=== PATIENT | male | born 1940 | race Caucasian/White ===

== ENCOUNTER → 2016-04-09 | Outpatient (CLI) | payer OTHER ==
[~2016-04-09] MED LIST: ASPI-435 PO; ASPI325T45 PO; ASPI81TA28 PO; ATEN-173 PO; B-COTAB18; CHOL400T5 PO; CLR10 PO; EZET10TA63 PO; FERRTAB18 PO; FLUT0.0529; FLUT0.15 NAE; GABA-112 PO; MISCCAP80 PO; NTRSLP4 SL; OMEG10007 PO; PLV75 PO; PRT40 PO; PSYL1POW4; azo; vitamin D
[2016-04-09 13:09] VITALS: BP 133/78; PULSE 74; TEMP 36.6; O2SAT 96
--- NOTE | 2016-04-09 15:03 | Radiation Oncology Follow-Up ---
Radiation Oncology Follow-Up Date of Visit Apr 09, 2016. (Tess Mane PA-C) Reason For Visit One-month follow-up (Tess Mane PA-C) Radiation Completion Date finished IMRT / IGRT 03-08-2016 (Tess Mane PA-C) Diagnosis (1) Prostate cancer Status: Resolved Permanent Comment: DIAGNOSIS: Prostate, adenocarcinoma, eleni 3 + 4, PSA 6.75 , cT1c, group IIA Prostate gland size: 30 cc TREATMENT: 1. Initiation of Hormonal suppression, Lupron 22.5 mg 11/08/2015 2. Last Lupron 22.5 mg IM 02/29/2016 3. Status post completion of IMRT/IGRT 03/08/2016 received 8100 cGy Last Edited By: Tess Mane on Apr 09, 2016 15:18 (Tess Mane PA-C) History of Present Illness Mr. Singletary is a 75-year-old gentleman who was recently diagnosed with prostate cancer. His PSA has slowly risen over the last several years: 4.78 - 06/29/2012 , 6.51 - 05/19/2013, 6.75 - 06/16/2015. He was referred from his primary care physician to Dr. Marlena Finch. Dr. Finch discuss treatment options and recommended transrectal ultrasound-guided biopsy of the prostate. He underwent a transrectal ultrasound guided biopsy on 09/24/2017 which revealed a 30 cc prostate gland. Pathology revealed prostate adenocarcinoma in 6/13 cores with Eleni 3+4 disease. No perineural invasion was identified. Dr. Finch to discuss treatment options with the patient and we are now seeing the patient in consultation to discuss the role of radiation therapy. Currently, the patient is doing relatively well overall. He does have significant urinary obstructive symptoms and his IPSS score is 19/35. His EPIC QOL score is 5/60. He states he is not sexually active currently. He denies any history of TURP. He denies any history of rectal hemorrhoids. He denies any history of inflammatory bowel disease. He had gold fiducial markers placed. He underwent IMRT/IGRT. This was completed 03/08/2016. He received 8100 cGy. (Tess Mane PA-C) Interim History He's been doing well over this past month. He continues to have urinary symptoms. He feels that his urinary status is similar his usual baseline. He gave a high AUA score 32. He completed an expected prostate cancer index composite for clinical practice and gave a score of 3 of 12 and urinary incontinence symptoms. He gave a score of 8 of 12 and urinary irritation symptoms. He gave a score of one of 12 and bowel symptoms. He gave a score 8 of 12 and sexual symptoms. He gave a score of 212 and hormonal vitality symptoms. His total was 22 of 60. He has continued on Azo since the completion of treatment. He is no longer having dysuria or pain with urination. We discussed discontinuing the Azo. He completed 2 Lupron injections. These were 22.5 mg. He feels this has increased his appetite and therefore he has gained weight. He has had issues with neuropathy in his legs. This is being followed by his primary care physician. He is trying different supplements to help the discomfort especially of his right leg. He is planning on seeing Dr. Finch in July. (Tess Mane PA-C) Allergies Coded Allergies: No Known Allergies (Unverified , 12/01/15) Home Medications Scheduled Atenolol (Tenormin), 12.5 MG PO QPM B-Complex Vitamins (Vitamin B Complex), DAILY Ezetimibe (Zetia), 10 MG PO 3XWK Fish Oil ([place]-3), 2 CAP PO QAM Fluticasone Propionate (Nasal) (Flonase), 2 SPRAYS NA QAM Iron-Vitamin C (Vitron-C), 1 TAB PO DAILY Loratadine (Claritin), 10 MG PO DAILY Probiotic Product (Probiotic), 2 CAP PO DAILY [azo], 1 CAP BID [vitamin D], 1,600 UNITS DAILY Scheduled PRN Aspirin (Aspirin), 650 MG PO Q4 PRN for Moderate Pain Review of Systems Gastrointestinal: Symptoms: WNL Oral: Symptoms: No Problems Respiratory: Symptoms: WNL Urinary: Symptoms: Nocturia Comments: nocturia times 1-2, urgency, trouble starting stream Skin: Other Skin Symptoms: "itchy areas legs in the winter " (Tess Mane PA-C) Physical Exam Vital Signs Date Time Temp Pulse Resp B/P Pulse Ox O2 Delivery O2 Flow Rate FiO2 04/09/16 13:09 36.6 74 16 133/78 96 Pain: Pain Onset: February 2016 Side: Right Patient Pain Scale: 0 - 10 Initial Pain Intensity: 0.0 Pain Description: Dull, Aching Additional Comments: gets worse at times General Appearance: no apparent distress Eyes: normal inspection, EOMI ENT: normal ENT inspection, hearing grossly normal Respiratory/Chest: lungs clear, no respiratory distress, no accessory muscle use Cardiovascular: regular rate, rhythm, no gallop, no murmur Extremities: no pedal edema Neurologic/Psychiatric: no motor/sensory deficits, alert, normal mood/affect Skin: warm/dry Lymphatic: no adenopathy (Tess Mane PA-C) Laboratory Studies Test 01/29/16 18:20 Blood Urea Nitrogen 16 mg/dl (7-18) Creatinine 0.84 mg/dl (0.60-1.40) Estimated GFR () 98.6 Estimated GFR (Non- 85.1 (Tess Mane PA-C) Assessment & Plan Plan: Patient is also seen today by Dr. Jones. We discussed stopping the AZO. He is no longer having urinary discomfort or bladder pressure. He does have increased appetite and weight gain. We reviewed that this is due to the hormone suppression. This will continue until the medication is out of his system. He had the last injection on 02/29/2016. He has neuropathy which is being followed by his primary care physician. We discussed follow-up PSA. He wished to have this evaluated at his next visit with Dr. Finch. He is going to see her in July. We asked him to return to our office in 6 months. He may call if he has the questions or concerns in the interim. (Tess Mane PA-C) I agree with note created by Tess Mane PA-C. I reviewed the patient's chart and information with her. I have examined and evaluated the patient. I reviewed relevant clinical information and answered the patient's and/or family' s questions. (Veeral. Jones MD) Total Time In Follow-Up I spent 20 minutes speaking to the patient performing examination. I spent 15 minutes reviewing information in completing this note. (Tess Mane PA-C) I spent 15 minutes examining and counseling the patient. (Veeral. Jones MD) Copy To Patricia Paez M.D.; Marlena Finch .,
== END | disposition home or self-care (01) ==
LOC: C.ONC 13:05
PROVIDERS: ATTEND Radiology Radiation Oncology
DX: Z08 Encounter for follow-up examination after completed treatment for malignant neoplasm (principal); Z92.3 Personal history of irradiation; Z85.46 Personal history of malignant neoplasm of prostate

== ENCOUNTER 2016-07-05 10:55 | Observation (INO) | payer OTHER ==
[~2016-07-05] VITALS: Ht 175.3 cm; Wt 69.0 kg
[2016-07-05] VITALS (7 sets, daily range): BP systolic 114–152; BP diastolic 55–77; PULSE 50–66; TEMP 36.5–37; O2SAT 94–97; Ht 175.3 cm; Wt 69.0 kg
[~2016-07-05 10:55] MED LIST changes: -ASPI-435 PO; -ASPI81TA28 PO; -CHOL400T5 PO; -FLUT0.15 NAE; -GABA-112 PO; -NTRSLP4 SL; -PLV75 PO; -PRT40 PO; -PSYL1POW4
[2016-07-05] MEDS ORDERED: NITROGLYCERIN OINT 2% 1GM PACKET EXT STA (11:31)
[2016-07-05] MEDS ORDERED: CHOL400T5 PO (11:31)
[2016-07-05] MEDS ORDERED: FLUT0.15 NAE (11:31)
[2016-07-05] MEDS ORDERED: SODIUM CHLORIDE 0.9% 1000ML 500 ML IV STA (11:31)
[2016-07-05] MEDS ORDERED: ASPI81TA28 PO (11:31)
[2016-07-05] MEDS ORDERED: GABA-112 PO (11:31)
[2016-07-05 11:51] LABS: HEMATOCRIT 37.6 % (42-52); MEAN CELL VOLUME 91.9 fL (80-100); MEAN CORPUSCULAR HGB CONC 35.9 g/dl (32-36); MEAN PLATELET VOLUME 8.4 fL (7.4-10.4); PLATELET COUNT 145 K/uL (130-400); RED BLOOD COUNT 4.09 M/uL (4.7-6.1); WHITE BLOOD COUNT 3.09 K/uL (4.8-10.8)
[2016-07-05 12:00] LABS: PROTHROMBIN TIME (PATIENT) 10.5 SECONDS (9.0-12.0)
--- NOTE | 2016-07-05 12:11 | DIAGNOSTIC IMAGING REPORT ---
CHEST ONE VIEW PORTABLE CLINICAL HISTORY: Atypical chest pain COMPARISON STUDY: 11/28/2015 FINDINGS: There are postsurgical changes of a midline sternotomy. The heart is the upper limits of normal in size. There is no failure. There is no focal pulmonary consolidation. No pleural effusions are visualized.[ IMPRESSION: No active disease in the chest. Electronically signed by: Edgar Mahoney M.D. 07/05/2016 12:09 PM Dictated Date/Time: 07/05/2016 12:09 PM
[2016-07-05 12:15] LABS: BUN/CREATININE RATIO 17.7 (10-20); CALCIUM 8.7 mg/dl (8.5-10.1); CREATININE 0.87 mg/dl (0.60-1.40); POTASSIUM 4.3 mmol/L (3.5-5.1)
[2016-07-05 12:24] LABS: ALB/GLOB RATIO 1.1 (0.9-2)
--- NOTE | 2016-07-05 12:29 | EMERGENCY ROOM VISIT NOTE ---
History Report prepared by Clau: Merly Gomez Under the Supervision of: Dr. Michael To M.D. First contact with patient: 11:26 Chief Complaint: CARDIAC ASSESSMENT Stated Complaint: BURNING IN BACK OF THROAT,BURNING IN BACK OF JAWS Nursing Triage Summary: c/o burning in chest since friday for the past 6 days and the burning goes into his jaw bilaterally no SOB got worse today on his way to work History of Present Illness The patient is a 76 year old male who presents to the Emergency Room with complaints of intermittent burning in his chest starting one week ago. He rates his discomfort as a 4/10 in severity. One week ago he was at a wedding in [place]. On the drive home he began to experience this burning in his chest for the duration of the [address]. He initially attributed his pain to anxiety and excitement from the wedding. He presents to the ED today after the burning persists and spreads into the sides of his head around his ears. He reports nothing that improves or worsens his symptoms. He denies any SOB or nausea. He has some diaphoresis which he attributes to his medications. He had a triple bypass in 2003. He had a stress test several years ago which was normal. He does not have Nitro at home. He has had reflux intermittently, but this pain feels different. He had been taking baby aspirin everyday. He has been taking ibuprofen frequently for his restless leg syndrome. Source of History: patient Onset: 1 week ago Position: chest Symptom Intensity: 4/10 Quality: burning Timing: intermittent Associated Symptoms: + diaphoresis, No SOB, No nausea Note: Pt reports pain in the sides of his head around the ears. Review of Systems See HPI for pertinent positives & negatives. A total of 10 systems reviewed and were otherwise negative. Past Medical & Surgical Medical Problems: (1) CAD (coronary artery disease) (2) CVA (cerebral vascular accident) (3) Dyslipidemia (4) ESBL (extended spectrum beta-lactamase) producing bacteria infection (5) IBS (irritable bowel syndrome) (6) Prostate cancer (7) Statin intolerance (8) UTI (urinary tract infection) Surgical Problems: (1) History of cholecystectomy (2) History of coronary artery bypass graft x 3 (3) S/p seed implant to prostate (4) Stented coronary artery Family History Diabetes mellitus FH: CAD (coronary artery disease) MOTHER FHx: brain cancer FATHER Hypertension Kidney stones Social History Smoking Status: Current Some Day Smoker Alcohol Use: occasionally Drug Use: none Marital Status: single Housing Status: lives alone Occupation Status: employed Current/Historical Medications Scheduled Aspirin (Aspirin Ec), 81 MG PO DAILY Atenolol (Tenormin), 12.5 MG PO QPM Cholecalciferol (Vitamin D), 1 TAB PO DAILY Ezetimibe (Zetia), 10 MG PO 3XWK Fish Oil ([place]-3), 2 CAP PO QAM Fluticasone Propionate (Nasal) (Flonase Allergy Relief), 2 SPRAYS CHRISTINE QAM Gabapentin (Neurontin), 200 MG PO HS Loratadine (Claritin), 10 MG PO DAILY Probiotic Product (Probiotic), 2 CAP PO DAILY Allergies Coded Allergies: No Known Allergies (Unverified , 12/01/15) Physical Exam Vital Signs Date Time Temp Pulse Resp B/P Pulse Ox O2 Delivery O2 Flow Rate FiO2 07/05/16 14:09 59 18 150/84 95 Room Air 07/05/16 12:54 57 18 149/82 97 Room Air 07/05/16 12:45 97 Room Air 07/05/16 12:29 58 18 149/77 96 Room Air 07/05/16 12:01 62 07/05/16 11:48 60 18 137/91 96 Room Air 07/05/16 11:35 97 Room Air 07/05/16 11:16 97 Room Air 07/05/16 11:02 36.6 68 20 168/81 97 Physical Exam GENERAL: Patient is in no acute distress. HEENT: No acute trauma, normocephalic atraumatic, mucous membranes moist, no nasal congestion, no scleral icterus. NECK: No stridor, no adenopathy, no meningismus, trachea is midline. LUNGS: Clear to auscultation bilaterally, no wheeze, no rhonchi, breath sounds equal. HEART: Without murmurs gallops or rubs, regular rate and rhythm. ABDOMEN: Soft, nontender, bowel sounds positive, no hernias, no peritonitis. EXTREMITIES: No cyanosis or edema, full range of motion of all the joints without pain or difficulty, no signs for acute trauma. NEUROLOGIC: Oriented x 3, no acute motor or sensory deficits, no focal weakness. SKIN: No rash, no jaundice, no diaphoresis. Medical Decision & Procedures ER Provider Diagnostic Interpretation: X-ray results as stated below per interpretation by me and the radiologist: CHEST ONE VIEW PORTABLE CLINICAL HISTORY: Atypical chest pain COMPARISON STUDY: 11/28/2015 FINDINGS: There are postsurgical changes of a midline sternotomy. The heart is the upper limits of normal in size. There is no failure. There is no focal pulmonary consolidation. No pleural effusions are visualized.[ IMPRESSION: No active disease in the chest. Electronically signed by: Edgar Mahoney M.D. 07/05/2016 12:09 PM Dictated Date/Time: 07/05/2016 12:09 PM Laboratory Results 07/05/16 11:39 07/05/16 11:39 Test 07/05/16 11:39 Red Blood Count 4.09 M/uL (4.7-6.1) Mean Corpuscular Volume 91.9 fL (80-100) Mean Corpuscular Hemoglobin 33.0 pg (25-34) Mean Corpuscular Hemoglobin Concent 35.9 g/dl (32-36) RDW Standard Deviation 44.5 fL (36.4-46.3) RDW Coefficient of Variation 13.2 % (11.5-14.5) Mean Platelet Volume 8.4 fL (7.4-10.4) Prothrombin Time 10.5 SECONDS (9.0-12.0) Prothromb Time International Ratio 1.0 (0.9-1.1) Activated Partial Thromboplast Time 25.5 SECONDS (21.0-31.0) Partial Thromboplastin Ratio 1.0 Anion Gap 5.0 mmol/L (3-11) Est Creatinine Clear Calc Drug Dose 64.1 ml/min Estimated GFR () 96.5 Estimated GFR (Non- 83.2 BUN/Creatinine Ratio 17.7 (10-20) Calcium Level 8.7 mg/dl (8.5-10.1) Total Bilirubin 1.0 mg/dl (0.2-1) Aspartate Amino Transf (AST/SGOT) 25 U/L (15-37) Alanine Aminotransferase (ALT/SGPT) 27 U/L (12-78) Alkaline Phosphatase 68 U/L (45-117) Troponin I 0.064 ng/ml (0-0.045) Total Protein 6.7 gm/dl (6.4-8.2) Albumin 3.5 gm/dl (3.4-5.0) Globulin 3.2 gm/dl (2.5-4.0) Albumin/Globulin Ratio 1.1 (0.9-2) Lipase 209 U/L (73-393) Laboratory results reviewed by me. Medications Administered Medications (Trade) Dose Ordered Sig/Roberto Route Start Time Stop Time Status Last Admin Dose Admin Sodium Chloride (Nss 1000ml) 500 ml @ 999 mls/hr Q31M STAT IV 07/05/16 11:31 07/05/16 12:01 DC 07/05/16 11:31 999 MLS/HR Nitroglycerin (Nitroglycerin 2% Oint) 0.5 inch NOW STAT EXT 07/05/16 11:31 07/05/16 11:35 DC 07/05/16 11:49 0.5 INCH ECG Indication: chest pain Rate (beats per minute): 61 Rhythm: normal sinus Findings: no acute ischemic change, no ectopy ED Course 1129: The patient was evaluated in room C4. A complete history and physical exam was performed. 1131: Nitroglycerin 0.5 inch EXT, NSS 500 ml @ 999 mls/hr IV. 1233: I discussed the patient's case with Karolina Smart PA-C [facility] hospitalist service. The patient will be evaluated for further management. 1235: Upon reexamination the patient is resting comfortably. I discussed results and treatment plan with the patient. He verbalizes agreement and understanding. The patient will be evaluated for further management. Medical Decision Differential diagnoses: angina, AR, reflux, aortic disease, PE, anemia, electrolyte imbalance. There is no leukocytosis or concerning anemia. No significant electrolyte abnormality, kidney failure, hepatitis or coagulopathy. EKG shows a normal sinus rhythm, no acute ischemia. Cardiac enzyme testing times one does show a slight elevation to the troponin-this could be consistent with cardiac injury/ strain. Chest x-ray shows no pneumonia, mediastinal widening or pneumothorax. The patient was given nitro paste. He does take daily aspirin so no additional aspirin was given. He was given a small amount of IV saline. With the patient's description of pain, his past cardiac history, the troponin elevation, admission/observation is warranted. I spoke to the patient and case management. The on-call hospitalist was consulted. Consults Time Called: 1224 Consulting Physician: [facility] Returned Call: [phone] Discussed the patient's case. The patient will be evaluated for further management. Impression Primary Impression: Precordial chest pain Additional Impression: Elevated troponin Scribe Attestation The scribe's documentation has been prepared under my direction and personally reviewed by me in its entirety. I confirm that the note above accurately reflects all work, treatment, procedures, and medical decision making performed by me. Departure Information Dispostion Being Evaluated By Hospitalist Referrals Patricia Paez M.D. (PCP) Patient Instructions [facility] Problem Qualifiers
[2016-07-05] MEDS ORDERED: ONDANSETRON INJ 2 MG/ML 2 ML VIAL IV PRN (13:30)
--- NOTE | 2016-07-05 14:38 | History and Physical ---
History & Physical Date & Time of Service: Jul 05, 2016 at 14:29 Chief Complaint: Burning In Back Of Throat,Burning In Back Of Jaws Primary Care Physician: Patricia Paez M.D. History of Present Illness Source: patient, clinic records, hospital records Patient seen and examined. 76 year old male with PMHx of CAD s/p CABG, prostate CA presents to the ED complaining of chest pain x 1 week. Patient reports that on Friday he developed this burning in his upper chest with radiation into the throat and jaw. He states it lasted for about three hours. He states since then it has been coming and going randomly and lasting a variable amount of time. He states that it is not associated with exertion. He denies associated symptoms including fevers, chills, URI symptoms, palpitations, SOB, nausea, vomiting, diarrhea, dysuria, calf pain and edema. States this is different than any acid reflux he has ever had. In the ED VS are stable, EKG is unchanged, CXR is negative. Troponin is 0.06. He received nitropaste and is resting comfortably. He will be observed for further workup and treatment. Past Medical/Surgical History Medical Problems: (1) CAD (coronary artery disease) Permanent Comment: s/p CABG x 3 (2003) and stent (1989) Status: Chronic (2) Dyslipidemia Status: Chronic (3) IBS (irritable bowel syndrome) Status: Chronic (4) Prostate cancer Permanent Comment: DIAGNOSIS: Prostate, adenocarcinoma, eleni 3 + 4, PSA 6.75 , cT1c, group IIA Prostate gland size: 30 cc TREATMENT: 1. Initiation of Hormonal suppression, Lupron 22.5 mg 11/08/2015 2. Last Lupron 22.5 mg IM 02/29/2016 3. Status post completion of IMRT/IGRT 03/08/2016 received 8100 cGy Status: Resolved (5) Statin intolerance Status: Chronic Surgical Problems: (1) History of cholecystectomy Permanent Comment: 06/21/13 Dr. Cooley at [facility] Status: Resolved (2) History of coronary artery bypass graft x 3 Permanent Comment: 11/2003 Status: Resolved (3) S/p seed implant to prostate Status: Chronic (4) Stented coronary artery Permanent Comment: 1989 Status: Resolved Family History Diabetes mellitus FH: CAD (coronary artery disease) MOTHER FHx: brain cancer FATHER Hypertension Kidney stones Social History Smoking Status: Never Smoker Alcohol Use: none Drug Use: none Marital Status: single Housing status: lives alone Occupational Status: employed Multi-Drug Resistant Organisms History of MDRO: No Allergies Coded Allergies: No Known Allergies (Unverified , 12/01/15) Home Medications Scheduled Aspirin (Aspirin Ec), 81 MG PO DAILY Atenolol (Tenormin), 12.5 MG PO QPM Cholecalciferol (Vitamin D), 1 TAB PO DAILY Ezetimibe (Zetia), 10 MG PO 3XWK Fish Oil ([place]-3), 2 CAP PO QAM Fluticasone Propionate (Nasal) (Flonase Allergy Relief), 2 SPRAYS CHRISTINE QAM Gabapentin (Neurontin), 200 MG PO HS Loratadine (Claritin), 10 MG PO DAILY Probiotic Product (Probiotic), 2 CAP PO DAILY Review of Systems See above for pertinent positives & negatives. A total of 10 systems reviewed and were otherwise negative. Physical Exam Vital Signs Date Time Temp Pulse Resp B/P Pulse Ox O2 Delivery O2 Flow Rate FiO2 07/05/16 14:09 59 18 150/84 95 Room Air 07/05/16 12:54 57 18 149/82 97 Room Air 07/05/16 12:45 97 Room Air 07/05/16 12:29 58 18 149/77 96 Room Air 07/05/16 12:01 62 07/05/16 11:48 60 18 137/91 96 Room Air 07/05/16 11:35 97 Room Air 07/05/16 11:16 97 Room Air 07/05/16 11:02 36.6 68 20 168/81 97 General Appearance: + pertinent finding (Very pleasant WD/WN 76 year old male lying in bed in NAD ) Head: normocephalic, atraumatic Eyes: PERRL, EOMI, sclerae normal ENT: hearing grossly normal, pharynx normal Neck: supple, no JVD Respiratory/Chest: chest non-tender, lungs clear, normal breath sounds, no respiratory distress, no accessory muscle use Cardiovascular: regular rate, rhythm, no edema, no gallop, no JVD, no murmur, normal peripheral pulses Abdomen/GI: normal bowel sounds, non tender, soft Back: normal inspection, no muscle spasm Extremities/Musculoskelatal: no calf tenderness, normal capillary refill, no pedal edema Neurologic/Psych: no motor/sensory deficits, alert, oriented x 3 Skin: normal color, warm/dry, no rash Lymphatic: no adenopathy Diagnostics Laboratory Results Results Past 24 Hours Test 07/05/16 11:39 Range/Units White Blood Count 3.09 4.8-10.8 K/uL Red Blood Count 4.09 4.7-6.1 M/uL Hemoglobin 13.5 14.0-18.0 g/dL Hematocrit 37.6 42-52 % Mean Corpuscular Volume 91.9 80-100 fL Mean Corpuscular Hemoglobin 33.0 25-34 pg Mean Corpuscular Hemoglobin Concent 35.9 32-36 g/dl RDW Standard Deviation 44.5 36.4-46.3 fL RDW Coefficient of Variation 13.2 11.5-14.5 % Platelet Count 145 130-400 K/uL Mean Platelet Volume 8.4 7.4-10.4 fL Prothrombin Time 10.5 9.0-12.0 SECONDS Prothromb Time International Ratio 1.0 0.9-1.1 Activated Partial Thromboplast Time 25.5 21.0-31.0 SECONDS Partial Thromboplastin Ratio 1.0 Sodium Level 143 136-145 mmol/L Potassium Level 4.3 3.5-5.1 mmol/L Chloride Level 109 98-107 mmol/L Carbon Dioxide Level 29 21-32 mmol/L Anion Gap 5.0 3-11 mmol/L Blood Urea Nitrogen 15 7-18 mg/dl Creatinine 0.87 0.60-1.40 mg/dl Est Creatinine Clear Calc Drug Dose 64.1 ml/min Estimated GFR () 96.5 Estimated GFR (Non- 83.2 BUN/Creatinine Ratio 17.7 10-20 Random Glucose 81 70-99 mg/dl Calcium Level 8.7 8.5-10.1 mg/dl Total Bilirubin 1.0 0.2-1 mg/dl Aspartate Amino Transf (AST/SGOT) 25 15-37 U/L Alanine Aminotransferase (ALT/SGPT) 27 12-78 U/L Alkaline Phosphatase 68 45-117 U/L Troponin I 0.064 0-0.045 ng/ml Total Protein 6.7 6.4-8.2 gm/dl Albumin 3.5 3.4-5.0 gm/dl Globulin 3.2 2.5-4.0 gm/dl Albumin/Globulin Ratio 1.1 0.9-2 Lipase 209 73-393 U/L Diagnostic Radiology CXR Per radiologist read: IMPRESSION: No active disease in the chest. EKG NSR 61 BPM, QTc 416 Impression Assessment and Plan 76 year old male presents to the ED with a week of chest burning. EKG nonischemic. Troponin 0.06 CHEST PAIN R/O ACS -Observation in tele -Troponin 0.06 -Risk factors: CAD, Age -Serial Ines and EKGs -Fasting lipid panel in AM -Echo pending to r/o heart wall abnormality -ASA, BB daily -continue Nitropaste -Has h/o statin intolerance -Cardiology consult for further management - Spoke with Dr. Briceño, did not recommend heparin gtt at this time, input appreciated. Follows with Dr. Whitfield as outpatient -[facility] diet npo aftermidnight -TSH, Mg pending -CBC, PRP, Mg daily -VSS stable, monitor in tele H/O PROSTATE CA -s/p radiation RESTLESS LEG SYNDROME -continue Gabapentin DVT PROPHYLAXIS: Sq heparin CODE STATUS: FULL CODE DISPO:observation pending further workup Patient seen in collaboration with Dr. Sal I have seen and examined the patient and have discussed the case with the provider above. We discussed the TRS was 4-5 (age>65, known CAD, ASA use in past 7 days, >2 episodes of pain in 24 hours, and +troponin. Cardiology added heparin drip after second troponin came back slightly elevated. Pt with no associated symptoms aside from sweating but he is also taking Lupron injections for prostate cancer. Chest pain came back on the nitro paste, patient ate dinner and subsequent GI cocktail took pain to a zero. Pain is centered in chest and radiates up into jaw area. Vitals are stable, physical exam as above. TTE reveals no acute wall motion abnormality and EKG is non-ischemic. CXR also clear. Agree with stated assessment and plan above with stated changes discussed here. Cont to trend troponin overnight and monitor on telemetry. Lucy Sal, DO Level of Care Telemetry Advanced Directives Existing Living Will: No Existing Power of Whiskey Filterer: No Resuscitation Status FULL RESUSCITATION VTE Prophylaxis VTE Risk Assessment Done? Y/N: Yes Risk Level: Moderate Given or contraindicated: Other Anticoagulation
[2016-07-05] MEDS ORDERED: ASPIRIN 81 MG CHEW PO ONE (15:45)
[2016-07-05] MEDS ORDERED: GI COCKTAIL PO STA (16:06)
--- NOTE | 2016-07-05 16:36 | CARDIOLOGY CONSULTATION ---
DATE OF CONSULTATION: 07/05/2016 REFERRING PROVIDER: Karolina Smart PA-C. REASON FOR CONSULTATION: Chest burning. HISTORY OF PRESENT ILLNESS: Mr. Singletary is a 76-year-old gentleman with a history of coronary artery disease and coronary artery bypass grafting in 2003 with a BUENO to the LAD and saphenous vein graft to diagonal as well as saphenous vein graft to obtuse marginal, sequentially. He presents to the Emergency Department with episodes of chest burning. The patient attended a wedding last weekend. After the wedding, he noted an episode of chest burning which lasted approximately 3 hours. Over the past 7 days, he has had chest burning on a daily basis. The discomfort is not associated with exertion. It does not improve with rest. At times, the burning becomes moderate in severity. This morning, the patient was on his way to work when he felt the discomfort recur. He decided to come to the Emergency Department. His initial ECG is unremarkable. His troponin is mildly elevated at 0.06. Telemetry demonstrates sinus rhythm. His resting echo is pending at this time. Currently, the patient is resting comfortably. After nitro paste, feels his chest burning resolved; however, has returned to a mild extent. There was no associated shortness of breath or palpitations. No lightheadedness, dizziness, syncope or near syncope. Denies orthopnea or PND. There is a chart history of class 1-2 angina. The patient works in his garden as well as around his home. In general, he denies any restrictions to his daily activity. His discomfort did not restrict his activity recently. Offers no other complaints at this time. REVIEW OF SYSTEMS: The pertinent positive noted above, a comprehensive 10-system review is otherwise negative. PAST MEDICAL HISTORY: 1. CAD. 2. Dyslipidemia with statin intolerance. 3. Irritable bowel syndrome. 4. GERD. 5. Prostate cancer. PAST SURGICAL HISTORY: 1. Coronary artery bypass grafting x3, as noted above. 2. Cholecystectomy. 3. Prostate seed implantation. FAMILY HISTORY: Father with coronary artery disease, mother had brain cancer. SOCIAL HISTORY: Lifelong nonsmoker. He is single and lives alone. ALLERGIES: No known drug allergies. HOME MEDICATIONS: 1. Aspirin 81 mg daily. 2. Atenolol 12.5 mg at bedtime. 3. Zetia 10 mg 3 days per week. 4. Fish oil 2 capsules in the a.m. 5. Neurontin 200 mg at bedtime. 6. Claritin 10 mg daily. DATA: ECG on admission is normal sinus rhythm with nonspecific ST abnormality. LABORATORY DATA: Initial troponin 0.06. Sodium 143, potassium 4.3, chloride 101, CO2 is 29, BUN is 15, creatinine 0.87. Lipase is 209. Total bilirubin 1.0. White blood cell count 3.09, hemoglobin is 13.5, platelet count is 145. INR is 1.0. Chest x-ray on admission: No active disease. PHYSICAL EXAMINATION: VITAL SIGNS: Temperature is 37 degrees centigrade, pulse 66 beats per minute and regular, respiratory rate 16 breaths per minute, blood pressure 152/77 and SAO2 96% on room air. GENERAL: NAD, awake, alert, oriented x3. THROAT: His mucous membranes are moist. No scleral icterus. Conjunctivae are pink. NECK: Supple. There is no JVD, no HJR. No carotid bruit. HEART: Regular with a normal S1 and S2. There is no murmur, rub, or gallop appreciated. LUNGS: Clear without rales, rhonchi or wheeze. ABDOMEN: Soft and nontender. No rebound or guarding. Normal bowel sounds. EXTREMITIES: Warm and dry without clubbing, cyanosis, or edema. NEUROLOGIC: Demonstrates no focal deficit. Cranial nerves are grossly intact. PSYCHIATRIC: Normal mood and appropriate affect. FINAL IMPRESSION: 1. A 76-year-old gentleman presents with intermittent chest burning. initial troponin is mildly elevated and concerning for early ACS. There are no ischemic ECG changes. 2. Chronic coronary artery disease, history of coronary artery bypass grafting times 3 in 2003 as described above. 3. Dyslipidemia, statin intolerance. 4. Chart history stable class 1-2 angina pectoris. PLAN AND RECOMMENDATIONS: Repeat troponin will be performed x1 now. I have ordered a "GI cocktail" which includes viscous lidocaine and Maalox, to assess for relief of symptoms. Nitro paste has been applied. Other cardiovascular medications including aspirin and atenolol will be continued as previously ordered. Consider addition of intravenous heparin pending review of repeat troponins. A bedside echocardiogram has been ordered. I have discussed with the cardiopulmonary lab who will perform the study prior to 5:00 p.m. today. Further recommendations pending review. The patient will remain on telemetry monitoring during hospitalization. Dr. Whitfield will assume cardiology service in the a.m. Addendum: Repeat troponin trending upward. No regional wall motion abnormality on echo. Patient is pain free currently. Will initiate IV heparin. Repeat ECG with and recurrent chest discomfort. Sl nitro prn. Repeat troponin in 6 hours. Woody Briceño DO, [facility]
[2016-07-05] MEDS ORDERED: IV FLUIDS COMPLETED PRN (16:45)
--- NOTE | 2016-07-05 17:17 | ECHOCARDIOGRAM REPORT ---
*NOTICE TO RECEIVING REPUBLICAN AGENCY This information is strictly Confidential and protected under [place] law. [place] law prohibits you from making any further disclosure of this information unless further disclosure is expressly permitted by the written consent of the person to whom it pertains or is authorized by law. A general authorization for the release of medical or other information is not sufficient for this purpose. Hospital accepts no responsibility if the information is made available to any other person, INCLUDING THE PATIENT. Interpretation Summary * Name: MARJAN HORTON Study Date: 07/05/2016 04:26 PM BP: 152/77 mmHg * Patient Location: [facility] HR: 66 * : 1940 (M/d/yyyy) Gender: Male Height: 66 in * Age: 76 yrs Ethnicity: [place] Weight: 151 lb * Ordering Physician: Karolina Smart PA-C * Performed By: Sarah Carrera RDCS * * Reason For Study: Chest pain * BSA: 1.8 m2 * The study was technically adequate. * There is no comparison study available. * -- Conclusions -- * Left ventricular systolic function is normal. * Ejection Fraction = 60-65%. * Aortic valve sclerosis mild, without significant aortic valvular stenosis. * There is mild mitral regurgitation. * There is mild tricuspid regurgitation. * Diastolic dysfunction, Grade II (pseudonormalization pattern). Procedure Details * A complete two-dimensional transthoracic echocardiogram was performed (2D, M-mode, Doppler and color flow Doppler). Left Ventricle * The left ventricle is normal in size. * There is no thrombus. * There is normal left ventricular wall thickness. * Ejection Fraction = 60-65%. * Left ventricular systolic function is normal. * The left ventricular wall motion is normal. Right Ventricle * The right ventricle is normal size. * The right ventricular systolic function is normal as assessed by tricuspid annular plane systolic excursion (TAPSE) (normal >1.5 cm). Atria * The left atrial size is normal. * Right atrial size is normal. * There is no evidence of atrial septal defect, but resolution does not allow assessment for a patent foramen ovale. Mitral Valve * There is mild mitral annular calcification. * There is no mitral valve stenosis. * There is mild mitral regurgitation. Tricuspid Valve * The tricuspid valve is normal. * There is no tricuspid stenosis. * There is mild tricuspid regurgitation. Aortic Valve * The aortic valve is trileaflet. * Aortic valve sclerosis mild, without significant aortic valvular stenosis. * Aortic stenosis is absent. * There is no significant aortic regurgitation. Pulmonic Valve * The pulmonary valve is not well seen, but the Doppler examination is normal without significant regurgitation or stenosis. Great Vessels * The aortic root is normal size. Pericardium/Pleural * There is no pericardial effusion. Great Vessels * Normal inferior vena cava diameter and respiratory variation suggests normal central venous pressure. Left Ventricular Diastolic Function * Diastolic dysfunction, Grade II (pseudonormalization pattern). MMode 2D Measurements and Calculations IVSd 0.82 cm LVIDd 4.0 cm LVIDs 2.7 cm LVPWd 1.1 cm IVS/LVPW 0.72 FS 32.2 % EDV(Teich) 68.4 ml ESV(Teich) 26.7 ml EF(Teich) 61.0 % EDV(cubed) 62.2 ml ESV(cubed) 19.4 ml EF(cubed) 68.9 % LV mass(C)d 120.9 grams LV mass(C)dI 68.1 grams/m\S\2 SV(Teich) 41.8 ml SI(Teich) 23.5 ml/m\S\2 SV(cubed) 42.8 ml SI(cubed) 24.1 ml/m\S\2 Ao root diam 2.8 cm Ao root area 6.0 cm\S\2 ACS 1.3 cm LA dimension 2.3 cm asc Aorta Diam 2.3 cm LA/Ao 0.84 LVAd ap4 24.4 cm\S\2 LVLd ap4 7.1 cm EDV(MOD-sp4) 68.9 ml EDV(sp4-el) 71.4 ml LVAs ap4 14.0 cm\S\2 LVLs ap4 6.0 cm ESV(MOD-sp4) 27.5 ml ESV(sp4-el) 27.6 ml EF(MOD-sp4) 60.0 % EF(sp4-el) 61.3 % LVAd ap2 21.2 cm\S\2 LVLd ap2 6.3 cm EDV(MOD-sp2) 58.2 ml EDV(sp2-el) 61.1 ml LVAs ap2 11.5 cm\S\2 LVLs ap2 5.4 cm ESV(MOD-sp2) 20.7 ml ESV(sp2-el) 21.0 ml EF(MOD-sp2) 64.4 % EF(sp2-el) 65.7 % LVLd %diff -13.09 % EDV(MOD-bp) 65.7 ml LVLs %diff -12.17 % ESV(MOD-bp) 24.2 ml EF(MOD-bp) 63.2 % SV(MOD-sp4) 41.3 ml SI(MOD-sp4) 23.3 ml/m\S\2 SV(MOD-sp2) 37.5 ml SI(MOD-sp2) 21.1 ml/m\S\2 SV(MOD-bp) 41.5 ml SI(MOD-bp) 23.4 ml/m\S\2 SV(sp4-el) 43.8 ml SI(sp4-el) 24.7 ml/m\S\2 SV(sp2-el) 40.1 ml SI(sp2-el) 22.6 ml/m\S\2 Doppler Measurements and Calculations MV E max jonathan 77.5 cm/sec MV A max jonathan 68.6 cm/sec MV E/A 1.1 MV dec time 0.18 sec Ao V2 max 159.8 cm/sec Ao max PG 10.2 mmHg Ao max PG (full) 4.7 mmHg LV V1 max PG 5.5 mmHg LV V1 max 117.5 cm/sec MR max jonathan 475.1 cm/sec MR max PG 90.3 mmHg MR mean jonathan 398.5 cm/sec MR mean PG 67.4 mmHg MR VTI 161.4 cm PA V2 max 119.4 cm/sec PA max PG 5.7 mmHg PA acc slope 357.6 cm/sec\S\2 PA acc time 0.17 sec TR max jonathan 217.1 cm/sec PA pr(Accel) 1.4 mmHg
[2016-07-05 17:23] LABS: CKMB/CK RATIO 3.4 (0-3.0)
[2016-07-05] MEDS: ALUMINUM/MAGNESIUM SUSP 18 ML, LIDOCAINE HCL 2% VISCOUS SOLN 6 ML, BARCODE IDENTIFIER 1 EA PO ONE ×2 (17:53)
[2016-07-05] MEDS: NITROGLYCERIN OINT 2% 1GM PACKET EXT SCH ×2 (18:00→23:57)
[2016-07-05 18:53] LABS: BASO % 0.7 %; BASO ABS # 0.02 K/uL (0-0.2); EOS % 4.5 %; HEMATOCRIT 34.1 % (42-52); IG% 0.4 %; LYMPH % 13.8 %; LYMPH ABS # 0.37 K/uL (1.2-3.4); MEAN CELL VOLUME 92.2 fL (80-100); MEAN CORPUSCULAR HEMOGLOBIN 33.5 pg (25-34); MEAN PLATELET VOLUME 7.9 fL (7.4-10.4); MONO % 15.6 %; PLATELET COUNT 130 K/uL (130-400); WHITE BLOOD COUNT 2.69 K/uL (4.8-10.8)
[2016-07-05 19:01] LABS: PROTHROMBIN TIME (PATIENT) 10.4 SECONDS (9.0-12.0)
[2016-07-05] MEDS ORDERED: NITROGLYCERIN 0.4 MG SL PER TAB CHARGE SL PRN (19:15)
[2016-07-05 19:18] LABS: COMPLETE YES; MEAN CORPUSCULAR HGB CONC 36.4 g/dl (32-36)
[2016-07-05] MEDS ORDERED: HEPARIN IV BOLUS 5,000 UNIT in SYRINGE 0 ML IV ONE (19:30)
[2016-07-05] MEDS: HEPARIN 25,000 UNIT/500ML D5W 500 ML IV PRN (19:43)
[2016-07-05] MEDS ORDERED: LIDODERM (LIDOCAINE) PATCH 5% TD PRN ×2 (20:00→20:30)
[2016-07-05] MEDS: GABAPENTIN 100 MG CAP PO SCH (21:28)
[2016-07-05] MEDS: LIDODERM (LIDOCAINE) PATCH 5% TD PRN (21:37)
[2016-07-05] MEDS ORDERED: HEPARIN SOD 5000 UNIT/0.5 ML CARP SQ SCH (22:00)
[2016-07-06] VITALS (10 sets, daily range): BP systolic 101–162; BP diastolic 62–83; PULSE 48–64; TEMP 36.4–36.8; O2SAT 94–97
[2016-07-06] MEDS: ACETAMINOPHEN 325 MG TAB PO PRN ×3 (00:01→23:06)
[2016-07-06 00:04] LABS: CKMB/CK RATIO 3.1 (0-3.0)
[2016-07-06 02:11] LABS: PARTIAL THROMBOPLASTIN RATIO 4.4
[2016-07-06] MEDS: HEPARIN 25,000 UNIT/500ML D5W 500 ML IV PRN ×3 (03:48→18:11)
[2016-07-06 05:31] LABS: HEMATOCRIT 35.1 % (42-52); MEAN CELL VOLUME 93.9 fL (80-100); MEAN CORPUSCULAR HEMOGLOBIN 33.4 pg (25-34); MEAN CORPUSCULAR HGB CONC 35.6 g/dl (32-36); MEAN PLATELET VOLUME 8.5 fL (7.4-10.4); PLATELET COUNT 130 K/uL (130-400); RED BLOOD COUNT 3.74 M/uL (4.7-6.1); WHITE BLOOD COUNT 3.09 K/uL (4.8-10.8)
[2016-07-06 05:51] LABS: PARTIAL THROMBOPLASTIN RATIO 2.8
[2016-07-06 05:52] LABS: BUN/CREATININE RATIO 23.2 (10-20); CALCIUM 8.3 mg/dl (8.5-10.1); CREATININE 0.76 mg/dl (0.60-1.40); MAGNESIUM 2.2 mg/dl (1.8-2.4); POTASSIUM 4.1 mmol/L (3.5-5.1)
[2016-07-06 05:56] LABS: CHOLESTEROL/HDL RATIO 2.5
[2016-07-06] MEDS: NITROGLYCERIN OINT 2% 1GM PACKET EXT SCH ×3 (06:23→18:12)
[2016-07-06] MEDS: OMEGA-3 (PURIFIED FISH OIL) 1 GM CAP PO SCH (08:16)
[2016-07-06] MEDS: LACTOBACILLUS ACIDOPHILUS (FLORANEX) TAB PO SCH (08:16)
[2016-07-06] MEDS: ASPIRIN 81 MG ECTAB PO SCH (08:16)
[2016-07-06] MEDS: LORATADINE 10 MG TAB PO SCH (08:16)
[2016-07-06] MEDS: FLUTICASONE PROPIONATE NA SPR 16 GM BTL NAE SCH (08:17)
[2016-07-06] MEDS ORDERED: ASPIRIN 81 MG ECTAB PO SCH (09:00)
[2016-07-06 10:12] LABS: PARTIAL THROMBOPLASTIN RATIO 2.8
--- NOTE | 2016-07-06 11:21 | Progress Note ---
Internal Med Progress Note Date of Service: Jul 06, 2016. Provider Documentation: SUBJECTIVE: The patient was seen and examined Has had some lower central Chest discomfort this morning No associated symptoms with it OBJECTIVE: Vital Signs-as noted below Exam: General-no distress at rest Eyes-normal ENT-normal Neck-Supple Lungs-clear to ausucltate bilaterally Heart-regular,no murmur appreciated Abdomen-Benign,no masses,bowel sound present Extremities-No edema Neuro-AAOx3 No focal sensory and or motor deficit Lab data as noted below. ASSESSMENT & PLAN: CHEST PAIN :Possible NSTEMI -Has CAD -Troponin inc easing 0.06 <0.394 <0.547 but CKMB decreasing -EKG -Sinus bradycardia ,no significant ST-T changes -Fasting lipid panel in AM -unremarkable -Echo:: * Ejection Fraction = 60-65%. * Aortic valve sclerosis mild, without significant aortic valvular stenosis. * There is mild mitral regurgitation. * There is mild tricuspid regurgitation. * Diastolic dysfunction, Grade II (pseudonormalization pattern). -ASA, BB daily -continue Nitropaste -Has h/o statin intolerance -Cardiology consulted-appreciate input -Did not get Atenolol this AM ,Due top Bradycardia H/O PROSTATE CA -s/p radiation -On Lupron RESTLESS LEG SYNDROME -continue Gabapentin DVT PROPHYLAXIS: heparin Drip CODE STATUS: FULL CODE DISPO: Awaited Vital Signs: Date Time Temp Pulse Resp B/P Pulse Ox O2 Delivery O2 Flow Rate FiO2 07/06/16 10:34 36.6 50 18 159/71 97 Room Air 07/06/16 07:45 36.4 50 17 119/66 95 Room Air 07/06/16 06:20 111/63 07/06/16 04:00 94 Room Air 07/06/16 04:00 36.7 48 20 101/62 94 Nasal Cannula 4.0 07/06/16 00:00 94 Room Air 07/05/16 23:27 36.5 50 18 114/55 94 Room Air 07/05/16 20:00 95 Room Air 07/05/16 19:27 36.7 60 20 115/67 95 Room Air 07/05/16 16:00 96 Room Air 07/05/16 15:04 37.0 66 16 152/77 96 Room Air 07/05/16 15:03 96 Room Air 07/05/16 14:09 59 18 150/84 95 Room Air 07/05/16 12:54 57 18 149/82 97 Room Air 07/05/16 12:45 97 Room Air 07/05/16 12:29 58 18 149/77 96 Room Air 07/05/16 12:01 62 07/05/16 11:48 60 18 137/91 96 Room Air 07/05/16 11:35 97 Room Air Lab Results: Results Past 24 Hours Test 07/05/16 11:39 07/05/16 16:30 07/05/16 18:45 07/05/16 23:31 Range/Units White Blood Count 3.09 2.69 4.8-10.8 K/uL Red Blood Count 4.09 3.70 4.7-6.1 M/uL Hemoglobin 13.5 12.4 14.0-18.0 g/dL Hematocrit 37.6 34.1 42-52 % Mean Corpuscular Volume 91.9 92.2 80-100 fL Mean Corpuscular Hemoglobin 33.0 33.5 25-34 pg Mean Corpuscular Hemoglobin Concent 35.9 36.4 32-36 g/dl RDW Standard Deviation 44.5 44.3 36.4-46.3 fL RDW Coefficient of Variation 13.2 13.2 11.5-14.5 % Platelet Count 145 130 130-400 K/uL Mean Platelet Volume 8.4 7.9 7.4-10.4 fL Prothrombin Time 10.5 10.4 9.0-12.0 SECONDS Prothromb Time International Ratio 1.0 1.0 0.9-1.1 Activated Partial Thromboplast Time 25.5 25.6 21.0-31.0 SECONDS Partial Thromboplastin Ratio 1.0 1.0 Sodium Level 143 136-145 mmol/L Potassium Level 4.3 3.5-5.1 mmol/L Chloride Level 109 98-107 mmol/L Carbon Dioxide Level 29 21-32 mmol/L Anion Gap 5.0 3-11 mmol/L Blood Urea Nitrogen 15 7-18 mg/dl Creatinine 0.87 0.60-1.40 mg/dl Est Creatinine Clear Calc Drug Dose 64.1 ml/min Estimated GFR () 96.5 Estimated GFR (Non- 83.2 BUN/Creatinine Ratio 17.7 10-20 Random Glucose 81 70-99 mg/dl Calcium Level 8.7 8.5-10.1 mg/dl Total Bilirubin 1.0 0.2-1 mg/dl Aspartate Amino Transf (AST/SGOT) 25 15-37 U/L Alanine Aminotransferase (ALT/SGPT) 27 12-78 U/L Alkaline Phosphatase 68 45-117 U/L Troponin I 0.064 0.394 0.547 0-0.045 ng/ml Total Protein 6.7 6.4-8.2 gm/dl Albumin 3.5 3.4-5.0 gm/dl Globulin 3.2 2.5-4.0 gm/dl Albumin/Globulin Ratio 1.1 0.9-2 Lipase 209 73-393 U/L Total Creatine Kinase 128 123 39-308 U/L Creatine Kinase MB 4.4 3.8 0.5-3.6 ng/ml Creatine Kinase MB Ratio 3.4 3.1 0-3.0 Neutrophils (%) (Auto) 65.0 % Lymphocytes (%) (Auto) 13.8 % Monocytes (%) (Auto) 15.6 % Eosinophils (%) (Auto) 4.5 % Basophils (%) (Auto) 0.7 % Neutrophils # (Auto) 1.75 1.4-6.5 K/uL Lymphocytes # (Auto) 0.37 1.2-3.4 K/uL Monocytes # (Auto) 0.42 0.11-0.59 K/uL Eosinophils # (Auto) 0.12 0-0.5 K/uL Basophils # (Auto) 0.02 0-0.2 K/uL Immature Granulocyte % (Auto) 0.4 % Immature Granulocyte # (Auto) 0.01 0.00-0.02 K/uL Test 07/06/16 01:38 07/06/16 05:08 07/06/16 09:45 Range/Units Activated Partial Thromboplast Time 113.7 72.0 73.7 21.0-31.0 SECONDS Partial Thromboplastin Ratio 4.4 2.8 2.8 White Blood Count 3.09 4.8-10.8 K/uL Red Blood Count 3.74 4.7-6.1 M/uL Hemoglobin 12.5 14.0-18.0 g/dL Hematocrit 35.1 42-52 % Mean Corpuscular Volume 93.9 80-100 fL Mean Corpuscular Hemoglobin 33.4 25-34 pg Mean Corpuscular Hemoglobin Concent 35.6 32-36 g/dl RDW Standard Deviation 45.6 36.4-46.3 fL RDW Coefficient of Variation 13.3 11.5-14.5 % Platelet Count 130 130-400 K/uL Mean Platelet Volume 8.5 7.4-10.4 fL Sodium Level 145 136-145 mmol/L Potassium Level 4.1 3.5-5.1 mmol/L Chloride Level 110 98-107 mmol/L Carbon Dioxide Level 30 21-32 mmol/L Anion Gap 5.0 3-11 mmol/L Blood Urea Nitrogen 18 7-18 mg/dl Creatinine 0.76 0.60-1.40 mg/dl Est Creatinine Clear Calc Drug Dose 73.4 ml/min Estimated GFR () 102.0 Estimated GFR (Non- 88.0 BUN/Creatinine Ratio 23.2 10-20 Random Glucose 88 70-99 mg/dl Calcium Level 8.3 8.5-10.1 mg/dl Magnesium Level 2.2 1.8-2.4 mg/dl Triglycerides Level 58 0-150 mg/dl Cholesterol Level 147 0-200 mg/dl HDL Cholesterol 60 mg/dl LDL Cholesterol, Calculated 75 mg/dl VLDL Cholesterol, Calculated 12 mg/dl Cholesterol/HDL Ratio 2.5
--- NOTE | 2016-07-06 11:47 | CARDIOLOGY PROGRESS NOTE ---
DATE: 07/06/2016 DATE: 07/06/2016. The patient seen and examined, chart, medications and telemetry reviewed. SUBJECTIVE: The patient has had some mild ache in the chest this morning but notes no progressive complains. Notes no dizziness, lightheadedness, syncope or near syncope. Notes no orthopnea or worsening peripheral edema. OBJECTIVE: VITAL SIGNS: Heart rate is 50, blood pressure 159/71. HEAD, EYES, EARS, NOSE, AND THROAT EXAMINATION: Normocephalic, atraumatic. Nares without discharge. Throat was clear. NECK: Supple without thyromegaly or lymphadenopathy. No carotid bruits. LUNGS: Clear. CARDIOVASCULAR EXAMINATION: Regular. No S3 gallop. ABDOMEN: Soft, nontender. EXTREMITIES: Without cyanosis or clubbing. There is no peripheral edema. DATA: Electrocardiogram this morning demonstrates sinus bradycardia, rate of 45, poor R-wave progression V1-V2. Troponin demonstrated elevation since admission rising to peak of 0.54 last evening. Cholesterol is 147, LDL 75, HDL 60. IMPRESSION: A 76-year-old male with known history of ischemic heart disease, prior coronary bypass grafting presents now with low grade chest pressure and pain. Laboratory studies have demonstrated increasing troponins consistent with non-ST segment elevation myocardial infarction. RECOMMENDATIONS: Will increase nitro paste to 1" q. 6, continue IV heparin with anticipated diagnostic cardiac catheterization on Friday. The patient is agreeable to plan. All other medications will be continued as prescribed.
[2016-07-06 20:05] LABS: PARTIAL THROMBOPLASTIN RATIO 2.2
[2016-07-06] MEDS: GABAPENTIN 100 MG CAP PO SCH (21:54)
[2016-07-06] MEDS: LIDODERM (LIDOCAINE) PATCH 5% TD PRN (21:57)
[2016-07-07] VITALS (9 sets, daily range): BP systolic 109–157; BP diastolic 57–83; PULSE 52–94; TEMP 36.4–36.9; O2SAT 94–97
[2016-07-07] MEDS: NITROGLYCERIN OINT 2% 1GM PACKET EXT SCH ×5 (00:12→23:09)
[2016-07-07 06:13] LABS: PARTIAL THROMBOPLASTIN RATIO 2.6
[2016-07-07] MEDS: OMEGA-3 (PURIFIED FISH OIL) 1 GM CAP PO SCH (08:29)
[2016-07-07] MEDS: ASPIRIN 81 MG ECTAB PO SCH (08:29)
[2016-07-07] MEDS: LACTOBACILLUS ACIDOPHILUS (FLORANEX) TAB PO SCH (08:29)
[2016-07-07] MEDS: FLUTICASONE PROPIONATE NA SPR 16 GM BTL NAE SCH (08:30)
[2016-07-07] MEDS: LORATADINE 10 MG TAB PO SCH (08:30)
[2016-07-07] MEDS ORDERED: ALUMINUM/MAGNESIUM SUSP 30 ML UDC PO PRN (11:00)
[2016-07-07] MEDS ORDERED: ALUMINUM/MAGNESIUM SUSP 30 ML UDC PO ONE (11:00)
--- NOTE | 2016-07-07 11:10 | Progress Note ---
Internal Med Progress Note Date of Service: Jul 07, 2016. Provider Documentation: SUBJECTIVE: The patient was seen and examined Has had some lower central Chest discomfort this morning again but diminished No associated symptoms with it Remains Bradycardic OBJECTIVE: Vital Signs-as noted below Exam: General-no distress at rest Eyes-normal ENT-normal Neck-Supple Lungs-clear to ausucltate bilaterally Heart-regular,no murmur appreciated Abdomen-Benign,no masses,bowel sound present Extremities-No edema Neuro-AAOx3 No focal sensory and or motor deficit Lab data as noted below. ASSESSMENT & PLAN: NSTEMI with atypical Chest pain -Has CAD -Troponin inc easing 0.06 <0.394 <0.547 but CKMB decreasing -EKG -Sinus bradycardia ,New T wave abnormalities in lateral leads -Fasting lipid panel in AM -unremarkable -Echo:: * Ejection Fraction = 60-65%. * Aortic valve sclerosis mild, without significant aortic valvular stenosis. * There is mild mitral regurgitation. * There is mild tricuspid regurgitation. * Diastolic dysfunction, Grade II (pseudonormalization pattern). -ASA, BB daily and Heparin -continue Nitropaste -Has h/o statin intolerance -Cardiology consulted-appreciate input -Remains bradycardic at~50s -no other symptoms -Cardiac Cath tomorrow Lower central chest discomfort May have reflux Will try oral antacid H/O PROSTATE CA -s/p radiation -On Lupron RESTLESS LEG SYNDROME -continue Gabapentin -no acute issue DVT PROPHYLAXIS: heparin Drip CODE STATUS: FULL CODE DISPO: Awaited Vital Signs: Date Time Temp Pulse Resp B/P Pulse Ox O2 Delivery O2 Flow Rate FiO2 07/07/16 08:05 Room Air 07/07/16 08:00 36.4 52 20 157/83 97 07/07/16 05:43 142/81 07/07/16 04:09 36.6 59 20 109/57 96 Room Air 07/07/16 04:00 96 Room Air 07/07/16 00:00 Room Air 07/06/16 23:19 36.5 55 18 126/64 96 Room Air 07/06/16 21:53 64 137/77 07/06/16 20:00 96 Room Air 07/06/16 19:36 36.7 61 16 162/83 96 Room Air 07/06/16 16:00 Room Air 07/06/16 15:13 36.8 59 18 131/75 97 Room Air 07/06/16 12:00 Room Air Lab Results: Results Past 24 Hours Test 07/06/16 19:30 07/07/16 05:17 Range/Units Activated Partial Thromboplast Time 57.8 66.4 21.0-31.0 SECONDS Partial Thromboplastin Ratio 2.2 2.6
[2016-07-07] MEDS ORDERED: PANTOprazole SOD 40 MG TAB PO STA (12:00)
--- NOTE | 2016-07-07 17:36 | PROGRESS NOTE ---
DATE: 07/07/2016 CARDIOLOGY CONSULTATION FOLLOWUP NOTE SUBJECTIVE: The patient is seen and examined. Chart, medications, telemetry reviewed. He notes occasional episodes of light burning in the mid substernal area. Notes no abdominal discomfort. Notes no tachypalpitations. Notes no syncope or near syncope. OBJECTIVE: VITAL SIGNS: Heart rate is 52. Blood pressure is 157/83. NECK: Thin. There is no jugular venous distention. EXTREMITIES: Free of edema. LABORATORY DATA: Sodium is 145, potassium is 4.1, chloride is 110, bicarb is 30, BUN is 18, creatinine 0.76 on 07/06/2016. IMPRESSION: A 76-year-old male presents with symptoms consistent with crescendo angina with non-ST segment elevation myocardial infarction, anticipating proceeding to diagnostic cardiac catheterization in the a.m. Continue IV heparin in the interim. Topical nitrates will be continued as well as atenolol and aspirin. Protonix will be ordered for possible gastrointestinal complaints as well.
[2016-07-07] MEDS: HEPARIN 25,000 UNIT/500ML D5W 500 ML IV PRN (18:36)
[2016-07-07] MEDS: GABAPENTIN 100 MG CAP PO SCH (21:13)
[2016-07-07] MEDS: ACETAMINOPHEN 325 MG TAB PO PRN (23:07)
[2016-07-07] MEDS: LIDODERM (LIDOCAINE) PATCH 5% TD PRN (23:08)
[2016-07-08] VITALS (18 sets, daily range): BP systolic 121–155; BP diastolic 67–87; PULSE 48–75; TEMP 36.3–37; O2SAT 95–99
[2016-07-08] MEDS: NITROGLYCERIN OINT 2% 1GM PACKET EXT SCH ×4 (05:41→23:38)
[2016-07-08 05:59] LABS: HEMATOCRIT 36.2 % (42-52); MEAN CELL VOLUME 92.8 fL (80-100); MEAN CORPUSCULAR HEMOGLOBIN 32.8 pg (25-34); MEAN CORPUSCULAR HGB CONC 35.4 g/dl (32-36); MEAN PLATELET VOLUME 8.6 fL (7.4-10.4); PLATELET COUNT 144 K/uL (130-400)
[2016-07-08] MEDS ORDERED: DIAZEPAM 5MG TAB PO SCH (06:00)
[2016-07-08] MEDS ORDERED: SODIUM CHLORIDE 0.9% 1000ML 1,000 ML IV ONE (06:00)
[2016-07-08 06:30] LABS: PARTIAL THROMBOPLASTIN RATIO 2.4
[2016-07-08 06:36] LABS: BUN/CREATININE RATIO 18.7 (10-20); CALCIUM 8.5 mg/dl (8.5-10.1); CREATININE 0.84 mg/dl (0.60-1.40); MAGNESIUM 2.1 mg/dl (1.8-2.4); POTASSIUM 3.8 mmol/L (3.5-5.1)
[2016-07-08 08:48] LABS: PROTHROMBIN TIME (PATIENT) 11.1 SECONDS (9.0-12.0)
[2016-07-08] MEDS ORDERED: MIDAZOLAM HCL 1 MG/ML 2ML VIAL ONE ×2 (10:12→11:41)
[2016-07-08] MEDS ORDERED: FENTANYL CITRATE INJ 50 MCG/1 ML 2 ML VIAL ONE (10:12)
[2016-07-08] MEDS ORDERED: NiCARDipine HCL INJ 2.5 MG/ML 10 ML AMP ONE (11:28)
[2016-07-08] MEDS ORDERED: HEPARIN SOD (PORCINE) 1000 UNIT/ML 10 ML VIAL ONE (11:28)
[2016-07-08] MEDS ORDERED: NITROGLYCERIN/D5W 100MCG/ML 20ML SYR ONE (11:29)
[2016-07-08] MEDS ORDERED: EPTIFIBATIDE 2 MG/ML 10 ML VIAL IV ONE (11:43)
[2016-07-08] MEDS ORDERED: EPTIFIBATIDE 0.75 MG/ML 75MG VIAL IV ONE (11:43)
--- NOTE | 2016-07-08 11:57 | [facility] Post Operative Brief Note ---
Preliminary Procedure Note Procedure Date Jul 08, 2016. Pre-Procedure Diagnosis Non STEMI AUC Score 9 Post-Procedure Diagnosis Severe CAD Procedure(s) Performed Coronary Angiography, Left Heart Cath Glass Cyl[employer] Fl[employer] Dr. Adriano Whitfield Physician Extender(s) Serafin Del Valle Estimated Blood Loss None (<15 cc) Medication(s) Lidocaine 1% (local infiltration) Preliminary Findings Codominant coronary anatomy Patent BUENO graft to the LAD Patent SVG to Diagonal sequentially to Circumflex OM [place] vessel CAD, severe proximal LAD, Diagonal OM disease Cx marginal ,moderate caliber, non-grafted with 80% lesion -- culprit RCA small LVEDP 5 Recommendations PCI without planned CABG Specimens None Fluids (cc crystalloids) 125 Procedural Complication(s) None Disposition
[2016-07-08] MEDS ORDERED: LIDOCAINE/EPINEPHRINE 1% 20 ML VIAL ONE (12:14)
[2016-07-08] MEDS ORDERED: CLOPIDOGREL BISULFATE 300 MG TAB PO ONE (12:23)
[2016-07-08] MEDS ORDERED: NITROGLYCERIN 0.4 MG SL PER TAB CHARGE SL PRN (12:30)
[2016-07-08] MEDS ORDERED: MoRPHine SULFATE 2 MG/ML CARP IV PRN (12:30)
[2016-07-08] MEDS ORDERED: ACETAMINOPHEN 325 MG TAB PO PRN (12:30)
[2016-07-08] MEDS ORDERED: ONDANSETRON INJ 2 MG/ML 2 ML VIAL IV PRN (12:30)
[2016-07-08] MEDS ORDERED: ATROPINE SULFATE 0.1 MG/ML 5ML SYR IV PRN (12:30)
[2016-07-08] MEDS ORDERED: EPTIFIBATIDE BOLUS / DRIP IV ONE (12:30)
[2016-07-08 12:59] LABS: BASO % 0.6 %; BASO ABS # 0.02 K/uL (0-0.2); EOS % 3.5 %; HEMATOCRIT 38.6 % (42-52); IG% 0.3 %; LYMPH % 25.6 %; LYMPH ABS # 0.81 K/uL (1.2-3.4); MEAN PLATELET VOLUME 8.4 fL (7.4-10.4); MONO % 14.6 %; NEUT % 55.4 %; PLATELET COUNT 141 K/uL (130-400); RED BLOOD COUNT 4.15 M/uL (4.7-6.1); WHITE BLOOD COUNT 3.16 K/uL (4.8-10.8)
[2016-07-08] MEDS: EPTIFIBATIDE INJ 75 MG PREMIXED IV SCH ×3 (13:00→19:52)
[2016-07-08 13:05] LABS: COMPLETE YES; MEAN CORPUSCULAR HGB CONC 35.5 g/dl (32-36)
[2016-07-08] MEDS: SODIUM CHLORIDE 0.9% 1000ML 1,000 ML IV SCH ×2 (13:07→19:51)
--- NOTE | 2016-07-08 13:43 | Cardiac Catheterization ---
Procedure Note Procedure Date Jul 08, 2016. Pre-Procedure Diagnosis Non STEMI AUC Score 9 for PCI Post-Procedure Diagnosis Severe CAD, Successful PCI Procedure(s) Performed Coronary Angiography, Drug Eluting Stent Metal Mockup Maker Dr. Beasley Supervisor Sunglasses(s) KRISTOPHER Luna Estimated Blood Loss 20 ml Medication(s) Clopidogrel (600 mg post PCI), Fentanyl, Heparin, Integrilin, Nicardipine ( intracoronary), Versed, Lidocaine 1% Summary of Findings Indications: Severe left circumflex marginal stenosis on diagnostic coronary angiography performed by Dr. Adriano Whitfield. Please see his diagnostic cath report for indications,classes, procedure, and findings of diagnostic cardiac cath. Catheterization site: 6 Fr sheath right femoral artery exchanged for 5 Fr sheath used in diagnostic angiography. Equipment: 6 Fr EBU 3.75 guide catheter, Guadalupe guide wire, two Chen Xience 2.25 X 8 mm drug eluting stents. Protocol: A 2.25 x 8 mm Xience stent was first deployed in a direct fashion to an 80-90 % proximal left circumflex stenosis. After stent deployment a mid left circumflex marginal stenosis ( 70% ) was more apparent. A second 2.25 X 8 mm Xience stent was then deployed distal to the first stent and in an overlapping fashion. The overlap site and first stent was post dilated with the second stent delivery balloon. Stents both initially deployed at 10 britni. Post deployment inflations to 12 britni. Findings: 80-90 % proximal left Cx marginal stenosis. After stent deployed a mid left Cx marginal stenosis of 70% was noted ( caliber of the marginal increased after first stent deployed and this pre existing stenosis was more evident) . After stent deployment the residual stenosis in the proximal and mid left Cx marginal was 0-10%. No dissection ,thrombus, perforation, or distal embolic event. GEORGE 3 flow in the marginal. Plan: Intravenous Integrilin for 18 hours. Dual antiplatelet therapy of aspirin and clopidogrel. Ideally for 1 year. Aspirin therapy indefinitely. Start statin therapy. Continue beta-lai therapy. Decision for Cain inhibitor or angiotensin receptor lai therapy by the primary cardiology service. The patient will have continued cardiology follow-up with the [facility] cardiology service. Postprocedure labs and electrocardiogram. Hemodynamics Rest Ao: 145/67/97 mm Hg Final Ao: 130/61/89 mm Hg LV: NA Recommendations Medical therapy and/or Counseling, PCI without planned CABG Specimens None Radiation Exposure (mGy) Total of 3,570 for both diagnostic and PCI Contrast (mls) Total of 296 ml for both diagnostic and PCI Fluids (cc crystalloids) Total of 218 ml for diagnostic and PCI Drains none Anesthesia IV versed,fenatnyl. Lidocaine 1 % for local Procedural Complication(s) None Disposition PCU ACC Data Cardiac Status Clinical evaluation leading to the procedure CAD Presntation: Non STEMI Diagnostic Physician's Name: Adriano Whitfield M.D. Status: Elective Closure Device Percutaneous Entry Location: Femoral Closure Device: StarClose Recommendations: Medical therapy and/or Counseling, PCI without planned CABG PCI Indication: PCI for high risk Non-STEMI Lesion Segment Name: Proximal left circumflex marginal Culprit Artery: Yes Stenosis Prior to Rx (%): 80-90 Chronic Total Occlusion: No IVUS: No FFR: No Pre-Procedure GEORGE Flow: 3 Lesion Complexity: Non-High/Non-C Lesion Length (mm): 6 Thrombus Present: No Bifurcation Lesion: No Guidewire Across Lesion: Yes Guidewire: Stenosis Post-Procedure (%): 0 Post-Procedure GEORGE Flow: 3 Device(s) Deployed: Yes Type of Device(s): Chen Xience 2.25 X 8 mm CANELO Lesion #2 Segment Name: Mid left circumflex marginal Culprit Artery: Yes Stenosis Prior to Rx (%): 70 Chronic Total Occlusion: No IVUS: No FFR: No Ratio: less than or equal to 0.75% Pre-Procedure GEORGE Flow: 3 Previously Treated Lesion: No Lesion Complexity: Non-High/Non-C Lesion Length (mm): 5 Thrombus Present: No Bifurcation Lesion: No Guidewire Across Lesion: Yes Guidewire: Stenosis Post-Procedure (%): 0 Post-Procedure GEORGE Flow: 3 Type of Device(s): Chen Xience 2.25 X 8 mm CANELO Intraprocedure Events Significant Dissection: No Perforation: No
[2016-07-08] MEDS: ACETAMINOPHEN 325 MG TAB PO PRN ×2 (13:50→23:37)
[2016-07-08] MEDS: PANTOprazole SOD 40 MG TAB PO SCH (15:37)
[2016-07-08] MEDS: OMEGA-3 (PURIFIED FISH OIL) 1 GM CAP PO SCH (15:38)
[2016-07-08] MEDS: LACTOBACILLUS ACIDOPHILUS (FLORANEX) TAB PO SCH (15:38)
[2016-07-08] MEDS: ASPIRIN 81 MG ECTAB PO SCH (15:38)
--- NOTE | 2016-07-08 16:40 | Progress Note ---
Internal Med Progress Note Date of Service: Jul 08, 2016. Provider Documentation: SUBJECTIVE: The patient was seen and examined Remains Bradycardic Denies any symptoms today 07/08/16 Will have Cardiac Cath today OBJECTIVE: Vital Signs-as noted below Exam: General-no distress at rest Eyes-normal ENT-normal Neck-Supple Lungs-clear to ausucltate bilaterally Heart-regular,no murmur appreciated Abdomen-Benign,no masses,bowel sound present Extremities-No edema Neuro-AAOx3 No focal sensory and or motor deficit Lab data as noted below. ASSESSMENT & PLAN: NSTEMI with atypical Chest pain -Has CAD -Troponin inc easing 0.06 <0.394 <0.547 but CKMB decreasing -EKG -Sinus bradycardia ,New T wave abnormalities in lateral leads -Fasting lipid panel in AM -unremarkable -Echo:: * Ejection Fraction = 60-65%. * Aortic valve sclerosis mild, without significant aortic valvular stenosis. * There is mild mitral regurgitation. * There is mild tricuspid regurgitation. * Diastolic dysfunction, Grade II (pseudonormalization pattern). -ASA, BB daily and Heparin -continue Nitropaste -Has h/o statin intolerance -Cardiology consulted-appreciate input -Remains bradycardic at~50s and asymptomatic -will have cardiac cath today Lower central chest discomfort May have reflux Will try oral antacid Denies any pain today H/O PROSTATE CA -s/p radiation -On Lupron RESTLESS LEG SYNDROME -continue Gabapentin -no acute issue DVT PROPHYLAXIS: heparin Drip CODE STATUS: FULL CODE DISPO: Awaited Vital Signs: Date Time Temp Pulse Resp B/P Pulse Ox O2 Delivery O2 Flow Rate FiO2 07/08/16 15:45 36.4 66 18 155/81 97 Room Air 07/08/16 14:45 54 146/80 95 Room Air 07/08/16 14:15 53 143/73 95 Room Air 07/08/16 13:45 36.5 53 128/75 95 Room Air 07/08/16 13:30 55 134/77 95 Room Air 07/08/16 13:15 36.5 58 18 134/77 96 Room Air 07/08/16 13:01 36.3 58 18 148/75 95 Room Air 07/08/16 12:51 36.4 66 18 133/84 95 Room Air 07/08/16 12:30 60 16 133/74 95 Room Air 07/08/16 12:25 Room Air 07/08/16 12:20 Room Air 07/08/16 12:15 58 16 142/82 95 Room Air 07/08/16 08:20 Room Air 07/08/16 07:57 36.5 48 16 137/67 99 Room Air 07/08/16 04:00 98 Room Air 07/08/16 03:52 36.5 69 18 121/73 98 Room Air 07/08/16 00:00 96 Room Air 07/07/16 23:13 36.4 58 17 120/73 96 Room Air 07/07/16 20:17 36.9 94 18 144/81 94 Room Air 07/07/16 20:00 94 Room Air Lab Results: Results Past 24 Hours Test 07/08/16 05:08 07/08/16 11:18 07/08/16 11:41 07/08/16 12:45 Range/Units White Blood Count 2.90 3.16 4.8-10.8 K/uL Red Blood Count 3.90 4.15 4.7-6.1 M/uL Hemoglobin 12.8 13.7 14.0-18.0 g/dL Hematocrit 36.2 38.6 42-52 % Mean Corpuscular Volume 92.8 93.0 80-100 fL Mean Corpuscular Hemoglobin 32.8 33.0 25-34 pg Mean Corpuscular Hemoglobin Concent 35.4 35.5 32-36 g/dl RDW Standard Deviation 45.4 45.8 36.4-46.3 fL RDW Coefficient of Variation 13.4 13.4 11.5-14.5 % Platelet Count 144 141 130-400 K/uL Mean Platelet Volume 8.6 8.4 7.4-10.4 fL Prothrombin Time 11.1 9.0-12.0 SECONDS Prothromb Time International Ratio 1.0 0.9-1.1 Activated Partial Thromboplast Time 62.1 21.0-31.0 SECONDS Partial Thromboplastin Ratio 2.4 Sodium Level 143 136-145 mmol/L Potassium Level 3.8 3.5-5.1 mmol/L Chloride Level 107 98-107 mmol/L Carbon Dioxide Level 30 21-32 mmol/L Anion Gap 6.0 3-11 mmol/L Blood Urea Nitrogen 16 7-18 mg/dl Creatinine 0.84 0.60-1.40 mg/dl Est Creatinine Clear Calc Drug Dose 66.5 ml/min Estimated GFR () 97.9 Estimated GFR (Non- 84.5 BUN/Creatinine Ratio 18.7 10-20 Random Glucose 90 70-99 mg/dl Calcium Level 8.5 8.5-10.1 mg/dl Magnesium Level 2.1 1.8-2.4 mg/dl Kaolin Activated Coagulation Time 137 265 94-140 SECONDS Neutrophils (%) (Auto) 55.4 % Lymphocytes (%) (Auto) 25.6 % Monocytes (%) (Auto) 14.6 % Eosinophils (%) (Auto) 3.5 % Basophils (%) (Auto) 0.6 % Neutrophils # (Auto) 1.75 1.4-6.5 K/uL Lymphocytes # (Auto) 0.81 1.2-3.4 K/uL Monocytes # (Auto) 0.46 0.11-0.59 K/uL Eosinophils # (Auto) 0.11 0-0.5 K/uL Basophils # (Auto) 0.02 0-0.2 K/uL Immature Granulocyte % (Auto) 0.3 % Immature Granulocyte # (Auto) 0.01 0.00-0.02 K/uL
[2016-07-08] MEDS: FLUTICASONE PROPIONATE NA SPR 16 GM BTL NAE SCH (17:40)
[2016-07-08] MEDS: LORATADINE 10 MG TAB PO SCH (17:41)
--- NOTE | 2016-07-08 19:12 | CARDIAC CATH REPORT ---
PROCEDURE: Left heart catheterization, coronary and graft angiography. INDICATIONS: Non-ST segment elevation myocardial infarction, rest angina. BRIEF CARDIAC HISTORY: The patient is a 76-year-old male with a history of coronary artery disease, having undergone prior coronary bypass grafting in 2003, receiving a BUENO graft to the LAD and a sequential saphenous vein graft from diagonal to the obtuse marginal. The patient presented this admission with symptoms consistent with past angina with intermittent extended episodes, longest 3 hours in duration. Troponins are elevated, consistent with non-ST segment elevation myocardial infarction. He had recurrent symptoms at rest in hospital while on anticoagulation. He is referred for diagnostic cardiac catheterization. ACCESS: Right femoral artery. CATHETERS: A 5-Bruneian sheath, 5-Bruneian JL4, 5-Bruneian 3DRC, 5-Bruneian straight pigtail. CONTRAST: Nonionic x120 mL Visipaque. IV FLUIDS: 125 mL normal saline. SEDATION: Start time 10:36, end time 11:17. 1 mg IV Versed with the patient conscious and conversant throughout the procedure. RADIATION EXPOSURE: 4.2 minutes of fluoroscopy time, 1200 milligrays, DAP score 7525. COMPLICATIONS: None. RESULTS: CORONARY ANGIOGRAPHY: LEFT MAIN: The left main is shortened and bifurcates to give rise to left anterior descending and left circumflex. There is no disease in the left main. LEFT ANTERIOR DESCENDING: Left anterior descending is type 3 in distribution, is severely diseased in its proximal to early mid portion. It gives rise to a bifurcating diagonal branch, a large septal branch and then courses to terminate beyond the apex. Within the left anterior descending, as described, it is diffusely diseased with severe 80-90% stenosis at its first septal branch and diagonal branch. The disease extends into the origin of the diagonal branch as well. The distal vessel is seen after the diagonal branch via left internal mammary artery graft to the mid LAD. BUENO GRAFT TO THE LAD: This graft is widely patent. It anastomosed as a midvessel anastomosis without compromise. It fills the LAD antegrade and retrograde. Retrograde demonstrating diffuse disease after its first diagonal branch. LEFT CIRCUMFLEX: Left circumflex is very large and essentially codominant, nearly dominant in distribution. It gives rise to a small first marginal branch, moderately large second obtuse marginal branch and turns along the AV groove where it can be seen to be occluded. Its distal vessel fills the saphenous vein graft anastomosis, demonstrating a large posterolateral branch and posterior descending artery. Within the left circumflex, there is moderate ectasia in its proximal and mid portion. In the very proximal portion of the second moderately large marginal branch, there is an 80% discrete lesion, likely representing culprit stenosis. The distal vessel has anastomosis with sequential vein graft from the diagonal and fills the large posterior descending artery antegrade and then retrograde to the point of occlusion in the AV groove. It also demonstrates beyond the point of occlusion of large posterolateral branch. Between the posterior descending artery and the posterolateral branch, there is a 70% discrete stenosis. RIGHT CORONARY ARTERY: The right coronary is very small in size and distribution. It does give rise to a small posterior ventricular branch, reflecting a codominant anatomy. SAPHENOUS VEIN GRAFT: Sequentially from the first diagonal to the posterior descending artery left-sided. This vessel is widely patent without compromise in its proximal and distal anastomoses. It fills the diagonal at its point of bifurcation antegrade and retrograde and also fills the obtuse marginal of the left-sided PDA and posterolateral branch as described. LEFT VENTRICULAR ANGIOGRAPHY: LV angiography not performed. HEMODYNAMICS: Initial aortic root pressure was 149/69 with a mean of 101. LV pressure was 157/5 with an LVEDP of 16. On pullback to the aortic root, there was no transaortic valve gradient. FINAL IMPRESSIONS: 1. Severe [place] vessel coronary artery disease with: a. Diffusely diseased proximal midportion of left anterior descending involving left anterior descending and a large bifurcating diagonal. b. 100% occlusion of the AV groove portion of the left circumflex with the left circumflex being codominant. Distal portion filling the vein graft, demonstrating a large PDA and posterolateral branch with a 70% narrowing between the 2. c. Moderately large marginal branch with 80-90% stenosis, likely representing culprit lesion. 2. Widely patent BUENO graft to the LAD. 3. Widely patent saphenous vein graft sequentially from the diagonal branch to the right and left-sided posterior descending artery without compromise. 4. Normal left end-diastolic pressures. RECOMMENDATIONS: The patient will be referred for coronary intervention of the circumflex obtuse marginal, likely representing current culprit vessel, for planned symptomatic relief.
[2016-07-08] MEDS: GABAPENTIN 100 MG CAP PO SCH (19:51)
[2016-07-08] MEDS: LIDODERM (LIDOCAINE) PATCH 5% TD PRN (23:37)
[2016-07-09 03:50] VITALS: BP 108/55; PULSE 53; TEMP 36.4; O2SAT 95
[2016-07-09] MEDS: SODIUM CHLORIDE 0.9% 1000ML 1,000 ML IV SCH (04:51)
[2016-07-09] MEDS ORDERED: Integrelin infusion --> STOP ORDER ONE (05:00)
[2016-07-09 05:54] LABS: BASO % 0.3 %; BASO ABS # 0.01 K/uL (0-0.2); COMPLETE YES; EOS % 4.2 %; HEMATOCRIT 34.5 % (42-52); IG% 0.3 %; LYMPH % 9.8 %; LYMPH ABS # 0.35 K/uL (1.2-3.4); MEAN CELL VOLUME 95.3 fL (80-100); MEAN CORPUSCULAR HEMOGLOBIN 32.3 pg (25-34); MEAN CORPUSCULAR HGB CONC 33.9 g/dl (32-36); MEAN PLATELET VOLUME 8.5 fL (7.4-10.4); MONO % 13.7 %; NEUT % 71.7 %; PLATELET COUNT 132 K/uL (130-400); RED BLOOD COUNT 3.62 M/uL (4.7-6.1); WHITE BLOOD COUNT 3.58 K/uL (4.8-10.8)
[2016-07-09 06:15] LABS: BUN/CREATININE RATIO 17.4 (10-20); CALCIUM 8.2 mg/dl (8.5-10.1); CREATININE 0.93 mg/dl (0.60-1.40)
[2016-07-09] MEDS: NITROGLYCERIN OINT 2% 1GM PACKET EXT SCH (06:25)
[2016-07-09 07:26] VITALS: BP 118/67; PULSE 75; TEMP 37; O2SAT 99
[2016-07-09] MEDS: ASPIRIN 81 MG ECTAB PO SCH (07:56)
[2016-07-09] MEDS: FLUTICASONE PROPIONATE NA SPR 16 GM BTL NAE SCH (07:57)
[2016-07-09] MEDS: LORATADINE 10 MG TAB PO SCH (07:57)
[2016-07-09] MEDS: OMEGA-3 (PURIFIED FISH OIL) 1 GM CAP PO SCH (08:36)
[2016-07-09] MEDS: PANTOprazole SOD 40 MG TAB PO SCH (08:36)
[2016-07-09] MEDS: LACTOBACILLUS ACIDOPHILUS (FLORANEX) TAB PO SCH (08:37)
[2016-07-09] MEDS ORDERED: ATORVASTATIN 40 MG TAB PO SCH (09:00)
[2016-07-09] MEDS ORDERED: ASPIRIN 81 MG ECTAB PO SCH (09:00)
[2016-07-09] MEDS ORDERED: CLOPIDOGREL BISULFATE 75 MG TAB PO SCH (09:00)
--- NOTE | 2016-07-09 09:54 | Progress Note ---
Internal Med Progress Note Date of Service: Jul 09, 2016. Provider Documentation: SUBJECTIVE: The patient was seen and examined Remains Bradycardic Denies any symptoms today 07/08/16 Will have Cardiac Cath 07/08/16 Denies any symptoms OBJECTIVE: Vital Signs-as noted below Exam: General-no distress at rest Eyes-normal ENT-normal Neck-Supple Lungs-clear to ausucltate bilaterally Heart-regular,no murmur appreciated Abdomen-Benign,no masses,bowel sound present Extremities-No edema Neuro-AAOx3 No focal sensory and or motor deficit Lab data as noted below. ASSESSMENT & PLAN: NSTEMI with atypical Chest pain -Has CAD -Troponin inc easing 0.06 <0.394 <0.547 but CKMB decreasing -EKG -Sinus bradycardia ,New T wave abnormalities in lateral leads -Fasting lipid panel in AM -unremarkable -Echo:: * Ejection Fraction = 60-65%. * Aortic valve sclerosis mild, without significant aortic valvular stenosis. * There is mild mitral regurgitation. * There is mild tricuspid regurgitation. * Diastolic dysfunction, Grade II (pseudonormalization pattern). -ASA, BB daily and Heparin -continue Nitropaste -Has h/o statin intolerance -Cardiology consulted-appreciate input -Remains bradycardic at~50s and asymptomatic -S/P Cardiac Cath: 1. Severe [place] vessel coronary artery disease with: a. Diffusely diseased proximal midportion of left anterior descending involving left anterior descending and a large bifurcating diagonal. b. 100% occlusion of the AV groove portion of the left circumflex with the left circumflex being codominant. Distal portion filling the vein graft, demonstrating a large PDA and posterolateral branch with a 70% narrowing between the 2. c. Moderately large marginal branch with 80-90% stenosis, likely representing culprit lesion. 2. Widely patent BUENO graft to the LAD. 3. Widely patent saphenous vein graft sequentially from the diagonal branch to the right and left-sided posterior descending artery without compromise. 4. Normal left end-diastolic pressures. -second marginal branch receiving drug-eluting stent with good result. -started on Plavix Lower central chest discomfort May have reflux Will try oral antacid Denies any pain today H/O PROSTATE CA -s/p radiation -On Lupron RESTLESS LEG SYNDROME -continue Gabapentin -no acute issue DVT PROPHYLAXIS: heparin Drip CODE STATUS: FULL CODE DISPO: Discharge today Vital Signs: Date Time Temp Pulse Resp B/P Pulse Ox O2 Delivery O2 Flow Rate FiO2 07/09/16 11:08 36.8 89 20 95 Room Air 07/09/16 08:00 Room Air 07/09/16 07:26 37.0 75 16 118/67 99 07/09/16 04:09 Room Air 07/09/16 03:50 36.4 53 17 108/55 95 Room Air 07/09/16 00:26 Room Air 07/08/16 23:03 36.6 54 16 125/77 96 Room Air 07/08/16 20:20 Room Air 07/08/16 18:23 75 18 153/75 95 Room Air 07/08/16 16:58 37.0 72 18 149/87 96 Room Air 07/08/16 16:00 Room Air 07/08/16 15:45 36.4 66 18 155/81 97 Room Air 07/08/16 15:43 64 20 144/76 95 Room Air 07/08/16 15:27 72 18 135/82 96 Room Air 07/08/16 14:58 65 18 144/79 95 07/08/16 14:45 54 146/80 95 Room Air 07/08/16 14:15 53 143/73 95 Room Air 07/08/16 13:45 36.5 53 128/75 95 Room Air 07/08/16 13:30 55 134/77 95 Room Air 07/08/16 13:15 36.5 58 18 134/77 96 Room Air 07/08/16 13:01 36.3 58 18 148/75 95 Room Air 07/08/16 12:51 36.4 66 18 133/84 95 Room Air 07/08/16 12:45 Room Air 07/08/16 12:30 60 16 133/74 95 Room Air 07/08/16 12:25 Room Air 07/08/16 12:20 Room Air 07/08/16 12:15 58 16 142/82 95 Room Air Lab Results: Results Past 24 Hours Test 07/08/16 12:45 07/09/16 05:15 07/09/16 05:25 Range/Units White Blood Count 3.16 3.58 4.8-10.8 K/uL Red Blood Count 4.15 3.62 4.7-6.1 M/uL Hemoglobin 13.7 11.7 14.0-18.0 g/dL Hematocrit 38.6 34.5 42-52 % Mean Corpuscular Volume 93.0 95.3 80-100 fL Mean Corpuscular Hemoglobin 33.0 32.3 25-34 pg Mean Corpuscular Hemoglobin Concent 35.5 33.9 32-36 g/dl Platelet Count 141 132 130-400 K/uL Mean Platelet Volume 8.4 8.5 7.4-10.4 fL Neutrophils (%) (Auto) 55.4 71.7 % Lymphocytes (%) (Auto) 25.6 9.8 % Monocytes (%) (Auto) 14.6 13.7 % Eosinophils (%) (Auto) 3.5 4.2 % Basophils (%) (Auto) 0.6 0.3 % Neutrophils # (Auto) 1.75 2.57 1.4-6.5 K/uL Lymphocytes # (Auto) 0.81 0.35 1.2-3.4 K/uL Monocytes # (Auto) 0.46 0.49 0.11-0.59 K/uL Eosinophils # (Auto) 0.11 0.15 0-0.5 K/uL Basophils # (Auto) 0.02 0.01 0-0.2 K/uL RDW Standard Deviation 45.8 47.1 36.4-46.3 fL RDW Coefficient of Variation 13.4 13.5 11.5-14.5 % Immature Granulocyte % (Auto) 0.3 0.3 % Immature Granulocyte # (Auto) 0.01 0.01 0.00-0.02 K/uL Activated Partial Thromboplast Time 25.4 21.0-31.0 SECONDS Partial Thromboplastin Ratio 1.0 Sodium Level 145 136-145 mmol/L Potassium Level 4.0 3.5-5.1 mmol/L Chloride Level 110 98-107 mmol/L Carbon Dioxide Level 30 21-32 mmol/L Anion Gap 5.0 3-11 mmol/L Blood Urea Nitrogen 16 7-18 mg/dl Creatinine 0.93 0.60-1.40 mg/dl Est Creatinine Clear Calc Drug Dose 60.0 ml/min Estimated GFR () 91.5 Estimated GFR (Non- 78.9 BUN/Creatinine Ratio 17.4 10-20 Random Glucose 90 70-99 mg/dl Calcium Level 8.2 8.5-10.1 mg/dl
[2016-07-09] MEDS ORDERED: PRT40 PO (10:17)
[2016-07-09] MEDS ORDERED: NTRSLP4 SL (10:17)
[2016-07-09] MEDS ORDERED: PLV75 PO (10:18)
--- NOTE | 2016-07-09 10:21 | Discharge Instructions ---
Discharge Instructions Date of Service Jul 09, 2016. Admission Reason for Admission: Elevated Troponin, Precordial Chest Pain Discharge Discharge Diagnosis / Problem: CAD s/p Stent placement Discharge Goals Goal(s): Prevent Disease Progression Activity Recommendations Activity Limitations: resume your previous activity . Instructions / Follow-Up Instructions / Follow-Up Dr Paez on 07/12/16 at 12:45 PM.Keep appointment with the Guest Services Lead Current Hospital Diet Patient's current hospital diet: AHA Diet (Heart Healthy) Discharge Diet Recommended Diet: AHA Diet (Heart Healthy) Pending Studies Studies pending at discharge: no Laboratory Results Lipid Panel Test 07/06/16 05:08 Range/Units Triglycerides Level 58 0-150 mg/dl Cholesterol Level 147 0-200 mg/dl HDL Cholesterol 60 mg/dl Cholesterol/HDL Ratio 2.5 LDL Cholesterol, Calculated 75 mg/dl Medical Emergencies . Who to Call and When: Medical Emergencies: If at any time you feel your situation is an emergency, please call 911 immediately. . Non-Emergent Contact Non-Emergency issues call your: Primary Care Provider . Past History Medical & Surgical History: (1) Precordial chest pain (2) CAD (coronary artery disease) (3) Elevated troponin (4) Statin intolerance (5) IBS (irritable bowel syndrome) (6) Dyslipidemia (7) S/p seed implant to prostate (8) Stented coronary artery (9) History of cholecystectomy (10) History of coronary artery bypass graft x 3 . "Provider Documentation" section prepared by Morales Juárez. VTE Core Measure Inpt VTE Proph given/why not?: Unfractionated heparin SQ
--- NOTE | 2016-07-09 10:21 | PROGRESS NOTE ---
DATE: 07/09/2016 The patient seen and examined. Chart, medications, telemetry reviewed. SUBJECTIVE: The patient feels well this morning. Right groin is intact. Denies any chest pains, dizziness, lightheadedness, syncope or near syncope. Notes no orthopnea, PND or worsening peripheral edema. OBJECTIVE: VITAL SIGNS: Heart rate 75, blood pressure is 118/67. NECK: Thin. There is no jugular venous distention. There are no carotid bruits. LUNGS: Clear. CARDIOVASCULAR: Regular. There is no S3 gallop. ABDOMEN: Soft, nontender. EXTREMITIES: Without cyanosis or clubbing. There is no peripheral edema. IMPRESSION: A 76-year-old male presented with crescendo angina and non-ST segment elevation myocardial infarction, status post successful coronary intervention of second marginal branch receiving drug-eluting stent with good result. The patient is now asymptomatic. RECOMMENDATIONS: Discontinue IV fluids, ambulate and with plans to discharge later today. Cardiac rehab consultation has been placed. We will continue prehospital medications with increase in his ezetimibe daily. In the past, he has been statin intolerant, but we will readdress as an outpatient. Continue atenolol, aspirin, and recently added clopidogrel outpatient appointment will be arranged in the next months' time.
[2016-07-09 11:08] VITALS: BP 126/73; PULSE 89; TEMP 36.8; O2SAT 95
--- NOTE | 2016-07-09 12:17 | Discharge Summary ---
Discharge Summary Date of Service Jul 09, 2016. Discharge Summary Admission Date: Jul 05, 2016 at 13:30 Discharge Date: Jul 09, 2016 Discharge Disposition: Home Principal Diagnosis: CAD s/p Stent placement:second marginal branch receiving drug-eluting stent with good result. Secondary Diagnoses/Problems: Please see H&P and Hospital Progress note Procedures: Cardiac cath Consultations: Cardiology Medication Reconciliation New Medications: Clopidogrel Bisulfate (Clopidogrel) 75 Mg Tab 75 MG PO QAM for 30 Days, #30 TAB Nitroglycerin (Nitrostat) 0.4 Mg/1 Tab Subl 0.4 MG SL UD PRN for Chest Pain for 30 Days, #25 Pantoprazole (Pantoprazole Sodium) 40 Mg Tab 40 MG PO QAM for 30 Days, #30 TAB Continued Medications: Aspirin (Aspirin Ec) 81 Mg Tab 81 MG PO DAILY Atenolol (Tenormin) 25 Mg Tab 12.5 MG PO QPM Cholecalciferol (Vitamin D) Unknown Strength Tab 1 TAB PO DAILY Ezetimibe (Zetia) 10 Mg Tab 10 MG PO DAILY, TAB takes Friday, Friday, and Friday Fish Oil ([place]-3) 1 Ea Cap 2 CAP PO QAM, CAP Fluticasone Propionate (Nasal) (Flonase Allergy Relief) 50 Mcg/Act Spr 2 SPRAYS CHRISTINE QAM Gabapentin (Neurontin) Unknown Strength Cap 200 MG PO HS Loratadine (Claritin) 10 Mg Tab 10 MG PO DAILY, TAB Probiotic Product (Probiotic) 1 Cap Cap 2 CAP PO DAILY Admission Information HPI (per Admitting provider): Patient seen and examined. 76 year old male with PMHx of CAD s/p CABG, prostate CA presents to the ED complaining of chest pain x 1 week. Patient reports that on Friday he developed this burning in his upper chest with radiation into the throat and jaw. He states it lasted for about three hours. He states since then it has been coming and going randomly and lasting a variable amount of time. He states that it is not associated with exertion. He denies associated symptoms including fevers, chills, URI symptoms, palpitations, SOB, nausea, vomiting, diarrhea, dysuria, calf pain and edema. States this is different than any acid reflux he has ever had. In the ED VS are stable, EKG is unchanged, CXR is negative. Troponin is 0.06. He received nitropaste and is resting comfortably. He will be observed for further workup and treatment. Past Medical/Surgical History Medical Problems: (1) CAD (coronary artery disease) Permanent Comment: s/p CABG x 3 (2003) and stent (1989) Status: Chronic (2) Dyslipidemia Status: Chronic (3) IBS (irritable bowel syndrome) Status: Chronic (4) Prostate cancer Permanent Comment: DIAGNOSIS: Prostate, adenocarcinoma, eleni 3 + 4, PSA 6.75 , cT1c, group IIA Prostate gland size: 30 cc TREATMENT: 1. Initiation of Hormonal suppression, Lupron 22.5 mg 11/08/2015 2. Last Lupron 22.5 mg IM 02/29/2016 3. Status post completion of IMRT/IGRT 03/08/2016 received 8100 cGy Status: Resolved (5) Statin intolerance Status: Chronic Surgical Problems: (1) History of cholecystectomy Permanent Comment: 06/21/[address] [facility] Status: Resolved (2) History of coronary artery bypass graft x 3 Permanent Comment: 11/2003 Status: Resolved (3) S/p seed implant to prostate Status: Chronic (4) Stented coronary artery Permanent Comment: 1989 Status: Resolved Family History Diabetes mellitus FH: CAD (coronary artery disease) MOTHER FHx: brain cancer FATHER Hypertension Kidney stones Social History Smoking Status: Never Smoker Alcohol Use: none Drug Use: none Marital Status: single Housing status: lives alone Occupational Status: employed Multi-Drug Resistant Organisms History of MDRO: No Allergies Coded Allergies: No Known Allergies (Unverified , 12/01/15) Home Medications Scheduled Aspirin (Aspirin Ec), 81 MG PO DAILY Atenolol (Tenormin), 12.5 MG PO QPM Cholecalciferol (Vitamin D), 1 TAB PO DAILY Ezetimibe (Zetia), 10 MG PO 3XWK Fish Oil ([place]-3), 2 CAP PO QAM Fluticasone Propionate (Nasal) (Flonase Allergy Relief), 2 SPRAYS CHRISTINE QAM Gabapentin (Neurontin), 200 MG PO HS Loratadine (Claritin), 10 MG PO DAILY Probiotic Product (Probiotic), 2 CAP PO DAILY Review of Systems See above for pertinent positives & negatives. A total of 10 systems reviewed and were otherwise negative. Physical Exam Vital Signs Date Time Temp Pulse Resp B/P Pulse Ox O2 Delivery O2 Flow Rate FiO2 07/05/16 14:09 59 18 150/84 95 Room Air 07/05/16 12:54 57 18 149/82 97 Room Air 07/05/16 12:45 97 Room Air 07/05/16 12:29 58 18 149/77 96 Room Air 07/05/16 12:01 62 07/05/16 11:48 60 18 137/91 96 Room Air 07/05/16 11:35 97 Room Air 07/05/16 11:16 97 Room Air 07/05/16 11:02 36.6 68 20 168/81 97 General Appearance: + pertinent finding (Very pleasant WD/WN 76 year old male lying in bed in NAD ) Head: normocephalic, atraumatic Eyes: PERRL, EOMI, sclerae normal ENT: hearing grossly normal, pharynx normal Neck: supple, no JVD Respiratory/Chest: chest non-tender, lungs clear, normal breath sounds, no respiratory distress, no accessory muscle use Cardiovascular: regular rate, rhythm, no edema, no gallop, no JVD, no murmur, normal peripheral pulses Abdomen/GI: normal bowel sounds, non tender, soft Back: normal inspection, no muscle spasm Extremities/Musculoskelatal: no calf tenderness, normal capillary refill, no pedal edema Neurologic/Psych: no motor/sensory deficits, alert, oriented x 3 Skin: normal color, warm/dry, no rash Lymphatic: no adenopathy Diagnostics Laboratory Results Results Past 24 Hours Test 07/05/16 11:39 Range/Units White Blood Count 3.09 4.8-10.8 K/uL Red Blood Count 4.09 4.7-6.1 M/uL Hemoglobin 13.5 14.0-18.0 g/dL Hematocrit 37.6 42-52 % Mean Corpuscular Volume 91.9 80-100 fL Mean Corpuscular Hemoglobin 33.0 25-34 pg Mean Corpuscular Hemoglobin Concent 35.9 32-36 g/dl RDW Standard Deviation 44.5 36.4-46.3 fL RDW Coefficient of Variation 13.2 11.5-14.5 % Platelet Count 145 130-400 K/uL Mean Platelet Volume 8.4 7.4-10.4 fL Prothrombin Time 10.5 9.0-12.0 SECONDS Prothromb Time International Ratio 1.0 0.9-1.1 Activated Partial Thromboplast Time 25.5 21.0-31.0 SECONDS Partial Thromboplastin Ratio 1.0 Sodium Level 143 136-145 mmol/L Potassium Level 4.3 3.5-5.1 mmol/L Chloride Level 109 98-107 mmol/L Carbon Dioxide Level 29 21-32 mmol/L Anion Gap 5.0 3-11 mmol/L Blood Urea Nitrogen 15 7-18 mg/dl Creatinine 0.87 0.60-1.40 mg/dl Est Creatinine Clear Calc Drug Dose 64.1 ml/min Estimated GFR () 96.5 Estimated GFR (Non- 83.2 BUN/Creatinine Ratio 17.7 10-20 Random Glucose 81 70-99 mg/dl Calcium Level 8.7 8.5-10.1 mg/dl Total Bilirubin 1.0 0.2-1 mg/dl Aspartate Amino Transf (AST/SGOT) 25 15-37 U/L Alanine Aminotransferase (ALT/SGPT) 27 12-78 U/L Alkaline Phosphatase 68 45-117 U/L Troponin I 0.064 0-0.045 ng/ml Total Protein 6.7 6.4-8.2 gm/dl Albumin 3.5 3.4-5.0 gm/dl Globulin 3.2 2.5-4.0 gm/dl Albumin/Globulin Ratio 1.1 0.9-2 Lipase 209 73-393 U/L Diagnostic Radiology CXR Per radiologist read: IMPRESSION: No active disease in the chest. EKG NSR 61 BPM, QTc 416 Impression Assessment and Plan 76 year old male presents to the ED with a week of chest burning. EKG nonischemic. Troponin 0.06 CHEST PAIN R/O ACS -Observation in tele -Troponin 0.06 -Risk factors: CAD, Age -Serial Ines and EKGs -Fasting lipid panel in AM -Echo pending to r/o heart wall abnormality -ASA, BB daily -continue Nitropaste -Has h/o statin intolerance -Cardiology consult for further management - Spoke with Dr. Briceño, did not recommend heparin gtt at this time, input appreciated. Follows with Dr. Whitfield as outpatient -[facility] diet npo aftermidnight -TSH, Mg pending -CBC, PRP, Mg daily -VSS stable, monitor in tele H/O PROSTATE CA -s/p radiation RESTLESS LEG SYNDROME -continue Gabapentin DVT PROPHYLAXIS: Sq heparin CODE STATUS: FULL CODE DISPO:observation pending further workup Patient seen in collaboration with Dr. Sal I have seen and examined the patient and have discussed the case with the provider above. We discussed the TRS was 4-5 (age>65, known CAD, ASA use in past 7 days, >2 episodes of pain in 24 hours, and +troponin. Cardiology added heparin drip after second troponin came back slightly elevated. Pt with no associated symptoms aside from sweating but he is also taking Lupron injections for prostate cancer. Chest pain came back on the nitro paste, patient ate dinner and subsequent GI cocktail took pain to a zero. Pain is centered in chest and radiates up into jaw area. Vitals are stable, physical exam as above. TTE reveals no acute wall motion abnormality and EKG is non-ischemic. CXR also clear. Agree with stated assessment and plan above with stated changes discussed here. Cont to trend troponin overnight and monitor on telemetry. Lucy Sal, DO Level of Care Telemetry Advanced Directives Existing Living Will: No Existing Power of Shop Supervisor: No Resuscitation Status FULL RESUSCITATION VTE Prophylaxis VTE Risk Assessment Done? Y/N: Yes Risk Level: Moderate Given or contraindicated: Other Anticoagulation Physical Exam (per Admitting): General Appearance: + pertinent finding (Very pleasant WD/WN 76 year old male lying in bed in NAD ) Head: normocephalic, atraumatic Eyes: PERRL, EOMI, sclerae normal ENT: hearing grossly normal, pharynx normal Neck: supple, no JVD Respiratory/Chest: chest non-tender, lungs clear, normal breath sounds, no respiratory distress, no accessory muscle use Cardiovascular: regular rate, rhythm, no edema, no gallop, no JVD, no murmur , normal peripheral pulses Abdomen/GI: normal bowel sounds, non tender, soft Back: normal inspection, no muscle spasm Extremities/Musculoskelatal: no calf tenderness, normal capillary refill, no pedal edema Neurologic/Psych: no motor/sensory deficits, alert, oriented x 3 Skin: normal color, warm/dry, no rash Lymphatic: no adenopathy Hospital Course NSTEMI with atypical Chest pain -Has CAD -Troponin inc easing 0.06 <0.394 <0.547 but CKMB decreasing -EKG -Sinus bradycardia ,New T wave abnormalities in lateral leads -Fasting lipid panel in AM -unremarkable -Echo:: * Ejection Fraction = 60-65%. * Aortic valve sclerosis mild, without significant aortic valvular stenosis. * There is mild mitral regurgitation. * There is mild tricuspid regurgitation. * Diastolic dysfunction, Grade II (pseudonormalization pattern). -ASA, BB daily and Heparin -continue Nitropaste -Has h/o statin intolerance -Cardiology consulted-appreciate input -Remains bradycardic at~50s and asymptomatic -S/P Cardiac Cath: 1. Severe crooked creek vessel coronary artery disease with: a. Diffusely diseased proximal midportion of left anterior descending involving left anterior descending and a large bifurcating diagonal. b. 100% occlusion of the AV groove portion of the left circumflex with the left circumflex being codominant. Distal portion filling the vein graft, demonstrating a large PDA and posterolateral branch with a 70% narrowing between the 2. c. Moderately large marginal branch with 80-90% stenosis, likely representing culprit lesion. 2. Widely patent BUENO graft to the LAD. 3. Widely patent saphenous vein graft sequentially from the diagonal branch to the right and left-sided posterior descending artery without compromise. 4. Normal left end-diastolic pressures. -second marginal branch receiving drug-eluting stent with good result. -started on Plavix Lower central chest discomfort May have reflux Will try oral antacid Denies any pain today H/O PROSTATE CA -s/p radiation -On Lupron RESTLESS LEG SYNDROME -continue Gabapentin -no acute issue DVT PROPHYLAXIS: heparin Drip CODE STATUS: FULL CODE DISPO: Discharge today Total time spent on discharge = 35 minutes This includes examination of the patient, discharge planning, medication reconciliation, and communication with other providers. Discharge Instructions Date of Service Jul 09, 2016. Admission Reason for Admission: Elevated Troponin, Precordial Chest Pain Discharge Discharge Diagnosis / Problem: CAD s/p Stent placement Discharge Goals Goal(s): Prevent Disease Progression Activity Recommendations Activity Limitations: resume your previous activity . Instructions / Follow-Up Instructions / Follow-Up Dr Paez on 07/12/16 at 12:45 PM.Keep appointment with the Juvenile Justice Specialist Current Hospital Diet Patient's current hospital diet: AHA Diet (Heart Healthy) Discharge Diet Recommended Diet: AHA Diet (Heart Healthy) Pending Studies Studies pending at discharge: no Laboratory Results Lipid Panel Test 07/06/16 05:08 Range/Units Triglycerides Level 58 0-150 mg/dl Cholesterol Level 147 0-200 mg/dl HDL Cholesterol 60 mg/dl Cholesterol/HDL Ratio 2.5 LDL Cholesterol, Calculated 75 mg/dl Medical Emergencies . Who to Call and When: Medical Emergencies: If at any time you feel your situation is an emergency, please call 911 immediately. . Non-Emergent Contact Non-Emergency issues call your: Primary Care Provider . Past History Medical & Surgical History: (1) Precordial chest pain (2) CAD (coronary artery disease) (3) Elevated troponin (4) Statin intolerance (5) IBS (irritable bowel syndrome) (6) Dyslipidemia (7) S/p seed implant to prostate (8) Stented coronary artery (9) History of cholecystectomy (10) History of coronary artery bypass graft x 3 . "Provider Documentation" section prepared by Morales Juárez. VTE Core Measure Inpt VTE Proph given/why not?: Unfractionated heparin SQ <Electronically signed by Morales Juárez M.D.> Signed: 07/09/16 1021 Additional Copies To Patricia Paez M.D.
== END 2016-07-09 11:19 | disposition home or self-care (01) ==
LOC: ENRESERVTM → ENRESERVDT → C.EDB 10:58 → C.2T 13:30
PROVIDERS: ADMIT Hospitalist; ATTEND Internal Medicine
DX: I21.4 Non-ST elevation (NSTEMI) myocardial infarction (principal); I25.10 Atherosclerotic heart disease of native coronary artery without angina pectoris; Z86.73 Personal history of transient ischemic attack (TIA), and cerebral infarction without residual deficits; E78.5 Hyperlipidemia, unspecified; F17.200 Nicotine dependence, unspecified, uncomplicated; Z85.46 Personal history of malignant neoplasm of prostate; Z90.49 Acquired absence of other specified parts of digestive tract; Z95.1 Presence of aortocoronary bypass graft; Z98.890 Other specified postprocedural states; Z83.3 Family history of diabetes mellitus; Z82.49 Family history of ischemic heart disease and other diseases of the circulatory system; Z80.8 Family history of malignant neoplasm of other organs or systems; Z79.82 Long term (current) use of aspirin
CPT/HCPCS: 93459; C9600

== ENCOUNTER 2022-09-07 15:45 | Observation (INO) ==
[2022-09-07 16:53] LABS: Hematocrit (blood only) 42.2 % (42.0-52.0); Hemoglobin 14.8 g/dl (14.0-18.0); Mean Corpuscular Hemoglobin 33.7 pg (25.0-34.0); Mean Corpuscular Hgb Conc 35.1 g/dL (32.0-36.0); Mean Corpuscular Volume 96.1 fL (80.0-100.0); Mean Platelet Volume 9.1 fL (9.4-12.4); Platelet Count 132 K/uL (130-400); RDW Coefficient of Variation 13.2 % (11.5-14.5); RDW Standard Deviation 47.6 fL (36.4-46.3); Red Blood Count 4.39 M/uL (4.70-6.10); White Blood Count 3.66 K/ul (4.8-10.8)
--- NOTE | 2022-09-07 16:56 | Emergency Department Note ---
Impression & Plan Weakness, Falls, Anaplasmosis ED Provider Note Provider: Tom Hall MD DATE OF SERVICE: 09/07/2022 CHIEF COMPLAINT: Unsteady/weakness, falls HISTORY OF PRESENT ILLNESS: Patient is a 82-year-old gentleman history of CAD, CVA, and prostate issues presenting here today brought by son due to multiple increasing falls over the past several weeks particular last several days. Patient states he feels weak and has been slowly getting to the ground. Denies any significant falls or trauma. Denies striking his head. Maybe little bit of frontal slight headache last night but none today. Denies focal numbness or weakness or speech issues. Denies new numbness. Patient states he feels just very unsteady on his feet. Denies fever cough or cold symptoms. Denies abdominal pain or nausea. Denies chest pain or shortness of breath. Denies any significant swelling or rashes. Denies any urinary symptoms to me. Patient does have some steps at home and lives by himself and son came to check on him and he has been stuck at times on the ground until others of help him up as he is too weak to get up. Denies palpitations or syncope. Is to follow-up with primary doctor on Friday PAST MEDICAL HISTORY: As noted above MEDICATIONS: Reviewed home medications SOCIAL HISTORY: Works at [employer], lives by himself PHYSICAL EXAM: GENERAL: alert and oriented in no acute distress on stretcher Head: normocephalic and atraumatic EYES: No injection, discharge or icterus. PERRL NECK: Trachea midline. Supple. ENT: Mucous membranes pink and moist. LUNGS: Airway patent. No retractions. Breath sounds clear with good air entry bilaterally. HEART: Regular rate and rhythm. No chest wall tenderness ABDOMEN: Soft and non-tender, without guarding or rebound. SKIN: Acyanotic, warm, dry, without rashes EXTREMITIES: Without swelling, tenderness or deformity NEUROLOGICAL: No focal deficits. No aphasia. No facial droop or slurred speech. Normal strength and tone in the extremities. Sensation to gross touch normal. Ambulatory but unsteady with some shuffling and unsteadiness to his gait. EK bpm normal sinus rhythm. No PVC or PAC. No acute ST segment elevation or depression with QTc of 435. CONTINUOUS CARDIAC MONITORING: was ordered and showed a heart rate of 80s-90s bpm in normal sinus rhythm GCS 15. Patient's laboratory studies and imaging reviewed. Differential includes Infection, dehydration, metabolic abnormality, hypo/hyperglycemia, electrolyte disturbance, anemia, hypoxia, cardiac sources, intracerebral event, toxicologic, neurologic, as well as other pathologies. IMPRESSION/MEDICAL DECISION MAKING: Patient without focal numbness or weakness periods of generalized weakness and unsteadiness. Try to ambulate in the room he is unsteady and seems to shuffle to some degree. No tremor. No speech issues. No significant trauma noted on exam and no significant trauma reported by his history. No fevers reported but borderline fever here. We will do an infectious work-up. We will complete a CT and CT angiograms of the head and neck to look for any possible CVA or vascular abnormality. Basic labs obtained and culture sent. Negative COVID testing. No anemia. Slight leukopenia. No signs of significant electrolyte abnormality or renal dysfunction. No evidence of elevated CK or troponin. Doubt ACS. Normal TSH. Normal lactate. Doubt sepsis. Procalcitonin normal. Laboratory studies seem reassuring. CT head and chest x- ray are reassuring per radiology. 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 Started on doxycycline. Discussed with patient and son options. Given his weakness and falls and the fact he lives alone will bring into the hospital for initial treatment and stabilization to ensure his strength improves so he is not a fall risk at home. Hospitalist contacted. DIAGNOSIS: Falls, weakness, anaplasmosis DISPOSITION: Hospitalist will evaluate Patient was agreeable with this plan. Past Med/Surg History Medical History (Updated 09/07/22 @ 21:22 by Tom Hall M.D.) Anemia Cancer PROSATE CANCER (RADIATION SEEDS) Cornea abrasion Hearing deficit Hyperlipidemia Hypertension Irritable bowel syndrome Migraine Osteoarthritis Surgical History History of appendectomy History of cardiac cath JUNE 2016 (CHEST PAIN) History of cataract surgery History of cholecystectomy History of colonoscopy History of coronary artery bypass graft 2003 (3 VESSELS) AT [facility] History of heart artery stent JUNE 2016 (2 STENTS PLACED) History of tonsillectomy History of tooth extraction Social History Smoking Status: Never smoker Second Hand Exposure: Yes (as a child); Do You Dip or Chew Tobacco: No; Hx Alcohol Use: Yes Alcohol type: beer Hx Substance Use: No Preferred Language: Upper Sorbian Communication Ability: Effective Certified Adapted Physical Educator Required: No Beliefs That Will Affect Care: None Current Living Situation: Alone Feels Safe at Home: Yes Assistive Devices: Glasses and Hearing Aid - Right Allergies Allergies Allergy/AdvReac Type Severity Reaction Status Date / Time No Known Allergies Allergy Verified 02/24/18 08:18 Home Meds Home Medications Medication Instructions Recorded Confirmed Vitamin D 1 cap PO QAM 01/26/18 09/07/22 aspirin 81 mg tablet,delayed 81 mg PO QAM 01/26/18 09/07/22 release (Aspir-Low) ezetimibe 10 mg tablet (Zetia) 10 mg PO QAM 01/26/18 09/07/22 vitamin B complex 2 cap PO QAM 01/26/18 09/07/22 losartan 25 mg tablet 25 mg PO DAILY 09/07/22 09/07/22 metoprolol succinate 25 mg 25 mg PO DAILY 09/07/22 09/07/22 tablet,extended release 24 hr tamsulosin 0.4 mg capsule 0.4 mg PO DAILY 09/07/22 09/07/22 Results & Data (ED) Vital Signs Vital Signs - 24 hr 09/07/22 15:49 09/07/22 16:34 09/07/22 19:36 Temperature 37.9 C H Temperature Source Oral Pulse Rate 90 Pulse Rate [Apical] 84 Respiratory Rate 20 19 Respiratory Effort / Characteristics Non-Labored Spontaneous Respiratory Depth Normal Respiratory Pattern Regular Blood Pressure 135/68 Blood Pressure [Right Arm] 164/89 H Blood Pressure Mean 90 Blood Pressure Mean [Right Arm] 114 Pulse Oximetry 95 96 96 Oxygen Delivery Method Room Air Room Air Room Air Sepsis Recent Fever Within 48 Hours No Sepsis New/Unexplained Change in Mental Status N/A Sepsis Action Taken by Nursing No Action Required Laboratory Data 09/07/22 16:06 09/07/22 16:06 Lab Results 09/07/22 09/07/22 09/07/22 Range/Units 16:06 16:06 16:06 WBC 3.66 L (4.8-10.8) K/ul RBC 4.39 L (4.70-6.10) M/uL Hgb 14.8 (14.0-18.0) g/dl Hct 42.2 (42.0-52.0) % MCV 96.1 (80.0-100.0) fL MCH 33.7 (25.0-34.0) pg MCHC 35.1 (32.0-36.0) g/dL RDW Std Deviation 47.6 H (36.4-46.3) fL RDW Coeff of Lee 13.2 (11.5-14.5) % Plt Count 132 (130-400) K/uL MPV 9.1 L (9.4-12.4) fL Immature Gran % (Auto) 0.5 % Neut % (Auto) 91.3 % Lymph % (Auto) 2.7 % [place] % (Auto) 5.2 % Eos % (Auto) 0.0 % Baso % (Auto) 0.3 % Neut # (Auto) 3.34 (1.40-6.50) K/uL Lymph # (Auto) 0.10 L (1.2-3.4) K/uL [place] # (Auto) 0.19 (0.11-0.59) K/uL Eos # (Auto) 0.00 (0-0.50) K/uL Baso # (Auto) 0.01 (0-0.2) K/uL Immature Gran # (Auto) 0.02 (0.01-0.20) K/uL Sodium 137 (136-145) mmol/L Potassium 3.8 (3.5-5.1) mmol/L Chloride 105 (98-107) mmol/L Carbon Dioxide 24 (21-32) mmol/L Anion Gap 8 (3-11) BUN 18 (6-23) mg/dl Creatinine 0.97 (0.6-1.4) mg/dl Est Cr Clr Drug Dosing Not Reportable Est GFR ( Amer) 83.3 ml/min Est GFR (Non-Af Amer) 71.9 ml/min BUN/Creatinine Ratio 18.6 (10-20) Glucose 164 H (70-99(Fasting)) mg/dl Lactate (0.4-2.0) mmol/L Calcium 9.1 (8.6-10.3) mg/dl Magnesium 1.8 (1.7-2.4) mg/dl Total Bilirubin 1.3 H (0.2-1.0) mg/dl AST 35 (13-39) U/L ALT 25 (7-52) U/L Alkaline Phosphatase 61 (34-104) U/L Total Creatine Kinase 182 (30-223) U/L Troponin I High Sens 6.1 (0-20) pg/ml Total Protein 6.8 (6.0-8.3) gm/dl Albumin 3.9 (3.4-5.0) gm/dl Globulin 2.9 (2.5-4.0) gm/dl Albumin/Globulin Ratio 1.3 (0.9-2) Procalcitonin (0-0.5) ng/ml TSH 0.598 (0.300-4.500) uIu/ml Urine Color Urine Appearance (Clear) Urine pH (4.5-7.5) Ur Specific [place] (1.000-1.030) Urine Protein (Negative) Urine Glucose (UA) (Negative) Urine Ketones (Negative) Urine Blood (Negative) Urine Nitrite (Negative) Urine Bilirubin (Negative) Urine Urobilinogen (Negative) Ur Leukocyte Esterase (Negative) Urine WBC (Auto) (0-5) /hpf Urine RBC (Auto) (0-4) /hpf U Hyaline Cast (Auto) (0-5) /lpf U Epithel Cells (Auto) (0-5) /lpf Urine Bacteria (Auto) (Negative) Anaplasma Smear See Comment A Lyme Disease IgG Ab (Negative) Lyme Disease IgM Ab (Negative) SARS-CoV-2, RNA, NAAT (NEGATIVE) 09/07/22 09/07/22 09/07/22 Range/Units 16:06 16:06 16:48 WBC (4.8-10.8) K/ul RBC (4.70-6.10) M/uL Hgb (14.0-18.0) g/dl Hct (42.0-52.0) % MCV (80.0-100.0) fL MCH (25.0-34.0) pg MCHC (32.0-36.0) g/dL RDW Std Deviation (36.4-46.3) fL RDW Coeff of Lee (11.5-14.5) % Plt Count (130-400) K/uL MPV (9.4-12.4) fL Immature Gran % (Auto) % Neut % (Auto) % Lymph % (Auto) % [place] % (Auto) % Eos % (Auto) % Baso % (Auto) % Neut # (Auto) (1.40-6.50) K/uL Lymph # (Auto) (1.2-3.4) K/uL [place] # (Auto) (0.11-0.59) K/uL Eos # (Auto) (0-0.50) K/uL Baso # (Auto) (0-0.2) K/uL Immature Gran # (Auto) (0.01-0.20) K/uL Sodium (136-145) mmol/L Potassium (3.5-5.1) mmol/L Chloride (98-107) mmol/L Carbon Dioxide (21-32) mmol/L Anion Gap (3-11) BUN (6-23) mg/dl Creatinine (0.6-1.4) mg/dl Est Cr Clr Drug Dosing Est GFR ( Amer) ml/min Est GFR (Non-Af Amer) ml/min BUN/Creatinine Ratio (10-20) Glucose (70-99(Fasting)) mg/dl Lactate (0.4-2.0) mmol/L Calcium (8.6-10.3) mg/dl Magnesium (1.7-2.4) mg/dl Total Bilirubin (0.2-1.0) mg/dl AST (13-39) U/L ALT (7-52) U/L Alkaline Phosphatase (34-104) U/L Total Creatine Kinase (30-223) U/L Troponin I High Sens (0-20) pg/ml Total Protein (6.0-8.3) gm/dl Albumin (3.4-5.0) gm/dl Globulin (2.5-4.0) gm/dl Albumin/Globulin Ratio (0.9-2) Procalcitonin 0.38 (0-0.5) ng/ml TSH (0.300-4.500) uIu/ml Urine Color Urine Appearance (Clear) Urine pH (4.5-7.5) Ur Specific [place] (1.000-1.030) Urine Protein (Negative) Urine Glucose (UA) (Negative) Urine Ketones (Negative) Urine Blood (Negative) Urine Nitrite (Negative) Urine Bilirubin (Negative) Urine Urobilinogen (Negative) Ur Leukocyte Esterase (Negative) Urine WBC (Auto) (0-5) /hpf Urine RBC (Auto) (0-4) /hpf U Hyaline Cast (Auto) (0-5) /lpf U Epithel Cells (Auto) (0-5) /lpf Urine Bacteria (Auto) (Negative) Anaplasma Smear Lyme Disease IgG Ab Negative (Negative) Lyme Disease IgM Ab Negative (Negative) SARS-CoV-2, RNA, NAAT NEGATIVE (NEGATIVE) 09/07/22 09/07/22 Range/Units 16:56 18:25 WBC (4.8-10.8) K/ul RBC (4.70-6.10) M/uL Hgb (14.0-18.0) g/dl Hct (42.0-52.0) % MCV (80.0-100.0) fL MCH (25.0-34.0) pg MCHC (32.0-36.0) g/dL RDW Std Deviation (36.4-46.3) fL RDW Coeff of Lee (11.5-14.5) % Plt Count (130-400) K/uL MPV (9.4-12.4) fL Immature Gran % (Auto) % Neut % (Auto) % Lymph % (Auto) % [place] % (Auto) % Eos % (Auto) % Baso % (Auto) % Neut # (Auto) (1.40-6.50) K/uL Lymph # (Auto) (1.2-3.4) K/uL [place] # (Auto) (0.11-0.59) K/uL Eos # (Auto) (0-0.50) K/uL Baso # (Auto) (0-0.2) K/uL Immature Gran # (Auto) (0.01-0.20) K/uL Sodium (136-145) mmol/L Potassium (3.5-5.1) mmol/L Chloride (98-107) mmol/L Carbon Dioxide (21-32) mmol/L Anion Gap (3-11) BUN (6-23) mg/dl Creatinine (0.6-1.4) mg/dl Est Cr Clr Drug Dosing Est GFR ( Amer) ml/min Est GFR (Non-Af Amer) ml/min BUN/Creatinine Ratio (10-20) Glucose (70-99(Fasting)) mg/dl Lactate 1.0 (0.4-2.0) mmol/L Calcium (8.6-10.3) mg/dl Magnesium (1.7-2.4) mg/dl Total Bilirubin (0.2-1.0) mg/dl AST (13-39) U/L ALT (7-52) U/L Alkaline Phosphatase (34-104) U/L Total Creatine Kinase (30-223) U/L Troponin I High Sens (0-20) pg/ml Total Protein (6.0-8.3) gm/dl Albumin (3.4-5.0) gm/dl Globulin (2.5-4.0) gm/dl Albumin/Globulin Ratio (0.9-2) Procalcitonin (0-0.5) ng/ml TSH (0.300-4.500) uIu/ml Urine Color Dark Yellow Urine Appearance Clear (Clear) Urine pH 6.0 (4.5-7.5) Ur Specific [place] 1.042 H (1.000-1.030) Urine Protein 1+ H (Negative) Urine Glucose (UA) Negative (Negative) Urine Ketones 2+ H (Negative) Urine Blood Negative (Negative) Urine Nitrite Negative (Negative) Urine Bilirubin Negative (Negative) Urine Urobilinogen Negative (Negative) Ur Leukocyte Esterase Negative (Negative) Urine WBC (Auto) 1-5 (0-5) /hpf Urine RBC (Auto) 5-10 H (0-4) /hpf U Hyaline Cast (Auto) 1-5 (0-5) /lpf U Epithel Cells (Auto) 10-20 H (0-5) /lpf Urine Bacteria (Auto) Negative (Negative) Anaplasma Smear Lyme Disease IgG Ab (Negative) Lyme Disease IgM Ab (Negative) SARS-CoV-2, RNA, NAAT (NEGATIVE) Administered Medications Discontinued Medications Doxycycline Hyclate (Doxycycline Hyclate 100 Mg Cap) 100 mg PO NOW STA Stop: 09/07/22 19:19 Last Admin: 09/07/22 19:22 Dose: 100 mg Documented By: Ioversol (Optiray 320 500ml) 108 ml IV ONCE ONE Stop: 09/07/22 17:56 Last Admin: 09/07/22 17:56 Dose: 108 ml [facility]ed [facility] Data Radiologist's Impression: Chest X-Ray 09/07/22 16:34 XR chest 1V portable CLINICAL HISTORY: weakness COMPARISON STUDY: Chest radiograph July 05, 2016. FINDINGS: There are median sternotomy wires. Lung volumes are normal. Lungs are clear. There is no pneumothorax or pleural effusion. Cardiac size is normal. Mediastinal contours are normal. There is no evidence for pulmonary edema. IMPRESSION: No acute cardiopulmonary findings. ACT 112: Negative or not required by law. Electronically signed by: Emiliano Kelley M.D. 09/07/2022 5:[address] 09/07/22 16:34 CT OF THE HEAD WITHOUT CONTRAST CLINICAL HISTORY: unsteady, falls COMPARISON STUDY: Head CT, MRA of the head and MRI of the brain November 28, 2015. TECHNIQUE: Helical axial images of the head were obtained without IV contrast. Automated exposure control was utilized for the study. A dose lowering technique was utilized adhering to the principles of ALARA. FINDINGS: No acute intracranial hemorrhage, midline shift or mass effect is present. A 9 mm hypodensity within the anterior limb of the right internal capsule is unchanged since head CT of November 28, 2015. This is chronic. The ventricular system is unremarkable. The basal cisterns are patent. No extra- axial collections are present. There are no findings to suggest acute dural sinus thrombosis or acute territorial infarct. No significant calvarial abnormalities are present. Visualized portions of the sinuses and mastoid air cells are clear. IMPRESSION: No acute intracranial findings. No change in appearance of the brain. ACT 112: Negative or not required by law. Electronically signed by: Emiliano Kelley M.D. 09/07/2022 6:07 PM Head CTA 09/07/22 16:34 CTA ANGIOGRAPHY OF THE HEAD CLINICAL HISTORY: unsteady, falls COMPARISON STUDY: MRA of the head November 28, 2015. TECHNIQUE: Helical axial images of the head were obtained following uneventful intravenous administration of 108 cc of Optiray. Sagittal and coronal reconstructions were viewed as well as maximal intensity projections on an independent 3-D workstation. Automated exposure control was utilized for the study. A dose lowering technique was utilized adhering to the principles of ALARA. FINDINGS: Jugular system is unremarkable. Basal cisterns are patent. There are no extra-axial collections. No acute hemorrhage is identified. Please note that the head CT will be reported separately. There is mild plaque within bilateral cavernous carotids without significant stenosis. There is no central occlusion within the intracranial vessels. There is no intracranial aneurysm. Posterior circulation is also intact. Major dural sinuses are patent. IMPRESSION: No central vessel occlusion. No intracranial aneurysm. ACT 112: Negative or not required by law. Electronically signed by: Emiliano Kelley M.D. 09/07/2022 6:19 PM Neck CTA 09/07/22 16:34 CT ANGIOGRAPHY OF THE NECK WITH CONTRAST CLINICAL HISTORY: unsteady, falls COMPARISON STUDY: Carotid ultrasound November 28, 2015. Technique: CT angiography of the carotid and vertebral arteries was obtained using Optiray and 3D reconstruction on an independent workstation. NASCET criteria was utilized. Automated exposure control was utilized for the study. A dose lowering technique was utilized adhering to the principles of ALARA. CT DOSE: 1100.21 mGy.cm Findings: Visualized portions of the lung apices are unremarkable. There is no cervical spine fracture. No cervical lymphadenopathy is present. There is mild stenosis at the origin of the right vertebral artery. There is mild to moderate plaque within the vertebral arteries with no additional stenoses. There is mild plaque within the proximal left internal carotid artery without stenosis. Note is made of moderate plaque within the proximal right internal carotid artery which results in short segment stenosis of 40%. The vessel measures 2.5 mm at site of narrowing and 4.3 mm distally. CTA of the head will be reported separat sergio. IMPRESSION: 1. 40% stenosis of the proximal right internal carotid artery. No stenoses within the cervical left internal carotid artery. 2. Mild stenosis at the origin of the right vertebral artery. ACT 112: Negative or not required by law. Electronically signed by: Emiliano Kelley M.D. 09/07/2022 6:16 PM Discharge Plan Visit Data Chief Complaint: Fall Stated Complaint: FALL ED Provider: Tom Hall Discharge Problem: Weakness, Falls, Anaplasmosis Patient Disposition: Being Evaluated by Hospitalist Forms Stand Alone Forms: [facility] Prescriptions Prescriptions: No Action aspirin [Aspir-Low] 81 mg Tablet,Delayed Release (Dr/Ec) 81 mg PO QAM vitamin B complex Capsule 2 cap PO QAM ezetimibe [Zetia] 10 mg Tablet 10 mg PO QAM Vitamin D 1 cap PO QAM tamsulosin 0.4 mg capsule 0.4 mg PO DAILY losartan 25 mg tablet 25 mg PO DAILY metoprolol succinate 25 mg tablet extended release 24 hr 25 mg PO DAILY Rx Instructions: Per pt he takes 1/2 tab Referrals Referrals: Katey Arora MD [Primary Care Provider] -
[2022-09-07 17:01] LABS: Alanine Aminotransferase 25 U/L (7-52); Albumin Globulin Ratio 1.3 (0.9-2); Albumin Level 3.9 gm/dl (3.4-5.0); Alkaline Phosphatase 61 U/L (34-104); Anion Gap 8 (3-11); Aspartate Aminotransferase 35 U/L (13-39); BUN Creatinine Ratio 18.6 (10-20); Bilirubin,Total 1.3 mg/dl (0.2-1.0); Blood Urea Nitrogen 18 mg/dl (6-23); Calcium 9.1 mg/dl (8.6-10.3); Carbon Dioxide 24 mmol/L (21-32); Chloride 105 mmol/L (98-107); Creatine Kinase 182 U/L (30-223); Est GFR (African American) 83.3 ml/min; Est GFR (Non-African American) 71.9 ml/min; Globulin 2.9 gm/dl (2.5-4.0); Glucose 164 mg/dl (70-99(Fasting)); Magnesium 1.8 mg/dl (1.7-2.4); Potassium 3.8 mmol/L (3.5-5.1); Sodium 137 mmol/L (136-145); Total Protein 6.8 gm/dl (6.0-8.3)
[2022-09-07 17:06] LABS: Troponin I High Sensitivity 6.1 pg/ml (0-20)
[2022-09-07 17:16] LABS: Basophils # (auto) 0.01 K/uL (0-0.2); Basophils % (auto) 0.3 %; Immature Granulocytes # (auto) 0.02 K/uL (0.01-0.20); Immature Granulocytes % (auto) 0.5 %; Lymphocytes % (auto) 2.7 %; Monocytes # (auto) 0.19 K/uL (0.11-0.59); Monocytes % (auto) 5.2 %; Neutrophils # (auto) 3.34 K/uL (1.40-6.50); Neutrophils % (auto) 91.3 %
--- NOTE | 2022-09-07 17:38 | XRay Report ---
XR chest 1V portable CLINICAL HISTORY: weakness COMPARISON STUDY: Chest radiograph July 05, 2016. FINDINGS: There are median sternotomy wires. Lung volumes are normal. Lungs are clear. There is no pn eumothorax or pleural effusion. Cardiac size is normal. Mediastinal contours are normal. There is no evidence for pulmonary edema. IMPRESSION: No acute cardiopulmonary findings. ACT 112: Negative or not required by law. Electronically signed by: Emiliano Kelley M.D. 09/07/2022 5:36 PM
[2022-09-07] MEDS ORDERED: OPTIRAY 320 500ml IV ONE (17:55)
--- NOTE | 2022-09-07 18:09 | CT Scan Report ---
CT OF THE HEAD WITHOUT CONTRAST CLINICAL HISTORY: unsteady, falls COMPARISON STUDY: Head CT, MRA of the head and MRI of the brain November 28, 2015. TECHNIQUE: Helical axial images of the head were obtained without IV contrast. Automated exposure con trol was utilized for the study. A dose lowering technique was utilized adhering to the principles o f ALARA. FINDINGS: No acute intracranial hemorrhage, midline shift or mass effect is present. A 9 mm hypodensi ty within the anterior limb of the right internal capsule is unchanged since head CT of November 27 16. This is chronic. The ventricular system is unremarkable. The basal cisterns are patent. No extra- axial collections are present. There are no findings to suggest acute dural sinus thrombosis or acute territorial infarct. No significant calvarial abnormalities are present. Visualized portions of the sinuses and mastoid air cells are clear. IMPRESSION: No acute intracranial findings. No change in appearance of the brain. ACT 112: Negative or not required by law. Electronically signed by: Emiliano Kelley M.D. 09/07/2022 6:07 PM
--- NOTE | 2022-09-07 18:18 | CT Scan Report ---
CT ANGIOGRAPHY OF THE NECK WITH CONTRAST CLINICAL HISTORY: unsteady, falls COMPARISON STUDY: Carotid ultrasound November 28, 2015. Technique: CT angiography of the carotid and vertebral arteries was obtained using Optiray and 3D rec onstruction on an independent workstation. NASCET criteria was utilized. Automated exposure control was utilized for the study. A dose lowering technique was utilized adhering to the principles of ALA RA. CT DOSE: 1100.21 mGy.cm Findings: Visualized portions of the lung apices are unremarkable. There is no cervical spine fractur e. No cervical lymphadenopathy is present. There is mild stenosis at the origin of the right vertebra l artery. There is mild to moderate plaque within the vertebral arteries with no additional stenoses. There is mild plaque within the proximal left internal carotid artery without stenosis. Note is made of moderate plaque within the proximal right internal carotid artery which results in short segment stenosis of 40%. The vessel measures 2.5 mm at site of narrowing and 4.3 mm distally. CTA of the head will be reported separately. IMPRESSION: 1. 40% stenosis of the proximal right internal carotid artery. No stenoses within the cervical left i nternal carotid artery. 2. Mild stenosis at the origin of the right vertebral artery. ACT 112: Negative or not required by law. Electronically signed by: Emiliano Kelley M.D. 09/07/2022 6:16 PM
--- NOTE | 2022-09-07 18:20 | CT Scan Report ---
CTA ANGIOGRAPHY OF THE HEAD CLINICAL HISTORY: unsteady, falls COMPARISON STUDY: MRA of the head November 28, 2015. TECHNIQUE: Helical axial images of the head were obtained following uneventful intravenous administr ation of 108 cc of Optiray. Sagittal and coronal reconstructions were viewed as well as maximal inten sity projections on an independent 3-D workstation. Automated exposure control was utilized for the study. A dose lowering technique was utilized adhering to the principles of ALARA. FINDINGS: Jugular system is unremarkable. Basal cisterns are patent. There are no extra-axial collect ions. No acute hemorrhage is identified. Please note that the head CT will be reported separately. Th ere is mild plaque within bilateral cavernous carotids without significant stenosis. There is no cent ral occlusion within the intracranial vessels. There is no intracranial aneurysm. Posterior circulati on is also intact. Major dural sinuses are patent. IMPRESSION: No central vessel occlusion. No intracranial aneurysm. ACT 112: Negative or not required by law. Electronically signed by: Emiliano Kelley M.D. 09/07/2022 6:19 PM
[2022-09-07 18:36] LABS: Lyme Ab IgG w/WB Rflx Negative (Negative); Lyme Ab IgM w/WB Rflx Negative (Negative)
[2022-09-07 18:39] LABS: Appearance Urine Clear (Clear); Bacteria Urine Automated Negative (Negative); Bilirubin Urine Negative (Negative); Blood Urine Negative (Negative); Color Urine Dark Yellow; Glucose Urine UA Negative (Negative); Ketones Urine 2+ (Negative); Leukocyte Esterase Urine Negative (Negative); Nitrite Urine Negative (Negative); Protein Urine 1+ (Negative); Specific Gravity Urine 1.042 (1.000-1.030); Urobilinogen Urine Negative (Negative)
[2022-09-07] MEDS ORDERED: DOXYCYCLINE HYCLATE 100 MG CAP PO STA (19:18)
--- NOTE | 2022-09-07 22:33 | History and Physical Report ---
DATE OF ADMISSION: 09/07/2022. CHIEF COMPLAINT: Weakness, falls. HISTORY OF PRESENT ILLNESS: This is an 82-year-old male with past medical history significant for hyperlipidemia, CAD, status post CABG, history of non-ST elevated IA, diastolic dysfunction, mild mitral regurgitation, prostate cancer, low back pain, statin intolerance, who lives alone, presents with frequent falls. The patient since about 2 weeks ago, he was falling frequently while at work, when getting out of the car. He fell at home. Yesterday, he got struck in the bathroom, had a bruise on his left shoulder region and because of frequent falls, the son came in and brought him to the hospital. In the ER, he had some mild temperature spike. He has leukopenia. His anaplasmosis screen came back positive. Lyme screen negative. He says he was recently outside in the [place] about to 1-2 weeks ago. In the [place], he did not notice any bites, but there is a small lesion on his abdomen. Denies any chest pain. No shortness of breath, no cough, no headaches, no blurred visions, no earache. Has constant runny nose, occasional sore throat. Appetite is okay. No recent significant weight gain or weight loss. Normal bowel and bladder movements. Resting comfortably and hemodynamically stable. ALLERGIES: POLLEN. PAST MEDICAL HISTORY: As mentioned above. PAST SURGICAL HISTORY: CABG, cardiac catheterization, cardiac stent placement, colonoscopy, lumbosacral spine shots, laparoscopic cholecystectomy, cataract surgery, appendectomy. MEDICATIONS: The patient is on aspirin 81 mg p.o. daily, Zetia 10 mg p.o. daily, losartan 25 mg p.o. daily, metoprolol succinate 25 mg p.o. daily, Flomax 0.4 mg p.o. daily, vitamin B complex 2 tablets daily, vitamin D 1 capsule daily. FAMILY HISTORY: Significant for mother had heart disease. Father had brain cancer. Sister has chronic kidney disease. SOCIAL HISTORY: Currently lives alone. Smoking, occasionally smokes cigar. Alcohol rarely. No drug use. REVIEW OF SYSTEMS: As per HPI. Rest of the review of systems is negative. PHYSICAL EXAMINATION: GENERAL: The patient is of moderate build, not in acute distress. VITAL SIGNS: Temperature 37.9, pulse 84, respiratory rate 19, blood pressure 164/89, oxygen 96% on room air. HEENT: Pupils equal, round and reactive to light. Oral mucosa moist. NECK: No JVD, no neck masses. CARDIOVASCULAR: S1 and S2 heard. Regular rate and rhythm. No murmur, no gallop. RESPIRATORY SYSTEM: Normal AP diameter. No accessory muscle use. No wheezing or crackles. ABDOMEN: Soft, bowel sounds present, nontender, no distention. CENTRAL NERVOUS SYSTEM: Alert and oriented. Speech is clear. No facial droop. Obeys simple commands. Moves extremities. SKIN: Has some bruising on the left shoulder region and small erythematous rash seen right over his abdomen. EXTREMITIES: No edema, no erythema. LABORATORY DATA: WBC 3.6, hemoglobin 14.8, hematocrit 42.1, platelets 132. Sodium 137, potassium 3.8, chloride 105, bicarbonate 24, BUN 18, creatinine 0.9, serum glucose 164. Lactate 1, calcium 9.1, total magnesium 1.8, total bilirubin 1.3, AST 35, ALT 20, alkaline phosphatase 61. Troponin I high sensitivity 6.1. TSH 0.5. Urinalysis negative. Anaplasmosis screen positive. Lyme screen negative. Rest of the studies are pending. SARS-COVID rapid test negative. tick borne illness studies are pending. IMAGING DATA: CT of the neck with contrast, 40% stenosis of proximal right internal carotid artery, no stenosis within the cervical left internal carotid artery, mild stenosis at origin of right vertebral artery. CT of the head, no central vessel occlusion, no intracranial aneurysm. CT of the head, no acute findings. Chest x-ray, no acute cardiopulmonary findings. EKG: Normal sinus rhythm, rate of 92, no acute ST changes seen. ASSESSMENT AND PLAN: This is an 82-year-old male who presents with weakness and falls and positive anaplasmosis. 1. Weakness and falls leukopenia. We will follow LFTs and labs. Follow the confirmation test. Empirically start on doxycycline. We will also monitor in the tele floor and also rule out any other causes.CTA head and neck and ct head as above. . We will get PT/OT when feeling better. 2. History of coronary artery disease, status post coronary artery bypass grafting, status post stent. Continue Zetia, metoprolol and aspirin. 3. History of benign prostatic hypertrophy, on Flomax. 4. History of hypertension, on losartan and metoprolol. 5. Hyperlipidemia, on Zetia. 6. Chronic diastolic congestive heart failure. Getting fluids. Monitor for any volume overload. 7. Deep venous thrombosis prophylaxis. Sequential compression devices and heparin subcutaneously. Monitor the platelets. DISPOSITION: Closely monitor in med tele. PT/OT prior to discharge. Social service to help with discharge planning. Level 1 full code. Job ID: [id number] MTDD
[2022-09-07] MEDS ORDERED: NITROGLYCERIN SL 0.4 MG/TAB TAB SL PRN (23:04)
[2022-09-07] MEDS ORDERED: ONDANSETRON INJ 2 MG/ML 2 ML VIAL IV PRN (23:04)
[2022-09-07] MEDS: ACETAMINOPHEN 325 MG TAB PO PRN (23:33)
[2022-09-07] MEDS: SODIUM CHLORIDE 0.9% 1000ML 1,000 ML IV SCH (23:35)
[2022-09-07] MEDS: HEPARIN SOD 5,000 UNIT/0.5 ML VIAL SQ SCH (23:51)
--- NOTE | 2022-09-08 07:37 | Electrocardiogram Report ---
Test Reason : Blood Pressure : / mmHG Vent. Rate : 092 BPM Atrial Rate : 092 BPM P-R Int : 142 ms QRS Dur : 084 ms QT Int : 352 ms P-R-T Axes : 038 -28 028 degrees QTc Int : 435 ms Normal sinus rhythm Minimal voltage criteria for LVH, may be normal variant Poor R wave progression, consider anterior VT vs. lead placement vs. LVH Abnormal ECG When compared with ECG of 08-JUL-2016 14:03, Vent. rate has increased BY 41 BPM Confirmed by Sam Mckeon ([id number]) on 09/08/2022 7:37:25 AM Referred By: Confirmed By:Delmer Mckeon
[2022-09-08 07:41] LABS: Albumin Level 3.4 gm/dl (3.4-5.0); Bilirubin Direct 0.2 mg/dl (0-0.2); Calcium 8.4 mg/dl (8.6-10.3); Magnesium 1.8 mg/dl (1.7-2.4); Potassium 4.1 mmol/L (3.5-5.1)
[2022-09-08 07:47] LABS: BUN Creatinine Ratio 18.4 (10-20); Creatinine Clr Calc Pharmacy 58.6 ml/min; Est GFR (African American) 92.5 ml/min; Est GFR (Non-African American) 79.8 ml/min; Total Protein 5.8 gm/dl (6.0-8.3)
[2022-09-08 07:54] LABS: Basophils # (auto) 0.02 K/uL (0-0.2); Eosinophils # (auto) 0.01 K/uL (0-0.50); Eosinophils % (auto) 0.5 %; Hematocrit (blood only) 39.3 % (42.0-52.0); Hemoglobin 13.3 g/dl (14.0-18.0); Lymphocytes % (auto) 20.8 %; Mean Corpuscular Hemoglobin 33.3 pg (25.0-34.0); Mean Corpuscular Hgb Conc 33.8 g/dL (32.0-36.0); Mean Corpuscular Volume 98.5 fL (80.0-100.0); Mean Platelet Volume 8.9 fL (9.4-12.4); Monocytes # (auto) 0.33 K/uL (0.11-0.59); Monocytes % (auto) 17.2 %; Neutrophils # (auto) 1.16 K/uL (1.40-6.50); Neutrophils % (auto) 60.5 %; Platelet Count 113 K/uL (130-400); RDW Coefficient of Variation 13.3 % (11.5-14.5); Red Blood Count 3.99 M/uL (4.70-6.10); White Blood Count 1.92 K/ul (4.8-10.8)
--- NOTE | 2022-09-08 07:56 | Hospitalist Progress Note ---
Date of Service September 08, 2022 Assessment & Plan (1) Weakness: (2) Falls: (3) Anaplasmosis: Plan: This is an 82-year-old male who presents with weakness and falls and positive anaplasmosis. 1. Weakness and falls, leukopenia. We will follow LFTs and labs. Follow the confirmation test. Empirically started on doxycycline. We will also monitor in the tele floor and also rule out any other causes. CTA head and neck and ct head obtained - negative. We will get PT/OT when feeling better. 2. CAD s/p coronary artery bypass grafting, status post stent. Continue Zetia, metoprolol and aspirin. 3. BPH, on Flomax. 4. HTN, on losartan and metoprolol. 5. Hyperlipidemia, on Zetia. 6. Chronic diastolic congestive heart failure. Getting fluids. Monitor for any volume overload. DVT prophylaxis. SCDs and heparin subcutaneously. Monitor the platelets. DISPOSITION: med tele. PT/OT prior to discharge. Social service to help with discharge planning. full code. Admission and Anticipated Discharge Date Admission Date: September 07, 2022 Subjective Pt seen in follow up of falls, poss. anaplasmosis Currently laying in bed, in no acute distress Reports having fevers chills at home and in the emergency room, not now No chest pain shortness of breath, no abdominal pain Says he was ambulating ambulate with a walker in the room Currently patient's son Avery present at the bedside and also updated Patient works at [email or web address], reports multiple falls, and recent hike in the [facility] Review of Systems Review of Systems: All systems reviewed & are unremarkable except as noted in Subjective Physical Exam Physical Exam: GENERAL: The patient is of moderate build, not in acute distress. HEENT: NC/AT. Pupils equal, round and reactive to light. Oral mucosa moist. NECK: No JVD, no neck masses. CARDIOVASCULAR: S1 and S2 heard. Regular rate and rhythm. No murmur, no gallop. RESPIRATORY: Normal AP diameter. No accessory muscle use. No wheezing or cr ackles. ABDOMEN: Soft, bowel sounds present, nontender, no distention. NEURO: Alert and oriented. Speech is clear.Answers appropriately. No facial droop. Obeys simple commands. Moves extremities. SKIN: Has some bruising on the left shoulder region and small erythematous rash seen right over his abdomen. EXTREMITIES: No edema, no erythema. Results & Data Results & Data Vital Signs (Past 12 Hours) Vital Signs Temp Pulse Pulse Pulse Resp BP Pulse Ox 09/08/22 07:24 36.3 C L 58 L 17 142/70 H 95 09/08/22 02:56 36.8 C 61 18 113/65 95 09/07/22 23:18 94 H 09/07/22 23:04 36.8 C 95 H 20 135/67 94 09/07/22 22:11 O2 Del Method 09/08/22 07:24 Room Air 09/08/22 02:56 Room Air 09/07/22 23:18 09/07/22 23:04 Room Air 09/07/22 22:11 Room Air Laboratory Results 09/08/22 09/08/22 09/07/22 Range/Units 06:24 06:24 20:37 WBC Pending (4.8-10.8) K/ul RBC Pending (4.70-6.10) M/uL Hgb Pending (14.0-18.0) g/dl Hct Pending (42.0-52.0) % MCV Pending (80.0-100.0) fL MCH Pending (25.0-34.0) pg MCHC Pending (32.0-36.0) g/dL RDW Std Deviation (36.4-46.3) fL RDW Coeff of Lee (11.5-14.5) % Plt Count Pending (130-400) K/uL MPV (9.4-12.4) fL Immature Gran % (Auto) % Neut % (Auto) % Lymph % (Auto) % Wilkinson % (Auto) % Eos % (Auto) % Baso % (Auto) % Neut # (Auto) (1.40-6.50) K/uL Lymph # (Auto) (1.2-3.4) K/uL Wilkinson # (Auto) (0.11-0.59) K/uL Eos # (Auto) (0-0.50) K/uL Baso # (Auto) (0-0.2) K/uL Immature Gran # (Auto) (0.01-0.20) K/uL Peripher Smr Path Cons Sodium 140 (136-145) mmol/L Potassium 4.1 (3.5-5.1) mmol/L Chloride 107 (98-107) mmol/L Carbon Dioxide 28 (21-32) mmol/L Anion Gap 5 (3-11) BUN 16 (6-23) mg/dl Creatinine 0.87 (0.6-1.4) mg/dl Est Cr Clr Drug Dosing 58.6 Est GFR ( Amer) 92.5 ml/min Est GFR (Non-Af Amer) 79.8 ml/min BUN/Creatinine Ratio 18.4 (10-20) Glucose 93 (70-99(Fasting)) mg/dl Lactate (0.4-2.0) mmol/L Calcium 8.4 L (8.6-10.3) mg/dl Magnesium 1.8 (1.7-2.4) mg/dl Total Bilirubin 1.0 (0.2-1.0) mg/dl Direct Bilirubin 0.2 (0-0.2) mg/dl AST 31 (13-39) U/L ALT 21 (7-52) U/L Alkaline Phosphatase 53 (34-104) U/L Total Creatine Kinase (30-223) U/L Troponin I High Sens (0-20) pg/ml Total Protein 5.8 L (6.0-8.3) gm/dl Albumin 3.4 (3.4-5.0) gm/dl Globulin (2.5-4.0) gm/dl Albumin/Globulin Ratio (0.9-2) Procalcitonin (0-0.5) ng/ml TSH (0.300-4.500) uIu/ml Urine Color Urine Appearance (Clear) Urine pH (4.5-7.5) Ur Specific [place] (1.000-1.030) Urine Protein (Negative) Urine Glucose (UA) (Negative) Urine Ketones (Negative) Urine Blood (Negative) Urine Nitrite (Negative) Urine Bilirubin (Negative) Urine Urobilinogen (Negative) Ur Leukocyte Esterase (Negative) Urine WBC (Auto) (0-5) /hpf Urine RBC (Auto) (0-4) /hpf U Hyaline Cast (Auto) (0-5) /lpf U Epithel Cells (Auto) (0-5) /lpf Urine Bacteria (Auto) (Negative) Anaplasma Smear A. phagocytophilum DNA Pending Anaplasma Comment Lyme Disease IgG Ab (Negative) Lyme Disease IgM Ab (Negative) E.chaffeensis DNA (PCR) Q Fever Phase I IgG Ab Q Fever Phase I IgM Ab Q Fever Phase II IgG Ab Q Fever Phase II IgM Ab Rickettsia IgG Ab Rickettsia IgM Ab SARS-CoV-2, RNA, NAAT (NEGATIVE) Typhus Fever IgG Ab Typhus Fever IgM Ab 09/07/22 09/07/22 09/07/22 Range/Units 20:37 20:37 18:25 WBC (4.8-10.8) K/ul RBC (4.70-6.10) M/uL Hgb (14.0-18.0) g/dl Hct (42.0-52.0) % MCV (80.0-100.0) fL MCH (25.0-34.0) pg MCHC (32.0-36.0) g/dL RDW Std Deviation (36.4-46.3) fL RDW Coeff of Lee (11.5-14.5) % Plt Count (130-400) K/uL MPV (9.4-12.4) fL Immature Gran % (Auto) % Neut % (Auto) % Lymph % (Auto) % Wilkinson % (Auto) % Eos % (Auto) % Baso % (Auto) % Neut # (Auto) (1.40-6.50) K/uL Lymph # (Auto) (1.2-3.4) K/uL Wilkinson # (Auto) (0.11-0.59) K/uL Eos # (Auto) (0-0.50) K/uL Baso # (Auto) (0-0.2) K/uL Immature Gran # (Auto) (0.01-0.20) K/uL Peripher Smr Path Cons Sodium (136-145) mmol/L Potassium (3.5-5.1) mmol/L Chloride (98-107) mmol/L Carbon Dioxide (21-32) mmol/L Anion Gap (3-11) BUN (6-23) mg/dl Creatinine (0.6-1.4) mg/dl Est Cr Clr Drug Dosing Est GFR ( Amer) ml/min Est GFR (Non-Af Amer) ml/min BUN/Creatinine Ratio (10-20) Glucose (70-99(Fasting)) mg/dl Lactate (0.4-2.0) mmol/L Calcium (8.6-10.3) mg/dl Magnesium (1.7-2.4) mg/dl Total Bilirubin (0.2-1.0) mg/dl Direct Bilirubin (0-0.2) mg/dl AST (13-39) U/L ALT (7-52) U/L Alkaline Phosphatase (34-104) U/L Total Creatine Kinase (30-223) U/L Troponin I High Sens (0-20) pg/ml Total Protein (6.0-8.3) gm/dl Albumin (3.4-5.0) gm/dl Globulin (2.5-4.0) gm/dl Albumin/Globulin Ratio (0.9-2) Procalcitonin (0-0.5) ng/ml TSH (0.300-4.500) uIu/ml Urine Color Dark Yellow Urine Appearance Clear (Clear) Urine pH 6.0 (4.5-7.5) Ur Specific [place] 1.042 H (1.000-1.030) Urine Protein 1+ H (Negative) Urine Glucose (UA) Negative (Negative) Urine Ketones 2+ H (Negative) Urine Blood Negative (Negative) Urine Nitrite Negative (Negative) Urine Bilirubin Negative (Negative) Urine Urobilinogen Negative (Negative) Ur Leukocyte Esterase Negative (Negative) Urine WBC (Auto) 1-5 (0-5) /hpf Urine RBC (Auto) 5-10 H (0-4) /hpf U Hyaline Cast (Auto) 1-5 (0-5) /lpf U Epithel Cells (Auto) 10-20 H (0-5) /lpf Urine Bacteria (Auto) Negative (Negative) Anaplasma Smear A. phagocytophilum DNA Anaplasma Comment Lyme Disease IgG Ab (Negative) Lyme Disease IgM Ab (Negative) E.chaffeensis DNA (PCR) Pending Q Fever Phase I IgG Ab Pending Q Fever Phase I IgM Ab Pending Q Fever Phase II IgG Ab Pending Q Fever Phase II IgM Ab Pending Rickettsia IgG Ab Pending Rickettsia IgM Ab Pending SARS-CoV-2, RNA, NAAT (NEGATIVE) Typhus Fever IgG Ab Pending Typhus Fever IgM Ab Pending 06/10/23 06/10/23 06/10/23 Range/Units 16:56 16:48 16:06 WBC (4.8-10.8) K/ul RBC (4.70-6.10) M/uL Hgb (14.0-18.0) g/dl Hct (42.0-52.0) % MCV (80.0-100.0) fL MCH (25.0-34.0) pg MCHC (32.0-36.0) g/dL RDW Std Deviation (36.4-46.3) fL RDW Coeff of Lee (11.5-14.5) % Plt Count (130-400) K/uL MPV (9.4-12.4) fL Immature Gran % (Auto) % Neut % (Auto) % Lymph % (Auto) % Wilkinson % (Auto) % Eos % (Auto) % Baso % (Auto) % Neut # (Auto) (1.40-6.50) K/uL Lymph # (Auto) (1.2-3.4) K/uL Wilkinson # (Auto) (0.11-0.59) K/uL Eos # (Auto) (0-0.50) K/uL Baso # (Auto) (0-0.2) K/uL Immature Gran # (Auto) (0.01-0.20) K/uL Peripher Smr Path Cons Sodium (136-145) mmol/L Potassium (3.5-5.1) mmol/L Chloride (98-107) mmol/L Carbon Dioxide (21-32) mmol/L Anion Gap (3-11) BUN (6-23) mg/dl Creatinine (0.6-1.4) mg/dl Est Cr Clr Drug Dosing Est GFR ( Amer) ml/min Est GFR (Non-Af Amer) ml/min BUN/Creatinine Ratio (10-20) Glucose (70-99(Fasting)) mg/dl Lactate 1.0 (0.4-2.0) mmol/L Calcium (8.6-10.3) mg/dl Magnesium (1.7-2.4) mg/dl Total Bilirubin (0.2-1.0) mg/dl Direct Bilirubin (0-0.2) mg/dl AST (13-39) U/L ALT (7-52) U/L Alkaline Phosphatase (34-104) U/L Total Creatine Kinase (30-223) U/L Troponin I High Sens (0-20) pg/ml Total Protein (6.0-8.3) gm/dl Albumin (3.4-5.0) gm/dl Globulin (2.5-4.0) gm/dl Albumin/Globulin Ratio (0.9-2) Procalcitonin (0-0.5) ng/ml TSH (0.300-4.500) uIu/ml Urine Color Urine Appearance (Clear) Urine pH (4.5-7.5) Ur Specific [place] (1.000-1.030) Urine Protein (Negative) Urine Glucose (UA) (Negative) Urine Ketones (Negative) Urine Blood (Negative) Urine Nitrite (Negative) Urine Bilirubin (Negative) Urine Urobilinogen (Negative) Ur Leukocyte Esterase (Negative) Urine WBC (Auto) (0-5) /hpf Urine RBC (Auto) (0-4) /hpf U Hyaline Cast (Auto) (0-5) /lpf U Epithel Cells (Auto) (0-5) /lpf Urine Bacteria (Auto) (Negative) Anaplasma Smear A. phagocytophilum DNA Anaplasma Comment Lyme Disease IgG Ab Negative (Negative) Lyme Disease IgM Ab Negative (Negative) E.chaffeensis DNA (PCR) Q Fever Phase I IgG Ab Q Fever Phase I IgM Ab Q Fever Phase II IgG Ab Q Fever Phase II IgM Ab Rickettsia IgG Ab Rickettsia IgM Ab SARS-CoV-2, RNA, NAAT NEGATIVE (NEGATIVE) Typhus Fever IgG Ab Typhus Fever IgM Ab 09/07/22 09/07/22 09/07/22 Range/Units 16:06 16:06 16:06 WBC (4.8-10.8) K/ul RBC (4.70-6.10) M/uL Hgb (14.0-18.0) g/dl Hct (42.0-52.0) % MCV (80.0-100.0) fL MCH (25.0-34.0) pg MCHC (32.0-36.0) g/dL RDW Std Deviation (36.4-46.3) fL RDW Coeff of Lee (11.5-14.5) % Plt Count (130-400) K/uL MPV (9.4-12.4) fL Immature Gran % (Auto) % Neut % (Auto) % Lymph % (Auto) % Wilkinson % (Auto) % Eos % (Auto) % Baso % (Auto) % Neut # (Auto) (1.40-6.50) K/uL Lymph # (Auto) (1.2-3.4) K/uL Wilkinson # (Auto) (0.11-0.59) K/uL Eos # (Auto) (0-0.50) K/uL Baso # (Auto) (0-0.2) K/uL Immature Gran # (Auto) (0.01-0.20) K/uL Peripher Smr Path Cons Sodium 137 (136-145) mmol/L Potassium 3.8 (3.5-5.1) mmol/L Chloride 105 (98-107) mmol/L Carbon Dioxide 24 (21-32) mmol/L Anion Gap 8 (3-11) BUN 18 (6-23) mg/dl Creatinine 0.97 (0.6-1.4) mg/dl Est Cr Clr Drug Dosing Not Reportable Est GFR ( Amer) 83.3 ml/min Est GFR (Non-Af Amer) 71.9 ml/min BUN/Creatinine Ratio 18.6 (10-20) Glucose 164 H (70-99(Fasting)) mg/dl Lactate (0.4-2.0) mmol/L Calcium 9.1 (8.6-10.3) mg/dl Magnesium 1.8 (1.7-2.4) mg/dl Total Bilirubin 1.3 H (0.2-1.0) mg/dl Direct Bilirubin (0-0.2) mg/dl AST 35 (13-39) U/L ALT 25 (7-52) U/L Alkaline Phosphatase 61 (34-104) U/L Total Creatine Kinase 182 (30-223) U/L Troponin I High Sens 6.1 (0-20) pg/ml Total Protein 6.8 (6.0-8.3) gm/dl Albumin 3.9 (3.4-5.0) gm/dl Globulin 2.9 (2.5-4.0) gm/dl Albumin/Globulin Ratio 1.3 (0.9-2) Procalcitonin 0.38 (0-0.5) ng/ml TSH 0.598 (0.300-4.500) uIu/ml Urine Color Urine Appearance (Clear) Urine pH (4.5-7.5) Ur Specific [place] (1.000-1.030) Urine Protein (Negative) Urine Glucose (UA) (Negative) Urine Ketones (Negative) Urine Blood (Negative) Urine Nitrite (Negative) Urine Bilirubin (Negative) Urine Urobilinogen (Negative) Ur Leukocyte Esterase (Negative) Urine WBC (Auto) (0-5) /hpf Urine RBC (Auto) (0-4) /hpf U Hyaline Cast (Auto) (0-5) /lpf U Epithel Cells (Auto) (0-5) /lpf Urine Bacteria (Auto) (Negative) Anaplasma Smear A. phagocytophilum DNA Anaplasma Comment Lyme Disease IgG Ab (Negative) Lyme Disease IgM Ab (Negative) E.chaffeensis DNA (PCR) Q Fever Phase I IgG Ab Q Fever Phase I IgM Ab Q Fever Phase II IgG Ab Q Fever Phase II IgM Ab Rickettsia IgG Ab Rickettsia IgM Ab SARS-CoV-2, RNA, NAAT (NEGATIVE) Typhus Fever IgG Ab Typhus Fever IgM Ab 09/07/22 Range/Units 16:06 WBC 3.66 L (4.8-10.8) K/ul RBC 4.39 L (4.70-6.10) M/uL Hgb 14.8 (14.0-18.0) g/dl Hct 42.2 (42.0-52.0) % MCV 96.1 (80.0-100.0) fL MCH 33.7 (25.0-34.0) pg MCHC 35.1 (32.0-36.0) g/dL RDW Std Deviation 47.6 H (36.4-46.3) fL RDW Coeff of Lee 13.2 (11.5-14.5) % Plt Count 132 (130-400) K/uL MPV 9.1 L (9.4-12.4) fL Immature Gran % (Auto) 0.5 % Neut % (Auto) 91.3 % Lymph % (Auto) 2.7 % Wilkinson % (Auto) 5.2 % Eos % (Auto) 0.0 % Baso % (Auto) 0.3 % Neut # (Auto) 3.34 (1.40-6.50) K/uL Lymph # (Auto) 0.10 L (1.2-3.4) K/uL Wilkinson # (Auto) 0.19 (0.11-0.59) K/uL Eos # (Auto) 0.00 (0-0.50) K/uL Baso # (Auto) 0.01 (0-0.2) K/uL Immature Gran # (Auto) 0.02 (0.01-0.20) K/uL Peripher Smr Path Cons Pending Sodium (136-145) mmol/L Potassium (3.5-5.1) mmol/L Chloride (98-107) mmol/L Carbon Dioxide (21-32) mmol/L Anion Gap (3-11) BUN (6-23) mg/dl Creatinine (0.6-1.4) mg/dl Est Cr Clr Drug Dosing Est GFR ( Amer) ml/min Est GFR (Non-Af Amer) ml/min BUN/Creatinine Ratio (10-20) Glucose (70-99(Fasting)) mg/dl Lactate (0.4-2.0) mmol/L Calcium (8.6-10.3) mg/dl Magnesium (1.7-2.4) mg/dl Total Bilirubin (0.2-1.0) mg/dl Direct Bilirubin (0-0.2) mg/dl AST (13-39) U/L ALT (7-52) U/L Alkaline Phosphatase (34-104) U/L Total Creatine Kinase (30-223) U/L Troponin I High Sens (0-20) pg/ml Total Protein (6.0-8.3) gm/dl Albumin (3.4-5.0) gm/dl Globulin (2.5-4.0) gm/dl Albumin/Globulin Ratio (0.9-2) Procalcitonin (0-0.5) ng/ml TSH (0.300-4.500) uIu/ml Urine Color Urine Appearance (Clear) Urine pH (4.5-7.5) Ur Specific [place] (1.000-1.030) Urine Protein (Negative) Urine Glucose (UA) (Negative) Urine Ketones (Negative) Urine Blood (Negative) Urine Nitrite (Negative) Urine Bilirubin (Negative) Urine Urobilinogen (Negative) Ur Leukocyte Esterase (Negative) Urine WBC (Auto) (0-5) /hpf Urine RBC (Auto) (0-4) /hpf U Hyaline Cast (Auto) (0-5) /lpf U Epithel Cells (Auto) (0-5) /lpf Urine Bacteria (Auto) (Negative) Anaplasma Smear See Comment A A. phagocytophilum DNA Anaplasma Comment Pending Lyme Disease IgG Ab (Negative) Lyme Disease IgM Ab (Negative) E.chaffeensis DNA (PCR) Q Fever Phase I IgG Ab Q Fever Phase I IgM Ab Q Fever Phase II IgG Ab Q Fever Phase II IgM Ab Rickettsia IgG Ab Rickettsia IgM Ab SARS-CoV-2, RNA, NAAT (NEGATIVE) Typhus Fever IgG Ab Typhus Fever IgM Ab Medications Administered Current Inpatient Medications Acetaminophen (Acetaminophen 325 Mg Tab) 650 mg PO Q4H PRN PRN Reason: Pain or Fever Stop: 10/07/22 23:03 Last Admin: 09/07/22 23:33 Dose: 650 mg Aspirin (Aspirin 81 Mg Ectab) 81 mg PO QAM [facility] Stop: 10/08/22 08:59 Doxycycline Hyclate (Doxycycline Hyclate 100 Mg Cap) 100 mg PO BID [facility] Stop: 09/22/22 08:59 Ezetimibe (Ezetimibe 10 Mg Tablet) 10 mg PO QAM [facility] Stop: 10/08/22 08:59 Heparin Sodium (Porcine) (Heparin Sod 5,000 Unit/0.5 Ml Vial) 5,000 units SQ Q12 MARGARET Stop: 10/07/22 23:03 Last Admin: 09/07/22 23:51 Dose: 5,000 units Sodium Chloride (Nss 1000ml) 1,000 mls @ 80 mls/hr IV .[id number] [facility] Stop: 09/09/22 00:03 Last Admin: 09/07/22 23:35 Dose: 80 mls/hr Losartan Potassium (Losartan Potassium 25 Mg Tab) 25 mg PO DAILY [facility] Stop: 10/08/22 08:59 Metoprolol Succinate (Metoprolol Succ 25mg Ext Rel Tab) 25 mg PO DAILY [facility] Stop: 10/08/22 08:59 Nitroglycerin (Nitroglycerin Sl 0.4 Mg/Tab Tab) 0.4 mg SL Q5M PRN PRN Reason: Chest Pain Stop: 10/07/22 23:03 Ondansetron HCl (Ondansetron Inj 2 Mg/Ml 2 Ml Vial) 4 mg IV Q6H PRN PRN Reason: Nausea Stop: 10/07/22 23:03 Tamsulosin HCl (Tamsulosin Hcl 0.4 Mg Cap) 0.4 mg PO DAILY [facility] Stop: 10/08/22 08:59 Vitamin B Complex (Vitamin B Complex Tab) [facility] [place] Stop: 10/08/22 08:59 Vitamin D (Cholecalciferol 1,000 Units 25 Mcg Tab) 1,000 units PO QAM [facility] Stop: 10/08/22 08:59
[2022-09-08] MEDS: HEPARIN SOD 5,000 UNIT/0.5 ML VIAL SQ SCH ×2 (08:46→20:58)
[2022-09-08] MEDS: EZETIMIBE 10 MG TABLET PO SCH (08:47)
[2022-09-08] MEDS: ASPIRIN 81 MG ECTAB PO SCH (08:47)
[2022-09-08] MEDS: VITAMIN B COMPLEX TAB PO SCH (08:48)
[2022-09-08] MEDS: CHOLECALCIFEROL 1,000 UNITS 25 MCG TAB PO SCH (08:49)
[2022-09-08] MEDS: LOSARTAN POTASSIUM 25 MG TAB PO SCH (08:49)
[2022-09-08] MEDS: DOXYCYCLINE HYCLATE 100 MG CAP PO SCH ×2 (08:49→20:58)
[2022-09-08] MEDS: METOPROLOL SUCC 25MG EXT REL TAB PO SCH (08:49)
[2022-09-08] MEDS ORDERED: TAMSULOSIN HCL 0.4 MG CAP PO SCH (09:00)
[2022-09-08] MEDS: SODIUM CHLORIDE 0.9% 1000ML 1,000 ML IV SCH (12:16)
[2022-09-08] MEDS ORDERED: CALCIUM CARBONATE 500 MG CHEWABLE TAB PO PRN (23:31)
[2022-09-08] MEDS: ACETAMINOPHEN 325 MG TAB PO PRN (23:50)
[2022-09-09] MEDS: TAMSULOSIN HCL 0.4 MG CAP PO SCH ×2 (01:15→20:03)
[2022-09-09] MEDS: DOXYCYCLINE HYCLATE 100 MG CAP PO SCH ×2 (07:48→20:03)
[2022-09-09] MEDS: VITAMIN B COMPLEX TAB PO SCH (07:48)
[2022-09-09] MEDS: EZETIMIBE 10 MG TABLET PO SCH (07:49)
[2022-09-09] MEDS: ASPIRIN 81 MG ECTAB PO SCH (07:49)
[2022-09-09] MEDS: CHOLECALCIFEROL 1,000 UNITS 25 MCG TAB PO SCH (07:49)
[2022-09-09] MEDS: METOPROLOL SUCC 25MG EXT REL TAB PO SCH (07:49)
[2022-09-09] MEDS: LOSARTAN POTASSIUM 25 MG TAB PO SCH (07:50)
[2022-09-09] MEDS: HEPARIN SOD 5,000 UNIT/0.5 ML VIAL SQ SCH ×2 (07:50→20:03)
[2022-09-09 08:18] LABS: Hematocrit (blood only) 37.2 % (42.0-52.0); Mean Corpuscular Hemoglobin 33.2 pg (25.0-34.0); Mean Corpuscular Hgb Conc 34.9 g/dL (32.0-36.0); Mean Corpuscular Volume 94.9 fL (80.0-100.0); Mean Platelet Volume 9.3 fL (9.4-12.4); Platelet Count 105 K/uL (130-400); RDW Standard Deviation 45.1 fL (36.4-46.3); Red Blood Count 3.92 M/uL (4.70-6.10); White Blood Count 2.74 K/ul (4.8-10.8)
[2022-09-09 08:19] LABS: BUN Creatinine Ratio 14.3 (10-20); Calcium 8.1 mg/dl (8.6-10.3); Est GFR (Non-African American) 77.7 ml/min; Magnesium 1.7 mg/dl (1.7-2.4); Phosphorus 2.4 mg/dl (2.5-4.9); Potassium 4.1 mmol/L (3.5-5.1)
--- NOTE | 2022-09-09 10:21 | Hospitalist Progress Note ---
Date of Service September 09, 2022 Assessment & Plan (1) Weakness: (2) Falls: (3) Anaplasmosis: Plan: This is an 82-year-old male who presents with weakness and falls and positive anaplasmosis. 1. Weakness and falls, leukopenia. We will follow LFTs and labs. Follow the confirmation test. Empirically started on doxycycline. We will also monitor in the tele floor and also rule out any other causes. CTA head and neck and ct head obtained - negative. We will get PT/OT today. Pt reports feeling better and more steady on his feet. 2. CAD s/p coronary artery bypass grafting, status post stent. Continue Zetia, metoprolol and aspirin. 3. BPH, on Flomax. 4. HTN, on losartan and metoprolol. 5. Hyperlipidemia, on Zetia. 6. Chronic diastolic congestive heart failure. Getting fluids. Monitor for any volume overload. DVT prophylaxis. SCDs and heparin subcutaneously. Monitor the platelets. DISPOSITION: med tele. PT/OT prior to discharge. Social service to help with discharge planning. full code. Admission and Anticipated Discharge Date Admission Date: September 07, 2022 Subjective Pt seen in follow up of falls, poss. anaplasmosis Currently laying in bed, in no acute distress Reports having fevers chills at home and in the emergency room, not now No chest pain shortness of breath, no abdominal pain Says he was ambulating ambulate with a walker in the room Yesterday patient's son Avery present at the bedside and updated, today pt's daughter is present at the bedside. Patient works at [employer], reports multiple falls, and recent [place] Currently says he is feeling much better. will obtain PT/OT Review of Systems Review of Systems: All systems reviewed & are unremarkable except as noted in Subjective Physical Exam Physical Exam: GENERAL: The patient is of moderate build, not in acute distress. HEENT: NC/AT. Pupils equal, round and reactive to light. Oral mucosa moist. NECK: No JVD, no neck masses. CARDIOVASCULAR: S1 and S2 heard. Regular rate and rhythm. No murmur, no gallop. RESPIRATORY: Normal AP diameter. No accessory muscle use. No wheezing or crackles. ABDOMEN: Soft, bowel sounds present, nontender, no distention. NEURO: Alert and oriented. Speech is clear.Answers appropriately. No facial droop. Obeys simple commands. Moves extremities. SKIN: Has some bruising on the left shoulder region and small erythematous rash seen right over his abdomen. EXTREMITIES: No edema, no erythema. Results & Data Results & Data Vital Signs (Past 12 Hours) Vital Signs Temp Pulse Pulse Resp BP Pulse Ox O2 Del Method 09/09/22 07:50 36.6 C 53 L 20 135/74 96 Room Air 09/09/22 07:00 46 L Laboratory Results 09/09/22 09/09/22 09/07/22 Range/Units 07:19 07:19 16:06 WBC 2.74 L (4.8-10.8) K/ul RBC 3.92 L (4.70-6.10) M/uL Hgb 13.0 L (14.0-18.0) g/dl Hct 37.2 L (42.0-52.0) % MCV 94.9 (80.0-100.0) fL MCH 33.2 (25.0-34.0) pg MCHC 34.9 (32.0-36.0) g/dL RDW Std Deviation 45.1 (36.4-46.3) fL RDW Coeff of Lee 13.0 (11.5-14.5) % Plt Count 105 L (130-400) K/uL MPV 9.3 L (9.4-12.4) fL Sodium 140 (136-145) mmol/L Potassium 4.1 (3.5-5.1) mmol/L Chloride 109 H (98-107) mmol/L Carbon Dioxide 29 (21-32) mmol/L Anion Gap 2 L (3-11) BUN 13 (6-23) mg/dl Creatinine 0.91 (0.6-1.4) mg/dl Est Cr Clr Drug Dosing 56.0 ml/min Est GFR ( Amer) 90.0 ml/min Est GFR (Non-Af Amer) 77.7 ml/min BUN/Creatinine Ratio 14.3 (10-20) Glucose 83 (70-99(Fasting)) mg/dl Calcium 8.1 L (8.6-10.3) mg/dl Phosphorus 2.4 L (2.5-4.9) mg/dl Magnesium 1.7 (1.7-2.4) mg/dl Anaplasma Smear See Comment A Medications Administered Current Inpatient Medications Acetaminophen (Acetaminophen 325 Mg Tab) 650 mg PO Q4H PRN PRN Reason: Pain or Fever Stop: 10/07/22 23:03 Last Admin: 09/08/22 23:50 Dose: 650 mg Aspirin (Aspirin 81 Mg Ectab) 81 mg PO QAM [facility] Stop: 10/08/22 08:59 Last Admin: 09/09/22 07:49 Dose: 81 mg Calcium Carbonate (Calcium Carbonate 500 Mg Chewable Tab) 500 mg PO BID PRN PRN Reason: Heartburn Stop: 10/08/22 23:30 Last Admin: 09/08/22 23:50 Dose: 500 mg Doxycycline Hyclate (Doxycycline Hyclate 100 Mg Cap) 100 mg PO BID [facility] Stop: 09/22/22 08:59 Last Admin: 09/09/22 07:48 Dose: 100 mg Ezetimibe (Ezetimibe 10 Mg Tablet) 10 mg PO QAM [facility] Stop: 10/08/22 08:59 Last Admin: 09/09/22 07:49 Dose: 10 mg Heparin Sodium (Porcine) (Heparin Sod 5,000 Unit/0.5 Ml Vial) 5,000 units SQ Q12 [facility] Stop: 10/07/22 23:03 Last Admin: 09/09/22 07:50 Dose: 5,000 units Losartan Potassium (Losartan Potassium 25 Mg Tab) 25 mg PO DAILY [facility] Stop: 10/08/22 08:59 Last Admin: 09/09/22 07:50 Dose: 25 mg Magnesium Oxide (Magnesium Oxide 400 Mg Tab) 400 mg PO BID [facility] Stop: 10/09/22 10:29 Metoprolol Succinate (Metoprolol Succ 25mg Ext Rel Tab) 25 mg PO DAILY [facility] Stop: 10/08/22 08:59 Last Admin: 09/09/22 07:49 Dose: 25 mg Nitroglycerin (Nitroglycerin Sl 0.4 Mg/Tab Tab) 0.4 mg SL Q5M PRN PRN Reason: Chest Pain Stop: 10/07/22 23:03 Ondansetron HCl (Ondansetron Inj 2 Mg/Ml 2 Ml Vial) 4 mg IV Q6H PRN PRN Reason: Nausea Stop: 10/07/22 23:03 Tamsulosin HCl (Tamsulosin Hcl 0.4 Mg Cap) 0.4 mg PO HS [facility] Stop: 10/09/22 00:14 Last Admin: 09/09/22 01:15 Dose: 0.4 mg Vitamin B Complex (Vitamin B Complex Tab) 2 [facility] [place]: 10/08/22 08:59 Last Admin: 09/09/22 07:48 Dose: 2 tab Vitamin D (Cholecalciferol 1,000 Units 25 Mcg Tab) 1,000 units PO [facility] Stop: 10/08/22 08:59 Last Admin: 09/09/22 07:49 Dose: 1,000 units
[2022-09-09] MEDS: MAGNESIUM OXIDE 400 MG TAB PO SCH ×2 (11:03→20:03)
[2022-09-09 14:15] LABS: Anaplasmosis Smear(Rpt to DOH) Pos for Anaplasma
[2022-09-10 06:37] LABS: Hematocrit (blood only) 36.8 % (42.0-52.0); Hemoglobin 12.9 g/dl (14.0-18.0); Mean Corpuscular Hemoglobin 32.7 pg (25.0-34.0); Mean Corpuscular Hgb Conc 35.1 g/dL (32.0-36.0); Mean Corpuscular Volume 93.2 fL (80.0-100.0); Mean Platelet Volume 8.9 fL (9.4-12.4); Platelet Count 107 K/uL (130-400); RDW Coefficient of Variation 12.8 % (11.5-14.5); RDW Standard Deviation 44.3 fL (36.4-46.3); Red Blood Count 3.95 M/uL (4.70-6.10); White Blood Count 3.01 K/ul (4.8-10.8)
[2022-09-10 06:52] LABS: BUN Creatinine Ratio 15.1 (10-20); Calcium 8.4 mg/dl (8.6-10.3); Creatinine Clr Calc Pharmacy 54.8 ml/min; Est GFR (African American) 87.7 ml/min; Est GFR (Non-African American) 75.7 ml/min; Magnesium 1.9 mg/dl (1.7-2.4); Phosphorus 2.9 mg/dl (2.5-4.9); Potassium 3.8 mmol/L (3.5-5.1)
[2022-09-10] MEDS: METOPROLOL SUCC 25MG EXT REL TAB PO SCH (07:45)
[2022-09-10] MEDS: DOXYCYCLINE HYCLATE 100 MG CAP PO SCH (07:46)
[2022-09-10] MEDS: MAGNESIUM OXIDE 400 MG TAB PO SCH (07:46)
[2022-09-10] MEDS: VITAMIN B COMPLEX TAB PO SCH (07:46)
[2022-09-10] MEDS: EZETIMIBE 10 MG TABLET PO SCH (07:47)
[2022-09-10] MEDS: CHOLECALCIFEROL 1,000 UNITS 25 MCG TAB PO SCH (07:47)
[2022-09-10] MEDS: HEPARIN SOD 5,000 UNIT/0.5 ML VIAL SQ SCH (07:47)
[2022-09-10] MEDS: LOSARTAN POTASSIUM 25 MG TAB PO SCH (07:47)
[2022-09-10] MEDS: ASPIRIN 81 MG ECTAB PO SCH (07:47)
[2022-09-10] MEDS: ACETAMINOPHEN 325 MG TAB PO PRN (08:44)
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
[2022-09-13 16:09] LABS: Ehrlichia chaff DNA Bld Negative (Negative)
== END 2022-09-10 14:00 | disposition home or self-care (01) ==
LOC: ED 15:45 → INTOOBSV 20:39 → SUATTDRO 20:39 → 2W 20:39

== ENCOUNTER 2024-01-02 21:14 | Observation (INO) ==
--- NOTE | 2024-01-02 23:22 | Emergency Department Note ---
ED Provider Note History of Present Illness Chief Complaint: Fall Stated Complaint: GLF, Nose Injury Time Seen by Provider: 01/02/24 22:47 83-year-old male who was brought to the emergency department by EMS for evaluation of injuries after he fell at an elementary school this evening. The patient reports that he usually walks around the track at the school for approximately 30 minutes. The patient reports that he is uncertain what happened that caused him to fall, but thinks that he was trying to go from one level of pavement to another. He does report history of balance issues. He does not think that he tripped. Patient is certain that he did not lose consciousness. The patient denies any symptoms prior to falling. The patient reports that bystanders were there, and called 911. The patient does not think that he hit his head. EMS crew reported that he seemed to be confused as well when he picked him up. The patient currently denies any significant discomfort. He also denies any other injuries to his arms or legs. He currently denies any chest pain, shortness of breath or abdominal pain. Home Medications Medication Instructions Recorded Confirmed Type Vitamin D 1 cap PO QAM 01/26/18 09/07/22 History aspirin 81 mg tablet,delayed 81 mg PO QAM 01/26/18 09/07/22 History release (Aspir-Low) ezetimibe 10 mg tablet (Zetia) 10 mg PO QAM 01/26/18 09/07/22 History vitamin B complex 2 cap PO QAM 01/26/18 09/07/22 History losartan 25 mg tablet 25 mg PO DAILY 09/07/22 09/07/22 History metoprolol succinate 25 mg 25 mg PO DAILY 09/07/22 09/07/22 History tablet,extended release 24 hr tamsulosin 0.4 mg capsule 0.4 mg PO DAILY 09/07/22 09/07/22 History amoxicillin 875 mg-potassium 1 tab PO BID #14 tabs 01/03/24 Rx clavulanate 125 mg tablet Allergies Allergy/AdvReac Type Severity Reaction Status Date / Time No Known Allergies Allergy Verified 02/24/18 08:18 Past Med/Surg History Problem List (Updated 01/03/24 @ 01:14 by Darien Bardales) Status post fall (Acute) Multiple abrasions (Acute) Fracture of thumb, right, closed (Acute) Laceration of nose (Acute) Nasal bones, open fracture (Acute) Weakness (Acute) Falls (Acute) Anaplasmosis (Acute) Encounter for pre-operative examination CAD (coronary artery disease) (Chronic) "s/p CABG x 3 (2003) and stent (1989)" Dyslipidemia (Chronic) Statin intolerance (Chronic) IBS (irritable bowel syndrome) (Chronic) CVA (cerebral vascular accident) ESBL (extended spectrum beta-lactamase) producing bacteria infection UTI (urinary tract infection) Encounter for pre-operative examination Medical History (Updated 01/03/24 @ 01:14 by Darien Bardales) Osteoarthritis Irritable bowel syndrome Cancer PROSATE CANCER (RADIATION SEEDS) Anemia Cornea abrasion Hearing deficit Migraine Hypertension Hyperlipidemia Surgical History History of cataract surgery History of appendectomy History of cholecystectomy History of colonoscopy History of tooth extraction History of tonsillectomy History of coronary artery bypass graft 2003 (3 VESSELS) AT [facility] History of heart artery stent JUNE 2016 (2 STENTS PLACED) History of cardiac cath JUNE 2016 (CHEST PAIN) Social History Smoking Status: Never smoker Cigarettes Per Day: Smokes 2/year; Second Hand Exposure: No; Do You Dip or Chew Tobacco: No; Hx Alcohol Use: Yes Alcohol type: hard liquor Hx Substance Use: No Preferred Language: Turkish Communication Ability: Effective V[employer] Media And Crm Required: No Beliefs That Will Affect Care: None Current Living Situation: Alone Current Living Situation Comment: Lives alone in apartment Feels Safe at Home: Yes Assistive Devices: None Physical Exam Vital Signs Vital Signs - 24 hr 01/02/24 21:06 01/02/24 21:48 Temperature 37.0 C Temperature Source Oral Pulse Rate 76 82 Pulse Rhythm Regular Pulse Strength Normal Respiratory Rate 18 Respiratory Effort / Characteristics Non-Labored Spontaneous Respiratory Depth Normal Respiratory Pattern Regular Blood Pressure 156/96 H Blood Pressure Mean 116 Blood Pressure Position Lying Pulse Oximetry 92 Oxygen Delivery Method Room Air Sepsis Recent Fever Within 48 Hours No Sepsis New/Unexplained Change in Mental Status N/A Sepsis Action Taken by Nursing No Action Required CONSTITUTIONAL: Healthy and well nourished. Alert and oriented X 3. The patient still, however, does appear to be somewhat confused, denying any head injury when indeed he has a laceration on the nose, and blood all over his face. HEENT: Examination shows a 1 cm laceration across the bridge of the nose with mild edema, and no active bleeding. Pupils equal, round and reactive. No subconjunctival hemorrhage, raccoon's eyes or Domínguez sign. NECK: No obvious focal tenderness to palpation through the cervical spine. RESPIRATORY: Clear to auscultation bilaterally with no wheezing, crackles, rhonchi or stridor. CARDIOVASCULAR: Regular rate and rhythm with no murmurs, rubs or gallops. GASTROINTESTINAL: Bowel sounds present in all quadrants. MUSCULOSKELETAL: Patient has ecchymosis and edema of the right thumb, with tenderness to palpation. No obvious IP collateral ligament instability. No additional tenderness to palpation through the hand or wrist. INTEGUMENTARY: No rash or other significant dermatologic conditions noted. HEMATOLOGIC: No ecchymosis or petechiae. PSYCHIATRIC: Positive affect. NEUROLOGIC: Cranial nerves II-XII grossly intact. No focal neurologic deficits noted. Procedures Free Text Procedures Nose laceration repair was performed under local anesthesia after receiving verbal consent from the patient. LET gel was applied to the nose for approximately 45 minutes. Peripheral tissue was then cleansed with iodine, then the wound was lightly irrigated with normal saline. The wound was then approximated using 6-0 nylon simple interrupted sutures x 4. Bacitracin was applied. Course Course Patient was seen during a period of high volume and acuity during the COVID- pandemic. The patient did have trauma orders placed by another provider without physical exam on the patient. IV access was established, and labs were drawn. An ECG was performed and was grossly normal. The patient was placed on satellite project site monitor while in the emergency department. Portable chest x-ray shows cardiomegaly without evidence for pneumothorax or pneumonia. An initial order for CT of the head was placed and completed prior to my exam. The patient was sent back to CT for noncontrast CT imaging of the facial bones and cervical spine as well. This showed nasal bone fractures without any other acute findings in the neck. X-rays of the right thumb shows a nondisplaced fracture of the distal phalanx. Nose laceration repair was performed under local anesthesia. Wound care instructions were provided. The patient was instructed to follow-up with his PCP for suture removal in 5 to 7 days, sooner with any signs of wound infection, or other concerning symptoms from his fall. The patient was also provided contact information for Dr. Navarro for further follow-up of his finger fracture. The patient refused a splint, and indicated that he likely would not seek further follow-up, reporting that it would heal on its own. He was welcome to return to the emergency department for any additional or concerning symptoms. The patient was happy with plan of care, and voiced understanding of all discharge instructions. The case was also discussed with Dr. Caceres, ED attending physician, who agrees with workup and outpatient plan of care. Administered Medications Discontinued Medications Lidocaine (Lidocaine/Epineph/Tetracaine 1 Ea Syr) 1 each EXT NOW ONE Stop: 01/02/24 23:13 Last Admin: 01/03/24 00:14 Dose: Not Given Documented By: MARIELLE Lidocaine/Epinephrine (Lidocaine 1%/Epinephrine 1:100,000 50 Ml Vial) 5 ml INFIL NOW ONE Stop: 01/03/24 00:16 Last Admin: 01/03/24 00:20 Dose: 5 ml Documented By: MARIELLE Medical Decision Making Medical Records Attestation: I reviewed the patient's medical records. Home Medications was personally reviewed by tx Laboratory Data Attestation: I reviewed the patient's lab results. 01/02/24 23:06 01/02/24 23:06 Lab Results 01/02/24 Range/Units 23:06 WBC 8.35 (4.8-10.8) K/ul RBC 4.35 L (4.70-6.10) M/uL Hgb 14.3 (14.0-18.0) g/dl Hct 41.8 L (42.0-52.0) % MCV 96.1 (80.0-100.0) fL MCH 32.9 (25.0-34.0) pg MCHC 34.2 (32.0-36.0) g/dL RDW Std Deviation 46.5 H (36.4-46.3) fL RDW Coeff of Lee 13.2 (11.5-14.5) % Plt Count 161 (130-400) K/uL MPV 8.7 L (9.4-12.4) fL Immature Gran % (Auto) 0.2 % Neut % (Auto) 87.6 % Lymph % (Auto) 3.7 % [place] % (Auto) 7.5 % Eos % (Auto) 0.5 % Baso % (Auto) 0.5 % Neut # (Auto) 7.31 H (1.40-6.50) K/uL Lymph # (Auto) 0.31 L (1.20-3.40) K/uL [place] # (Auto) 0.63 H (0.11-0.59) K/uL Eos # (Auto) 0.04 (0.00-0.50) K/uL Baso # (Auto) 0.04 (0.00-0.20) K/uL Immature Gran # (Auto) 0.02 (0.01-0.20) K/uL PT 10.8 (9.0-12.0) Seconds INR 1.0 (0.9-1.1) Sodium 140 (136-145) mmol/L Potassium 4.0 (3.5-5.1) mmol/L Chloride 106 (98-107) mmol/L Carbon Dioxide 29 (21-32) mmol/L Anion Gap 5 (3-11) BUN 14 (6-23) mg/dl Creatinine 1.18 (0.6-1.4) mg/dl Est Cr Clr Drug Dosing 45.5 ml/min eGFR 60.85 BUN/Creatinine Ratio 11.9 (10-20) Glucose 150 H (70-99(Fasting)) mg/dl Calcium 9.3 (8.6-10.3) mg/dl Total Bilirubin 0.9 (0.2-1.0) mg/dl AST 27 (13-39) U/L ALT 22 (7-52) U/L Alkaline Phosphatase 52 (34-104) U/L Troponin I High Sens 9.0 (0-20) pg/ml Total Protein 6.7 (6.0-8.3) gm/dl Albumin 3.9 (3.4-5.0) gm/dl Globulin 2.8 (2.5-4.0) gm/dl Albumin/Globulin Ratio 1.4 (0.9-2) Lipase 26 (11-82) U/L Ethyl Alcohol mg/dL < 10.0 (<10.0) mg/dl Imaging Data Attestation: I personally reviewed and interpreted this imaging study as follows: My Impression: My interpretation with noncontrast CT of the head does not show evidence for any skull fractures or intracranial bleed My interpretation of a noncontrast CT of the facial bones shows nasal bone fractures. My interpretation of noncontrast CT scan of the cervical spine does not show any fractures or subluxations. My interpretation of an x-ray of the right thumb shows a nondisplaced fracture of the distal phalanx. Radiologist reports were also reviewed with concurrence. Radiologist's Impression: Head CT 01/02/24 22:38 Exam(s): CT HEAD Without Contrast EXAM: CT Head Without Intravenous Contrast CLINICAL HISTORY: Reason for exam: fall from standing. TECHNIQUE: Axial computed tomography images of the head/brain without intravenous contrast. CTDI is 52.97 mGy and DLP is 899.15 mGy-cm. Automated exposure control was utilized for the study. A dose lowering technique was utilized adhering to the principles of ALARA. COMPARISON: No relevant prior studies available. FINDINGS: Brain: Unremarkable. No hemorrhage. No significant white matter disease. No edema. Ventricles: Unremarkable. No ventriculomegaly. Bones/joints: Unremarkable. No acute fracture. Soft tissues: Unremarkable. Sinuses: Unremarkable as visualized. No acute sinusitis. Mastoid air cells: Unremarkable as visualized. No mastoid effusion. IMPRESSION: Normal head/brain CT. Electronically signed by: Serafin Milligan MD 01/02/24 23:[address] 01/02/24 23:23 Exam(s): CT C SPINE EXAM: CT Cervical Spine Without Intravenous Contrast CLINICAL HISTORY: Reason for exam: Facial injury from fall. TECHNIQUE: Axial computed tomography images of the cervical spine without intravenous contrast. CTDI is 17.38 mGy and DLP is 480.39 mGy-cm. Automated exposure control was utilized for the study. A dose lowering technique was utilized adhering to the principles of ALARA. COMPARISON: No relevant prior studies available. FINDINGS: No fracture or subluxations are noted. The vertebral body heights and alignment are preserved. No prevertebral soft tissue swelling. Note is made of multilevel cervical spondylosis with varying degrees of central canal and foramina stenoses. IMPRESSION: 1. No cervical fractures. 2. Cervical spondylosis with varying degrees of central canal and foramina stenoses. Electronically signed by: Serafin Milligan MD 01/03/24 00:[address] 01/02/24 23:23 Exam(s): CT FACIAL Without Contrast EXAM: CT Maxillofacial Without Intravenous Contrast CLINICAL HISTORY: Reason for exam: s/p fall. TECHNIQUE: Axial computed tomography images of the face without intravenous contrast. CTDI is 17.38 mGy and DLP is 480.39 mGy-cm. Automated exposure control was utilized for the study. A dose lowering technique was utilized adhering to the principles of ALARA. COMPARISON: No relevant prior studies available. FINDINGS: Bones/joints: Comminuted minimally displaced nasal bone fracture. Soft tissues: Unremarkable. Orbits: Unremarkable. Sinuses: Unremarkable. No air-fluid levels. IMPRESSION: Comminuted minimally displaced nasal bone fracture Electronically signed by: Serafin Milligan MD 01/03/24 00:30 AM ECG Data Attestation: I personally reviewed and interpreted this ECG as follows: Indication: + syncope Rate (beats per minute): 88 Rhythm: + normal sinus ECG Intervals/blocks: + Normal QRS and + Normal MS ECG Selmer: + Normal ECG ST segments: + Normal ST segments Comparison ECG Date: from (09/07/2022) Change: no significant change MDM Narrative Cardiac monitoring: An order was placed for continuous cardiac monitoring. The monitor shows a rate of 80 bpm with a normal sinus rhythm. bus monitor history was reviewed throughout the evaluation, and no dysrhythmias were noted. See ED Course section for further details of today's visit. The patient was brought in by EMS after he fell at a local school track. It appears that the patient likely lost his balance when trying to go from one paved surface to another. Imaging shows nasal bone fractures, otherwise CT imaging of the head, facial bones and cervical spine were otherwise normal. Patient also suffered a nose laceration that was repaired under local anesthesia. Patient also has pain, edema and ecchymosis of the right thumb, with x-rays showing a nondisplaced fracture of the distal phalanx. At this point, I do feel that the patient is stable for outpatient management. Wound care instructions were provided. The patient was encouraged to follow-up with his PCP for further evaluation and management. The patient was also provided contact information for outpatient orthopedic follow-up, however the patient refused a splint for the thumb, and indicated that he likely would not seek further follow-up, reporting that it would heal on its own. The case was also discussed with Dr. Caceres, ED attending physician, who agrees with workup and outpatient plan of care. Impression Nasal bones, open fracture, Laceration of nose, Fracture of thumb, right, closed, Multiple abrasions, Status post fall Discharge Plan Visit Data Chief Complaint: Fall Stated Complaint: GLF, Nose Injury ED Provider: Jen Caceres ED Midlevel Provider: Darien Bardales Discharge Problem: Nasal bones, open fracture, Laceration of nose, Fracture of thumb, right, closed, Multiple abrasions, Status post fall Patient Disposition: Home - Self-Care Discharge Instructions Activity Restrictions/Additional Instructions: Keep the nasal wound and stitches clean, using a Q-tip and the solution provided to clean the wound daily. Apply an antibiotic ointment to all additional wounds. Take Augmentin antibiotics twice daily as prescribed to minimize risk for infection of your wounds. Intermittently apply ice as needed to areas of swelling and discomfort, especially the right thumb. Follow-up with your family doctor for suture removal from the nose in 5 to 7 days. You may also follow-up with Dr. Navarro ([facility] hand surgeon) for further management of your thumb fracture. Tylenol as needed for pain. Forms Stand Alone Forms: My [facility] [employer], Important Visit Information Prescriptions Prescriptions: New amoxicillin-pot clavulanate 875-125 mg tablet 1 tab PO BID Qty: 14 0RF No Action aspirin [Aspir-Low] 81 mg Tablet,Delayed Release (Dr/Ec) 81 mg PO QAM vitamin B complex Capsule 2 cap PO QAM ezetimibe [Zetia] 10 mg Tablet 10 mg PO QAM Vitamin D 1 cap PO QAM tamsulosin 0.4 mg capsule 0.4 mg PO DAILY losartan 25 mg tablet 25 mg PO DAILY metoprolol succinate 25 mg tablet extended release 24 hr 25 mg PO DAILY Rx Instructions: Per pt he takes 1/2 tab Referrals Referrals: Sam Navarro MD [Physician] - Katey Arora MD [Primary Care Provider] -
[2024-01-02 23:25] LABS: Basophils # (auto) 0.04 K/uL (0.00-0.20); Basophils % (auto) 0.5 %; Eosinophils # (auto) 0.04 K/uL (0.00-0.50); Eosinophils % (auto) 0.5 %; Hematocrit (blood only) 41.8 % (42.0-52.0); Hemoglobin 14.3 g/dl (14.0-18.0); Immature Granulocytes # (auto) 0.02 K/uL (0.01-0.20); Immature Granulocytes % (auto) 0.2 %; Lymphocytes # (auto) 0.31 K/uL (1.20-3.40); Lymphocytes % (auto) 3.7 %; Mean Corpuscular Hemoglobin 32.9 pg (25.0-34.0); Mean Corpuscular Hgb Conc 34.2 g/dL (32.0-36.0); Mean Corpuscular Volume 96.1 fL (80.0-100.0); Mean Platelet Volume 8.7 fL (9.4-12.4); Monocytes # (auto) 0.63 K/uL (0.11-0.59); Monocytes % (auto) 7.5 %; Neutrophils # (auto) 7.31 K/uL (1.40-6.50); Neutrophils % (auto) 87.6 %; Platelet Count 161 K/uL (130-400); RDW Coefficient of Variation 13.2 % (11.5-14.5); RDW Standard Deviation 46.5 fL (36.4-46.3); Red Blood Count 4.35 M/uL (4.70-6.10); White Blood Count 8.35 K/ul (4.8-10.8)
--- NOTE | 2024-01-02 23:34 | CT Scan Report ---
Exam(s): CT HEAD Without Contrast EXAM: CT Head Without Intravenous Contrast CLINICAL HISTORY: Reason for exam: fall from standing. TECHNIQUE: Axial computed tomography images of the head/brain without intravenous contrast. CTDI is 52.97 mGy and DLP is 899.15 mGy-cm. Automated exposure control was utilized for the study. A dose lowering technique was utilized adhering to the principles of ALARA. COMPARISON: No relevant prior studies available. FINDINGS: Brain: Unremarkable. No hemorrhage. No significant white matter disease. No edema. Ventricles: Unremarkable. No ventriculomegaly. Bones/joints: Unremarkable. No acute fracture. Soft tissues: Unremarkable. Sinuses: Unremarkable as visualized. No acute sinusitis. Mastoid air cells: Unremarkable as visualized. No mastoid effusion. IMPRESSION: Normal head/brain CT. Electronically signed by: Serafin Milligan MD 01/02/24 23:34 PM
[2024-01-02 23:45] LABS: Albumin Globulin Ratio 1.4 (0.9-2); Albumin Level 3.9 gm/dl (3.4-5.0); BUN Creatinine Ratio 11.9 (10-20); Bilirubin,Total 0.9 mg/dl (0.2-1.0); Calcium 9.3 mg/dl (8.6-10.3); Creatinine Clr Calc Pharmacy 45.5 ml/min; Globulin 2.8 gm/dl (2.5-4.0); Total Protein 6.7 gm/dl (6.0-8.3)
[2024-01-03 00:10] LABS: Prothrombin Time 10.8 Seconds (9.0-12.0)
[2024-01-03] MEDS: LIDOCAINE/EPINEPH/TETRACAINE 1 EA SYR EXT ONE (00:14)
[2024-01-03] MEDS: LIDOCAINE 1%/EPINEPHRINE 1:100,000 50 ML VIAL INFIL ONE (00:20)
--- NOTE | 2024-01-03 00:27 | CT Scan Report ---
Exam(s): CT C SPINE EXAM: CT Cervical Spine Without Intravenous Contrast CLINICAL HISTORY: Reason for exam: Facial injury from fall. TECHNIQUE: Axial computed tomography images of the cervical spine without intravenous contrast. CTDI is 17.38 mGy and DLP is 480.39 mGy-cm. Automated exposure control was utilized for the study. A dose lowering technique was utilized adhering to the principles of ALARA. COMPARISON: No relevant prior studies available. FINDINGS: No fracture or subluxations are noted. The vertebral body heights and alignment are preserved. No prevertebral soft tissue swelling. Note is made of multilevel cervical spondylosis with varying degrees of central canal and foramina stenoses. IMPRESSION: 1. No cervical fractures. 2. Cervical spondylosis with varying degrees of central canal and foramina stenoses. Electronically signed by: Serafin Milligan MD 01/03/24 00:26 AM
--- NOTE | 2024-01-03 00:31 | CT Scan Report ---
Exam(s): CT FACIAL Without Contrast EXAM: CT Maxillofacial Without Intravenous Contrast CLINICAL HISTORY: Reason for exam: s/p fall. TECHNIQUE: Axial computed tomography images of the face without intravenous contrast. CTDI is 17.38 mGy and DLP is 480.39 mGy-cm. Automated exposure control was utilized for the study. A dose lowering technique was utilized adhering to the principles of ALARA. COMPARISON: No relevant prior studies available. FINDINGS: Bones/joints: Comminuted minimally displaced nasal bone fracture. Soft tissues: Unremarkable. Orbits: Unremarkable. Sinuses: Unremarkable. No air-fluid levels. IMPRESSION: Comminuted minimally displaced nasal bone fracture Electronically signed by: Serafin Milligan MD 01/03/24 00:30 AM
--- NOTE | 2024-01-03 00:35 | Emergency Department Note ---
ED Visit Note I was consulted by the Advanced Practice Provider, Layton Bardales PA-C. I performed a substantive portion of the visit. This includes aspects of: History: Patient is an 83-year-old male presenting after a fall from standing. Patient was on the ground outside of the middle school with a bloody nose. Patient reports that he normally walks with a middle school for about 30 minutes a day. He is unsure of the events leading up to him falling. He does not think he passed out. He denies any chest pain, shortness of breath or lightheadedness prior to the fall. He is not on any anticoagulation. He is on a baby aspirin daily. MDM: - Laboratory workup interpreted by myself showed normal WBC; stable electrolytes; normal troponin; normal PT/INR; normal lipase - EKG interpreted by myself showed normal sinus rhythm. Rate 88 bpm. QT 348. No acute ischemic changes. - CXR negative for pneumothorax or pneumonia, per my interpretation. - CT head wo contrast negative for acute intracranial pathology - CT cervical spine wo contrast negative for acute injury - CT facial bones wo contrast showed comminuted minimally displaced nasal bone fracture. - Patient noted to have a small nasal laceration which was repaired by the DEMETRIUS. Please see procedure note. - Patient had a reported mechanical fall. No syncopal episode. Normal laboratory workup other than his nasal bone fracture. Will discharge with antibiotics. Instructed on return precautions. .
[2024-01-03] MEDS: AMOXICILLIN/CLAVULANATE 875 MG TAB PO ONE (02:56)
--- OUTSIDE RECORDS SUMMARY | 2024-01-03 04:33 | External Medical Summary | Summary of Care ---
Author Name Unknown Organization [facility] Address [address] [place] [address] Phone [phone] Care Team Providers Care Flux Core Welder Name Role Phone Katey Arora MD Primary Care Provider [phone] Reason for Visit * Reason Onset Date Comments Test Results Lab 11/07/2023 Encounter Details Date Type Department Care Team (Late st Contact Info) Description 11/07/2023 Telephone General Internal Medicine [facility] [address] [place] [address] Katey Arora MD [address] [place] [address] Test Results Lab Allergies No known active allergiesdocumented as of this encounter (statuses as of 11/25/2023) Medications Medication Sig Dispensed Refills Start Date End Date Status ASPIRIN 81 MG PO TABSIndications:Aorto coronary bypass status,Dyslipidemia, goal to be determined one pill each day 34 11 12/25/2004 Active VITAMIN D 400 UNITS PO CAPS Take by mouth. Active B Complex Tablet 2-1 01/15/2017 Active Vitamin C 1000 MG Oral Tablet Take 1 Tablet by mouth in the morning. Active Vitamin B-12 1000 MCG Oral Tablet Take 1 Tablet by mouth in the morning. Active Losartan Potassium 25 MG Oral Tablet (Cozaar)Indications:C hronic coronary artery disease,Diastolic dysfunction TAKE 1 TABLET BY MOUTH EVERY DAY 90 Tablet 3 01/09/2023 Active Ezetimibe 10 MG Oral Tablet (Zetia)Indications:Dy slipidemia, goal LDL below 100 TAKE 1 TABLET BY MOUTH EVERY DAY 90 Tablet 3 01/20/2023 Active Nitroglycerin 0.4 MG Sublingual Tablet Sublingual (Nitrostat)Indication s:Chronic coronary artery disease,Aortocoronary bypass status DISSOLVE 1 TABLET UNDER THE TONGUE AT ONSET OF SEVERE CHEST PAIN. MAY REPEAT DOSE 3 TIMES. CALL 911. 25 Tablet 02/14/2023 Active Fiber Adult Gummies 2 GM Oral Tablet ChewableIndications:I rritable bowel syndrome with constipation one pill twice a day 02/14/2023 Active Tamsulosin HCl 0.4 MG Oral Capsule (Flomax) Take 1 Capsule by mouth every evening. 90 Capsule 3 07/04/2023 Active Metoprolol Succinate ER 25 MG Oral Tablet Extended Release 24 Hour (toPROL XL)Indications:Chroni c coronary artery disease TAKE 1/2 TABLET BY MOUTH DAILY 45 Tablet 10/15/2023 Active Azelastine HCl 137 MCG/SPRAY Nasal SolutionIndications:C hronic rhinitis SPRAY 1 SPRAY INTO INTO EACH NOSTRIL IN THE MORNING AND AT BEDTIME 90 mL 2 10/29/2023 Active documented as of this encounter (statuses as of 11/25/2023) Active Problems Problem Noted Date Diagnosed Date Gilbert syndrome 09/13/2022 Prostate cancer 03/22/2021 Urgency of urination 03/22/2021 Nocturia 03/22/2021 Post-void dribbling 03/22/2021 Diastolic dysfunction 07/23/2019 Mild mitral regurgitation by prior echocardiogra m 07/23/2019 Senile osteoporosis 08/26/2017 Overview: dexa 08/14--2.8-st fosamax---see notes---11/18--1.5/-2.5-restarted fosmax 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 Finished his radiation Feb 2016, Last lupron 04/09/16. Dyslipidemia, goal LDL below 70 03/14/2009 Overview: zetia 10mg. 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 documented as of this encounter (statuses as of 11/25/2023) Immunizations Name Administration Dates Next Due COVID-19 mRNA, LNP-s, No Pre serve, 2-Dose Series (Moderna) 06/11/2020,05/14/2020 COVID-19, MRNA-LNP, 23-24, P F, 50 MCG/0.5 mL, 12 YRS AND ABOVE, IM (MODERNA-Spikevax) 01/03/2023 COVID-19, mRNA, LNP-s, PF, B ooster, 100mcg/0.5mg (Moderna) 02/23/2021 Covid-19, Mrna, Lnp-s, Pf, B ivalent, 30 Mcg, IM, 12 yrs and above (Pfizer) 12/11/2021 H1N1 2009 Influenza, IM 05/01/2009 Pneumococcal Conjugate Vacc, 13 Valent (Prevnar) 05/23/2014 Pneumococcal Polysaccharide PPV23 (Pneumovax) 02/14/2006 RSV Vac., Bivalent, Perfusio n F, Pf,0.5 Ml (Abrysvo) 02/15/2023 Seasonal Influenza, PF, 6 M & above, IM , (FluLaval or Fluzone) 12/29/2017 Seasonal Influenza, Quadriva lent Hd (Fluzone Hd) 12/31/2022,12/06/2021 Seasonal Influenza, Quadriva lent Hd, 65+ Yrs 01/08/2021 Seasonal Influenza, Split, I IV3, With Preserve, Inj 01/11/2017,02/05/2016,12/21/2013,01/13,01/13/2012,01/12/2009,01/15/2007 ,02/14/2006,01/30/2005,01/16/2004 Seasonal Influenza, Trivalen t, Adjuvanted, 65+ yrs 01/02/2020 Seasonal Influenza, Trivalen t, High Dose, No Preserve, IM 12/22/2018,01/13/2018 TD - Tetanus/Diptheria (ADULT) 06/29/2007,2002 TDAP, Age 7 and older, IM (Adacel) 03/06/2016 Varicella Zoster Vaccine (Adult) 04/24/2012 Zoster Vaccine Recombinant (Shingrix) 03/26/2019 ,10/27/2018,08/26/2017 documented as of this encounter Social History Tobacco Use Types Packs/Day Years Used Date Smoking Tobacco: Some Days Cigars Smokeless Tobacco: Never Comments:occasional small ci gar Alcohol Use Standard Drinks/Week Comments Yes 0.8 (1 standard drink = 0.6 oz p ure alcohol) rare PHQ-2 Answer Date Recorded PHQ Adult Total Score 0 02/14/2023 Hunger Vital Sign Answer Date Recorded Worried About Running Out of Food in the Last Ye ar Never true 03/16/2019 Ran Out of Food in the Last Year Never true 03/16/2019 Utilities Answer Date Recorded Do you have trouble paying y our heating, water, or electric bill? (Adult - for ages 18 years and over) Not on file 09/16/2023 Is your family able to pay t he heat, water, or electric bill? (Household - for ages 0-17 years) Not on file 09/16/2023 Does your family have access to good internet? (Household - for ages 0-17 years) Not on file 09/16/2023 Social Connections Answer Date Recorded How often do you feel lonely or isolated from those around you? (Adult - for ages 18 years and over) Not on file 09/16/2023 Sex and Gender Information Value Date Recorded Sex Assigned at Male 09/08/2018 8:10 AM EDT Gender Identity Male 09/08/2018 8:10 AM EDT Sexual Orientation Straight 09/08/2018 8: 10 AM EDT Job Start Date Occupation Industry Not on file Not on file Not on file documented as of this encounter Miscellaneous Notes * Telephone Encounter - Funmilayo Blue LPN - 11/25/2023 2:02 PM EDT Patient aware and verbalized understanding, will comply * Telephone Encounter - Giselle Toure LPN - 11/25/2023 12:53 PM EDT Left message for pt to call back. Called and spoke with pt's son Avery - he will reach out to the pt to have him call the office * Telephone Encounter - Katey Arora MD - 11/24/2023 5:[address] call him again reg below message * Telephone Encounter - Maria Fernanda Joe, MED ASSIST - 11/13/2023 12:25 PM EDT Attempted to call patient. However call went straight to voice mail. Left message for the patient to call the office. Upon return call please transfer to a dedicated telephone nurse. * Telephone Encounter - Katey Arora MD - 11/12/2023 10:[address] call him again reg my message in chain below If not taking Zn, start OTC copper supplement as per neurology advice by Grayson>>>>>" I would recommend 2x2mg copper gluconate tabs or caps daily for 1 month, afterwards 1x2mg coppergluconate tabs/caps per day for maintenance " Has appt Andrew today as well, routed. * Telephone Encounter - Maria Fernanda Joe MED ASSIST - 11/11/2023 2:23 PM EDT Left message for the patient to call the office. Upon return call please transfer to a dedicated telephone nurse. * Telephone Encounter - Katey Arora MD - 11/11/2023 10:58 AM EDT Please call pt if not already done as requested in IM. * Telephone Encounter - Katey Arora MD - 11/07/2023 4:19 PM EDT Per Claudia- Sent to pcp to help treat , please forward results of blood work to PCP,especially B6 level and copper level. 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 For B6 (pyridoxine) toxicity, we recommend B supplements without pyridoxine such as the one from [facility].His copper will need to be also supplemented but I will leave the dose up to the PCP. Please also let the patient know what we found. He is supposed to see Dr. Anderson in the future. MR -Please inform patient of above, discontinue B complex supplement if he cannot find B complex without B6. -Check if he is taking any Zinc supplements as In those patients in whom excess zinc ingestion is the likely cause, stopping zinc supplementation may suffice and no additional copper supplementation may be required. -I have not treated copper deficiency, request Neurology to advise regarding dose. -Has appointment with Dr. Anderson 11/12/2023. message routed documented in this encounter Plan of Treatment Upcoming Encounters Date Type Department Care Team (Late st Contact Info) Description 01/21/2024 5:00 PM EDT Office Visit General Internal Medicine [facility] [address] [facility] [place] [address] Katey Arora MD [address] [facility] [place] [address] 07/13/2024 10:15 AM EDT Office Visit Urology, [facility] [address] [facility] [place] [address] Angel Diaz MD [address] [place] [place] [address] Health Maintenance Due Date Last Done Comments DISCUSS TOBACCO CESSATION (REFER TO SMARTSET #3291) 1940 Adult Wellness Visit 08/26/2018 08/26/2017 COVID-19 Vaccine ( season) 2023 01/03/2023, 12/11/2021, 02/23/2021, Additional history exists *BISPHONATE OR OTHER ACCEPTABLE MEDICATION NEEDED FOR OSTEOPOROSIS (REFER TO SMARTSET #1146) 07/24/2023 Influenza Vaccine (FLU shot) (#1) 2023 12/31/2022, 12/06/2021, 01/08/2021, Additional history exists Depression Screening 02/15/2024 02/14/2023 DXA Scan 05/07/2025 05/07/2023, 08/0 11/2020, 09/22/2018, Additional history exists DTap/Tdap Vaccines (2 - Td or Tdap) 03/06/2026 03/06/2016, 06/29/2007, 08/03/2002 Pneumococcal Vaccine: 65+ Years Completed 05/23/2014, 02/14/2006 Zoster Vaccines Completed 03/26/2019, 09/30, 08/26/2017, Additional history exists VITAMIN D LEVEL ONCE IN A LIFETIME-USE SMARTSET# [id number] Completed 05/29/2023, 02/27/2022, 03/16/2019, Additional history exists HPV (Gardasil) Vaccine Aged Out No lo nger eligible based on patient's age to complete this topic Hepatitis B Vaccine Aged Out No longe r eligible based on patient's age to complete this topic MENINGOCOCCAL (MENACTRA/MENVEO) Aged Out No longer eligible based on patient's age to complete this topic documented as of this encounter Medical Devices Not on filedocumented as of this encounter Care Teams Flux Core Welder Relationship Specialty Start Date End Date Katey Arora MD [address] [place] [address] PCP - General Internal Medicine 07/09/17 documented as of this encounter
--- OUTSIDE RECORDS SUMMARY | 2024-01-03 04:34 | External Medical Summary | Summary of Care ---
Author Name Unknown Organization [facility] Address [address] [place] [address] Phone [phone] Care Team Providers Care Strategic Alliances Manager Name Role Phone Katey Aorra MD Primary Care Provider Reason for Visit * Reason Comments eRx-Medication Refill Encounter Details Date Type Department Care Team (Late st Contact Info) Description 10/28/2023 Refill General Internal Medicine [facility] [address] [place] [address] Katey Arora MD [address] [place] [address] Chronic rhinitis Allergies No known active allergiesdocumented as of this encounter (statuses as of 10/29/2023) Medications Medication Sig Dispensed Refills Start Date End Date Status ASPIRIN 81 MG PO TABSIndications:A ortocoronary bypass status,Dyslipidem ia, goal to be determined one pill each [...] Active Losartan Potassium 25 MG Oral Tablet (Cozaar)Indicatio ns:Chronic coronary artery disease,Diastolic dysfunction TAKE 1 TABLET BY MOUTH EVERY DAY 90 Tablet 3 01/09/2023 Active Ezetimibe 10 MG Oral Tablet (Zetia)Indication s:Dyslipidemia, goal LDL below 100 TAKE 1 TABLET BY MOUTH EVERY DAY 90 Tablet 3 01/20/2023 Active Nitroglycerin 0.4 MG Sublingual Tablet Sublingual (Nitrostat)Indica tions:Chronic coronary artery disease,Aortocoro nary bypass status DISSOLVE 1 TABLET UNDER THE TONGUE AT ONSET OF SEVERE CHEST PAIN. MAY REPEAT DOSE 3 TIMES. CALL 911. 25 Tablet 02/14/2023 Active Fiber Adult Gummies 2 GM Oral Tablet ChewableIndicatio ns:Irritable bowel syndrome with constipation one pill twice a day 02/14/2023 Active Tamsulosin HCl 0.4 MG Oral Capsule (Flomax) Take 1 Capsule by mouth every evening. 90 Capsule 3 07/04/2023 Active Metoprolol Succinate ER 25 MG Oral Tablet Extended Release 24 Hour (toPROL XL)Indications:Ch ronic coronary artery disease TAKE 1/2 TABLET BY MOUTH DAILY 45 Tablet 10/15/2023 Active Azelastine HCl 137 MCG/SPRAY Nasal SolutionIndicatio ns:Chronic rhinitis SPRAY 1 SPRAY INTO INTO EACH NOSTRIL IN THE MORNING AND AT BEDTIME 90 mL 2 10/29/2023 Active Azelastine HCl 0.1 % Nasal Solution (Astelin)Indicati ons:Chronic rhinitis Administer 1 Union into nostril in the morning and 1 Union before bedtime. 30 mL 12 09/13/2022 4 Discontinued documented as of this encounter (statuses as of 10/29/2023) Active Problems Problem Noted Date Diagnosed Date [...] L4-5-had Rt SI jt inj S help July, off plavix 08/15>caudal UMER 09/18;10/27/17-relief x 1 wk only--was rec to see [facility] History of non-ST elevation myocardial infarctio n (NSTEMI) 07/12/2016 Overview: 07/15 History of prostate cancer 12/06/2015 Overview: Fu DrSimmons>XRT with lupron. Finished his radiation Feb 2016, Last lupron 04/09/16. Dyslipidemia, goal LDL below 70 03/14/2009 Overview: zetia 10mg. 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 documented as of this encounter (statuses as of 10/29/2023) Immunizations Name Administration Dates Next Due COVID-19 [...] Split, I IV3, With Preserve, Inj 01/11/2017,02/05/2016,12/21/2013,01/13,01/13/2012,01/12/2009,01/15/2007 ,02/14/2006 Seasonal Influenza, Trivalen t, Adjuvanted, 65+ yrs 01/02/2020 Seasonal Influenza, Trivalen t, High Dose, No Preserve, IM 12/22/2018,01/13/2018 TD - Tetanus/Diptheria (ADULT) 06/29/2007 TDAP, Age 7 and older, IM (Adacel) [...] encounter Miscellaneous Notes * Telephone Encounter - Avery Rashid RPh - 10/29/2023 10:10 AM EDT Signed Prescriptions: Disp Refills Azelastine HCl 137 MCG/SPRAY Nasal [id number] mL 2 Sig: SPRAY 1SPRAY INTO INTO EACH NOSTRIL IN THE MORNING AND AT BEDTIMEAuthorizing Provider: Praveen ARORAUser: AVERY RASHID documented in this encounter Plan of Treatment Upcoming Encounters Date Type Department Care Team (Late st Contact Info) Description 11/12/2023 10:00 AM EDT NeuroDiagnostic Study Neurophysiology [address] [place] [address] [place] [address] Kain Anderson, DO [address] [place] [address] 04/13/2024 3:40 PM EST Office Visit Neurology [facility] [address] [place] [address] Kain Anderson, DO [address] [place] [address] 07/13/2024 10:15 AM EDT Office Visit [facility], [facility] [address] [facility] [place] [address] Angel Diaz MD [address] [place] [address] Health Maintenance Due Date Last Done Comments DISCUSS TOBACCO CESSATION (REFER TO SMARTSET #3291) 1940 COVID-19 Vaccine (2022- season) 2023 01/03/2023, 12/11/2021, 02/23/2021, Additional history exists *BISPHONATE OR OTHER ACCEPTABLE MEDICATION NEEDED FOR OSTEOPOROSIS (REFER TO SMARTSET #1146) 07/24/2023 Influenza Vaccine (FLU shot) (#1) 2023 12/31/2022, 12/06/2021, 01/08/2021, Additional history exists Depression Screening 02/15/2024 02/14/2023 DXA Scan 05/07/2025 05/07/2023, 08/0 11/2020, 09/22/2018, Additional history exists DTaP,Tdap,and Td Vaccines (2 - Td or Tdap) 03/06/2026 03/06/2016, 06/29/2007, 08/03/2002 Pneumococcal Vaccine: 65+ Years Completed 05/23/2014, 02/14/2006 Zoster Vaccines Completed 03/26/2019, 09/30, 08/26/2017, Additional history exists VITAMIN D LEVEL ONCE IN A LIFETIME-USE SMARTSET# [id number] Completed 05/29/2023, 02/27/2022, 03/16/2019, Additional history exists [...] Not on filedocumented as of this encounter Visit Diagnoses Diagnosis Chronic rhinitis documented in this encounter Care Teams Strategic Alliances Manager Relationship Specialty Start Date End Date Katey Arora MD [address] [place] [address] PCP - General Internal Medicine 07/09/17 documented as of this encounter
--- OUTSIDE RECORDS SUMMARY | 2024-01-03 04:34 | External Medical Summary ---
Author Name Unknown Address Unknown Organization : Laboratory Report Ordering Provider Test Date Status CHIKIS HITCHCOCK 10/15/2023 15:29:50 Final Observation Date Value Abnormality Reference (Units ) Status METHYLMALONIC ACID 10/15/2023 15:29:50 [phone] (nmol/L) Final Serum methylmalonic acid (MM A) levels are used to
diagnose and monitor several rare inborn errors of
metabolism, including methylmalonic aciduria. The
enzymatic conversion of MMA to succinic acid requires
vitamin B12 (adenosyl-cobalamin) as a cofactor. Serum
MMA levels are also used for assessing functional
vitamin B12 deficiency. Vitamin B12 is essential for
neurodevelopment, particularly early in
. Undiagnosed maternal vitamin B12 deficiency
may be associated with adverse / outcomes,
such as neural tube defects and intrauterine growth
restriction.
[facility] utilized Multi-Modal Decomposition
(MMD) analysis to establish first and second trimester-
specific MMA reference intervals in , as given
below:
MMA, First trimester (<13 wks gestation): 58-167 nmol/L
MMA, Second trimester (13-23 wks gestation):
63-241 nmol/L
This test was developed and its analytical performance
characteristics have been determined by [facility]. It has not been cleared or approved by the
FDA. This assay has been validated pursuant to the CLIA
regulations and is used for clinical purposes.

Test Performed at:
[facility]
[address] [facility]
[place] [address]
Danny Rondon M.D., Ph.D.,Director of Laboratories Performing Location
--- OUTSIDE RECORDS SUMMARY | 2024-01-03 04:34 | External Medical Summary | Summary of Care ---
Author Name Unknown Organization [facility] Address [address] [facility] [place] [address] Phone [phone] Care Team Providers Care Resilient Tile Installer Name Role Phone Katey Arora MD Primary Care Provider [phone] Reason for Visit * Reason Comments eRx-Medication Refill Encounter Details Date Type Department Care Team (Late st Contact Info) Description 10/15/2023 Refill Cardiology, [facility] [address] [place] [address] Joe Coronado PA-C [address] [place] [place] [address] Chronic coronary artery disease Allergies No known active allergiesdocumented as of this encounter (statuses as of 10/15/2023) Medications Medication Sig Dispensed Refills Start Date [...] Tablet by mouth in the morning. Active Azelastine HCl 0.1 % Nasal Solution (Astelin)Indicati ons:Chronic rhinitis Administer 1 [place] into nostril in the morning and 1 [place] before bedtime. 30 mL 12 09/13/2022 Active Losartan Potassium 25 MG Oral Tablet [...] BY MOUTH DAILY 45 Tablet 10/15/2023 Active Metoprolol Succinate ER 25 MG Oral Tablet Extended Release 24 Hour (toPROL XL)Indications:Ch ronic coronary artery disease TAKE 1/2 TABLET BY MOUTH EVERY DAY 45 Tablet 07/24/2023 4 Discontinued documented as of this encounter (statuses as of 10/15/2023) Active Problems Problem Noted Date Diagnosed Date [...] History of prostate cancer 12/06/2015 Overview: Fu Henrikdesi>XRT with lupron. Finished his radiation Feb 2016, Last lupron 04/09/16. Dyslipidemia, goal LDL below 70 03/14/2009 Overview: zetia 10mg. History of colonoscopy with polypectomy 01/04/20 Overview: 02/2016--csope nml Colonoscopy 12/31/05--inflammatory polyps--repeat 10 years Aortocoronary bypass status 01/16/2004 Overview: 2004 x 3 Chronic coronary artery disease 11/26/2002 Statin intolerance documented as of this encounter (statuses as of 10/15/2023) Resolved Problems Problem Noted Date Diagnosed Date Resolved Date Tinnitus of both ears 04/24/20172018 Overview: Acute Restless legs syndrome 06/12/201607/12 Gallbladder polyp 05/26/2013 05/23/2014 Cholelithiasis 05/26/2013 12/19/2016 Dyslipidemia, goal to be determined 11/26/2002 03/14/2009 Overview: Per Lipid Taxonomy. documented as of this encounter (statuses as of 10/15/2023) Immunizations Name Administration Dates Next Due COVID-19 [...] encounter Miscellaneous Notes * Telephone Encounter - Ashleigh Evans CMA - 10/15/2023 3:29 PM EDTPending Prescriptions: Disp Refills Metoprolol Succinate ER 25 MG Oral Tablet *45 Tab*0 Sig: TAKE 1/2 TABLET BY MOUTH DAILY * Telephone Encounter - Ashleigh Evans CMA - 10/15/2023 3:29 PM EDT Scheduling -- please contact pt for follow up. * Telephone Encounter - Ashleigh Evans CMA - 10/15/2023 3:29 PM EDT Did you pend patient's preferred pharmacy and medication before forwarding?yes Pharmacy: [id number] [address] [facility] Pending Prescriptions: Disp Refills Metoprolol Succinate ER 25 MG Oral Tablet*45 Tab*0 Sig: TAKE 1/2 TABLET BY MOUTH DAILY Last Visit: 07/31/2022 (in office), 05/01/2020 (telemedicine) Next Visit: Visit date not found If no future appointments scheduled, and last appointment is greater than a year ago, please schedule patient for a follow-up appointment Last date the medication was ordered: 07-24-2023 Is this request for a controlled substance?No Urine Drug Screen:No results found for this or any previous visit. Patient Phone Numbers Labs: Lab Results Component Value Date/Time CREAT 1.1 05/29/2023 09:11 AM CREAT 0.93 09/10/2022 12:00 AM CREAT 1.0 03/27/2020 12:52 PM POTASSIUM 4.0 05/29/2023 09:11 AM POTASSIUM 3.8 09/10/2022 12:00 AM POTASSIUM 4.0 03/27/2020 12:52 PM TSH 2.74 07/06/2019 09:35 AM LDLCALC 122 05/29/2023 09:11 AM LDLCALC 72 03/16/2019 09:32 AM LDLDIRECT 118 02/27/2022 11:00 AM LDLDIRECT NOT APPLICABLE 03/16/2019 09:32 AM LDLDIRECT 114 09/08/2018 09:16 AM ALT 28 05/29/2023 09:11 AM ALT 27 03/27/2020 12:52 PM documented in this encounter Plan of Treatment Upcoming Encounters Date Type Department Care Team (Late st Contact Info) Description 11/12/2023 10:00 AM EDT NeuroDiagnostic Study Neurophysiology [facility] [place] Johnson [address] [place] [address] Kain Anderson DO [address] [place] [address] 04/13/2024 3:40 PM EST Office Visit Neurology [facility] [address] [facility] [place], [place] [address] Kain Anderson, 200 [facility] [place] [place] [address] 07/13/2024 10:15 AM EDT Office Visit Urology, [facility] [address] [facility] [place] [address] Angel Diaz MD [address] [address] Health Maintenance Due Date Last Done Comments DISCUSS TOBACCO CESSATION (REFER TO SMARTSET #3291) 1940 COVID-19 Vaccine ( season) 2023 01/03/2023, 12/11/2021, [...] D LEVEL ONCE IN A LIFETIME-USE SMARTSET# 32065 Completed 05/29/2023, 02/27/2022, 03/16/2019, Additional history exists [...] of this encounter Visit Diagnoses Diagnosis Chronic coronary artery disease Coronary atherosclerosis of unspecified type of vessel, [place] or graft documented in this encounter Care Teams Resilient Tile Installer Relationship Specialty Start Date End Date Katey Arora MD [address] [place] [address] PCP - General Internal Medicine 07/09/17 documented as of this encounter
--- OUTSIDE RECORDS SUMMARY | 2024-01-03 04:34 | External Medical Summary | Summary of Care ---
Author Name Unknown Organization [facility] Address [address] [place] [address] Phone [phone] Care Team Providers Care Research And Evaluation Analyst Name Role Phone Katey Arora MD Primary Care Provider [phone] Reason for Visit * Reason Onset Date Comments Test Results Lab 11/07/2023 Encounter Details Date Type Department Care Team (Late st Contact Info) Description 11/07/2023 Telephone General Internal Medicine [facility] [address] [place] [address] Katey Arora MD 200 [place] [address] Test Results Lab Allergies No known active allergiesdocumented as of this encounter (statuses as of 11/24/2023) Medications Medication Sig Dispensed Refills Start Date [...] as of this encounter (statuses as of 11/24/2023) Active Problems Problem Noted Date Diagnosed Date [...] as of this encounter (statuses as of 11/24/2023) Resolved Problems Problem Noted Date Diagnosed Date Resolved Date Tinnitus of both ears 04/24/20172018 Overview: Acute Restless legs syndrome 06/12/201607/12 Gallbladder polyp 05/26/2013 05/23/2014 Cholelithiasis 05/26/2013 12/19/2016 Dyslipidemia, goal to be determined 11/26/2002 03/14/2009 Overview: Per Lipid Taxonomy. documented as of this encounter (statuses as of 11/24/2023) Immunizations Name Administration Dates Next Due COVID-19 [...] encounter Miscellaneous Notes * Telephone Encounter - Katey Arora MD - 11/24/2023 5:[address] call him again reg below message * Telephone Encounter - Maria Fernanda Joe MED ASSIST - 11/13/2023 12:25 PM EDT [...] routed. * Telephone Encounter - Maria Fernanda Joe, MED ASSIST - 11/11/2023 2:23 PM EDT Left message for the patient to call the office. Upon return call please transfer to a dedicated telephone nurse. * Telephone Encounter - Katey Arora MD - 11/11/2023 10:58 AM EDT Please call pt if not already done as requested in IM. * Telephone Encounter - Kaety Arora MD - 11/07/2023 4:19 PM EDT Per Claudia- Sent to pcp to help treat , please forward results of blood work to PCP,especially B6 level and copper level. 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 For B6 (pyridoxine) toxicity, we recommend B supplements without pyridoxine such as the one from [place].His copper will need to be also supplemented [...] PM EDT Office Visit General Internal Medicine Annita [place] [address] [place] [address] Katey Arora MD [address] [place] [address] 07/13/2024 10:15 AM EDT Office Visit Urology, [facility] [address] [place] [address] Angel Diaz MD [address] [place] [address] Health Maintenance Due Date Last Done Comments [...] Screening 02/15/2024 02/14/2023 DXA Scan 05/07/2025 05/07/2023, 0811/2020, 09/22/2018, Additional history exists DTaP,Tdap,and Td Vaccines (2 - Td or Tdap) 03/06/2026 03/06/2016, 06/29/2007, 08/03/2002 Pneumococcal Vaccine: 65+ Years Completed 05/23/2014, 02/14/2006 Zoster Vaccines Completed 03/26/2019, 09/30, 08/26/2017, Additional history exists VITAMIN D LEVEL ONCE IN A LIFETIME-USE SMARTSET# 52711 Completed 05/29/2023, 02/27/2022, 03/16/2019, Additional history exists [...] filedocumented as of this encounter Care Teams Research And Evaluation Analyst Relationship Specialty Start Date End Date Katey Arora MD [address] [facility] [place], [place] [address] PCP - General Internal Medicine 07/09/17 documented as of this encounter
--- OUTSIDE RECORDS SUMMARY | 2024-01-03 04:34 | External Medical Summary | Summary of Care ---
Author Name Unknown Organization [facility] Address [address] [place] [place] [place] [place] [address] Phone [phone] Care Team Providers Care Funeral Director/Embalmer Name Role Phone Katey Arora MD Primary Care Provider [phone] Reason for Visit * Reason Comments EMG Encounter Details Date Type Department Care Team (Late st Contact Info) Description 11/12/2023 10:00 AM EDT NeuroDiagnostic Study Neurophysiology [facility] [address] [facility] [place] [address] Kain Anderson DO 200 [facility] [place] [address] Allergies No known active allergiesdocumented as of this encounter (statuses as of 11/12/2023) Medications Medication Sig Dispensed Refills Start Date [...] as of this encounter (statuses as of 11/12/2023) Active Problems Problem Noted Date Diagnosed Date Gilbert syndrome 09/13/2022 Prostate cancer 03/22/2021 Urgency of urination 03/22/2021 Nocturia 03/22/2021 Post-void dribbling 03/22/2021 Diastolic dysfunction 07/23/2019 Mild mitral regurgitation by prior echocardiogra m 07/23/2019 Senile osteoporosis 08/26/2017 Overview: dexa 08/14--2.8-st fosamax---see notes---11/18--1.5/-2.5-restarted fosmax 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 Finished his radiation Feb 2016, Last lupron 04/09/16. Dyslipidemia, goal LDL below 70 03/14/2009 Overview: zetia 10mg. History of colonoscopy with polypectomy 01/04/20 Overview: 02/2016--csope nml Colonoscopy 12/31/05--inflammatory polyps--repeat 10 years Aortocoronary bypass status 01/16/2004 Overview: 2004 x 3 Chronic coronary artery disease 11/26/2002 Statin intolerance documented as of this encounter (statuses as of 11/12/2023) Resolved Problems Problem Noted Date Diagnosed Date Resolved Date Tinnitus of both ears 04/24/20172018 Overview: Acute Restless legs syndrome 06/12/201607/12 Gallbladder polyp 05/26/2013 05/23/2014 Cholelithiasis 05/26/2013 12/19/2016 Dyslipidemia, goal to be determined 11/26/2002 03/14/2009 Overview: Per Lipid Taxonomy. documented as of this encounter (statuses as of 11/12/2023) Immunizations Name Administration Dates Next Due COVID-19 [...] on file documented as of this encounter Progress Notes * Kain Anderson, - 11/12/2023 10:47 AM EDT [facility] Neurophysiology Laboratory Electromyography Report Name: Xu Singletary Date of : 1940 (83 year old) Sex: male Tech: Erasmo Perea Referring Physician: Akil Rose MD Examining Physician: Kain Anderson DO Examination Date: 11/12/2023 Ht Readings from Last 1 Encounters: 09/13/22 1.61 m (5' 3.4") Wt Readings from Last 1 Encounters: 10/15/23 72.9 kg (160 lb 12.8 oz) Impression: Abnormal study. 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 History and Physical examination: An 83-year-old male with ataxia. He reports difficulty ambulatingparticularly at night. Sensation is intact to light touch. EMG/NCS performed for evaluation of neuropathy. Nerve Conduction Studies Examination Findings: Nerve conduction studies were performed in the right lower extremity and in select nerves in the right upper extremity and left lower extremity. The bilateral sural sensory nerve responses were absent. The radial sensory nerve study showed a normal peak latencies, reduced amplitude, and normal conduction velocity. The ulnar, peroneal, and tibial motor nerve study showed normal distal latencies, normal amplitudes, and normal conduction velocities. Please see the attached document for raw data or the scanned document in EPIC. Reference values are from the [facility] normative data guidelines that are attached at the end ofthis document. Electromyography Examination Findings: Needle examination was performed with a disposable concentric needle electrode in selected muscles of the right lower extremity, as recorded in the tables. No abnormal spontaenous activity was seen. The motor unit action potentials in the muscles tested demonstrated normal size, duration, and recruitment. Please see the attached document for raw data or the scanned document in EPIC. The study was done with a concentric needle examination. Kain Anderson DO documented in this encounter Plan of Treatment Upcoming Encounters Date Type Department Care Team (Late st Contact Info) Description 01/21/2024 5:00 PM EDT Office Visit General Internal Medicine [facility] [address] [facility] [place] [address] Katey Arora MD [address] [facility] [place] [address] 07/13/2024 10:15 AM EDT Office Visit Urology, [facility] [address] [facility] [place] [address] Angel Diaz MD [address] [place] [address] Health Maintenance Due Date Last Done [...] Screening 02/15/2024 02/14/2023 DXA Scan 05/07/2025 05/07/2023, 11/2020, 09/22/2018, Additional history exists DTaP,Tdap,and Td Vaccines (2 - Td or Tdap) 03/06/2026 03/06/2016, 06/29/2007, 08/03/2002 Pneumococcal Vaccine: 65+ Years Completed 05/23/2014, 02/14/2006 Zoster Vaccines Completed 03/26/2019, 09/30, 08/26/2017, Additional history exists VITAMIN D LEVEL ONCE IN A LIFETIME-USE SMARTSET# 40937 Completed 05/29/2023, 02/27/2022, 03/16/2019, Additional history exists [...] Not on filedocumented as of this encounter Procedures Procedure Name Priority Date/Time Associated Diagnosis Comments EMG Routine 11/12/2023 Idiopathic progressive polyneuropathy documented in this encounter Results * EMG (11/12/2023) Akil Rose MD OTHER documented in this encounter Visit Diagnoses Diagnosis 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
--- OUTSIDE RECORDS SUMMARY | 2024-01-03 04:34 | External Medical Summary ---
Author Name Unknown Address Unknown Organization : Laboratory Report Ordering Provider Test Date Status CHIKIS HITCHCOCK 10/15/2023 15:29:50 Final Observation Date Value Abnormality Reference (Units ) Status Pyridoxal phosphate [Mass/volume] in Serum or Plasma 10/15/2023 15:29:50 89.0 Above high normal 2.1-21.7 (ng/mL) Final Vitamin supplementation with in 24 hours prior to
blood draw may affect the accuracy of the results.
This test was developed and its analytical performance
characteristics have been determined by [facility] [place], [place]. It has
not been cleared or approved by the U.S. Food and Drug
Administration. This assay has been validated pursuant
to the CLIA regulations and is used for clinical
purposes.

Test Performed at:
[facility]
[address] [facility]
[place], [place]
Danny Rondon M.D., Ph.D.,Director of Laboratories Performing Location
--- OUTSIDE RECORDS SUMMARY | 2024-01-03 04:34 | External Medical Summary ---
Author Name Unknown Address Unknown Organization K01:[facility] [place] [address] [place] [address] Laboratory Report Ordering Provider Test Date Status CHIKIS HITCHCOCK 10/15/2023 15:29:50 Final Observation Date Value Abnormality Reference (Units ) Status Vitamin B12 10/15/2023 15:29:50 539 389-3020 (pg/mL) Final Performing Location LABORATORY [facility] - [address] [place] [address]
--- OUTSIDE RECORDS SUMMARY | 2024-01-03 04:34 | External Medical Summary ---
Author Name Unknown Address Unknown Organization K01:LABORATORY [facility] [place] - [address] [place] [address] Laboratory Report Ordering Provider Test Date Status CHIKIS HITCHCOCK 10/15/2023 15:29:50 Final Observation Date Value Abnormality Reference (Units) Status PARAPROTEIN NORMAL/ABNORMAL 10/15/2023 15:29:50 Normal Normal Final Immunofixation for Serum or Plasma 10/15/2023 15:29:50 No monoclonal gammopathy detected. Final Performing Location LABORATORY [facility] [place] - [address] [place] [address]
--- OUTSIDE RECORDS SUMMARY | 2024-01-03 04:34 | External Medical Summary ---
Author Name Unknown Address Unknown Organization : Laboratory Report Ordering Provider Test Date Status CHIKIS HITCHCOCK 10/15/2023 15:29:50 Final Observation Date Value Abnormality Reference (Units ) Status Copper 10/15/2023 15:29:50 48 Below low normal 70- 175 (mcg/dL) Final This test was developed and its analytical performance
characteristics have been determined by [employer] [facility]
[place], [place]. It has
not been cleared or approved by the U.S. Food and Drug
Administration. This assay has been validated pursuant
to the CLIA regulations and is used for clinical
purposes.

Test Performed at:
[facility]
[address] [facility] [place] [address]
Danny Rondon M.D., Ph.D.,Director of Laboratories Performing Location
--- OUTSIDE RECORDS SUMMARY | 2024-01-03 04:34 | External Medical Summary ---
Author Name Unknown Address Unknown Organization K01:LABORATORY [address] [facility] [address] Laboratory Report Ordering Provider Test Date Status CHIKIS HITCHCOCK 10/15/2023 15:29:50 Final Observation Date Value Abnormality Reference (Units ) Status Nuclear IgG Ab [Ratio] in Serum by Immunoassay 10/15/2023 15:29:50 Negative Negative Final DNA double strand Ab [Presence] in Serum 10/15/2023 15:29:50 Negative Negative Final DOUBLE STRANDED DNA VALUE - [facility] 10/15/2023 15:29:50 0.9 <20 (IU/mL) Final Extractable nuclear Ab [Presence] in Serum 10/15/2023 15:29:50 Negative Negative Final Nuclear IgG Ab [Ratio] in Serum by Immunoassay 10/15/2023 15:29:50 0.2 <0.7 (Ratio) Final Screening is based on detect ion of the following antibodies: dsDNA, U1-CHEMICAL RESEARCH WORKER (RNP70, A, C), SS-A/Ro, SS-B / La, Andressa-1, Scl-70, Centromere B proteins and Sm proteins. In conjunction with clinical findings, this can aid in the diagnosis of systemic lupus erythematosous (SLE), mixed connective tissue disease (MCTD), Sjogren's syndrome, scleroderma and polymyositis/dermatomyositis.
However, a negative result does not rule out systemic rheumatic or other autoimmune disease. If clinically suspected, further evaluation and testing may be necessary. Please consult with Rheumatology Department.
Methodology: Fluorescent Enzyme Immunoassay. Performing Location LABORATORY [address] [facility] [address]
--- OUTSIDE RECORDS SUMMARY | 2024-01-03 04:34 | External Medical Summary ---
Author Name Unknown Address Unknown Organization K01:LABORATORY [facility] [place] - [facility] [place] [address] [facility] [address] Laboratory Report Ordering Provider Test Date Status CHIKIS HITCHCOCK 10/15/2023 15:29:50 Final Observation Date Value Abnormality Reference (Units) Status PARAPROTEIN NORMAL/ABNORMAL 10/15/2023 15:29:50 Normal Normal Final Protein 10/15/2023 15:29:50 6.6 6.0-8.3 (g/dL) Final Albumin/Protein.total [Pure mass fraction] in Serum or Plasma by Electrophoresis 10/15/2023 15:29:50 3.50 3.30-4.40 (g/dL) Final Alpha 1 globulin/Protein.tota l [Pure mass fraction] in Serum or Plasma by Electrophoresis 10/15/2023 15:29:50 0.19 0.10-0.30 (g/dL) Final Alpha 2 globulin/Protein.tota l [Pure mass fraction] in Serum or Plasma by Electrophoresis 10/15/2023 15:29:50 0.88 0.60-1.00 (g/dL) Final Beta globulin/Protein.tota l [Pure mass fraction] in Serum or Plasma by Electrophoresis 10/15/2023 15:29:50 0.84 0.80-1.30 (g/dL) Final Gamma globulin/Protein.tota l [Pure mass fraction] in Serum or Plasma by Electrophoresis 10/15/2023 15:29:50 1.18 0.70-1.70 (g/dL) Final Protein Fractions [Interpretation] in Serum or Plasma by Electrophoresis Narrative 10/15/2023 15:29:50 Normal serum protein electrophoretic pattern. Final Performing Location LABORATORY [facility] [place] - [address] [facility] [address]
--- OUTSIDE RECORDS SUMMARY | 2024-01-03 04:34 | External Medical Summary | Summary of Care ---
Author Name Unknown Organization [facility] Address [address] [place] [address] Phone [phone] Care Team Providers Care Automotive Buyer Name Role Phone Katey Arora MD Primary Care Provider [phone] Reason for Visit * Reason Comments Outpatient Testing Encounter Details Date Type Department Care Team (Late st Contact Info) Description 10/15/2023 3:30 PM EDT Laboratory Laboratory [facility] [address] [place] [phone] [facility] [address] [facility] [place] [address] Idiopathic progressive polyneuropathy Allergies No known active allergiesdocumented as of this encounter (statuses as of 10/15/2023) Medications Medication Sig Dispensed Refills Start Date End Date Status ASPIRIN 81 MG PO TABSIndications:Aort ocoronary bypass status,Dyslipidemia, goal to be determined one [...] Active Azelastine HCl 0.1 % Nasal Solution (Astelin)Indications :Chronic rhinitis Administer 1 [place] into nostril in the morning and 1 [place] before bedtime. 30 mL 12 09/13/2022 Active Losartan Potassium 25 MG Oral Tablet (Cozaar)Indications: Chronic coronary artery disease,Diastolic dysfunction TAKE 1 TABLET BY MOUTH EVERY DAY 90 Tablet 3 01/09/2023 Active Ezetimibe 10 MG Oral Tablet (Zetia)Indications:D yslipidemia, goal LDL below 100 TAKE 1 TABLET BY MOUTH EVERY DAY 90 Tablet 3 01/20/2023 Active Nitroglycerin 0.4 MG Sublingual Tablet Sublingual (Nitrostat)Indicatio ns:Chronic coronary artery disease,Aortocoronar y bypass status DISSOLVE 1 TABLET UNDER THE TONGUE AT ONSET OF SEVERE CHEST PAIN. MAY REPEAT DOSE 3 TIMES. CALL 911. 25 Tablet 02/14/2023 Active Fiber Adult Gummies 2 GM Oral Tablet ChewableIndications: Irritable bowel syndrome with constipation one pill twice a day 02/14/2023 Active Tamsulosin HCl 0.4 MG Oral Capsule (Flomax) Take 1 Capsule by mouth every evening. 90 Capsule 3 07/04/2023 Active Metoprolol Succinate ER 25 MG Oral Tablet Extended Release 24 Hour (toPROL XL)Indications:Chron ic coronary artery disease TAKE 1/2 TABLET BY MOUTH EVERY DAY 45 Tablet 07/24/2023 Active documented as of this encounter (statuses [...] L4-5-had Rt SI jt inj S help DrCousiozzie, off plavix 08/15>caudal UMER 09/18;10/27/17-relief x 1 [...] on file documented as of this encounter Plan of Treatment Upcoming Encounters Date Type Department Care Team (Late st Contact Info) Description 11/12/2023 10:00 AM EDT NeuroDiagnostic Study Neurophysiology [facility] [address] [facility] [place] [address] Kain Anderson, [address] [facility] [place] [address] 04/13/2024 3:40 PM EST Office Visit Neurology [facility] [address] [facility] [place] [address] Kain Anderson, DO [address] [facility] [place] [address] 07/13/2024 10:15 AM EDT Office Visit Urology, [facility] [address] [facility] [place] [address] Angel Diaz MD [address] [place] [address] Pending Results Name Type Priority Associated Diagnoses Date /Time MONOCLONAL GAMMOPATHIES SCREENING PANEL Lab Routine Idiopathic progressive polyneuropathy 10/15/2023 3:29 PM EDT SERUM PROTEIN ELECTROPHORESIS REFLEX PROFILE Lab Routine Idiopathic progressive polyneuropathy 10/15/2023 3:29 PM EDT SERUM FREE LIGHT CHAINS Lab Routine Idiopathic progressive polyneuropathy 10/15/2023 3:29 PM EDT SERUM IMMUNOFIXATION Lab Routine Idiopathic progressive polyneuropathy 10/15/2023 3:29 PM EDT Health Maintenance Due Date Last Done Comments DISCUSS TOBACCO CESSATION (REFER TO SMARTSET #3291) 1940 COVID-19 Vaccine ( season) 2023 01/03/2023, 12/11/2021, 02/23/2021, Additional history exists *BISPHONATE OR OTHER ACCEPTABLE MEDICATION NEEDED FOR OSTEOPOROSIS (REFER TO SMARTSET #1146) 07/24/2023 Influenza Vaccine (FLU shot) (#1) 2023 12/31/2022, 12/06/2021, 01/08/2021, Additional history exists Depression Screening 02/15/2024 02/14/2023 DXA Scan 05/07/2025 05/07/2023, 080 11/2020, 09/22/2018, Additional history exists DTaP,Tdap,and Td Vaccines (2 - Td or Tdap) 03/06/2026 03/06/2016, 06/29/2007, 08/03/2002 Pneumococcal Vaccine: 65+ Years Completed 05/23/2014, 02/14/2006 Zoster Vaccines Completed 03/26/2019, 09/30, 08/26/2017, Additional history exists VITAMIN D LEVEL ONCE IN A LIFETIME-USE SMARTSET# [id number] Completed 05/29/2023, 02/27/2022, 03/16/2019, Additional history exists [...] as of this encounter Visit Diagnoses Diagnosis Idiopathic progressive polyneuropathy documented in this encounter Care Teams Automotive Buyer Relationship Specialty Start Date End Date Katey Arora MD [address] [place] [address] PCP - General Internal Medicine 4/11/18 documented as of this encounter
--- OUTSIDE RECORDS SUMMARY | 2024-01-03 04:34 | External Medical Summary | Summary of Care ---
Author Name Unknown Organization [facility] Address [address] [place] [address] Phone [phone] Care Team Providers Care Baggage Screener Name Role Phone Katey Arora MD Primary Care Provider [phone] Reason for Visit * Reason Comments NEW PATIENT * Evaluate & Treat - Unlimited Visits (Within 30 days (routine)) - Pending Review Specialty Diagnoses / Procedures Referred By Sue lazaro Referred To Contact Neurology Diagnoses Dizziness Personal history of fall Katey Arora MD [address] [place] [address] Referral ID Status Reason Start Date Expiration Date Visits Requested Visits Authorized [id number] Pending Review Specialty Services Required 07/21/[phone] Encounter Details Date Type Department Care Team (Late st Contact Info) Description 10/15/2023 2:20 PM EDT Office Visit Neurology [facility] [address] [facility] [place] [address] Akil Rose MD [address] [place] [address] Idiopathic progressive polyneuropathy*; B12 deficiency; Copper deficiency; Hypervitaminosis B6 Allergies No known active allergiesdocumented as of this encounter (statuses as of 10/15/2023) Medications Medication Sig Dispensed Refills Start Date End Date Status ASPIRIN 81 MG PO TABSIndications:Ao rtocoronary bypass status,Dyslipidemi a, goal to be determined one pill each [...] Active Azelastine HCl 0.1 % Nasal Solution (Astelin)Indicatio ns:Chronic rhinitis Administer 1 [place] into nostril in the morning and 1 [place] before bedtime. 30 mL 12 09/13/2022 Active Losartan Potassium 25 MG Oral Tablet (Cozaar)Indication s:Chronic coronary artery disease,Diastolic dysfunction TAKE 1 TABLET BY MOUTH EVERY DAY 90 Tablet 3 01/09/2023 Active Ezetimibe 10 MG Oral Tablet (Zetia)Indications :Dyslipidemia, goal LDL below 100 TAKE 1 TABLET BY MOUTH EVERY DAY 90 Tablet 3 01/20/2023 Active Nitroglycerin 0.4 MG Sublingual Tablet Sublingual (Nitrostat)Indicat ions:Chronic coronary artery disease,Aortocoron dhaval bypass status DISSOLVE 1 TABLET UNDER THE TONGUE AT ONSET OF SEVERE CHEST PAIN. MAY REPEAT DOSE 3 TIMES. CALL 911. 25 Tablet 02/14/2023 Active Fiber Adult Gummies 2 GM Oral Tablet ChewableIndication s:Irritable bowel syndrome with constipation one pill twice a day 02/14/2023 Active Tamsulosin HCl 0.4 MG Oral Capsule (Flomax) Take 1 Capsule by mouth every evening. 90 Capsule 3 07/04/2023 Active Metoprolol Succinate ER 25 MG Oral Tablet Extended Release 24 Hour (toPROL XL)Indications:Chr onic coronary artery disease TAKE 1/2 TABLET BY MOUTH EVERY DAY 45 Tablet 07/24/2023 Active Melatonin ER 1 MG Oral Tablet Extended ReleaseIndications :Adjustment insomnia daily1 tab at bedtime daily, if not improved may increase upto 5 mg daily 1 Tablet 07/21/2023 Discontinue d(Medicatio n List Clean Up) documented as of this encounter (statuses as [...] 10mg. History of colonoscopy with polypectomy 01/04/20 06 Overview: 02/2016--csope nml Colonoscopy 12/31/05--inflammatory polyps--repeat 10 [...] on file documented as of this encounter Last Filed Vital Signs Vital Sign Reading Time Taken Comments Blood Pressure 118/62 10/15/2023 2:27 PM EDT Pulse 78 10/15/2023 2:27 PM EDT Temperature 36.3 C (97.3 F) 10/15/2023 2:27 PM ED T Respiratory Rate 16 10/15/2023 2:27 PM EDT Oxygen Saturation 96% 10/15/2023 2:27 PM EDT Inhaled Oxygen Concentration - - Weight 72.9 kg (160 lb 12.8 oz) 10/15/2023 2:27 PM EDT Height - - Body Mass Index 28.13 09/13/2022 9:09 AM EDT documented in this encounter Progress Notes * Akil Rose MD - 10/15/2023 2:20 PM EDT 10/15/2023 1:15 PM Xu Singletary 83 year old male Ref: KATEY ARORA[[id number]] [address] [place] [address] (office) [phone] (fax) Asked by Katey Arora MD to render opinion regarding imbalance CC: No chief complaint on file. HPI: The patient is an 83-year-old gentleman with dizziness described as persistent lightheadedness which has led to falls and near falls. . He had imbalance since June 2019. Denies any vertigo or feeling of dizziness. He had several neuroimaging studies in the past which showed fairly unremarkable cranial MRI and MRA back in 2015 and then again in September 2020 with just mild degree of chronic microvascular ischemic disease. He has refused to go to [facility] in the past. He has some sleeping difficulty since he retired last year. He drinks 2 to 3 cups of coffee per day, sometimes in the evening. He has tried melatonin without much relief. He quit drinking coffee in the afternoon which helped his sleep. His comorbidities are coronary artery disease with a triple CABG in 2003, he also received the drugeluting stent after a non-STEMI in June 2016. He has dyslipidemia with statin intolerance. He is on low-dose aspirin. He was never ruled out for sleep apnea. He has occasional constipation and takes a stool softener noon daily. 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 He has osteoporosis as per DEXA scan but despite Fosamax his bone mineral density continued to decline. He has midline low back pain with a history of right-sided sciatica. MRI from June 2016 of thelumbar spine showed mild degenerative changes, mostly L4-L5 with bilateral neuroforaminal narrowing. 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 Last B12 level was normal back in February 2020. Normal TSH and vitamin-D level. He is on tamsulosin for enlarged prostate. 9 weeks ago he was walking fast and went over to a bench to sit down, fell down just like that. He has to be careful walking up or down stairs. He tries to walk slowly. He thinks he is more unsteady when he closes his eyes. No sensory disturbances in his limbs. He does not have excessive daytime fatigue. He is not sure whether he snores. Denies lightheadedness when getting up fast. He has had urinary urgency for years. He does not use any assistive devices. 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 Finished his radiation Feb 2016, Last lupron 04/09/16. Statin intolerance [Z78.9] Dyslipidemia, goal LDL below 70 [E78.5] 03/14/2009 zetia 10mg. 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 B Complex Tablet 2-1 Vitamin C 1000 MG Oral Tablet Take 1 Tablet by mouth in the morning. Vitamin B-12 1000 MCG Oral Tablet Take 1 Tablet by mouth in the morning. Azelastine HCl 0.1 % Nasal Solution (Astelin) Administer 1 [place] into nostril in the morning and 1 [place] before bedtime. 30 mL 12 Losartan Potassium 25 MG Oral Tablet (Cozaar) TAKE 1 TABLET BY MOUTH EVERY DAY 90 Tablet 3 Ezetimibe 10 MG Oral Tablet (Zetia) TAKE 1 TABLET BY MOUTH EVERY DAY 90 Tablet 3 Nitroglycerin 0.4 MG Sublingual Tablet Sublingual (Nitrostat) DISSOLVE 1 TABLET UNDER THE TONGUE ATONSET OF SEVERE CHEST PAIN. MAY REPEAT DOSE 3 TIMES. CALL 911. 25 Tablet 0 Fiber Adult Gummies 2 GM Oral Tablet Chewable one pill twice a day Tamsulosin HCl 0.4 MG Oral Capsule (Flomax) Take 1 Capsule by mouth every evening. 90 Capsule 3 Melatonin ER 1 MG Oral Tablet Extended Release daily1 tab at bedtime daily, if not improved may increase upto 5 mg daily 1 Tablet 0 Metoprolol Succinate ER 25 MG Oral Tablet Extended Release 24 Hour (toPROL XL) TAKE 1/2 TABLET BY MOUTH EVERY DAY 45 Tablet 0 No current facility-administered medications for this visit. ALLERGIES: Review of patient's allergies indicates: No Known Allergies Social History Socioeconomic History Marital status: Single Spouse name: Not on file Number of children: Not on file Years of education: Not on file Highest education level: Not on file Occupational History Not on file Tobacco Use Smoking status: Some Days Types: Cigars Smokeless tobacco: Never Tobacco comments: occasional small cigar Substance and Sexual Activity Alcohol use: Yes Alcohol/week: 0.8 standard drinks of alcohol Types: 1 5 oz of wine per week Comment: rare Drug use: No Sexual activity: Yes Partners: Female Other Topics Concern Not on file Social History Narrative Not on file Social Determinants of Health Financial Resource Strain: Not on file Food Insecurity: No Food Insecurity (03/16/2019) Hunger Vital Sign Worried About Running Out of Food in the Last Year: Never true Ran Out of Food in the Last Year: Never true Transportation Needs: Not on file Social Connections: Unknown (09/16/2023) Social Connections How often do you feel lonely or isolated from those around you? (Adult - for ages 18 years and over): Not on file Housing Stability: Not on file Occupation: retired HIV risk factors: None FAMILY HISTORY Family History Problem Relation Name Age of Onset No Past Hx None Family Status Relation Status Mo at age 69 heart disease Fa at age 67 brain cancer Sis Alive chronic kidney disease Avelina Alive Son Alive NONE (Not Specified) REVIEW OF SYSTEMS: The patient denies new cardiac, lung, kidney, liver, skin (vitiligo), thyroid, bladder (urgency), or digestive problems. The patient also denies acute changes in hearing or vision. Otherwise, all other systems are negative or as noted above. There were no vitals taken for this visit. The patient is a 83 year old male who is well developed and appears to be their stated age. NEUROLOGIC EXAMINATION: Mental status: Intact higher integrative functions. Orientated to person, place, and time. Recent and remote memory functions are intact. Attention, concentration, language, and fund of knowledge arenormal. Judgment and insight are intact. Mood and affect are normal. Cranial nerves: CN 2: Visual burleson are full to confrontation in both eyes. Undilated fundoscopic examination showsnormal optic discs and vessels in both eyes without hemorrhages or exudates. CN 3-4, 6: Pupils are equal, round, reactive to light and accommodation. Extraocular motility is intact in both eyes without nystagmus. CN 5: Facial sensation and jaw strength are normal bilaterally. CN 7: No facial muscle weakness or significant asymmetries. CN 8: Hearing is intact in both ears to whispered voice and finger rub. CN 9-10: Palate is symmetric and moves normally in the midline. CN 11: Sternocleidomastoid and trapezius muscle strength are normal bilaterally. CN 12: Tongue protrudes in midline. No tongue atrophy or fasciculation. Motor: Normal power, bulk, and tone throughout. No atrophy, fasciculation, or abnormal movements. Sensory: reduced sensation for vibration, especially in distal LE. Coordination: [id number], and rapid alternating movements are normal bilaterally. Fine motor coordination is normal in both hands. Reflexes: Normal and symmetric in the arms and legs except for diminished left ankle jerk and absent R ankle jerk. Plantar responses are flexor. No pathologic reflexes. Gait/station: Normal gait on a narrow base with symmetric arm swing. Arises from a chair without difficulty and walks well on heels or toes. Cannot do tandem walk. Romberg test is slightly positive. [place] without deviation. GENERAL EXAMINATION: Head: Normocephalic without mass, lesion, or tenderness. Neck: No palpable thyromegaly or adenopathy. Cardiovascular: Heart rate and rhythm are normal to auscultation without murmur, click, or gallop. Carotid pulses have normal amplitudes bilaterally without bruit. Lungs: no rhonchi heard. Extremities: No edema, cyanosis, clubbing, or deformities noted. Peripheral pulses are intact. Skin: He has vitiligo. IMPRESSION: He likely has a peripheral neuropathy with reduced sensation for vibration as well as diminished ankle responses. He is not diabetic or drinks ETOH. He is not orthostatic. RECOMMENDATIONS: I will order an EMG study. I would like him to follow up with Dr. Anderson, the neuromuscular specialist. We will check him for Lyme, SPEP, heavy metals, B12 and copper level, B6 level, ELHAM titer. I spent approximately 45 minutes with this patient greater than half the time was spent reviewing diagnosis, physical exam, imaging review, review of previous tests., and treatment. Thank-you for the pleasure of this consultation. I will keep you updated on your patient's progress. Akil Rose MD Neurology [address] [place] [address] Please send copy to requesting physician, Katey Arora MD documented in this encounter Nursing Notes * Hali Araujo LPN - 10/15/2023 2:26 PM EDT Patient verified identity by spelling of last name and date. Chief Complaint Patient presents with NEW PATIENT documented in this encounter Plan of Treatment Upcoming Encounters Date Type Department Care Team (Late st Contact Info) Description 07/13/2024 10:15 AM EDT Office Visit Urology, [facility] [address] [facility] [place] [address] Angel Diaz MD [address] [place] [address] Scheduled Orders Name Type Priority Associated Diagnoses Orde r Schedule VITAMIN B12 Lab Routine B12 deficiency Ordered: 10/15/2023 METHYLMALONIC ACID, SERUM Lab Routine B12 deficiency Ordered: 10/15/2023 ANTINUCLEAR ANTIBODY (ELHAM) EIA SCREEN WITH REFLEX AB QUANT Lab Routine Idiopathic progressive polyneuropathy Ordered: 10/15/2023 MONOCLONAL GAMMOPATHIES SCREENING PANEL Lab Routine Idiopathic progressive polyneuropathy Expected: 10/15/2023, Expires: 10/14/2024 COPPER, SERUM OR PLASMA Lab Routine Copper deficiency Ordered: 10/15/2023 LYME DISEASE ANTIBODY SCREEN WITH REFLEX TO CONFIRMATION Lab Routine Idiopathic progressive polyneuropathy Ordered: 10/15/2023 VITAMIN B6, PLASMA Lab Routine Hypervitaminosis B6 Ordered: 10/15/2023 Health Maintenance Due Date Last Done Comments [...] D LEVEL ONCE IN A LIFETIME-USE SMARTSET# [id number] Completed 05/29/2023, 02/27/2022, 03/16/2019, Additional history exists [...] this encounter Visit Diagnoses Diagnosis Idiopathic progressive polyneuropathy- Primary B12 deficiency Other B-complex deficiencies 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
--- OUTSIDE RECORDS SUMMARY | 2024-01-03 04:34 | External Medical Summary | Summary of Care ---
Author Name Unknown Organization [facility] Address [address] [place] [address] Phone [phone] Care Team Providers Care Operations Planner Name Role Phone Tom Arora MD Primary Care Provider [phone] Reason for Visit * Reason Comments NEW PATIENT * Evaluate & Treat - Unlimited Visits (Within 30 days (routine)) - Pending Review Specialty Diagnoses / Procedures Referred By Sue lazaro Referred To Contact Neurology Diagnoses Dizziness Personal history of fall Tom Arora MD [address] [place] [address] Referral ID Status Reason Start Date Expiration Date Visits Requested Visits Authorized [id number] Pending Review Specialty Services Required 07/21/2023 [id number] Encounter Details Date Type Department Care Team (Late st Contact Info) Description 10/15/2023 2:20 PM EDT Office Visit Neurology [facility] [address] [facility] [address] Akil Rose MD [address] [place] [address] Idiopathic progressive polyneuropathy*; B12 deficiency; [...] Nasal Solution (Astelin)Indicatio ns:Chronic rhinitis Administer 1 Irving into nostril in the morning and 1 Irving before bedtime. 30 mL 12 09/13/2022 Active [...] Xu Singletary 83 year old male Ref: TOM ARORA[[id number]] [address] [place] [id number] (office) [phone] (fax) Asked by Tom Arora MD to render opinion regarding imbalance [...] L4-L5 with bilateral neuroforaminal narrowing. 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 Last B12 level was normal back in [...] 08/14--2.8-st fosamax---see notes---11/18--1.5/-2.5-restarted fosmax Left asymmetrical SNHL [[id number]] 04/24/2017 Has GASTELUM RT only DDD (degenerative [...] 0.1 % Nasal Solution (Astelin) Administer 1 Irving into nostril in the morning and 1 Irving before bedtime. 30 mL 12 Losartan Potassium [...] for vibration, especially in distal LE. Coordination: [id number], and rapid alternating movements are normal bilaterally. [...] your patient's progress. Akil Rose MD Neurology [address] [place] [address] Please send copy to requesting physician, Tom Arora MD documented in this encounter Nursing Notes * Hali Araujo LPN - 10/15/2023 2:26 PM EDT Patient verified identity by spelling of last name and date. Chief Complaint Patient presents with NEW PATIENT documented in this encounter Plan of Treatment Upcoming Encounters Date Type Department Care Team (Late st Contact Info) Description 11/12/2023 10:00 AM EDT NeuroDiagnostic Study Neurophysiology [facility] [address] [place] [address] Kain Anderson, DO [address] [facility] [place] [address] 04/13/2024 3:40 PM EST Office Visit Neurology [facility] [address] [place] [address] Kain Anderson, [address] [place] [address] 07/13/2024 10:15 AM EDT Office Visit Urology, [facility] [address] [facility] [place] [address] Angel Diaz MD [address] [place] [address] Pending Results Name Type Priority Associated Diagnoses Date /Time VITAMIN B12 Lab Routine B12 deficiency 10/15/2023 3:29 PM EDT METHYLMALONIC ACID, SERUM Lab Routine B12 deficiency 10/15/2023 3:29 PM EDT ANTINUCLEAR ANTIBODY (ELHAM) EIA SCREEN WITH REFLEX AB QUANT Lab Routine Idiopathic progressive polyneuropathy 10/15/2023 3:29 PM EDT MONOCLONAL GAMMOPATHIES SCREENING PANEL Lab Routine Idiopathic progressive polyneuropathy 10/15/2023 3:29 PM EDT COPPER, SERUM OR PLASMA Lab Routine Copper deficiency 10/15/2023 3:29 PM EDT LYME DISEASE ANTIBODY SCREEN WITH REFLEX TO CONFIRMATION Lab Routine Idiopathic progressive polyneuropathy 10/15/2023 3:29 PM EDT VITAMIN B6, PLASMA Lab Routine Hypervitaminosis B6 10/15/2023 3:29 PM EDT ANTINUCLEAR ANTIBODY (ELHAM) SCREEN, RICHA Lab Routine Idiopathic progressive polyneuropathy 10/15/2023 3:29 PM EDT LYME DISEASE ANTIBODY SCREEN Lab Routine Idiopathic progressive polyneuropathy 10/15/2023 3:29 PM EDT Scheduled Orders Name Type Priority Associated Diagnoses Orde r Schedule MONOCLONAL GAMMOPATHIES SCREENING PANEL Lab Routine Idiopathic progressive polyneuropathy Expected: 10/15/2023, Expires: 10/14/2024 Health Maintenance Due Date Last Done Comments [...] D LEVEL ONCE IN A LIFETIME-USE SMARTSET# [id number] Completed 05/29/2023, 02/27/2022, 03/16/2019, Additional history exists [...] hyperalimentation documented in this encounter Care Teams Operations Planner Relationship Specialty Start Date End Date Tom Arora MD [address] [facility], [place] [id number] PCP - General Internal Medicine 07/09/17 documented as of this encounter
--- OUTSIDE RECORDS SUMMARY | 2024-01-03 04:34 | External Medical Summary ---
Author Name Unknown Address Unknown Organization [id number]:[facility] [place] - [address] [place] [address] Laboratory Report Ordering Provider Test Date Status CHIKIS HITCHCOCK 10/15/2023 15:29:50 Final Observation Date Value Abnormality Reference (Units ) Status Borrelia burgdorferi IgG and IgM [Interpretation] in Serum by Immunoassay 10/15/2023 15:29:50 Negative Negative Final Performing Location [facility] – [place] - [address] [place] [address]
--- OUTSIDE RECORDS SUMMARY | 2024-01-03 04:34 | External Medical Summary | Summary of Care ---
Author Name Unknown Organization [facility] Address [address] [place] [address] Phone [phone] Care Team Providers Care Damper Fitter Name Role Phone Katey Arora MD Primary Care Provider [phone] Reason for Visit * Reason Onset Date Comments Test Results Lab 11/07/2023 Encounter Details Date Type Department Care Team (Late st Contact Info) Description 11/07/2023 Telephone General Internal Medicine [facility] [address] [place] [address] Katey Arora MD [address] [facility] [place] [address] Test Results Lab Allergies No known active [...] pyridoxine such as the one from [facility].His copper will need to be also supplemented [...] Office Visit General Internal Medicine [facility] [place] [address] [place] [address] Katey Arora MD [address] [facility] [place] [address] 07/13/2024 10:15 AM EDT Office Visit Urology, [facility] [address] [place] [address] Angel Diaz MD [address] [place] [address] [...] D LEVEL ONCE IN A LIFETIME-USE SMARTSET# [id number] Completed 05/29/2023, 02/27/2022, 03/16/2019, Additional history exists [...] filedocumented as of this encounter Care Teams Damper Fitter Relationship Specialty Start Date End Date Katey Arroa MD [address] [facility] [place], [place] [address] PCP - General Internal Medicine 07/09/17 documented as of this encounter
--- OUTSIDE RECORDS SUMMARY | 2024-01-03 04:34 | External Medical Summary | Summary of Care ---
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 Name Role Phone Katey Arora MD Primary Care Provider [phone] Reason for Referral * Evaluate & Treat - Unlimited Visits (Within 30 days (routine)) - Pending Review Specialty Diagnoses / Procedures Referred By Sue lazaro Referred To Contact Neurology Diagnoses Dizziness Personal history of fall Katey Arora MD [address] [place] [address] Dr [facility] [place] [address] Referral ID Status Reason Start Date Expiration Date Visits Requested Visits Authorized [id number] Pending Review Specialty Services Required 07/21/[phone] Question Answer Referral Priority Within 30 days (routine) Where should this appointment be scheduled? [facility] Is this referral being placed for insurance purposes ONLY Yes Reason for Visit * Reason Comments Re-Check Encounter Details Date Type Department Care Team (Late st Contact Info) Description 07/21/2023 11:20 AM EDT Office Visit General Internal Medicine [employer] [address] [place] [phone] Katey Arora MD [address] [place] [phone] Chronic coronary artery disease*; Aortocoronary bypass status; Dyslipidemia, goal LDL below 70; Statin intolerance; Senile osteoporosis; History of prostate cancer; HTN, goal below 140/90; History of colonoscopy with polypectomy; Adjustment insomnia; Dizziness; Personal history of fall; Sensorineural hearing loss (SNHL) of both ears Allergies No known active allergiesdocumented as of this encounter (statuses as of 08/06/2023) Medications Medication Sig Dispensed Refills Start Date End Date Status ASPIRIN 81 MG PO TABSIndications:A ortocoronary bypass status,Dyslipidem ia, goal to be determined one pill each day 34 11 5 Active VITAMIN D 400 UNITS PO CAPS Take by mouth. 0 Active B Complex Tablet 2-1 0 7 Active Vitamin C 1000 MG Oral Tablet Take 1 Tablet by mouth in the morning. 0 Active Vitamin B-12 1000 MCG Oral Tablet Take 1 Tablet by mouth in the morning. 0 Active Azelastine HCl 0.1 % Nasal Solution (Astelin)Indicati ons:Chronic rhinitis Administer 1 Plano into nostril in the morning and 1 Plano before bedtime. 30 mL 12 3 Active Losartan Potassium 25 MG Oral Tablet (Cozaar)Indicatio ns:Chronic coronary artery disease,Diastolic dysfunction TAKE 1 TABLET BY MOUTH EVERY DAY 90 Tablet 3 3 Active Ezetimibe 10 MG Oral Tablet (Zetia)Indication s:Dyslipidemia, goal LDL below 100 TAKE 1 TABLET BY MOUTH EVERY DAY 90 Tablet 3 3 Active Nitroglycerin 0.4 MG Sublingual Tablet Sublingual (Nitrostat)Indica tions:Chronic coronary artery disease,Aortocoro nary bypass status DISSOLVE 1 TABLET UNDER THE TONGUE AT ONSET OF SEVERE CHEST PAIN. MAY REPEAT DOSE 3 TIMES. CALL 911. 25 Tablet 0 3 Active Fiber Adult Gummies 2 GM Oral Tablet ChewableIndicatio ns:Irritable bowel syndrome with constipation one pill twice a day 0 3 Active Tamsulosin HCl 0.4 MG Oral Capsule (Flomax) Take 1 Capsule by mouth every evening. 90 Capsule 3 4 Active Melatonin ER 1 MG Oral Tablet Extended ReleaseIndication s:Adjustment insomnia daily1 tab at bedtime daily, if not improved may increase upto 5 mg daily 1 Tablet 0 4 Active Metoprolol Succinate ER 25 MG Oral Tablet Extended Release 24 Hour (toPROL XL)Indications:Ch ronic coronary artery disease TAKE 1/2 TABLET BY MOUTH EVERY DAY 45 Tablet 3 3 07/24/19 24 Discontinued Melatonin 5 MG Oral Tablet Chewable ([facility] Melatonin Gummies) 10mg nightly 0 3 07/21/19 24 Discontinued(Med ication/Dose Changed) documented as of this encounter (statuses as of 08/06/2023) Active Problems Problem Noted Date Diagnosed Date [...] 07/15 History of prostate cancer 12/06/2015 Overview: Addi [place]>XRT with lupron. Finished his radiation Feb 2016, Last lupron 04/09/16. Dyslipidemia, goal LDL below 70 03/14/2009 Overview: zetia 10mg. History of colonoscopy with polypectomy 01/04/20 06 Overview: 02/2016--csope nml Colonoscopy 12/31/05--inflammatory polyps--repeat 10 years Aortocoronary bypass status 01/16/2004 Overview: 2004 x 3 Chronic coronary artery disease 11/26/2002 Statin intolerance documented as of this encounter (statuses as of 08/06/2023) Resolved Problems Problem Noted Date Diagnosed Date Resolved Date Tinnitus of both ears 04/24/20172018 Overview: Acute Restless legs syndrome 06/12/201607/12 Gallbladder polyp 05/26/2013 05/23/2014 Cholelithiasis 05/26/2013 12/19/2016 Dyslipidemia, goal to be determined 11/26/2002 03/14/2009 Overview: Per Lipid Taxonomy. documented as of this encounter (statuses as of 08/06/2023) Immunizations Name Administration Dates Next Due COVID-19 [...] IM 12/22/2018,01/13/2018 TD - Tetanus/Diptheria (ADULT) 06/29/2007,2002 TDAP (age 11 and older)(Adacel) 03/06/2016 Varicella Zoster Vaccine (Adult) 04/24/2012 Zoster [...] in the Last Year Never true 03/16/2019 Sex and Gender Information Value Date Recorded Sex Assigned at Male 09/08/2018 8:10 AM EDT Gender Identity Male 09/08/2018 8:10 AM EDT Sexual Orientation Straight 09/08/2018 8: 10 AM EDT Job Start Date Occupation Industry Not on file Not on file Not on file documented as of this encounter Last Filed Vital Signs Vital Sign Reading Time Taken Comments Blood Pressure 120/74 07/21/2023 11:09 AM EDT Pulse 58 07/21/2023 11:09 AM EDT Temperature 35.9 C (96.6 F) 07/21/2023 11:09 AM E DT Respiratory Rate 16 07/21/2023 11:09 AM EDT Oxygen Saturation 96% 07/21/2023 11:09 AM EDT Inhaled Oxygen Concentration - - Weight 73 kg (160 lb 14.4 oz) 07/21/2023 11:09 A M EDT Height - - Body Mass Index 28.14 09/13/2022 9:09 AM EDT documented in this encounter Progress Notes * Katey Arora MD - 07/21/2023 11:44 AM EDT SUBJECTIVE: Xu Singletary is a 77 year old male. Chief Complaint Patient presents with Re-Check HPI: 6 mth fu. Wt Readings from Last 6 Encounters: 07/21/23 73 kg (160 lb 14.4 oz) 07/04/23 74.3 kg (163 lb 11.2 oz) 02/14/23 69.1 kg (152 lb 6.4 oz) 10/17/22 68.2 kg (150 lb 4.8 oz) 09/13/22 67.7 kg (149 lb 4.8 oz) 07/31/22 67.1 kg (148 lb) BP Readings from Last 6 Encounters: 07/21/23 120/74 07/04/23 142/80 02/14/23 124/68 10/17/22 144/74 09/13/22 140/78 07/31/22 146/80 Was admitted the hospital 09/07/2022, discharged 09/10/2022 with a final diagnosis of anaplasmosis, history of recurrent falls, pancytopenia.-rx doxy He son took him to the ER as he had recurrent falls at home, denies any fever or chills /history oftick bites. Initial labs - WBC 3.66, HB 14.8, platelets 132, mg 1.8, CMP normal except sugar 164 total bilirubin 1.3, troponin negative, procalcitonin and lactate normal. Lyme test negative, Anaplasma cytoplasmic inclusions seen on CBC, COVID test negative, UA concentrated otherwise poor sample. Chest x-ray negative. CT head - negative except 9 mm hypodensity anterior limb of the right internal capsule unchanged from 2016. CTA head and neck- 40% stenosis proximal right ICA, no stenosis on the left, mild stenosis right vertebral artery. PT OT eval recommended return home as he was much steady on his feet. Discharged on doxycycline twice daily for additional 8 days. Anaplasma DNA positive CBC 09/10/2022- WBC 3, HB 12.9, platelets 107, normal BMP , Mg 1.8,phos 2.9 09/13/22--nml cbc LFTs with borderline elevation AST, ALT 62/74, normal BMP. --ok to ct asa 81mg daily -lipids done early--162/96/48/95 -rpt lab 2 wk 02/20--nml alt/ast 07/22--labs 05/29/23--rev, chol sl high, has gained wt but watching diet now, walks 2/d Works at [employer] 3d/wk-now at [employer], retiring 02/19/23 Patient with CAD status post PTCA 1989, CABG x3 12/26/2003, NSTEMI 06/2016 status post drug-eluting stent, discontinued Plavix 07/16; dyslipidemia with statin intolerance, self DC low-dose statin lipitor 10mg 3d/wk,on Zetia 10 mg since 11/13, aten 25mg 1/2 t/d , resumed asa 08/15, f/u Adrianne/Joe Ragsdale Seen in clinic June 2019 with symptoms of dizziness, EKG --SB at 56bbpm, inc RBBB, c annot r/o inf infarct, 2D echocardiogram was done, was evaluated by Cardiology and recommended adequate hydration, switching atenolol 12.5 to Toprol-XL 12.5 mg daily and if symptoms persisted that toconsider a 14 day Zio monitor. 07/21/2019-echo EF 62%, no wall motion abnormalities or LVH, severe enlargement of the left atrium, grade 2 diastolic dysfunction, moderate aortic sclerosis, mild mitral annular calcification and mildmitral regurgitation. Denies symptoms of chest pain, palpitations, leg edema dyspnea or orthopnea. 08/20--EKG-NSR, no abn 07/21/2023--EKG NSR --no abn -03/27/20-admits to persistent lightheadedness. Has not tried meclizine or vestibular rehab exercises. Willing to try the same and if not better will need MRI Brain and physical therapy. 09/18--had card appt may, Carotid doppler--<50% stenosis.; n/t HCTZ as no swelling ankles--feels just enlarged. Taking meclizine 12.5mg Daily., no drowsiness.Doing home vest ex at home 2-3/d MRI brain 11/28/2015--neg, MRA brain 11/28/15--mild narrowing Carotid siphons antr --will sarah MRI head and PT 03/20---had MRI 10/18>MRI of the brain-no acute findings, age-related changes--mild volume loss of and chronic microvascular disease, continue aspirin daily. -, mild sinus disease, continue Jimena daily.had PT at [facility] added losartan 25mg 12/25/20, BP better, bmp stable 08/19-saw Dr. Whitfield and they were going to consider looking into starting praluent--message sent 02/19--he declined inj, has cut back on eggs Eats dry cereal for BF, [facility], cereal some days for dinner, does not cook, not much salads in diet 07/22--no chest pain or palpitations, about 2-3 weeks ago he lost his balance and fell, had a few scrapes on his right hand. No unilateral weakness or numbness of the extremities. No headache. Previous workup as above, physical therapy did not seem to help him, he refuses to reconsider, also refusesto go to the [facility], willing to see Neurology for evaluation. Complains of difficulty sleeping since assisted, was advised to increase intake of fluids and notdrink any caffeine after 4:26 p.m. but has been drinking about 2-3 cups a day including in the evenings. Listen to soothing music at night. , no watching TV in bedroom Trial of taking shower before bedtime, may also try some Lavender/chamomile teaHe tried melatonin without much relief, has not tried extended-release melatonin. H/o -prostate cancer Fu DrSimmons>XRT with lupron. Finished his radiation Feb 2016, Last lupron 04/09/16., low psa on q 6mth Slow rise since 04/16--but stable in 0.2 range- 03/17-had urinary frequency with constipation.we st fiber supplements. Miki morales 05/20-rec q6mth fu-has fu in dec. 03/20-Sameer morales 03/22/21--st flomax 0.4mg F/u yearly 02/2016--csope nml Colonoscopy 12/31/05--inflammatory polyps--repeat 10 years C/o chr constipation, now feels doesnot empty bowels and goes 2-3 times, no blood in stools, no abdpain, gassy feeling on and off, no nausea or vomiting. H/o appenedectomy 05/2013--lap moise Xray abd 02/2018--mod stool burden. Taking 1 stool softener daily--add metamucil , call name med he is on, water 60- 80 oz/d 03/20-complained of heartburn and taking omeprazole for 2 weeks prior, exam had revealed epigastricand bilateral lower abdominal tenderness. History of appendectomy in the past. And laparoscopic cholecystectomy May 2013. He notes that he was having the abdominal pain for for many years since a child. Exercises at the gym few days a week 02/2016--csope nml History of chronic constipation on stool softener daily as well as Metamucil, drinks good amount offluids. CT of the abdomen and pelvis 04/16/2021-no acute findings, clips in the prostate, mild degenerative changes in the spine, bilateral renal cysts, mild bladder wall thickening nonspecific. Now taking omeprazole every other day and no worsening of symptoms Also has been trying to cut down on his calorie intake, may have broth for lunch as well as supper,eats a good lunch. Discussed the need for intake of at least 65 g of protein per day DD --adhesions vs IBS Defers trial dicyclomine. If worse will call --will try med and refer to GI for eval. Advise to drink 6-8 cups(8 oz/cup) of water everyday. Increase fiber in diet. 08/19--still has occasional mild pain in the right lower quadrant. No other alarming symptoms. --no HB/dysphagia/chg in bowel habits>02/19;02/20 07/22-complains of occasional fecal smearing on his underwear, has bowel movements 1 to 2 times a day but does have to strain, to increase intake of fluids and increase fiber in his diet, his mainly consuming microwave meals Osteoporosis with Dexa 07/2016 with a T-score-2.8, started Fosamax., Vd 400 un/d, b complex, 10/16--Dexa HIgh risk;Compared to a study that was performed on 08/05/2016, there has been a significant increase of 5.7 % at the lumbar spine and a significant decrease of 4.2 % the total hip. Despite the present treatment with Fosamax/Alendronate, the bone mineral density has continued to fall Refer to [facility]. 02/2019--NML PTH,VD 03/10/19-Dr.Opperman morales--rec prolia--awaiting approval. 09/17-he had decided not to take Prolia and [facility] nurse was informed Discussed reclast--willing to d/w Hiroc--sent message to DrOpperman reg yung 03/19-has not called them back-defers. 09/18--defers med. 03/20--had dexa 11/06/20-- 1.5/-2.5 Ls/Ghx-DS-Gvsijunl to a study that was performed on 09/22/2018, there has been a significant increase of 8 % at the lumbar spine and a significant increase of 9.4 % the total hip. ---was given message in oct and Rx given but Dc from list by urologitst - discussed and to restart 08/19--sherry well 02/19--he Dc on his own this mth as he st a supplement --for bones, does not wish to restart 05/08/23--DEXa---1.8/-2.5--HR-, refuses fosamax/hiroc Ex at gym-3d/wk, abd ex,hand wts.rec leg ex. Midline low back pain with history of right-sided sciatica. 07/15--MRI> mild age rel chg, NFS tosha mild L4-5-had Rt SI jt inj S help July, off plavix 08/15>caudal [facility] 09/18;10/27/17-relief x 1 wk only--was rec to see Nuha 03/20---c/o pain mid lateral thigh -intermittent, sx worse laying on RT, no pain last night.no falls/injuries.,no swelling. Tinnitus both ears, left-sided sensorineural hearing loss with a hearing aid, follows up [facility]. 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 And to resume 03/20--on flonase 2 s hs also, get congested at [employer]-at work--to try 1 spray in am also. 08/19--continues to have runny nose and postnasal drainage despite using Flonase at night and Jimena during the day, recommend trial of ipratropium nasal spray.-now works in the [employer] department 02/19--flonase and allegar on hold 02/20-using astelin bid 07/22-Using once daily with imp after assisted 01/2023 Had tosha cataract sg DrMarcovitch, and yag laser to Rt 08/16, lt 09/16--has bifocals has f/u Friday.--feels eyes are watery but no tearing/itching, no BOV, no use artificial tears. Had covid booster and flu vac at [employer]. Had RSV vac at [facility]. Immunization History Administered Date(s) Administered COVID-19 mRNA, LNP-s, No Preserve, 2-Dose Series (Moderna) 05/14/2020, 06/11/2020 COVID-19, mRNA, LNP-s, PF, Booster, 100mcg/0.5mg (Moderna) 02/23/2021 H1N1 2009 Influenza, IM 05/01/2009 Pneumococcal Conjugate Vacc, 13 Valent (Prevnar) 05/23/2014 Pneumococcal Polysaccharide PPV23 (Pneumovax) 02/14/2006 Seasonal Influenza, PF, 6 M & above, IM , (FluLaval or Fluzone) 12/29/2017 Seasonal Influenza, Quadrivalent Hd (Fluzone Hd) 12/06/2021 Seasonal Influenza, Quadrivalent Hd, 65+ Yrs 01/08/2021 Seasonal Influenza, Split, IIV3, With Preserve, Inj 01/16/2004, 01/30/2005, 02/14/2006, 01/15/2007,01/12/2009, 01/13/2012, 01/13/2013, 12/21/2013, 02/05/2016, 01/11/2017 Seasonal Influenza, Trivalent, Adjuvanted, 65+ yrs 01/02/2020 Seasonal Influenza, Trivalent, High Dose, No Preserve, IM 01/13/2018, 12/22/2018 TD - Tetanus/Diptheria (ADULT) 08/03/2002, 06/29/2007 TDAP (age 11 and older)(Adacel) 03/06/2016 Varicella Zoster Vaccine (Adult) 04/24/2012 Zoster Vaccine Recombinant (Shingrix) 08/26/2017, 10/27/2018, 03/26/2019 PSA Results: Lab Results Component Value Date/Time PSA - [facility] 0.26 05/29/2023 09:11 AM PSA - [facility] 0.20 06/28/2022 11:17 AM PSA - [facility] 0.18 06/19/2021 08:05 AM PSA - [facility] 0.21 01/04/2020 01:19 PM PSA - [facility] 0.24 05/03/2019 10:47 AM PSA - [facility] 0.30 02/02/2019 02:33 PM PSA SCREENING 4.97 (H) 04/24/2012 09:19 AM PSA SCREENING 3.82 08/03/2010 03:57 PM PSA SCREENING 2.77 04/07/2009 10:07 AM Hemoglobin Results: Lab Results Component Value Date/Time HGB 15.2 05/29/2023 09:11 AM HGB 14.4 09/13/2022 10:22 AM HGB 12.9 (A) 09/10/2022 12:00 AM HGB 14.8 09/07/2022 12:00 AM HGB 15.0 08/14/2021 08:50 AM HGB 14.9 03/27/2020 12:52 PM HGB 14.4 07/06/2019 09:35 AM HGB 15.0 03/16/2019 09:31 AM TSH Results: Lab Results Component Value Date/Time TSH - [facility] 2.74 07/06/2019 09:35 AM TSH - [facility] 1.98 09/16/2017 02:14 PM TSH - [facility] 1.60 01/01/2017 11:41 AM Component Latest Ref Rng 03/20/2021 08/14/2021 09/13/2022 Triglycerides <=174 mg/dL 76 131 96 Cholesterol <200 mg/dL 192 203 (H) 162 HDL Cholesterol >39 mg/dL 59 56 48 LDL Cholesterol <=129 mg/dL 118 121 95 Non-HDL Cholesterol <=159 mg/dL 133 147 114 Results for orders placed or performed in visit on 05/29/23 PSA Result Value Ref Range PSA 0.26 <4.10 ng/mL BASIC METABOLIC PANEL Result Value Ref Range BUN 13 6 - 20 mg/dL Creatinine 1.1 0.6 - 1.2 mg/dL Estimated Glomerular Filtration Rate 66 >=60 mL/min Sodium 142 135 - 146 mmol/L Potassium 4.0 3.5 - 5.1 mmol/L Chloride 104 98 - 107 mmol/L CO2 28 22 - 32 mmol/L Anion Gap 10 7 - 15 mmol/L Glucose 88 70 - 120 mg/dL Calcium 9.2 8.4 - 10.2 mg/dL LIPID PANEL WITH DIRECT LDL IF TG IS HIGH Result Value Ref Range Triglycerides 154 <=174 mg/dL Cholesterol 198 <200 mg/dL HDL Cholesterol 45 >39 mg/dL Non-HDL Cholesterol 153 <=159 mg/dL LDL Cholesterol 122 <=129 mg/dL ALT Result Value Ref Range ALT 28 10 - 50 U/L 25-HYDROXY VITAMIN D Result Value Ref Range 25-Hydroxy Vitamin D 41 >19 ng/mL CBC Result Value Ref Range WBC 4.33 4.00 - 10.80 K/uL RBC 4.41 4.50 - 5.25 M/uL HGB 15.2 14.0 - 16.8 g/dL HCT 43.8 40.0 - 48.4 % MCV 99.3 82.0 - 99.5 fL MCH 34.5 27.0 - 34.0 pg MCHC 34.7 32.0 - 36.0 g/dL RDW 13.2 11.5 - 15.5 % PLT 203 140 - 400 K/uL MPV 9.5 6.6 - 11.1 fL nRBCs 0 <=0 /100 WBCs DIFFERENTIAL, AUTOMATED Result Value Ref Range WBC 4.33 4.00 - 10.80 K/uL Neutrophils % 58.3 40.0 - 75.0 % Lymphocytes % 22.6 18.0 - 42.0 % Monocytes % 11.5 (H) 1.0 - 11.0 % Eosinophils % 6.5 (H) 0.0 - 6.0 % Basophils % 0.9 0.0 - 2.0 % Immature Granulocytes % 0.2 0.0 - 2.0 % Absolute Neutrophils 2.52 1.80 - 7.70 K/uL Absolute Lymphocytes 0.98 (L) 1.00 - 4.80 K/ul Absolute Monocytes 0.50 0.00 - 1.10 K/uL Absolute Eosinophils 0.28 0.00 - 0.70 K/uL Absolute Basophils 0.04 0.00 - 0.20 K/uL Absolute Immature Granulocytes 0.01 0.00 - 0.20 K/uL Patient Active Problem List Diagnosis Code Chronic coronary artery disease I25.10 Aortocoronary bypass status Z95.1 History of colonoscopy with polypectomy Z98.890, Z86.010 Dyslipidemia, goal LDL below 70 E78.5 Statin intolerance Z78.9 History of prostate cancer Z85.46 Midline low back pain with right-sided sciatica M54.41 History of non-ST elevation myocardial infarction (NSTEMI) I25.2 DDD (degenerative disc disease), lumbar M51.36 Left asymmetrical SNHL [id number] Senile osteoporosis M81.0 Diastolic dysfunction I51.89 Mild mitral regurgitation by prior echocardiogram I34.0 Prostate cancer (HCC) C61 Urgency of urination R39.15 Nocturia R35.1 Post-void dribbling N39.43 Gilbert syndrome E80.4 Outpatient Medications Prior to Visit Medication Sig Dispense Refill Tamsulosin HCl 0.4 MG Oral Capsule (Flomax) Take 1 Capsule by mouth every evening. 90 Capsule 3 Fiber Adult Gummies 2 GM Oral Tablet Chewable one pill twice a day Melatonin 5 MG Oral Tablet Chewable ([facility] Melatonin Gummies) 10mg nightly Nitroglycerin 0.4 MG Sublingual Tablet Sublingual (Nitrostat) DISSOLVE 1 TABLET UNDER THE TONGUE ATONSET OF SEVERE CHEST PAIN. MAY REPEAT DOSE 3 TIMES. CALL 911. 25 Tablet 0 Ezetimibe 10 MG Oral Tablet (Zetia) TAKE 1 TABLET BY MOUTH EVERY DAY 90 Tablet 3 Losartan Potassium 25 MG Oral Tablet (Cozaar) TAKE 1 TABLET BY MOUTH EVERY DAY 90 Tablet 3 Azelastine HCl 0.1 % Nasal Solution (Astelin) Administer 1 Plano into nostril in the morning and 1 [place] before bedtime. 30 mL 12 Vitamin B-12 1000 MCG Oral Tablet Take 1 Tablet by mouth in the morning. Vitamin C 1000 MG Oral Tablet Take 1 Tablet by mouth in the morning. B Complex Tablet 2-1 VITAMIN D 400 UNITS PO CAPS Take by mouth. ASPIRIN 81 MG PO TABS one pill each day 34 11 Metoprolol Succinate ER 25 MG Oral Tablet Extended Release 24 Hour (toPROL XL) TAKE 1/2 TABLET BY MOUTH EVERY DAY (Patient not taking: Reported on 07/04/2023) 45 Tablet 3 No facility-administered medications prior to visit. Last reviewed on 07/21/2023 11:09 AM by Chantel Casas LPN Review of patient's allergies indicates: No Known Allergies OBJECTIVE: BP 120/74 | Pulse 58 | Temp 35.9 C (96.6 F) (Tympanic) | Resp 16 | Wt 73 kg (160 lb 14.4 oz) | SpO2 96% | BMI 28.14 kg/m | BSA 1.81 m PHYSICAL EXAM: General: alert, healthy, no distress, well nourished and well developed Head: Normocephalic, atraumatic Eye Exam: PERRLA, EOMI, Conjunctiva are pink and non-injected, sclera clear, no nystagmus, mild anisocoria left eye Ears: External ears normal, Canal Clear Tm normal( -tosha GASTELUM ) Nose: nml Oropharynx: no exudate and no Erythema site pnd,no cobblestoning pharynx. Neck: supple, no bruits, no JVD, thyroid normal size, non-tender, without nodularity Lymph: No palpable lymphadenopathy. Heart: Regular rhythm ,and rate, no murmurs and no gallops Lungs: lungs clear to auscultation Abdomen: Soft, +epigastric and tosha lower abd -tenderness(h/o appendectomy), no rebound/rigidity/guarding. -admits chr pain after eating since age 14 normal bowel sounds, no masses or organomegaly, no bruits Extremities: no edema, no clubbing, no cyanosis. Neuro Exam: alert & oriented x 3 with fluent speech, no focal motor/sensory deficits, gait normal No cerebellar signs Skin: skin color, texture, turgor are normal, no rashes ASSESSMENT/PLAN: Chronic coronary artery disease (Primary) - EKG; Future; Expected date: 07/21/2023 - EKG Aortocoronary bypass status - EKG; Future; Expected date: 07/21/2023 - CBC WITH WBC DIFFERENTIAL; Future; Expected date: 01/20/2024 - BASIC METABOLIC PANEL; Future; Expected date: 01/20/2024 - EKG Dyslipidemia, goal LDL below 70 - HEPATIC FUNCTION PANEL; Future; Expected date: 01/20/2024 - LIPID PANEL WITH DIRECT LDL IF TG IS HIGH; Future; Expected date: 01/20/2024 - TSH WITH FREE T4 IF INDICATED; Future; Expected date: 01/20/2024 Statin intolerance - HEPATIC FUNCTION PANEL; Future; Expected date: 01/20/2024 - LIPID PANEL WITH DIRECT LDL IF TG IS HIGH; Future; Expected date: 01/20/2024 Senile osteoporosis History of prostate cancer - CBC WITH WBC DIFFERENTIAL; Future; Expected date: 01/20/2024 - BASIC METABOLIC PANEL; Future; Expected date: 01/20/2024 HTN, goal below 140/90 - BASIC METABOLIC PANEL; Future; Expected date: 01/20/2024 - ALBUMIN / CREATININE RATIO, URINE; Future; Expected date: 01/20/2024 History of colonoscopy with polypectomy Adjustment insomnia - Melatonin ER 1 MG Oral Tablet Extended Release; daily1 tab at bedtime daily, if not improved may increase upto 5 mg daily Dizziness - NEUROLOGY REFERRAL OP Personal history of fall - EKG - NEUROLOGY REFERRAL OP Sensorineural hearing loss (SNHL) of both ears --EKG-NSR at 63 be p.m., no abnormalities. He refuses to follow up with Cardiology due to the cost. Advised strict low-cholesterol diet, statin intolerant, has refused newer medications. -see HPI regarding management of insomnia, dizziness, has refused medications for osteoporosis -nurse to call pharmacy regarding his immunizations he [facility] at [facility] Pharmacy and update Follow Up: Return in about 6 months (around 01/20/2024), or if symptoms worsen or fail to improve, for Return with Physician. | For: Return with Physician (This note was completed using the dictation program Fluency Direct. As such, there may be misspellings, word substitutions, or other variations that should not change the essence of the clinical content of this encounter note. If there is need for further clarification, please direct questions to the provider listed above.) Patient and / caregiver verbalizes understanding of above instructions and agrees with plan of care. Katey Arora MD 07/21/2023 documented in this encounter Procedure Notes * Tenzin Briceño DO - 07/21/2023 12:29 PM EDTAssociated Order(s): EKG REASON FOR STUDY: CAD, HLD CONCLUSIONS: Normal sinus rhythm Normal ECG No previous ECGs available Ventricular Rate: 63 Atrial Rate: 63 NE Interval: 166 QRS Duration: 92 QT/QTc: 422/431 ms P-R-T Stratton: 56 : -22 : 16 degrees documented in this encounter Nursing Notes * Chantel Casas LPN - 07/21/2023 11:06 AM EDT Xu Corrales Hayder presents for 5 month recheck. Medications & HM reviewed. Has a few concerns at this time documented in this encounter Plan of Treatment Upcoming Encounters Date Type Department Care Team (Late st Contact Info) Description 10/15/2023 2:20 PM EDT Office Visit Neurology [facility] [address] [place] [place] [address] Akil Rose MD [address] [facility] [place] [address] 07/13/2024 10:15 AM EDT Office Visit Urology, [facility] [address] [facility] [place] [address] Angel Diaz MD 27 [facility] [address] [place] [address] Scheduled Orders Name Type Priority Associated Diagnoses Orde r Schedule CBC WITH WBC DIFFERENTIAL Lab Routine Aortocoronary bypass status History of prostate cancer Expected: 01/20/2024 (Approximate), Expires: 07/20/2024 BASIC METABOLIC PANEL Lab Routine Aortocoronary bypass status History of prostate cancer HTN, goal below 140/90 Expected: 01/20/2024 (Approximate), Expires: 07/20/2024 HEPATIC FUNCTION PANEL Lab Routine Dyslipidemia, goal LDL below 70 Statin intolerance Expected: 01/20/2024 (Approximate), Expires: 07/20/2024 LIPID PANEL WITH DIRECT LDL IF TG IS HIGH Lab Routine Dyslipidemia, goal LDL below 70 Statin intolerance Expected: 01/20/2024 (Approximate), Expires: 07/20/2024 TSH WITH FREE T4 IF INDICATED Lab Routine Dyslipidemia, goal LDL below 70 Expected: 01/20/2024 (Approximate), Expires: 07/20/2024 ALBUMIN / CREATININE RATIO, URINE Lab Routine HTN, goal below 140/90 Expected: 01/20/2024 (Approximate), Expires: 07/20/2024 Scheduled Referrals Name Type Priority Associated Diagnoses Orde r Schedule NEUROLOGY REFERRAL OP Referral Within 30 days (routine) Dizziness Personal history of fall Ordered: 07/21/2023 Health Maintenance Due Date Last Done Comments DISCUSS TOBACCO CESSATION (REFER TO SMARTSET #3291) 1940 *BISPHONATE OR OTHER ACCEPTABLE MEDICATION NEEDED FOR OSTEOPOROSIS (REFER TO SMARTSET #1146) 07/24/2023 Depression Screening 02/15/2024 02/14/2023 DXA Scan 05/07/2025 05/07/2023, 11/2020, 09/22/2018, Additional history exists DTaP,Tdap,and Td Vaccines (2 - Td or Tdap) 03/06/2026 03/06/2016, 06/29/2007, 08/03/2002 Pneumococcal Vaccine: 65+ Years Completed 05/23/2014, 02/14/2006 Zoster Vaccines Completed 03/26/2019, 09/30, 08/26/2017, Additional history exists Influenza Vaccine (FLU shot) Completed 05/2022, 12/06/2021, 01/08/2021, Additional history exists COVID-19 Vaccine Completed 01/03/2023, , 02/23/2021, Additional history exists VITAMIN D LEVEL ONCE IN A LIFETIME-USE SMARTSET# [id number] Completed 05/29/2023, 02/27/2022, 03/16/2019, Additional history exists GARDASIL-HPV IMMUNIZATION SERIES Aged Out No longer eligible based on patient's age to complete this topic Hepatitis B Aged Out No longer eligi ble based on patient's age to complete this topic MENINGOCOCCAL (MENACTRA/MENVEO) Aged Out No longer eligible based on patient's age to complete this topic documented as of this encounter Medical Devices Not on filedocumented as of this encounter Procedures Procedure Name Priority Date/Time Associated Diagnosis Comments NE ECG ROUTINE ECG W/LEAST 12 LDS I&R ONLY Routine 07/21/2023 12:29 PM EDT Chronic coronary artery disease Aortocoronary bypass status Personal history of fall documented in this encounter Results * EKG (07/21/2023 12:29 PM EDT) 07/21/2023 12:2 9 PM EDT Narrative Procedure Note Tenzin Briceño DO - 07/21/2023 12:29 PM EDT REASON FOR STUDY: CAD, HLD CONCLUSIONS: Normal sinus rhythm Normal ECG No previous ECGs available Ventricular Rate: 63 Atrial Rate: 63 NE Interval: 166 QRS Duration: 92 QT/QTc: 422/431 ms P-R-T Stratton: 56 : -22 : 16 degrees Katey Arora MD EKG Performing Organization Address City/State/[facility] Co de Phone Number [facility] documented in this encounter Visit Diagnoses Diagnosis Chronic coronary artery disease- Primary Coronary atherosclerosis of unspecified type of vessel, [place] or graft 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 Dyslipidemia, goal LDL below 70 Other and unspecified hyperlipidemia Statin intolerance Other drug allergy Senile osteoporosis History of prostate cancer Personal history of malignant neoplasm of prostate HTN, goal below 140/90 Unspecified essential hypertension History of colonoscopy with polypectomy Other postprocedural status Adjustment insomnia Transient disorder of initiating or maintaining sleep Dizziness Dizziness and giddiness Personal history of fall Sensorineural hearing loss (SNHL) of both ears documented in this encounter Care Teams Software Reverse Engineer Relationship Specialty Start Date End Date Katey Arora MD [address] [place] [address] [place] [address] PCP - General Internal Medicine 07/09/17 documented as of this encounter"
--- OUTSIDE RECORDS SUMMARY | 2024-01-03 04:34 | External Medical Summary | Summary of Care ---
Author Name Unknown Organization [facility] Address [address] [place] [address] Phone [phone] Care Team Providers Care Striper Machine Name Role Phone Katey Arora MD Primary Care Provider [phone] Reason for Visit * Reason Onset Date Comments Test Results Lab 11/07/2023 Encounter Details Date Type Department Care Team (Late st Contact Info) Description 11/07/2023 Telephone General Internal Medicine [facility] [address] [place] [address] Katey Arora MD 200 [facility] [place] [address] Test Results Lab Allergies No known active [...] encounter Miscellaneous Notes * Telephone Encounter - Giselle Toure LPN [...] without pyridoxine such as the one from [employer] [place].His copper will need to be also supplemented [...] PM EDT Office Visit General Internal Medicine [facility] 200 [facility] [place] [address] Katey Arora MD [address] [facility] [place] [address] 07/13/2024 10:15 AM EDT Office Visit Urology, [facility] [address] [place] [address] Angel Diaz MD [address] [place] [id number] Health Maintenance Due Date Last Done Comments [...] 05/07/2023, 080 11/2020, 09/22/2018, Additional history exists DTap/Tdap Vaccines (2 - Td or Tdap) 03/06/2026 03/06/2016, 06/29/2007, 08/03/2002 Pneumococcal Vaccine: 65+ Years Completed 05/23/2014, 02/14/2006 Zoster Vaccines Completed 03/26/2019, 09/30, 08/26/2017, Additional history exists VITAMIN D LEVEL ONCE IN A LIFETIME-USE SMARTSET# [id number] Completed 05/29/2023, 02/27/2022, 03/16/2019, Additional history exists [...] filedocumented as of this encounter Care Teams Striper Machine Relationship Specialty Start Date End Date Katey Arora MD [address] [facility] [place] [address] PCP - General Internal Medicine 07/09/17 documented as of this encounter
--- OUTSIDE RECORDS SUMMARY | 2024-01-03 04:35 | External Medical Summary | Summary of Care ---
Author Name Unknown Organization [facility] Address [address] [place] [address] Phone [phone] Care Team Providers Care Collision Estimator Name Role Phone Katey Arora MD Primary Care Provider [phone] Reason for Referral * Evaluate & Treat - Unlimited Visits (Within 30 days (routine)) - Pending Review Specialty Diagnoses / Procedures Referred By Sue lazaro Referred To Contact Neurology Diagnoses Dizziness Personal history of fall Katey Arora MD [address] [place] [address] [place] [address] Referral ID Status Reason Start Date Expiration Date Visits Requested Visits Authorized [id number] Pending Review Specialty Services Required 07/21/2023 999 [...] [employer] [address] [place] [address] Katey Arora MD [address] [place] [address] Chronic coronary artery disease*; Aortocoronary bypass status; Dyslipidemia, goal LDL below 70; Statin intolerance; Senile osteoporosis; History of prostate cancer; HTN, goal below 140/90; History of colonoscopy with polypectomy; Adjustment insomnia; Dizziness; Personal history of fall; Sensorineural hearing loss (SNHL) of both ears Allergies No known active allergiesdocumented as of this encounter (statuses as of 07/21/2023) Medications Medication Sig Dispensed Refills Start Date End Date Status ASPIRIN 81 MG PO TABSIndications:Ao rtocoronary bypass status,Dyslipidemi a, goal to be determined one pill each day 34 11 12/25/2004 Active VITAMIN D 400 UNITS PO CAPS Take by mouth. 0 Active B Complex Tablet 2-1 0 01/15/2017 Active Vitamin C 1000 MG Oral Tablet Take 1 Tablet by mouth in the morning. 0 Active Vitamin B-12 1000 MCG Oral Tablet Take 1 Tablet by mouth in the morning. 0 Active Metoprolol Succinate ER 25 MG Oral Tablet Extended Release 24 Hour (toPROL XL)Indications:Chr onic coronary artery disease TAKE 1/2 TABLET BY MOUTH EVERY DAY 45 Tablet 3 07/24/2022 Active Azelastine HCl 0.1 % Nasal Solution (Astelin)Indicatio ns:Chronic rhinitis Administer 1 Conyers into nostril in the morning and 1 Conyers before bedtime. 30 mL 12 09/13/2022 Active [...] 3 TIMES. CALL 911. 25 Tablet 0 02/14/2023 Active Fiber Adult Gummies 2 GM Oral Tablet ChewableIndication s:Irritable bowel syndrome with constipation one pill twice a day 0 02/14/2023 Active Tamsulosin HCl 0.4 MG Oral Capsule (Flomax) Take 1 Capsule by mouth every evening. 90 Capsule 3 07/04/2023 Active Melatonin ER 1 MG Oral Tablet Extended ReleaseIndications :Adjustment insomnia daily1 tab at bedtime daily, if not improved may increase upto 5 mg daily 1 Tablet 0 07/21/2023 Active Melatonin 5 MG Oral Tablet Chewable ([facility] Melatonin Gummies) 10mg nightly 0 02/14/2023 4 Discontinue d(Medicatio n/Dose Changed) documented as of this encounter (statuses as of 07/21/2023) Active Problems Problem Noted Date Diagnosed Date [...] as of this encounter (statuses as of 07/21/2023) Resolved Problems Problem Noted Date Diagnosed Date Resolved Date Tinnitus of both ears 04/24/20172018 Overview: Acute Restless legs syndrome 06/12/201607/12 Gallbladder polyp 05/26/2013 05/23/2014 Cholelithiasis 05/26/2013 12/19/2016 Dyslipidemia, goal to be determined 11/26/2002 03/14/2009 Overview: Per Lipid Taxonomy. documented as of this encounter (statuses as of 07/21/2023) Immunizations Name Administration Dates Next Due COVID-19 [...] watching diet now, walks 2/d Works at [employer] 3d/wk-now at [employer] retiring 02/19/23 Patient with CAD status post [...] Eats dry cereal for BF, [facility], cereal some days for dinner, does not cook, not much salads in diet 07/22--no chest pain or palpitations, about 2-3 weeks ago he lost his balance and fell, had a few scrapes on his right hand. No unilateral weakness or numbness of the extremities. No headache. Previous workup as above, physical therapy did not seem to help him, he refuses to reconsider, also refuses to go to the [facility], willing to see Neurology for evaluation. Complains of difficulty sleeping since custodial, was advised to increase intake of fluids [...] tried extended-release melatonin. H/o -prostate cancer Fu Miki>XRT with lupron. Finished his radiation [...] Discussed reclast--willing to d/w Hiroc--sent message to DrOpfrancisco reg yung 03/19-has not called them back-defers. 09/18--defers med. 03/20--had dexa 11/06/20-- 1.5/-2.5 Ls/Cse-AW-Tuxwhzic to a study that was performed on [...] [place] ENT. 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 And to resume 03/20--on flonase 2 s hs also, get congested at [employer]-at work--to try 1 spray in am also. 08/19--continues to have runny nose and postnasal drainage despite using Flonase at night and Jimena during the day, recommend trial of ipratropium nasal spray.-now works in the [employer] department 02/19--flonase and allegar on hold 02/20-using astelin bid 07/22-Using once daily with imp after custodial 01/2023 Had tosha cataract sg DrMarcovitch, and yag laser to Rt 08/16, lt 09/16--has bifocals has f/u Friday.--feels eyes are watery but no tearing/itching, no BOV, no use artificial tears. Had covid booster and flu vac at [facility]. Had RSV vac at [facility]. Immunization History Administered Date(s) Administered COVID-19 mRNA, [...] disc disease), lumbar M51.36 Left asymmetrical SNHL [id number] Senile osteoporosis M81.0 Diastolic dysfunction I51.89 Mild [...] 0.1 % Nasal Solution (Astelin) Administer 1 Conyers into nostril in the morning and 1 Conyers before bedtime. 30 mL 12 Vitamin B-12 [...] pharmacy regarding his immunizations he had at [facility] and update Follow Up: [...] Arora MD 07/21/2023 documented in this encounter Nursing Notes * Chantel Caass LPN - 07/21/2023 11:06 AM EDT Xu Singletary presents for 5 month recheck. Medications & HM reviewed. Has a few concerns at this time documented in this encounter Plan of Treatment Upcoming Encounters Date Type Department Care Team (Late st Contact Info) Description 10/15/2023 2:20 PM EDT Office Visit Neurology [facility] [address] [place] [address] Akil Rose MD [address] [place] [address] 07/13/2024 10:15 AM EDT Office Visit Urology, [facility] [address] [facility] [place] [address] Angel Diaz MD 27 [facility] [address] [place] [address] Scheduled Orders Name Type Priority Associated Diagnoses Orde r Schedule EKG EKG Routine Chronic coronary artery disease Aortocoronary bypass status Expected: 07/21/2023 (Approximate), Expires: 08/19/2024 CBC WITH WBC DIFFERENTIAL Lab Routine Aortocoronary [...] TOBACCO CESSATION (REFER TO SMARTSET #3291) 1940 Depression Screening 02/15/2024 02/14/2023 DXA Scan 05/07/2025 [...] D LEVEL ONCE IN A LIFETIME-USE SMARTSET# [id number] Completed 05/29/2023, 02/27/2022, 03/16/2019, Additional history exists [...] Coronary atherosclerosis of unspecified type of vessel, [place] or graft Aortocoronary bypass status Postsurgical aortocoronary [...] ears documented in this encounter Care Teams Collision Estimator Relationship Specialty Start Date End Date Katey Arora MD [address] [place] [address] PCP - General Internal Medicine 07/09/17 documented as of this encounter"
--- OUTSIDE RECORDS SUMMARY | 2024-01-03 04:35 | External Medical Summary | Summary of Care ---
Author Name Unknown Organization [facility] Address [address] [place] [address] Phone [phone] Care Team Providers Care Polymerization Helper Name Role Phone Katey Arora MD Primary Care Provider [phone] Reason for Referral * Evaluate & Treat - Unlimited Visits (Within 30 days (routine)) - Pending Review Specialty Diagnoses / Procedures Referred By Sue lazaro Referred To Contact Neurology Diagnoses Dizziness Personal history of fall Katey Arora MD [address] [place] [address] [place] [address] Referral ID Status Reason Start Date Expiration Date Visits Requested Visits Authorized [id number] Pending Review Specialty Services Required 07/21/2023 999 [...] [employer] [address] [place] [address] Katey Arora MD [address] [place] [address] Chronic coronary artery disease*; Aortocoronary bypass status; [...] Nasal Solution (Astelin)Indicatio ns:Chronic rhinitis Administer 1 Wright into nostril in the morning and 1 Wright before bedtime. 30 mL 12 09/13/2022 Active [...] Pre serve, 2-Dose Series (Moderna) 06/11/2020,05/14/2020 COVID-19, mRNA, LNP-s, PF, B ooster, 100mcg/0.5mg (Moderna) 02/23/2021 H1N1 2009 Influenza, IM 05/01/2009 Pneumococcal Conjugate Vacc, 13 Valent (Prevnar) 05/23/2014 Pneumococcal Polysaccharide PPV23 (Pneumovax) 02/14/2006 Seasonal Influenza, PF, 6 M & above, IM , (FluLaval or Fluzone) 12/29/2017 Seasonal Influenza, Quadriva lent Hd (Fluzone Hd) 12/06/2021 Seasonal Influenza, Quadriva lent Hd, 65+ Yrs 01/08/2021 Seasonal Influenza, Split, I IV3, With Preserve, Inj 01/11/2017,02/05/2016,12/21/2013,01/13,01/13/2012,01/12/2009,01/15/2007 ,02/14/2006 Seasonal Influenza, Trivalen t, Adjuvanted, 65+ yrs 01/02/2020 Seasonal Influenza, Trivalen t, High Dose, No Preserve, IM 12/22/2018,01/13/2018 TD - Tetanus/Diptheria (ADULT) 06/29/2007 TDAP (age 11 and older)(Adacel) 03/06/2016 [...] 8:10 AM EDT Sexual Orientation Straight 09/08/2018 8 :10 AM EDT Job Start Date Occupation Industry [...] mild stenosis right vertebral artery. PT OT carmen recommended return home as he was much [...] watching diet now, walks 2/d Works at [employer] 3d/wk-now at [employer], retiring 02/19/23 Patient with CAD status post [...] Eats dry cereal for BF, lunch [facility] [employer] [facility], cereal some days for dinner, does not [...] for evaluation. Complains of difficulty sleeping since [facility], was advised to increase intake of fluids [...] density has continued to fall Refer to [facility]. 02/2019--NML PTH,VD 03/10/19-Dr.Opperman morales--rec prolia--awaiting approval. 09/17-he had decided not to take Prolia and HiROC nurse was informed Discussed reclast--willing to d/w Hiro[facility]--sent message to Jean Claude dubose same 03/19-has not called them back-defers. 09/18--defers med. 03/20--had dexa 11/06/20-- 1.5/-2.5 Ls/Sxe-IC-Gunoybzn to a study that was performed on [...] PA ENT. 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 And to resume 03/20--on flonase 2 s hs also, get congested at [facility]-at work--to try 1 spray in am also. 08/19--continues to have runny nose and postnasal drainage despite using Flonase at night and Jimena during the day, recommend trial of ipratropium nasal spray.-now works in the [employer] department 02/19--flonase and allegar on hold 02/20-using astelin bid 07/22-Using once daily with imp after [facility] 01/2023 Had tosha cataract sg DrMarcovitch, and yag laser to Rt 08/16, lt 09/16--has bifocals has f/u Friday.--feels eyes are watery but no tearing/itching, no BOV, no use artificial tears. Had covid booster and flu vac at [facility]. Had RSV vac at [facility]. Immunization History Administered Date(s) Administered COVID-19 mRNA, [...] disc disease), lumbar M51.36 Left asymmetrical SNHL [id number] Senile osteoporosis M81.0 Diastolic dysfunction I51.89 Mild [...] 0.1 % Nasal Solution (Astelin) Administer 1 Wright into nostril in the morning and 1 Wright before bedtime. 30 mL 12 Vitamin B-12 [...] pharmacy regarding his immunizations he had at [facility] and update Follow Up: Return in [...] Upcoming Encounters Date Type Department Care Team (Gt Contact Info) Description 10/15/2023 2:20 PM EDT Office Visit Neurology [facility] [address] [place] [address] Akil Rose MD [address] [place] [address] 07/13/2024 10:15 AM EDT Office Visit Urology, [facility] [address] [place] [address] Angel Diaz MD 27 [facility] [address] [place] [address] Scheduled Orders Name Type Priority [...] Comments DISCUSS TOBACCO CESSATION (REFER TO SMARTSET #0646) 1940 COVID-19 Vaccine ( season) 2022 02/23/2021, 06/11/2020, 05/14/2020 Influenza Vaccine (FLU shot) (Season Ended) 2023 12/06/2021, 01/08/2021, 01/02/2020, Additional history exists Depression Screening 02/15/2024 02/14/2023 DXA Scan 05/07/2025 05/07/2023, 08/0 11/2020, 09/22/2018, Additional history exists DTaP,Tdap,and Td Vaccines (2 - Td or Tdap) 03/06/2026 03/06/2016, 06/29/2007, 08/03/2002 Pneumococcal Vaccine: 65+ Years Completed 05/23/2014, 02/14/2006 Zoster Vaccines Completed 03/26/2019, 09/30, 08/26/2017, Additional history exists VITAMIN D LEVEL ONCE IN A LIFETIME-USE SMARTSET# [id number] Completed 05/29/2023, 02/27/2022, 03/16/2019, Additional history exists [...] Coronary atherosclerosis of unspecified type of vessel, [place] or graft Aortocoronary bypass status Postsurgical aortocoronary [...] ears documented in this encounter Care Teams Polymerization Helper Relationship Specialty Start Date End Date Katey Arora MD [address] [place] [address], [place] [address] PCP - General Internal Medicine 07/09/17 documented as of this encounter"
--- OUTSIDE RECORDS SUMMARY | 2024-01-03 04:35 | External Medical Summary | Summary of Care ---
Author Name Unknown Organization [facility] Address [address] [place] [address] Phone [phone] Care Team Providers Care Ict Managers Name Role Phone Katey Arora MD Primary Care Provider [phone] Reason for Visit * Reason Comments eRx-Medication Refill Encounter Details Date Type Department Care Team (Late st Contact Info) Description 07/24/2023 Refill Cardiology, [facility] [address] [place] [address] Adriano Whitfield MD [address] [place] [id number] Chronic coronary artery disease Allergies No known active allergiesdocumented as of this encounter (statuses as of 07/24/2023) Medications Medication Sig Dispensed Refills Start Date [...] Nasal Solution (Astelin)Indicati ons:Chronic rhinitis Administer 1 [place] into nostril in the morning and 1 [place] before bedtime. 30 mL 12 09/13/2022 Active [...] mg daily 1 Tablet 0 07/21/2023 Active Metoprolol Succinate ER 25 MG Oral Tablet Extended Release 24 Hour (toPROL XL)Indications:Ch ronic coronary artery disease TAKE 1/2 TABLET BY MOUTH EVERY DAY 45 Tablet 0 07/24/2023 Active Metoprolol Succinate ER 25 MG Oral Tablet Extended Release 24 Hour (toPROL XL)Indications:Ch ronic coronary artery disease TAKE 1/2 TABLET BY MOUTH EVERY DAY 45 Tablet 3 07/24/2022 4 Discontinued documented as of this encounter (statuses as of 07/24/2023) Active Problems Problem Noted Date Diagnosed Date [...] as of this encounter (statuses as of 07/24/2023) Resolved Problems Problem Noted Date Diagnosed Date Resolved Date Tinnitus of both ears 04/24/20172018 Overview: Acute Restless legs syndrome 06/12/201607/12 Gallbladder polyp 05/26/2013 05/23/2014 Cholelithiasis 05/26/2013 12/19/2016 Dyslipidemia, goal to be determined 11/26/2002 03/14/2009 Overview: Per Lipid Taxonomy. documented as of this encounter (statuses as of 07/24/2023) Immunizations Name Administration Dates Next Due COVID-19 [...] Telephone Encounter - Ashleigh Evans CMA - 07/24/2023 8:30 AM EDTPending Prescriptions: Disp Refills Metoprolol Succinate ER 25 MG Oral Tablet *45 Tab*0 Sig: TAKE 1/2 TABLET BY MOUTH EVERY DAY * Telephone Encounter - Ashleigh Evans CMA - 07/24/2023 8:30 AM EDT Scheduling -- please contact pt for follow up. * Telephone Encounter - Ashleigh Evans CMA - 07/24/2023 8:30 AM EDT Did you pend patient's preferred pharmacy and medication before forwarding?yes Pharmacy: [id number] [address] [facility] Pending Prescriptions: Disp Refills Metoprolol Succinate ER 25 MG Oral Tablet*45 Tab*3 Sig: TAKE 1/2 TABLET BY MOUTH EVERY DAY Last Visit: 07/31/2022 (in office), 05/01/2020 (telemedicine) Next Visit: Visit date not found If no future appointments scheduled, and last appointment is greater than a year ago, please schedule patient for a follow-up appointment Last date the medication was ordered: 07-24-2022 Is this request for a controlled substance?No [...] 10/15/2023 2:20 PM EDT Office Visit Neurology [facility] [address] [place] [address] Akil Rose MD [address] [facility] [place] [address] 07/13/2024 10:15 AM EDT Office Visit Urology, [facility] [address] [facility] [place] [address] Angel Diaz MD [address] [facility] [address] [place] [address] Health Maintenance Due Date Last Done Comments [...] D LEVEL ONCE IN A LIFETIME-USE SMARTSET# [id number] Completed 05/29/2023, 02/27/2022, 03/16/2019, Additional history exists [...] Coronary atherosclerosis of unspecified type of vessel, [place] or graft documented in this encounter Care Teams Ict Managers Relationship Specialty Start Date End Date Katey Arora MD [address] [facility] [place] [address] PCP - General Internal Medicine 07/09/17 documented as of this encounter
--- NOTE | 2024-01-03 04:39 | Emergency Department Note ---
ED Visit Note Patient currently seen by Layton Bardales PA-C after a fall. He was discharged pending a ride via [employer]. He was taken outside and could not lift from a seated position. He also could not walk to the [employer]. This was deemed unsafe. I did observe the patient very unstable he walked towards the bed after assistance out of the wheelchair. I do not believe he is a safe discharge plan at this time as he is already fallen once, unwitnessed while at home necessitating this ER visit. Discussed care with Dr. May for admission at this time.
[2024-01-03] MEDS: LACTATED RINGER'S 1,000 ML IV ONE (04:52)
--- NOTE | 2024-01-03 05:21 | History & Physical Report ---
Date of Service January 03, 2024 Assessment & Plan (1) Nasal bones, open fracture: Plan: Secondary to traumatic fall Status post laceration repair at the ER Hypertension, elevated secondary discomfort chronic diastolic heart failure (EF 62%, TTE 2019), patient euvolemic to dry CAD status post CABG hyperlipidemia/statin intolerance, on ezetimibe prostate cancer status post radiation/Lupron Rx hx BPH Hyperglycemia rule out DM past tobacco abuse Ambulatory dysfunction OBS GMF OMFS consult Re: Nasal bone fracture Follow official joint x-ray results Hold home aspirin for now given bleeding facial wounds Analgesia, facilitate a.m. BP meds Check hemoglobin A1c PT OT eval DVT prophylaxis. SCDs Re: Traumatic facial wounds DNR Text document was generated using [employer] voice recognition software. It may contain grammatical or spelling errors. Kindly contact undersigned for clarification of any documentation item in question. History of Present Illness Chief Complaint: Fall, facial trauma Primary Care Provider: Katey Arora MD History obtained from patient and records. Medical history significant for chronic diastolic heart failure (EF 62%, TTE 2019), CAD status post CABG, hypertension, hyperlipidemia, statin intolerance, prostate cancer status post radiation/Lupron Rx, BPH, Gilbert syndrome as per records, past tobacco abuse. Patient was walking outside the [employer] last night when he stumbled on something causing him to fall face down on the ground. No LOC. Bleeding facial wounds, epistaxis noted. Contusions on hands noted. Denies chest pain, SOB. EMS called by bystanders. Patient brought to ER for evaluation. Nasal bone fracture on facial CT. Lacerated wound over the nose repaired at the ER. Patient could not get into vehicle from generalized weakness as he was departing ER. Denies hip or leg pain. 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 Allergies Allergy/AdvReac Type Severity Reaction Status Date / Time No Known Allergies Allergy Verified 02/24/18 08:18 Home Medications Medication Instructions Recorded Confirmed Type aspirin 81 mg tablet,delayed 81 mg PO QAM 01/26/18 01/03/24 History release (Aspir-Low) ezetimibe 10 mg tablet (Zetia) 10 mg PO QAM 01/26/18 01/03/24 History losartan 25 mg tablet 25 mg PO DAILY 09/07/22 01/03/24 History metoprolol succinate 25 mg 12.5 mg PO DAILY 09/07/22 01/03/24 History tablet,extended release 24 hr tamsulosin 0.4 mg capsule 0.4 mg PO DAILY 09/07/22 01/03/24 History ascorbic acid (vitamin C) 1,000 mg 1 g PO QAM 01/03/24 01/03/24 History tablet (Vitamin C) azelastine 137 mcg (0.1 %) nasal 1 spray intranasal BID 01/03/24 01/03/24 History spray cyanocobalamin (vitamin B-12) 1,000 mcg PO DAILY 01/03/24 01/03/24 History 1,000 mcg tablet (Vitamin B-12) inulin 2 gram chewable tablet 1 g PO BID 01/03/24 01/03/24 History (Fiber Gummies) Past Med/Surg History Problem List (Updated 01/03/24 @ 01:14 by Darien Bardales) Status post fall (Acute) Multiple abrasions (Acute) Fracture of thumb, right, closed (Acute) Laceration of nose (Acute) Nasal bones, open fracture (Acute) Weakness (Acute) Falls (Acute) Anaplasmosis (Acute) Encounter for pre-operative examination CAD (coronary artery disease) (Chronic) "s/p CABG x 3 (2003) and stent (1989)" Dyslipidemia (Chronic) Statin intolerance (Chronic) IBS (irritable bowel syndrome) (Chronic) CVA (cerebral vascular accident) ESBL (extended spectrum beta-lactamase) producing bacteria infection UTI (urinary tract infection) Encounter for pre-operative examination Medical History (Updated 01/03/24 @ 01:14 by Darien Bardales) Osteoarthritis Irritable bowel syndrome Cancer PROSATE CANCER (RADIATION SEEDS) Anemia Cornea abrasion Hearing deficit Migraine Hypertension Hyperlipidemia Surgical History History of cataract surgery History of appendectomy History of cholecystectomy History of colonoscopy History of tooth extraction History of tonsillectomy History of coronary artery bypass graft 2003 (3 VESSELS) AT [facility] History of heart artery stent JUNE 2016 (2 STENTS PLACED) History of cardiac cath JUNE 2016 (CHEST PAIN) Social History Smoking Status: Never smoker Cigarettes Per Day: Smokes 2/year; Second Hand Exposure: No; Do You Dip or Chew Tobacco: No; Hx Alcohol Use: Yes Alcohol type: hard liquor Hx Substance Use: No Preferred Language: Danish Communication Ability: Effective 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: No Beliefs That Will Affect Care: None Current Living Situation: Alone Current Living Situation Comment: Lives alone in apartment Feels Safe at Home: Yes Assistive Devices: None Review of Systems Review of Systems: As per HPI, all other systems reviewed and negative Physical Exam Physical Exam: GENERAL: Comfortable, pleasant, no respiratory distress SKIN: Normal color, warm HEENT: Bespectacled, pink palpebral conjunctivae, no ptosis, dried blood over nasal bridge, dry buccal mucosa NECK : Supple, no tenderness CHEST : CTA, no tenderness HEART : RRR, no obvious murmurs ABDOMEN: Some distention, nontender EXTREMITIES : Abrasions over hands, no LE swelling/tenderness, no other conspicuous deformities noted NEUROLOGIC : Coherent, no facial asymmetry, no other gross focality Results & Data Results & Data Vital Signs (Past 12 Hours) Vital Signs Temp Pulse Resp BP Pulse Ox O2 Del Method 01/03/24 05:05 86 01/03/24 03:05 88 16 125/96 96 Room Air 01/02/24 21:48 82 01/02/24 21:06 37.0 C 76 18 156/96 H 92 Room Air Laboratory Results Laboratory Results WBC 8.35 K/ul (4.8-10.8) 01/02/24 23:06 RBC 4.35 M/uL (4.70-6.10) L 01/02/24 23:06 Hgb 14.3 g/dl (14.0-18.0) 01/02/24 23:06 Hct 41.8 % (42.0-52.0) L 01/02/24 23:06 MCV 96.1 fL (80.0-100.0) 01/02/24 23:06 MCH 32.9 pg (25.0-34.0) 01/02/24 23:06 MCHC 34.2 g/dL (32.0-36.0) 01/02/24 23:06 RDW Std Deviation 46.5 fL (36.4-46.3) H 01/02/24 23:06 RDW Coeff of Lee 13.2 % (11.5-14.5) 01/02/24 23:06 Plt Count 161 K/uL (130-400) 01/02/24 23:06 MPV 8.7 fL (9.4-12.4) L 01/02/24 23:06 Immature Gran % (Auto) 0.2 % 01/02/24 23:06 Neut % (Auto) 87.6 % 01/02/24 23:06 Lymph % (Auto) 3.7 % 01/02/24 23:06 [place] % (Auto) 7.5 % 01/02/24 23:06 Eos % (Auto) 0.5 % 01/02/24 23:06 Baso % (Auto) 0.5 % 01/02/24 23:06 Neut # (Auto) 7.31 K/uL (1.40-6.50) H 01/02/24 23:06 Lymph # (Auto) 0.31 K/uL (1.20-3.40) L 01/02/24 23:06 [place] # (Auto) 0.63 K/uL (0.11-0.59) H 01/02/24 23:06 Eos # (Auto) 0.04 K/uL (0.00-0.50) 01/02/24 23:06 Baso # (Auto) 0.04 K/uL (0.00-0.20) 01/02/24 23:06 Immature Gran # (Auto) 0.02 K/uL (0.01-0.20) 01/02/24 23:06 PT 10.8 Seconds (9.0-12.0) 01/02/24 23:06 INR 1.0 (0.9-1.1) 01/02/24 23:06 Sodium 140 mmol/L (136-145) 01/02/24 23:06 Potassium 4.0 mmol/L (3.5-5.1) 01/02/24 23:06 Chloride 106 mmol/L (98-107) 01/02/24 23:06 Carbon Dioxide 29 mmol/L (21-32) 01/02/24 23:06 Anion Gap 5 (3-11) 01/02/24 23:06 BUN 14 mg/dl (6-23) 01/02/24 23:06 Creatinine 1.18 mg/dl (0.6-1.4) 01/02/24 23:06 Est Cr Clr Drug Dosing 45.5 ml/min 01/02/24 23:06 eGFR 60.85 01/02/24 23:06 BUN/Creatinine Ratio 11.9 (10-20) 01/02/24 23:06 Glucose 150 mg/dl (70-99(Fasting)) H 01/02/24 23:06 Calcium 9.3 mg/dl (8.6-10.3) 01/02/24 23:06 Total Bilirubin 0.9 mg/dl (0.2-1.0) 01/02/24 23:06 AST 27 U/L (13-39) 01/02/24 23:06 ALT 22 U/L (7-52) 01/02/24 23:06 Alkaline Phosphatase 52 U/L (34-104) 01/02/24 23:06 Troponin I High Sens 9.0 pg/ml (0-20) 01/02/24 23:06 Total Protein 6.7 gm/dl (6.0-8.3) 01/02/24 23:06 Albumin 3.9 gm/dl (3.4-5.0) 01/02/24 23:06 Globulin 2.8 gm/dl (2.5-4.0) 01/02/24 23:06 Albumin/Globulin Ratio 1.4 (0.9-2) 01/02/24 23:06 Lipase 26 U/L (11-82) 01/02/24 23:06 Ethyl Alcohol mg/dL < 10.0 mg/dl (<10.0) 01/02/24 23:[address] 01/02/24 22:38 Exam(s): CT HEAD Without Contrast EXAM: CT Head Without Intravenous Contrast CLINICAL HISTORY: Reason for exam: fall from standing. TECHNIQUE: Axial computed tomography images of the head/brain without intravenous contrast. CTDI is 52.97 mGy and DLP is 899.15 mGy-cm. Automated exposure control was utilized for the study. A dose lowering technique was utilized adhering to the principles of ALARA. COMPARISON: No relevant prior studies available. FINDINGS: Brain: Unremarkable. No hemorrhage. No significant white matter disease. No edema. Ventricles: Unremarkable. No ventriculomegaly. Bones/joints: Unremarkable. No acute fracture. Soft tissues: Unremarkable. Sinuses: Unremarkable as visualized. No acute sinusitis. Mastoid air cells: Unremarkable as visualized. No mastoid effusion. IMPRESSION: Normal head/brain CT. Electronically signed by: Serafin Milligan MD 01/02/24 23:[address] 01/02/24 23:23 Exam(s): CT C SPINE EXAM: CT Cervical Spine Without Intravenous Contrast CLINICAL HISTORY: Reason for exam: Facial injury from fall. TECHNIQUE: Axial computed tomography images of the cervical spine without intravenous contrast. CTDI is 17.38 mGy and DLP is 480.39 mGy-cm. Automated exposure control was utilized for the study. A dose lowering technique was utilized adhering to the principles of ALARA. COMPARISON: No relevant prior studies available. FINDINGS: No fracture or subluxations are noted. The vertebral body heights and alignment are preserved. No prevertebral soft tissue swelling. Note is made of multilevel cervical spondylosis with varying degrees of central canal and foramina stenoses. IMPRESSION: 1. No cervical fractures. 2. Cervical spondylosis with varying degrees of central canal and foramina stenoses. Electronically signed by: Serafin Milligan MD 01/03/24 00:[address] 01/02/24 23:23 Exam(s): CT FACIAL Without Contrast EXAM: CT Maxillofacial Without Intravenous Contrast CLINICAL HISTORY: Reason for exam: s/p fall. TECHNIQUE: Axial computed tomography images of the face without intravenous contrast. CTDI is 17.38 mGy and DLP is 480.39 mGy-cm. Automated exposure control was utilized for the study. A dose lowering technique was utilized adhering to the principles of ALARA. COMPARISON: No relevant prior studies available. FINDINGS: Bones/joints: Comminuted minimally displaced nasal bone fracture. Soft tissues: Unremarkable. Orbits: Unremarkable. Sinuses: Unremarkable. No air-fluid levels. IMPRESSION: Comminuted minimally displaced nasal bone fracture Electronically signed by: Serafin Milligan MD 01/03/24 00:30 AM Diagnostic Findings EKG as per my interpretation : Rate 90, NSR, LAD, LAFB, LVH, no ischemia (1) Nasal bones, open fracture Encounter type: initial encounter Qualified Code(s): S02.2XXB - Fracture of nasal bones, initial encounter for open fracture
[2024-01-03 05:23] LABS: Basophils # (auto) 0.03 K/uL (0.00-0.20); Basophils % (auto) 0.4 %; Eosinophils # (auto) 0.02 K/uL (0.00-0.50); Eosinophils % (auto) 0.3 %; Hematocrit (blood only) 39.7 % (42.0-52.0); Hemoglobin 13.9 g/dl (14.0-18.0); Immature Granulocytes # (auto) 0.02 K/uL (0.01-0.20); Immature Granulocytes % (auto) 0.3 %; Lymphocytes # (auto) 0.43 K/uL (1.20-3.40); Lymphocytes % (auto) 6.1 %; Mean Corpuscular Hemoglobin 32.9 pg (25.0-34.0); Mean Corpuscular Volume 93.9 fL (80.0-100.0); Mean Platelet Volume 8.8 fL (9.4-12.4); Monocytes # (auto) 0.75 K/uL (0.11-0.59); Monocytes % (auto) 10.7 %; Neutrophils # (auto) 5.77 K/uL (1.40-6.50); Neutrophils % (auto) 82.2 %; Platelet Count 153 K/uL (130-400); RDW Coefficient of Variation 13.2 % (11.5-14.5); RDW Standard Deviation 45.1 fL (36.4-46.3); Red Blood Count 4.23 M/uL (4.70-6.10); White Blood Count 7.02 K/ul (4.8-10.8)
[2024-01-03] MEDS ORDERED: PROMETHAZINE 6.25 MG/50.25 ML BAG IV PRN (05:27)
[2024-01-03 05:37] LABS: Magnesium 1.8 mg/dl (1.7-2.4)
[2024-01-03 05:52] LABS: Thyroid Stimulating Hormone 0.829 uIu/ml (0.300-4.500)
[2024-01-03] MEDS: LOSARTAN POTASSIUM 25 MG TAB PO STA (06:19)
--- NOTE | 2024-01-03 07:11 | XRay Report ---
XR finger(s) RT min 2V CLINICAL HISTORY: Right thumb injury s/p fall COMPARISON: None FINDINGS: There is an acute oblique nondisplaced fracture through the distal tuft of the right first distal phalanx. No additional fractures within the right first digit are present. IMPRESSION: Acute oblique nondisplaced fracture of the right first distal phalanx. ACT 112: Negative or not required by law. Electronically signed by: Emiliano Kelley M.D. 01/03/2024 7:09 AM
[2024-01-03 07:18] LABS: Estimated Average Glucose 120 mg/dl; Hemoglobin A1C 5.8 % (4.5-5.6)
--- NOTE | 2024-01-03 07:19 | XRay Report ---
XR chest 1V portable CLINICAL HISTORY: Syncope. COMPARISON STUDY: Chest radiograph September 07, 2022. FINDINGS: There are median sternotomy wires. Cardiomegaly is again noted. There is no evidence for pu lmonary edema. There is mild elevation the right hemidiaphragm. There is a trace left pleural effusio n. Linear bilateral densities favor atelectasis. IMPRESSION: 1. Cardiomegaly without evidence for pulmonary edema. 2. Trace left pleural effusion. 3. Linear bilateral densities suggestive of atelectasis. ACT 112: Negative or not required by law. Electronically signed by: Emiliano Kelley M.D. 01/03/2024 7:17 AM
[2024-01-03 08:00] LABS: Appearance Urine Cloudy (Clear); Bacteria Urine Automated None Seen (None Seen); Bilirubin Urine Negative (Negative); Blood Urine Negative (Negative); Cast Urine Automated 0-2 /lpf (0-2); Color Urine Yellow; Epithelial Cell Urine Auto 0-2 /hpf (0-2); Glucose Urine UA Negative (Negative); Ketones Urine 1+ (Negative); Leukocyte Esterase Urine Negative (Negative); Nitrite Urine Negative (Negative); Protein Urine Negative (Negative); Specific Gravity Urine 1.017 (1.000-1.030); Urobilinogen Urine Negative (Negative); WBC Urine Automated 0-5 /hpf (0-5); pH Urine 7.5 (4.5-7.5)
[2024-01-03 10:17] LABS: Adenovirus PCR Not Detected (NotDetected); Bordetella parapertussis PCR Not Detected (NotDetected); Bordetella pertussis PCR Not Detected (NotDetected); Chlamydia pneumoniae PCR Not Detected (NotDetected); Coronavirus 229E PCR Not Detected (NotDetected); Coronavirus CoV-2 (COVID19)PCR Not Detected (NotDetected); Coronavirus HKU1 PCR Not Detected (NotDetected); Coronavirus NL63 PCR Not Detected (NotDetected); Coronavirus OC43PCR Not Detected (NotDetected); Human Metapneumovirus PCR Not Detected (NotDetected); Influenza A PCR Not Detected (NotDetected); Influenza B PCR Not Detected (NotDetected); Mycoplasma pneumoniae PCR Not Detected (NotDetected); Parainfluenza Virus 1 PCR Not Detected (NotDetected); Parainfluenza Virus 2 PCR Not Detected (NotDetected); Parainfluenza Virus 3 PCR Not Detected (NotDetected); Parainfluenza Virus 4 PCR Not Detected (NotDetected); Respiratory Syncytial VirusPCR Not Detected (NotDetected); Rhinovirus/Enterovirus PCR DETECTED (NotDetected)
[2024-01-03 10:19] LABS: Hematocrit (blood only) 40.1 % (42.0-52.0); Hemoglobin 14.2 g/dl (14.0-18.0)
[2024-01-03] MEDS: ACETAMINOPHEN 325 MG TAB PO PRN (10:32)
[2024-01-03] MEDS: AZELASTINE HCL 0.1% NASAL 200 SPRAYS/27,400 MCG BTL SCH (10:33)
[2024-01-03] MEDS: CYANOCOBALAMIN (B-12) 500 MCG TABLET PO SCH (10:34)
[2024-01-03] MEDS: TAMSULOSIN HCL 0.4 MG CAP PO SCH (10:35)
[2024-01-03] MEDS: METOPROLOL SUCC 25MG EXT REL TAB PO SCH (10:35)
[2024-01-03] MEDS: EZETIMIBE 10 MG TAB PO SCH (10:35)
--- NOTE | 2024-01-03 10:47 | Electrocardiogram Report ---
Test Reason : Blood Pressure : */* mmHG Vent. Rate : 88 BPM Atrial Rate : 88 BPM P-R Int : 170 ms QRS Dur : 82 ms QT Int : 348 ms P-R-T Axes : 50 -19 15 degrees QTcB Int : 421 ms Normal sinus rhythm Minimal voltage criteria for LVH, may be normal variant ( R in aVL ) Borderline ECG When compared with ECG of 07-Sep-2022 15:53, No significant change was found Confirmed by Shiraz Bermudez ([id number]) on 01/03/2024 10:46:47 AM Referred By: REFERRED SELF Confirmed By: Shiraz Bermudez
--- NOTE | 2024-01-03 15:38 | Communication Note ---
Date of Service: January 03, 2024 83-year-old has had a mechanical fall with fracture of the bridge of the nose and also first terminal phalanx on the right. Wanted to go home this morning but later on was agreed to be observed for tonight for any worsening hematoma involving the distal phalanx of the right thumb. he mentioned that he was seen by Dr. Simmons and was advised that he can go home. Will have a full progress note tomorrow. Dr Selvin Juárez
[2024-01-03 16:17] VITALS: TEMP 98
--- NOTE | 2024-01-03 19:40 | Oral/Maxillofacial Consult ---
Date of Consultation January 03, 2024 Assessment & Plan (1) Status post fall: (2) Multiple abrasions: (3) Fracture of thumb, right, closed: (4) Laceration of nose: (5) Nasal bones, open fracture: (6) Falls: (7) Weakness: History of Present Illness Attending Physician: Morales Juárez MD History of Present Illness I was in the hospital this morning when I get a call from the ER regarding Mr. Singletary. I saw him around 9 am for a fall with trauma to his forehead, hose and right hand in Room C-3 while he was waiting admission to the floor. Patient was walking outside the [employer] last night when he stumbled on something causing him to fall face down on the ground. No LOC. Bleeding facial wounds, epistaxis noted. Contusions on hands noted. Denies chest pain, SOB. EMS called by bystanders. Patient brought to ER for evaluation. Nasal bone fracture on facial CT. Lacerated wound over the nose repaired at the ER. Patient could not get into vehicle from generalized weakness as he was departing ER. Denies hip or leg pain. Advised to be observed over night. I reviewed the CT scan and observed the very mild nasal bone fracture with minimal to no displacement. Clinically there was no deformity of the nose, septum looked good, air flow was good with only minimal congestion. There was a well sutured laceration on the nasal bridge and some slight swelling. The bruising from the fall is very superficial and will not need any treatment. I told Xu that he will not need any surgical treatment for the nose fracture as it is so minimal. We reviewed that the swelling will slowly subside in a few days. From my perspective he may be discharged as per medicine. I gave him my card and told him I would be more then happy to remove the sutures and follow up in 7-10. Xu suggested he have his PCP remove the sutures and if he has any concerns he will follow up with me. In summary Nondisplaced nasal bone fracture requiring no treatment Reviewed care of abrasions, follow up if requested, follow up with PCP No surgical intervention needed Allergies Allergy/AdvReac Type Severity Reaction Status Date / Time No Known Allergies Allergy Verified 02/24/18 08:18 Home Medications Medication Instructions Recorded Confirmed Type aspirin 81 mg tablet,delayed 81 mg PO QAM 01/26/18 01/03/24 History release (Aspir-Low) ezetimibe 10 mg tablet (Zetia) 10 mg PO QAM 01/26/18 01/03/24 History losartan 25 mg tablet 25 mg PO DAILY 09/07/22 01/03/24 History metoprolol succinate 25 mg 12.5 mg PO DAILY 09/07/22 01/03/24 History tablet,extended release 24 hr tamsulosin 0.4 mg capsule 0.4 mg PO DAILY 09/07/22 01/03/24 History ascorbic acid (vitamin C) 1,000 mg 1 g PO QAM 01/03/24 01/03/24 History tablet (Vitamin C) azelastine 137 mcg (0.1 %) nasal 1 spray intranasal BID 01/03/24 01/03/24 Hist ory spray cyanocobalamin (vitamin B-12) 1,000 mcg PO DAILY 01/03/24 01/03/24 History 1,000 mcg tablet (Vitamin B-12) inulin 2 gram chewable tablet 1 g PO BID 01/03/24 01/03/24 History (Fiber Gummies) Patient History Medical History (Updated 01/03/24 @ 01:14 by Darien Bardales) Osteoarthritis Irritable bowel syndrome Cancer PROSATE CANCER (RADIATION SEEDS) Anemia Cornea abrasion Hearing deficit Migraine Hypertension Hyperlipidemia Surgical History History of cataract surgery History of appendectomy History of cholecystectomy History of colonoscopy History of tooth extraction History of tonsillectomy History of coronary artery bypass graft 2003 (3 VESSELS) AT [facility] History of heart artery stent JUNE 2016 (2 STENTS PLACED) History of cardiac cath JUNE 2016 (CHEST PAIN) Social History Smoking Status: Current every day smoker Tobacco Type: Cigarettes Cigarettes Per Day: Smokes 2/year; Second Hand Exposure: No; Do You Dip or Chew Tobacco: No; Hx Alcohol Use: No Hx Substance Use: No Preferred Language: Maori Communication Ability: Effective Stump Blower Required: No Beliefs That Will Affect Care: None Current Living Situation: Alone Current Living Situation Comment: Lives alone in apartment Other Information That Helps Us Care for You: No Feels Safe at Home: Yes Safety Concerns: Feels Safe At This Time Assistive Devices: None Results & Data Vital Signs (Past 12 Hours) Vital Signs Temp Pulse Resp BP Pulse Ox O2 Del Method 01/03/24 16:15 36.6 C 60 17 144/78 H 97 Room Air 01/03/24 09:30 36.5 C 72 20 155/76 H 98 Room Air PG Care Time/CCT Total # of Minutes Spent Total Time Spent with Patient: Total time spent is greater than 50% in coordination of care (as documented) at patient's floor/unit and/or counseling patient: Coding Level of Care Code 09949 OFFICE CONSULT LVL Diagnoses Status post fall Z91.81 Multiple abrasions T07.XXXA Fracture of thumb, right, closed S62.524A Encounter type: initial encounter Fracture alignment: nondisplaced Phalanx: distal Laceration of nose S01.21XA Encounter type: initial encounter Nasal bones, open fracture S02.2XXB Encounter type: initial encounter Falls W19.XXXA Weakness R53.1 (3) Fracture of thumb, right, closed Encounter type: initial encounter Fracture alignment: nondisplaced Phalanx: distal Qualified Code(s): S62.524A - Nondisplaced fracture of distal phalanx of right thumb, initial encounter for closed fracture (4) Laceration of nose Encounter type: initial encounter Qualified Code(s): S01.21XA - Laceration without foreign body of nose, initial encounter (5) Nasal bones, open fracture Encounter type: initial encounter Qualified Code(s): S02.2XXB - Fracture of nasal bones, initial encounter for open fracture
[2024-01-04] MEDS: CALCIUM CARBONATE 500 MG CHEWABLE TAB PO STA (00:23)
[2024-01-04 00:50] VITALS: O2SAT 96
[2024-01-04] MEDS ORDERED: oxyCODONE HCL IR 5 MG TAB (IMMEDIATE RELEASE) PO PRN (00:53)
[2024-01-04] MEDS: ACETAMINOPHEN 325 MG TAB PO STA (01:32)
[2024-01-04] MEDS: LOSARTAN POTASSIUM 50 MG TAB PO SCH (01:32)
[2024-01-04 01:36] VITALS: BP 121/87
[2024-01-04 02:50] VITALS: RESP 13
[2024-01-04 04:52] LABS: Basophils # (auto) 0.03 K/uL (0.00-0.20); Basophils % (auto) 0.5 %; Eosinophils # (auto) 0.17 K/uL (0.00-0.50); Hematocrit (blood only) 37.6 % (42.0-52.0); Hemoglobin 12.9 g/dl (14.0-18.0); Immature Granulocytes # (auto) 0.02 K/uL (0.01-0.20); Immature Granulocytes % (auto) 0.3 %; Lymphocytes % (auto) 12.2 %; Mean Corpuscular Hemoglobin 33.2 pg (25.0-34.0); Mean Corpuscular Hgb Conc 34.3 g/dL (32.0-36.0); Mean Corpuscular Volume 96.7 fL (80.0-100.0); Mean Platelet Volume 9.2 fL (9.4-12.4); Monocytes % (auto) 13.9 %; Neutrophils # (auto) 4.04 K/uL (1.40-6.50); Neutrophils % (auto) 70.1 %; Platelet Count 149 K/uL (130-400); RDW Coefficient of Variation 13.4 % (11.5-14.5); Red Blood Count 3.89 M/uL (4.70-6.10); White Blood Count 5.76 K/ul (4.8-10.8)
[2024-01-04 05:08] LABS: BUN Creatinine Ratio 20.8 (10-20); Calcium 8.8 mg/dl (8.6-10.3); Creatinine Clr Calc Pharmacy 53.1 ml/min
[2024-01-04 07:35] VITALS: PULSE 59
[2024-01-04] MEDS ORDERED: LOSARTAN POTASSIUM 25 MG TAB PO SCH (09:00)
--- NOTE | 2024-01-04 10:22 | Hospitalist Progress Note ---
Date of Service January 04, 2024 Assessment & Plan (1) Nasal bones, open fracture: Plan: Secondary to mechanical fall fall Status post laceration bridge of the nose and repair at the ER with a few stitches Appreciate orofacial maxillary surgery input and recommendation of conservative management Denies any pain and/or swelling involving the nose and denies any other symptoms He will be discharged home this morning Fracture of distal tuft of the right first distal phalanx Oblique and nondisplaced Swelling and bruising involving the tip of right thumb has improved a lot Denies any significant pain Was advised to keep the right hand elevated above the heart if possible Other significant medical condition remained stable as below: Hypertension, elevated secondary discomfort Chronic diastolic heart failure (EF 62%, TTE 2019), patient euvolemic to dry CAD status post CABG Hyperlipidemia/statin intolerance, on ezetimibe Prostate cancer status post radiation/Lupron Rx hx BPH Hyperglycemia rule out DM Past tobacco abuse Ambulatory dysfunction PT OT eval- has been ambulating in the room and in the hallway without any difficulties and he refused to stay any longer in the hospital DVT prophylaxis. SCDs Re: Traumatic facial wounds DNR Admission and Anticipated Discharge Date Admission Date: January 03, 2024 Subjective 01/04/2024 The patient was seen and examined in medical floor He denies any symptoms except minimal pain involving the right thumb He is ready to get out of the hospital and does not want to stay any longer Review of Systems Review of Systems: all systems reviewed and are unremarkable except as noted below Physical Exam Physical Exam: sitting on a chair without any acute distress Constitutional: well developed and well nourished; not ill appearing Eyes: PERRL, conjunctivae normal, anicteric sclerae ENMT: external ear and nose normal, oropharynx normal Neck: trachea midline, no thyromegaly Respiratory: no respiratory distress Auscultation: lungs clear to auscultation bilaterally Cardiovascular: Rate/Rhythm: regular rate, regular rhythm and + bradycardic Heart Sounds: normal S1 and normal S2; no murmur Extremities: no edema Gastrointestinal (Abdomen): Inspection/Auscultation: normal bowel sounds; abdomen not distended Percussion/Palpation: abdomen soft; abdomen nontender Musculoskeletal: minimal pain and bruising with some swelling tip of right thumb Neurologic: normal touch/pain/proprioception and moves all extremities; no focal motor deficits Psychiatric: A+Ox3, euthymic affect Lymphatic: no cervical or axillary lymphadenopathy Results & Data Results & Data Vital Signs (Past 12 Hours) Vital Signs Pulse Resp BP Pulse Ox O2 Del Method 01/04/24 07:35 59 L 01/04/24 04:00 78 13 01/04/24 02:03 79 13 01/04/24 01:36 121/87 01/04/24 01:16 78 01/04/24 00:00 77 14 203/89 H 96 Room Air 01/03/24 22:33 76 24 97 01/03/24 22:32 169/94 H 01/03/24 22:32 169/94 H Laboratory Results Short CBC 01/03/24 01/04/24 Range/Units 09:51 03:54 WBC 5.76 (4.8-10.8) K/ul Hgb 14.2 12.9 L (14.0-18.0) g/dl Hct 40.1 L 37.6 L (42.0-52.0) % Plt Count 149 (130-400) K/uL BMP 01/04/24 03:54 Sodium 137 Potassium 4.0 Chloride 106 Carbon Dioxide 27 BUN 21 Creatinine 1.01 Glucose 101 H Calcium 8.8 Medications Administered Current Inpatient Medications Acetaminophen (Acetaminophen 325 Mg Tab) 650 mg PO QID PRN PRN Reason: pain/fever Stop: 02/02/24 05:26 Last Admin: 01/03/24 10:32 Dose: 650 mg Azelastine HCl (Azelastine Hcl 0.1% Nasal 200 Sprays/27,400 Mcg Btl) 1 sprays NA BID [facility] Stop: 02/02/24 08:59 Last Admin: 01/03/24 21:02 Dose: 1 sprays Cyanocobalamin (Cyanocobalamin (B-12) 500 Mcg Tablet) 1,000 mcg PO DAILY MARGARET Stop: 02/02/24 08:59 Last Admin: 01/03/24 10:34 Dose: 1,000 mcg Ezetimibe (Ezetimibe 10 Mg Tab) 10 mg PO QAM MARGARET Stop: 02/02/24 08:59 Last Admin: 01/03/24 10:35 Dose: 10 mg Promethazine HCl (Phenergan) 6.25 mg in 50.25 mls @ 201 mls/hr IV Q6H PRN PRN Reason: Nausea And Vomiting Stop: 02/02/24 05:26 Losartan Potassium (Losartan Potassium 50 Mg Tab) 50 mg PO DAILY MARGARET Stop: 02/03/24 00:59 Last Admin: 01/04/24 01:32 Dose: 50 mg Metoprolol Succinate (Metoprolol Succ 25mg Ext Rel Tab) 12.5 mg PO DAILY MARGARET Stop: 02/02/24 08:59 Last Admin: 01/03/24 10:35 Dose: 12.5 mg Oxycodone HCl (Oxycodone Hcl Ir 5 Mg Tab (Immediate Release)) 5 mg PO Q4H PRN PRN Reason: Pain Stop: 01/18/24 00:52 Tamsulosin HCl (Tamsulosin Hcl 0.4 Mg Cap) 0.4 mg PO DAILY MARGARET Stop: 02/02/24 08:59 Last Admin: 01/03/24 10:35 Dose: 0.4 mg (1) Nasal bones, open fracture Encounter type: initial encounter Qualified Code(s): S02.2XXB - Fracture of nasal bones, initial encounter for open fracture
--- NOTE | 2024-01-05 23:15 | Discharge Summary ---
Date of Service January 05, 2024 Admission HPI Per Admitting Provider History obtained from patient and records. Medical history significant for chronic diastolic heart failure (EF 62%, TTE 2019), CAD status post CABG, hypertension, hyperlipidemia, statin intolerance, prostate cancer status post radiation/Lupron Rx, BPH, Gilbert syndrome as per records, past tobacco abuse. Patient was walking outside the [employer] last night when he stumbled on something causing him to fall face down on the ground. No LOC. Bleeding facial wounds, epistaxis noted. Contusions on hands noted. Denies chest pain, SOB. EMS called by bystanders. Patient brought to ER for evaluation. Nasal bone fracture on facial CT. Lacerated wound over the nose repaired at the ER. Patient could not get into vehicle from generalized weakness as he was departing ER. Denies hip or leg pain. 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 Admission Exam Per Admitting Provider Physical Exam: GENERAL: Comfortable, pleasant, no respiratory distress SKIN: Normal color, warm HEENT: Bespectacled, pink palpebral conjunctivae, no ptosis, dried blood over nasal bridge, dry buccal mucosa NECK : Supple, no tenderness CHEST : CTA, no tenderness HEART : RRR, no obvious murmurs ABDOMEN: Some distention, nontender EXTREMITIES : Abrasions over hands, no LE swelling/tenderness, no other conspicuous deformities noted NEUROLOGIC : Coherent, no facial asymmetry, no other gross focality Principal Diagnosis status post mechanical fall, minimally displaced nasal bone fracture, fracture of distal phalanx right thumb Discharge Exam sitting on a chair without any acute distress Constitutional well developed and well nourished; not ill appearing Eyes PERRL, conjunctivae normal, anicteric sclerae ENMT external ear and nose normal, oropharynx normal Neck trachea midline, no thyromegaly Respiratory no respiratory distress Auscultation: lungs clear to auscultation bilaterally Cardiovascular Rate/Rhythm: regular rate, regular rhythm and + bradycardic Heart Sounds: normal S1 and normal S2; no murmur Extremities: no edema Gastrointestinal (Abdomen) Inspection/Auscultation: normal bowel sounds; abdomen not distended Percussion/Palpation: abdomen soft; abdomen nontender Neurologic normal touch/pain/proprioception and moves all extremities; no focal motor deficits Psychiatric A+Ox3, euthymic affect Lymphatic no cervical or axillary lymphadenopathy Discharge Data Allergies Allergy/AdvReac Type Severity Reaction Status Date / Time No Known Allergies Allergy Verified 02/24/18 08:18 Consultations 01/03/24 04:40 ED Decision to Admit Stat 01/03/24 05:27 Consult Oromaxillofacial Surgery Routine Ordered Studies 01/02/24 22:38 CT head/brain wo con Stat 01/02/24 23:23 CT cervical spine wo con Stat CT face [CT facial bones wo con] Stat Hospital Course (1) Nasal bones, open fracture: Secondary to mechanical fall fall Status post laceration bridge of the nose and repair at the ER with a few stitches Appreciate orofacial maxillary surgery input and recommendation of conservative management Denies any pain and/or swelling involving the nose and denies any other symptoms He will be discharged home this morning Fracture of distal tuft of the right first distal phalanx Oblique and nondisplaced Swelling and bruising involving the tip of right thumb has improved a lot Denies any significant pain Was advised to keep the right hand elevated above the heart if possible Other significant medical condition remained stable as below: Hypertension, elevated secondary discomfort Chronic diastolic heart failure (EF 62%, TTE 2019), patient euvolemic to dry CAD status post CABG Hyperlipidemia/statin intolerance, on ezetimibe Prostate cancer status post radiation/Lupron Rx hx BPH Hyperglycemia rule out DM Past tobacco abuse Ambulatory dysfunction PT OT eval- has been ambulating in the room and in the hallway without any difficulties and he refused to stay any longer in the hospital DVT prophylaxis. SCDs Re: Traumatic facial wounds DNR Total Time Total Time Spent Total Time Spent (In Minutes): 40 minutes Discharge Plan Discharge Items Patient Disposition: Home - Self-Care Reason For Visit: FALL, FACIAL TRAUMA Discharge Diagnosis: status post mechanical fall, minimally displaced nasal bone fracture, fracture of distal phalanx right thumb Condition on Discharge: Good Activity: Resume your previous activity Non-emergency contact: Primary Care Provider Call non-emergency contact if: you have any medication questions and your symptoms worsen Follow-up/Referrals: Katey Arora MD [Primary Care Provider] - ( your doctor's office will give you a call on Friday with an appointment within 7 days) Diet: Heart Healthy Addtl Attending Provider Instructions: Please take precautions to avoid falls Take Tylenol for pain control Try to keep your right hand elevated when possible to decrease pain and swelling of the right thumb Please keep appointment with your healthcare provider Pending Studies at Discharge: No Stand-Alone Forms: My [facility], Smoking Cessation Medications and DC Order Prescriptions: Continued aspirin [Aspir-Low] 81 mg Tablet,Delayed Release (Dr/Ec) 81 mg PO QAM ezetimibe [Zetia] 10 mg Tablet 10 mg PO QAM tamsulosin 0.4 mg capsule 0.4 mg PO DAILY losartan 25 mg tablet 25 mg PO DAILY metoprolol succinate 25 mg tablet extended release 24 hr 12.5 mg PO DAILY ascorbic acid (vitamin C) [Vitamin C] 1,000 mg Tablet 1 g PO QAM cyanocobalamin (vitamin B-12) [Vitamin B-12] 1,000 mcg Tablet 1,000 mcg PO DAILY azelastine 137 mcg (0.1 %) spray,non-aerosol 1 spray INTRANASAL BID Fiber Gummies 2 gram Tablet,Chewable 1 g PO BID Discharge Orders: Discharge Order (Routine); Ordered 01/04/24 Ordered By: Morales Juárez Admission Data Admit Date/Time: 01/03/24 05:26 Attending Provider: Morales Juárez Admit Provider: Alber Amin Primary Care Provider: Katey Arora Other Providers: Alber Amin; Hema Simmons
== END 2024-01-04 11:02 | disposition home or self-care (01) ==
LOC: ED 21:14 → EDINP 21:14 → 3E 01-04 07:00

== ENCOUNTER 2024-06-07 05:56 | Inpatient (IN) ==
--- OUTSIDE RECORDS SUMMARY | 2024-06-07 06:00 | External Medical Summary | Summary of Care ---
Author Name Unknown Organization [facility] Address [address] [place] [address] Phone [phone] Care Team Providers Care Rhinologist Name Role Phone Katey Arora MD Primary Care Provider [phone] Reason for Visit * Reason Onset Date Comments Test Results 01/30/2024 Encounter Details Date Type Department Care Team (Late st Contact Info) Description 01/30/2024 Telephone General Internal Medicine [facility] [address] [facility] [place] [address] Katey Arora MD [address] [place] [address] Test Results Allergies No known active allergiesdocumented as of this encounter (statuses as of 02/05/2024) Medications Medication Sig Dispensed Refills Start Date End Date Status ASPIRIN 81 MG PO TABSIndications:Aor tocoronary bypass status,Dyslipidemia , goal to be determined one pill each day 34 11 12/25/2004 Active VITAMIN D 400 UNITS PO CAPS Take by mouth. Active Vitamin B-12 1000 MCG Oral Tablet Take 1 Tablet by mouth in the morning. Active Nitroglycerin 0.4 MG Sublingual Tablet Sublingual (Nitrostat)Indicati ons:Chronic coronary artery disease,Aortocorona ry bypass status DISSOLVE 1 TABLET UNDER THE TONGUE AT ONSET OF SEVERE CHEST PAIN. MAY REPEAT DOSE 3 TIMES. CALL 911. 25 Tablet 02/14/2023 Active Fiber Adult Gummies 2 GM Oral Tablet ChewableIndications :Irritable bowel syndrome with constipation 2 in morning,1 in evening 02/14/2023 Active Tamsulosin HCl 0.4 MG Oral Capsule (Flomax) Take 1 Capsule by mouth every evening. 90 Capsule 3 07/04/2023 Active Azelastine HCl 137 MCG/SPRAY Nasal SolutionIndications :Chronic rhinitis SPRAY 1 SPRAY INTO INTO EACH NOSTRIL IN THE MORNING AND AT BEDTIME 90 mL 2 10/29/2023 Active Losartan Potassium 25 MG Oral Tablet (Cozaar)Indications :Chronic coronary artery disease,Diastolic dysfunction Take 1 Tablet by mouth in the morning. I25.10. 90 Tablet 01/13/2024 Active Metoprolol Succinate ER 25 MG Oral Tablet Extended Release 24 Hour (toPROL XL)Indications:[employer] terrance coronary artery disease Take 0.5 Tablets by mouth in the morning. I25.10. 45 Tablet 01/13/2024 Active Omeprazole 20 MG Oral Capsule Delayed Release (PriLOSEC) Take 1 Capsule by mouth in the morning. Active Ezetimibe 10 MG Oral Tablet (Zetia)Indications: Dyslipidemia, goal LDL below 100 TAKE 1 TABLET BY MOUTH EVERY DAY 90 Tablet 01/16/2024 Active Copper Gluconate 2 MG Oral CapsuleIndications: Copper deficiency,Peripher al polyneuropathy 2x2mg copper gluconate tabs or caps daily for 1 month, then 1x2mg copper gluconate tabs/caps per day for maintenance - from 01/30/24 120 Capsule 1 01/31/2024 Active Copper Gluconate 2 MG Oral CapsuleIndications: Copper deficiency,Peripher al polyneuropathy 2x2mg copper gluconate tabs or caps daily for 1 month, then 1x2mg copper gluconate tabs/caps per day for maintenance - from 01/30/24 120 Capsule 1 01/29/2024 01/30/20 24 Discontinu ed(Refill) documented as of this encounter (statuses as of 02/05/2024) Active Problems Problem Noted Date Diagnosed Date Copper deficiency 01/29/2024 Polyneuropathy 01/29/2024 Gilbert syndrome 09/13/2022 Prostate cancer 03/22/2021 Urgency [...] as of this encounter (statuses as of 02/05/2024) Resolved Problems Problem Noted Date Diagnosed Date Resolved Date Tinnitus of both ears 04/24/20172018 Overview: Acute Restless legs syndrome 06/12/201607/12 Gallbladder polyp 05/26/2013 05/23/2014 Cholelithiasis 05/26/2013 12/19/2016 Dyslipidemia, goal to be determined 11/26/2002 03/14/2009 Overview: Per Lipid Taxonomy. documented as of this encounter (statuses as of 02/05/2024) Immunizations Name Administration Dates Next Due COVID-19 mRNA, LNP-s, No Pre serve, 2-Dose Series (Moderna) 06/11/2020,05/14/2020 COVID-19, MRNA-LNP, PF, 50 M CG/0.5 mL, 12 YRS AND ABOVE, IM (MODERNA-Spikevax) 01/03/2023 COVID-19, mRNA, LNP-s, PF, B ooster, 100mcg/0.5mg (Moderna) 02/23/2021 Covid-19, Mrna, Lnp-s, Pf, B ivalent, 30 Mcg, IM, 12 yrs and above (Pfizer) 12/11/2021 H1N1 2009 Influenza, IM 05/01/2009 Pneumococcal Conjugate Vacc, 13 Valent (Prevnar) 05/23/2014 Pneumococcal Polysaccharide PPV23 (Pneumovax) 02/14/2006 RSV Vac., Bivalent, Perfusio n F, Pf,0.5 Ml (Abrysvo) 02/15/2023 Seasonal Influenza Vac., MDV , IM, 0.5 mL (Fluzone) 01/11/2017,02/05/2016,12/21/2013,01/13,01/13/2012,01/12/2009,01/15/2007 ,02/14/2006,01/30/2005,01/16/2004 Seasonal Influenza, High Dos e, Trivalent, PF, IM (Fluzone HD) 12/22/2018,01/13/2018 Seasonal Influenza, PF, 6 M & above, IM , (FluLaval or Fluzone) 12/29/2017 Seasonal Influenza, Quadriva lent Hd (Fluzone Hd) 12/31/2022,12/06/2021 Seasonal Influenza, Quadriva lent Hd, 65+ Yrs 01/08/2021 Seasonal Influenza, Trivalen t, Adjuvanted, 65+ YRS, PF, (Fluad) 01/02/2020 TD - Tetanus/Diptheria (ADULT) 06/29/2007,2002 TDAP, Age [...] encounter Miscellaneous Notes * Telephone Encounter - Radha Tatum LPN - 02/05/2024 4:03 PM EST Patient is aware and verbalizes understanding. * Telephone Encounter - Giselle Toure LPN - 02/05/2024 3:45 PM EST Left message for pt to call back. * Telephone Encounter - Katey Arora MD - 02/02/2024 5:50 PM EST Check Cu level in 1 month Cc results DrReumann * Telephone Encounter - Mandy Preciado LPN - 02/02/2024 4:57 PM EST Patient aware and verbalized understanding. Reports that [facility] can not get copper gluconate. He purchased this online via [employer] and the capsules are 14 mg. Is taking one capsule a day. FYI. * Telephone Encounter - Maria Fernanda Joe MED ASSIST - 02/02/2024 3:46 PM EST Left message for the patient to call the office. Upon return call please transfer to a dedicated telephone nurse center to provide information below. * Telephone Encounter - Maria Fernanda Joe MED ASSIST - 02/02/2024 3:45 PM EST ----- Message from Katey Arora MD sent at 01/29/2024 5:37 PM EDT ----- Copper level remains low. Increase dose as per neurology advice- 2x2mg copper gluconate tabs or caps daily for 1 month, afterwards 1 x 2 mg copper gluconate tabs/caps per day for maintenance * Telephone Encounter - Katey Arora MD - 01/31/2024 9:33 AM EDT Rx sent * Telephone Encounter - Elodia Cottrell LPN - 01/30/2024 4:31 PM EDT Patient returning call. Patient aware of note below and he states he has been taking a copper 14 mg capsule daily. He ordered it online. He states he was just at [facility] pharmacy and they did not have any script for him available. I contacted [facility] and they never received new Copper script order from 01/28 Please resend order. * Telephone Encounter - Belen Bryan LPN - 01/30/2024 3:50 PM EDT Left message for patient to return call * Telephone Encounter - Belen Bryan LPN - 01/30/2024 3:49 PM EDT ----- Message from Katey Arora MD sent at 01/29/2024 5:37 PM EDT ----- Copper level remains low. Increase dose as per neurology advice- 2x2mg copper gluconate tabs or caps daily for 1 month, afterwards 1 x 2 mg copper gluconate tabs/caps per day for maintenance documented in this encounter Plan of Treatment Upcoming Encounters Date Type Department Care Team (Late st Contact Info) Description 07/13/2024 10:30 AM EDT Telemedicine Urology Terrie Tracy [address] [place] [id number] Angel Diaz MD [address] [place] [id number] 7, Telemed [facility] Ex Rm [address] [place] [id number] 07/21/2024 12:20 PM EDT Office Visit General Internal Medicine [address] [place] [address] Katey Arora MD [address] [place] [address] Scheduled Orders Name Type Priority Associated Diagnoses Orde r Schedule COPPER, SERUM OR PLASMA Lab Routine Copper deficiency Peripheral polyneuropathy Expected: 03/03/2024, Expires: 02/01/2025 Health Maintenance Due Date Last Done Comments DISCUSS TOBACCO CESSATION (REFER TO SMARTSET #[id number]) 1940 Adult Wellness Visit 08/26/2018 08/26/2017 *BISPHONATE OR OTHER ACCEPTABLE MEDICATION NEEDED FOR OSTEOPOROSIS (REFER TO SMARTSET #1146) 07/24/2023 COVID-19 Vaccine ( season) 2023 01/03/2023, 01/03/2023, 12/11/2021, Additional history exists Depression Screening 02/15/2024 02/14/2023 DXA Scan 05/07/2025 05/07/2023, 08/0 11/2020, 09/22/2018, Additional history exists DTap/Tdap Vaccines (2 - Td or Tdap) 03/06/2026 03/06/2016, 06/29/2007, 08/03/2002 Pneumococcal Vaccine: 65+ Years Completed 05/23/2014, 02/14/2006 Zoster Vaccines Completed 03/26/2019, 09/30, 08/26/2017, Additional history exists VITAMIN D LEVEL ONCE IN A LIFETIME-USE SMARTSET# [id number] Completed 05/29/2023, 02/27/2022, 03/16/2019, Additional history exists Influenza Vaccine (FLU shot) Completed , 12/31/2022, 12/06/2021, Additional history exists HPV (Gardasil) Vaccine Aged [...] as of this encounter Visit Diagnoses Diagnosis Copper deficiency Disorders of copper metabolism Peripheral polyneuropathy Unspecified hereditary and idiopathic peripheral neuropathy documented in this encounter Care Teams Rhinologist Relationship Specialty Start Date End Date Katey Arora MD [address] [place] [address] PCP - General Internal Medicine 07/09/17 documented as of this encounter
--- OUTSIDE RECORDS SUMMARY | 2024-06-07 06:00 | External Medical Summary | Summary of Care ---
Author Name Unknown Organization [facility] Address [address] [place] [address] Phone [phone] Care Team Providers Care Consulting Services Manager Name Role Phone Katey Arora MD Primary Care Provider [phone] Reason for Visit * Reason Onset Date Comments Advice 03/09/2024 Returning Call 03/09/2024 Message relayed Encounter Details Date Type Department Care Team (Late st Contact Info) Description 03/09/2024 Telephone General Internal Medicine [facility] [address] [facility] [place] [address] Katey Arora MD [address] [place] [address] Advice; Returning Call (Message relayed) Allergies No known active allergiesdocumented as of this encounter (statuses as of 03/12/2024) Medications ASPIRIN 81 MG PO TABSIndications:Ao rtocoronary bypass status,Dyslipidemi a, goal to be determined one pill each day 34 11 12/26/19 05 Active VITAMIN D 400 UNITS PO CAPS Take by mouth. A ctive Vitamin B-12 1000 MCG Oral Tablet Take 1 Tablet by mouth in the morning. Active Nitroglycerin 0.4 MG Sublingual Tablet Sublingual (Nitrostat)Indicat ions:Chronic coronary artery disease,Aortocoron dhaval bypass status DISSOLVE 1 TABLET UNDER THE TONGUE AT ONSET OF SEVERE CHEST PAIN. MAY REPEAT DOSE 3 TIMES. CALL 911. 25 Tablet 02/15/20 Active Fiber Adult Gummies 2 GM Oral Tablet ChewableIndication s:Irritable bowel syndrome with constipation 2 in morning,1 in evening 02/15/20 Active Tamsulosin HCl 0.4 MG Oral Capsule (Flomax) Take 1 Capsule by mouth every evening. 90 Capsule 3 07/04/19 24 Active Azelastine HCl 137 MCG/SPRAY Nasal SolutionIndication s:Chronic rhinitis SPRAY 1 SPRAY INTO INTO EACH NOSTRIL IN THE MORNING AND AT BEDTIME 90 mL 2 10/29/19 24 Active Losartan Potassium 25 MG Oral Tablet (Cozaar)Indication s:Chronic coronary artery disease,Diastolic dysfunction Take 1 Tablet by mouth in the morning. I25.10. 90 Tablet 01/13/20 24 Active Metoprolol Succinate ER 25 MG Oral Tablet Extended Release 24 Hour (toPROL XL)Indications:Chr onic coronary artery disease Take 0.5 Tablets by mouth in the morning. I25.10. 45 Tablet 01/13/20 24 Active Omeprazole 20 MG Oral Capsule Delayed Release (PriLOSEC) Take 1 Capsule by mouth in the morning. Active Ezetimibe 10 MG Oral Tablet (Zetia)Indications :Dyslipidemia, goal LDL below 100 TAKE 1 TABLET BY MOUTH EVERY DAY 90 Tablet 01/16/20 24 Active Copper Gluconate 2 MG Oral CapsuleIndications :Copper deficiency,Periphe ral polyneuropathy 2x2mg copper gluconate tabs or caps daily for 1 month, then 1x2mg copper gluconate tabs/caps per day for maintenance - from 01/30/24 120 Capsule 1 01/31/20 Active documented as of this encounter (statuses as of 03/12/2024) Active Problems Problem Noted Date Diagnosed Date Copper deficiency 01/29/2024 Polyneuropathy 01/29/2024 Gilbert syndrome 09/13/2022 Prostate cancer 03/22/2021 Urgency of urination 03/22/2021 Nocturia 03/22/2021 Post-void dribbling 03/22/2021 Diastolic dysfunction 07/23/2019 Mild mitral regurgitation by prior echocardiogra m 07/23/2019 Senile osteoporosis 08/26/2017 Overview (11/28/2020): dexa 08/14--2.8-st fosamax---see notes---11/18--1.5/-2.5-restarted fosmax Left asymmetrical SNHL 04/24/2017 Overview (08/26/2017): Has GASTELUM RT only DDD (degenerative disc disease), lumbar 12/14/19 17 Midline low back pain with right-sided sciatica 07/12/2016 Overview (03/09/2018): 07/15--MRI> mild age rel chg, NFS tosha mild L4-5-had Rt SI jt inj S help July, off plavix 08/15>caudal UMER 09/18;10/27/17-relief x 1 wk only--was rec to see Nuha History of non-ST elevation myocardial infarctio n (NSTEMI) 07/12/2016 Overview (08/26/2017): 07/15 History of prostate cancer 12/06/2015 Overview (08/26/2017): Addi [place]>XRT with lupron. Finished his radiation Feb 2016, Last lupron 04/09/16. Dyslipidemia, goal LDL below 70 03/14/2009 Overview (04/05/2018): zetia 10mg. History of colonoscopy with polypectomy 01/04/20 06 Overview (08/26/2017): 02/2016--csope nml Colonoscopy 12/31/05--inflammatory polyps--repeat 10 years Aortocoronary bypass status 01/16/2004 Overview (08/26/2017): 2004 x 3 Chronic coronary artery disease 11/26/2002 Statin intolerance documented as of this encounter (statuses as of 03/12/2024) Resolved Problems Problem Noted Date Diagnosed Date Resolved Date Tinnitus of both ears 04/24/20172018 Overview (03/11/2019): Acute Restless legs syndrome 06/12/201607/12 Gallbladder polyp 05/26/2013 05/23/2014 Cholelithiasis 05/26/2013 12/19/2016 Dyslipidemia, goal to be determined 11/26/2002 03/14/2009 Overview (03/14/2009): Per Lipid Taxonomy. documented as of this encounter (statuses as of 03/12/2024) Immunizations Name Administration Dates Next Due COVID-19 [...] MDV , IM, 0.5 mL (Fluzone) 01/11/2017,02/05/2016,12/21/2013,01/13,01/13/2012,01/12/2009,01/15/2007 ,02/14/2006 Seasonal Influenza, High Dos e, Trivalent, PF, IM (Fluzone HD) 12/22/2018,01/13/2018 Seasonal Influenza, PF, 6 M & above, IM , (FluLaval or Fluzone) 12/29/2017 Seasonal Influenza, Quadriva lent Hd (Fluzone Hd) 12/31/2022,12/06/2021 Seasonal Influenza, Quadriva lent Hd, 65+ Yrs 01/08/2021 Seasonal Influenza, Trivalen t, Adjuvanted, 65+ YRS, PF, (Fluad) 01/02/2020 TD - Tetanus/Diptheria (ADULT) 06/29/2007 TDAP, Age [...] Assigned at Male 09/08/2018 8:10 AM EDT Legal Sex Male 5:42 AM EST Gender Identity Male 09/08/2018 8:10 AM EDT Sexual Orientation Straight 09/08/2018 8: 10 AM EDT documented as of this encounter Miscellaneous Notes * Telephone Encounter - Joe Cortes OSA - 03/12/2024 9:33 AM EST Patient has been notified of the message. Patient has been scheduled. * Telephone Encounter - Lukas Monreal MD - 03/10/2024 8:55 AM EST Can try melatonin 1 mg nightly for 2 weeks if symptoms persist, schedule a visit * Telephone Encounter - Rios Boyd OSA - 03/09/2024 3:50 PM EST Pt states can't fell asleep, pt requesting medication to assist go sleep. Pharmacy E [id number] [address] [facility] Please call pt back [phone] documented in this encounter Plan of Treatment Upcoming Encounters Date Type Department Care Team (Late st Contact Info) Description 03/16/2024 11:00 AM EST Office Visit General Internal Medicine [facility] [address] [place] [address] [place] [address] Lianet Pearl PA-C [address] [facility] [place] [address] 07/13/2024 10:30 AM EDT Telemedicine Urology Terrie Tracy [address] [place] [address] Angel Diaz MD [address] [id number], Telemed [facility] Ex Rm [address] [facility] [place] [address] 07/21/2024 12:20 PM EDT Office Visit General Internal Medicine [facility] [place] [address] [facility] [place] [address] Katey Arora MD [address] [facility] [place] [address] Health Maintenance Due Date Last Done Comments [...] D LEVEL ONCE IN A LIFETIME-USE SMARTSET# [id number] Completed 05/29/2023, 02/27/2022, 03/16/2019, Additional history exists [...] filedocumented as of this encounter Care Teams Consulting Services Manager Relationship Specialty Start Date End Date Katey Arora MD [address] [place] [address] PCP - General Internal Medicine 07/09/17 documented as of this encounter
--- OUTSIDE RECORDS SUMMARY | 2024-06-07 06:00 | External Medical Summary | Summary of Care ---
Author Name Unknown Organization [facility] Address [address] [place] [address] Phone [phone] Care Team Providers Care Radio Repairer Domestic Name Role Phone Katey Arora MD Primary Care Provider [phone] Reason for Referral * Precert (Diagnostic Medical) (Within 10 days (routine)) - Authorized Specialty Diagnoses / Procedures Referred By Sue t Referred To Contact Cardiac Studies Diagnoses Chronic coronary artery disease Aortocoronary bypass status Mild mitral regurgitation by prior echocardiogram Procedures ECHO, COMPLETE (2D), TRANS-THORACIC Katey Arora MD [address] [place] [address] Phone: tel: fax: Referral ID Status Reason Start Date Expiration Date V isits Requested Visits Authorized [id number] Authorized Precert 01/21/2024 999 999 * Evaluate & Treat - Unlimited Visits (Within 30 days (routine)) - Authorized Specialty Diagnoses / Procedures Referred By Contac t Referred To Contact Pharmacist / Pharmacy Diagnoses Chronic coronary artery disease Aortocoronary bypass status Statin intolerance Dyslipidemia, goal LDL below 70 Katey Arora MD [address] [place] [address] Phone: tel: fax: Referral ID Status Reason Start Date Expiration Date Visits Requested Visits Authorized [id number] Authorized Specialty Services Required 07/19/2024 99 99 Question Answer Referral Priority Within 30 days (routine) Where should this appointment be scheduled? [facility] Referring Provider Role: Primary Care Reason for Referral: Lipids Comments Pharmacist Medication Therapy Management: Minimum frequency patient should be seen in person for medication management: as appropriate per clinical condition and patient status By my signature, I understand that my patient Xu Singletary will have his medication therapy managed by the [facility] ([facility]) per established policies, procedures, and protocols. I also certify that this referral may serve as an initiation of service for the management of drug therapy in the above noted patient. [facility] providers will be responsible for scheduling patient visits, obtaining appropriate laboratory studies, and adjusting medication management therapy per patient's need, in addition to those roles spelled out in the clinic policy, procedures, and drug management protocols. I understand that the service provided by the [facility] is voluntary and have informed patient that they can refuse the service at their discretion. I am aware that the [facility] will provide me with a copy of the patient encounter via my [employer]. I authorize the [facility] to carry out these activities on my behalf. I consider this program to be a necessary part of the patient's medical care. Katey Arora MD Reason for Visit * Reason Comments Follow Up Encounter Details Date Type Department Care Team (Latest Contact Info) Description 01/21/2024 5:00 PM EDT Office Visit General Internal Medicine [facility] [address] [place] [address] Katey Arora MD [address] [facility] [place] [address] Chronic coronary artery disease*; Aortocoronary bypass status; Statin intolerance; Dyslipidemia, goal LDL below 70; HTN, goal below 140/90; History of prostate cancer; Gilbert syndrome; Mild mitral regurgitation by prior echocardiogram; Senile osteoporosis; Personal history of fall; Sensory neuropathy; Copper deficiency; Chronic pain of right knee Allergies No known active allergiesdocumented as of this encounter (statuses as of 02/08/2024) Medications ASPIRIN 81 MG PO TABSIndications: Aortocoronary bypass status,Dyslipide martinez, goal to be determined one pill each day 34 11 12/26/19 05 Active VITAMIN D 400 UNITS PO CAPS Take by mouth. Active Vitamin B-12 1000 MCG Oral Tablet Take 1 Tablet by mouth in the morning. Active Nitroglycerin 0.4 MG Sublingual Tablet Sublingual (Nitrostat)Indic ations:Chronic coronary artery disease,Aortocor onary bypass status DISSOLVE 1 TABLET UNDER THE TONGUE AT ONSET OF SEVERE CHEST PAIN. MAY REPEAT DOSE 3 TIMES. CALL 911. 25 Tablet 02/15/20 Active Fiber Adult Gummies 2 GM Oral Tablet ChewableIndicati ons:Irritable bowel syndrome with constipation 2 in morning,1 in evening 02/15/20 Active Tamsulosin HCl 0.4 MG Oral Capsule (Flomax) Take 1 Capsule by mouth every evening. 90 Capsule 3 07/04/19 24 Active Azelastine HCl 137 MCG/SPRAY Nasal SolutionIndicati ons:Chronic rhinitis SPRAY 1 SPRAY INTO INTO EACH NOSTRIL IN THE MORNING AND AT BEDTIME 90 mL 2 10/29/19 24 Active Losartan Potassium 25 MG Oral Tablet (Cozaar)Indicati ons:Chronic coronary artery disease,Diastoli c dysfunction Take 1 Tablet by mouth in the morning. I25.10. 90 Tablet 01/13/20 24 Active Metoprolol Succinate ER 25 MG Oral Tablet Extended Release 24 Hour (toPROL XL)Indications:C hronic coronary artery disease Take 0.5 Tablets by mouth in the morning. I25.10. 45 Tablet 01/13/20 24 Active Omeprazole 20 MG Oral Capsule Delayed Release (PriLOSEC) Take 1 Capsule by mouth in the morning. Active Ezetimibe 10 MG Oral Tablet (Zetia)Indicatio ns:Dyslipidemia, goal LDL below 100 TAKE 1 TABLET BY MOUTH EVERY DAY 90 Tablet 01/16/20 24 Active B Complex Tablet 2-1 01/16/20 024 Discontinued(Me dication List Clean Up) Vitamin C 1000 MG Oral Tablet Take 1 Tablet by mouth in the morning. 024 Discontinued(Me dication List Clean Up) Inulin 2 GM Oral Tablet Chewable 2 times a day. 01/03/20 024 Discontinued(Me dication List Clean Up) Copper Gluconate 2 MG Oral Capsule Take by mouth. 024 Discontinued documented as of this encounter (statuses as of 02/08/2024) Active Problems Problem Noted Date Diagnosed Date [...] as of this encounter (statuses as of 02/08/2024) Resolved Problems Problem Noted Date Diagnosed Date Resolved Date Tinnitus of both ears 04/24/20172018 Overview (03/11/2019): Acute Restless legs syndrome 06/12/201607/12 Gallbladder polyp 05/26/2013 05/23/2014 Cholelithiasis 05/26/2013 12/19/2016 Dyslipidemia, goal to be determined 11/26/2002 03/14/2009 Overview (03/14/2009): Per Lipid Taxonomy. documented as of this encounter (statuses as of 02/08/2024) Immunizations Name Administration Dates Next Due COVID-19 [...] AM EDT documented as of this encounter Last Filed Vital Signs Vital Sign Reading Time Taken Comments Blood Pressure 126/72 01/21/2024 5:28 PM EDT Pulse 84 01/21/2024 5:28 PM EDT Temperature 36.7 C (98 F) 01/21/2024 5:28 PM EDT Respiratory Rate 18 01/21/2024 5:28 PM EDT Oxygen Saturation - - Inhaled Oxygen Concentration - - Weight 72.6 kg (160 lb 1.6 oz) 01/21/2024 5:28 P M EDT Height - - Body Mass Index 28.02 01/12/2024 5:47 PM EDT documented in this encounter Progress Notes * Katey Arora MD - 01/21/2024 5:39 PM EDT SUBJECTIVE: Xu Singletary is a 77 year old male. Chief Complaint Patient presents with Follow Up HPI: 6 mth fu. Wt Readings from Last 6 Encounters: 01/21/24 72.6 kg (160 lb 1.6 oz) 01/12/24 74.3 kg (163 lb 14.4 oz) 10/15/23 72.9 kg (160 lb 12.8 oz) 07/21/23 73 kg (160 lb 14.4 oz) 07/04/23 74.3 kg (163 lb 11.2 oz) 02/14/23 69.1 kg (152 lb 6.4 oz) BP Readings from Last 6 Encounters: 01/21/24 126/72 01/12/24 116/60 10/15/23 118/62 07/21/23 120/74 07/04/23 142/80 02/14/23 124/68 Was admitted the hospital 09/07/2022, discharged 09/10/2022 [...] watching diet now, walks 2/d Works at [employer] 3d/wk-now at [employer], retiring 02/19/23 Patient with CAD status post [...] Eats dry cereal for BF, [facility], cereal some days for dinner, does not [...] Center, willing to see Neurology for evaluation. --EKG-NSR at 63 bpm, no abnormalities. 01/21--refuses cardiology appt due to copay;Rd further rf from us as he neely snot want to fu cardiology Complains of difficulty sleeping since mcc, was advised to increase intake of fluids and notdrink any caffeine after 4:26 p.m. but has been drinking about 2-3 cups a day including in the evenings. Listen to soothing music at night. , no watching TV in bedroom Trial of taking shower before bedtime, may also try some Lavender/chamomile teaHe tried melatonin without much relief, has not tried extended-release melatonin. 10/15/2023-Neurology evaluation-likely has peripheral neuropathy with reduced sensation for vibration and decreased ankle reflex, no known diabetes or alcohol use. Labs ordered - Lyme, SPEP, heavy metals, B12 and copper level, B6 level, ELHAM titer. -- B6 toxicity which can cause neuropathy and copper deficiency which could also cause neuropathy. For B6 (pyridoxine) toxicity, we recommend B supplements without pyridoxine such as the one from [employer]. Hiscopper will need to be also supplemented but I will leave the dose up to the PCP. Had EMG Andrew 11/12/23-sensory polyneuropathy -- If not taking Zn, start OTC copper supplement as per neurology advice by Grayson>>>>>" I would recommend 2x2mg copper gluconate tabs or caps daily for 1 month, afterwards 1x2mg coppergluconate tabs/caps per day for maintenance " 01/21--did stop B6, n/t copper. Was admitted earlier this month 01/05/24 status post fall after tripping on a ground at the school multiple facial wounds and a laceration of the nose ,had sutures placed and removed at hospital follow-up 01/12/2024, also had fracture of the distal Rt thumb H/o -prostate cancer Fu Miki>XRT with lupron. [...] fluids and increase fiber in his diet, mainly consuming microwave meals Osteoporosis with Dexa [...] back-defers. 09/18--defers med. 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 And to resume 03/20--on flonase 2 s hs also, get congested at [employer]-at work--to try 1 spray in am also. 08/19--continues to have runny nose and postnasal drainage despite using Flonase at night and Jimena during the day, recommend trial of ipratropium nasal spray.-now works in the [employer] department 02/19--flonase and allegar on hold 02/20-using astelin bid 07/22-Using once daily with imp after mcc 01/2023 Had tosha cataract sg Dr[facility]ovitch, and yag laser to Rt 08/16, lt 09/16--has bifocals has f/u Friday.--feels eyes are watery but no tearing/itching, no BOV, no use artificial tears. Had covid booster and flu [facility] Immunization History Administered Date(s) Administered COVID-19 mRNA, LNP-s, No Preserve, 2-Dose Series (Moderna) 05/14/2020, 06/11/2020 COVID-19, MRNA-LNP, 23-24, PF, 50 MCG/0.5 mL, 12 YRS AND ABOVE, IM (MODERNA- Spikevax) 01/03/2023 COVID-19, mRNA, LNP-s, PF, Booster, 100mcg/0.5mg (Moderna) 02/23/2021 Covid-19, Mrna, Lnp-s, Pf, Bivalent, 30 Mcg, IM, 12 yrs and above (Pfizer) 12/11/2021 H1N1 2009 Influenza, IM 05/01/2009 Pneumococcal Conjugate Vacc, 13 Valent (Prevnar) 05/23/2014 Pneumococcal Polysaccharide PPV23 (Pneumovax) 02/14/2006 RSV Vac., Bivalent, Perfusion F, Pf,0.5 Ml (Abrysvo) 02/15/2023 Seasonal Influenza Vac., MDV, IM, 0.5 mL (Fluzone) 01/16/2004, 01/30/2005, 02/14/2006, 01/15/2007, 01/12/2009, 01/13/2012, 01/13/2013, 12/21/2013, 02/05/2016, 01/11/2017 Seasonal Influenza, High Dose, Trivalent, PF, IM (Fluzone HD) 01/13/2018, 12/22/2018 Seasonal Influenza, PF, 6 M & above, IM , (FluLaval or Fluzone) 12/29/2017 Seasonal Influenza, Quadrivalent Hd (Fluzone Hd) 12/06/2021, 12/31/2022 Seasonal Influenza, Quadrivalent Hd, 65+ Yrs 01/08/2021 Seasonal Influenza, Trivalent, Adjuvanted, 65+ YRS, PF, (Fluad) 01/02/2020 TD - Tetanus/Diptheria (ADULT) 08/03/2002, 06/29/2007 TDAP, Age 7 and older, IM [...] TSH - [facility] 1.60 01/01/2017 11:41 AM Lipid Panel Results: Results for orders placed or performed in visit on 03/13/18 LIPID PANEL Result Value Ref Range HOURS FASTING >8 HOURS hours Triglycerides 77 <200 mg/dL Cholesterol 177 <200 mg/dL HDL Cholesterol 57 >39 mg/dL Cholesterol-HDL Ratio 3.1 LDL Cholesterol 105 0 - 129 mg/dL Results for orders placed or performed in visit on 05/29/23 LIPID PANEL WITH DIRECT LDL IF TG IS HIGH Result Value Ref Range Triglycerides 154 <=174 mg/dL Cholesterol 198 <200 mg/dL HDL Cholesterol 45 >39 mg/dL Non-HDL Cholesterol 153 <=159 mg/dL LDL Cholesterol 122 <=129 mg/dL Results for orders placed or performed in visit on 10/15/23 SERUM PROTEIN ELECTROPHORESIS REFLEX PROFILE Result Value Ref Range Normal/Abnormal Normal Normal Protein 6.6 6.0 - 8.3 g/dL Albumin 3.50 3.30 - 4.40 g/dL Alpha-1 Globulin 0.19 0.10 - 0.30 g/dL Alpha-2 Globulin 0.88 0.60 - 1.00 g/dL Beta-Globulin 0.84 0.80 - 1.30 g/dL Gamma-Globulin 1.18 0.70 - 1.70 g/dL Electrophoresis Interpretation Normal serum protein electrophoretic pattern. SERUM FREE LIGHT CHAINS Result Value Ref Range Mccarthy Free Light Chains, Serum 26.39 (H) 3.30 - 19.40 mg/L Lambda Free Light Chains, Serum 18.07 5.71 - 26.30 mg/L Mccarthy Lambda Free Light Chains Ratio 1.46 0.26 - 1.65 SERUM IMMUNOFIXATION Result Value Ref Range Normal/Abnormal Normal Normal Immunofixation Interpretation No monoclonal gammopathy detected. Patient Active Problem List Diagnosis Chronic coronary artery disease Aortocoronary bypass status History of colonoscopy with polypectomy Dyslipidemia, goal LDL below 70 Statin intolerance History of prostate cancer Midline low back pain with right-sided sciatica History of non-ST elevation myocardial infarction (NSTEMI) DDD (degenerative disc disease), lumbar Left asymmetrical SNHL Senile osteoporosis Diastolic dysfunction Mild mitral regurgitation by prior echocardiogram Prostate cancer (HCC) Urgency of urination Nocturia Post-void dribbling Gilbert syndrome Current Outpatient Medications Medication Sig Dispense Refill Ezetimibe 10 MG Oral Tablet (Zetia) TAKE 1 TABLET BY MOUTH EVERY DAY 90 Tablet 0 Losartan Potassium 25 MG Oral Tablet (Cozaar) Take 1 Tablet by mouth in the morning. I25.10. 90 Tablet 0 Metoprolol Succinate ER 25 MG Oral Tablet Extended Release 24 Hour (toPROL XL) Take 0.5 Tablets by mouth in the morning. I25.10. 45 Tablet 0 Copper Gluconate 2 MG Oral Capsule Take by mouth. Omeprazole 20 MG Oral Capsule Delayed Release (PriLOSEC) Take 1 Capsule by mouth in the morning. Azelastine HCl 137 MCG/SPRAY Nasal Solution SPRAY 1 SPRAY INTO INTO EACH NOSTRIL IN THE MORNING ANDAT BEDTIME 90 mL 2 Tamsulosin HCl 0.4 MG Oral Capsule (Flomax) Take 1 Capsule by mouth every evening. 90 Capsule 3 Fiber Adult Gummies 2 GM Oral Tablet Chewable 2 in morning,1 in evening Nitroglycerin 0.4 MG Sublingual Tablet Sublingual (Nitrostat) DISSOLVE 1 TABLET UNDER THE TONGUE ATONSET OF SEVERE CHEST PAIN. MAY REPEAT DOSE 3 TIMES. CALL 911. 25 Tablet 0 Vitamin B-12 1000 MCG Oral Tablet Take 1 Tablet by mouth in the morning. VITAMIN D 400 UNITS PO CAPS Take by mouth. ASPIRIN 81 MG PO TABS one pill each day 34 11 No current facility-administered medications for this visit. Review of patient's allergies indicates: No Known Allergies OBJECTIVE: BP 126/72 | Pulse 84 | Temp 36.7 C (98 F) (Tympanic) | Resp 18 | Wt 72.6 kg (160 lb 1.6 oz) | BMI 28.02 kg/m | BSA 1.8 m PHYSICAL EXAM: General: alert, healthy, no [...] Extremities: no edema, no clubbing, no cyanosis. Rt knee--TTP medial fem condyle Neuro Exam: alert & oriented x 3 with fluent speech, no focal motor/sensory deficits, gait normal No cerebellar signs Skin: skin color, texture, turgor are normal, no rashes ASSESSMENT/PLAN: Chronic coronary artery disease (Primary) - PHARMACIST MEDS THERAPY MGMT REFERRAL OP - ECHO, COMPLETE (2D), TRANS-THORACIC; Future; Expected date: 01/21/2024 Aortocoronary bypass status - PHARMACIST MEDS THERAPY MGMT REFERRAL OP - ECHO, COMPLETE (2D), TRANS-THORACIC; Future; Expected date: 01/21/2024 Statin intolerance - PHARMACIST MEDS THERAPY MGMT REFERRAL OP Dyslipidemia, goal LDL below 70 - PHARMACIST MEDS THERAPY MGMT REFERRAL OP HTN, goal below 140/90 History of prostate cancer Gilbert syndrome Mild mitral regurgitation by prior echocardiogram - ECHO, COMPLETE (2D), TRANS-THORACIC; Future; Expected date: 01/21/2024 Senile osteoporosis Personal history of fall Sensory neuropathy - COPPER, SERUM OR PLASMA; Future; Expected date: 01/22/2024 Copper deficiency - COPPER, SERUM OR PLASMA; Future; Expected date: 01/22/2024 Chronic pain of right knee - XR KNEE 4 OR MORE VIEWS; Future; Expected date: 02/04/2024 He refuses to follow up with Cardiology due to the cost. Advised strict low-cholesterol diet, statin intolerant, has refused newer medications. , ct zetia, ct fu MTM Ch copper level to see if improved off B6 Follow Up: Return in about 6 months (around 07/21/2024), or if symptoms worsen or fail to improve, for Return with Physician, Fasting Labs 2-5 Days Before Next Visit. | For: Return with Physician, Fasting Labs 2-5 Days Before Next Visit (This note was completed using the dictation [...] with plan of care. Katey Arora MD 01/21/2024 documented in this encounter Nursing Notes * Ashleigh Martinez LPN - 01/21/2024 5:27 PM EDT Xu Singletary presents for 6 month recheck. Medications & HM reviewed. documented in this encounter Plan of Treatment Upcoming Encounters Date Type Department Care Team (Late st Contact Info) Description 07/13/2024 10:30 AM EDT Telemedicine Urology Terrie Tracy [address] [place] [id number] Angel Diaz MD [address] [place] [id number] 7, Telemed [facility] Urology Ex Rm [address] [place] [id number] 07/21/2024 12:20 PM EDT Office Visit General Internal Medicine [facility] [address] [facility] [place] [address] Katey Arora MD [address] [place] [address] Scheduled Referrals Name Type Priority Associated Diagnoses Orde r Schedule PHARMACIST MEDS THERAPY MGMT REFERRAL OP Referral Within 30 days (routine) Chronic coronary artery disease Aortocoronary bypass status Statin intolerance Dyslipidemia, goal LDL below 70 Ordered: 01/21/2024 Health Maintenance Due Date Last Done Comments [...] D LEVEL ONCE IN A LIFETIME-USE SMARTSET# [id number] Completed 05/29/2023, 02/27/2022, 03/16/2019, Additional history exists [...] Not on filedocumented as of this encounter Results * XR KNEE 4 OR MORE VIEWS (02/04/2024 1:17 PM EST) Anatomical Region Laterality Modality Knee, Lower Extremity Computed R adiography 02/06/2024 10:2 1 AM EST Impressions 02/06/2024 10:19 AM EST IMPRESSION Unremarkable radiographs of the right knee. Narrative 02/06/2024 10:19 AM EST EXAM XR KNEE 4 OR MORE VIEWS-RT/STAND 02/04/2024 1:17 pm HISTORY Provided clinical history: "pain medial knee/l/e femur on waking" TECHNIQUE Four views of the right knee were obtained. COMPARISON None. FINDINGS Normal alignment. No gross joint space narrowing. No fracture or bone lesion. No significant joint effusion. Procedure Note Jose Valdez MD - 02/06/2024 EXAM XR KNEE 4 OR MORE VIEWS-RT/STAND 02/04/2024 1:17 pm HISTORY Provided clinical history: "pain medial knee/l/e femur on waking" TECHNIQUE Four views of the right knee were obtained. COMPARISON None. FINDINGS Normal alignment. No gross joint space narrowing. No fracture or bonelesion. No significant joint effusion. IMPRESSION IMPRESSION Unremarkable radiographs of the right knee. Katey Arora MD RADIOLOGY (RAD GENERAL) Final Re sult * (ABNORMAL) COPPER, SERUM OR PLASMA (01/26/2024 1:15 PM EDT) Copper 50(L) 70 - 175 mcg/dL 01/28/2024 11:01 PM EDT [employer] [place] Comment: This test was developed and its analytical performance characteristics have been determined by [facility] [place], [place]. It has not been cleared or approved by the U.S. Food and Drug Administration. This assay has been validated pursuant to the CLIA regulations and is used for clinical purposes. Test Performed at: [facility] [address] Danny Rondon M.D., Ph.D.,Director of Laboratories Blood Venous blood specimen / Unknown Venipuncture / Unknown 01/26/2024 1:15 PM EDT 01/26/2024 1:15 PM EDT Katey Arora MD LAB BLOOD ORDERABLES Final Resul t [facility] [address] [address] * ECHO, COMPLETE (2D), TRANS-THORACIC (01/23/2024 11:28 AM EDT) Pathologist [facility] LEFT VENTRICULAR EJECTION FRACTION 55 % [facility] 01/23/2024 10:5 6 AM EDT Katey Arora MD ECHOCARDIOLOGY Final Result [facility] documented in this encounter Visit Diagnoses Diagnosis Chronic coronary artery disease- Primary Coronary atherosclerosis of unspecified type of vessel, [place] or graft 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 Statin intolerance Other drug allergy Dyslipidemia, goal LDL below 70 Other and unspecified hyperlipidemia HTN, goal below 140/90 Unspecified essential hypertension History of prostate cancer Personal history of malignant neoplasm of prostate Gilbert syndrome Disorders of bilirubin excretion Mild mitral regurgitation by prior echocardiogram Mitral valve disorders Senile osteoporosis Personal history of fall Sensory neuropathy Unspecified hereditary and idiopathic peripheral neuropathy Copper deficiency Disorders of copper metabolism Chronic pain of right knee Chronic pain of right knee documented in this encounter Care Teams Radio Repairer Domestic Relationship Specialty Start Date End Date Katey Arora MD [address] [facility] [place] [address] PCP - General Internal Medicine 07/09/17 documented as of this encounter
--- OUTSIDE RECORDS SUMMARY | 2024-06-07 06:00 | External Medical Summary | Summary of Care ---
Author Name Unknown Organization [facility] Address [address] [place] [address] Phone [phone] Care Team Providers Care Bacteriologist Soil Name Role Phone Katey Arora MD Primary Care Provider [phone] Reason for Visit * Reason Comments Return Visit Patient c/o trouble sleeping at night. Reports he lies awake for hours during the night. Has been going on for a couple of years. Melatonin is not helpful. Encounter Details Date Type Department Care Team (Late st Contact Info) Description 03/16/2024 11:00 AM EST Office Visit General Internal Medicine [facility] [address] [facility] [place] [address] Lianet Pearl PA-C [address] [facility] [place] [address] Difficulty sleeping* Allergies No known active allergiesdocumented as of this encounter (statuses as of 03/16/2024) Medications ASPIRIN 81 MG PO TABSIndications:Ao rtocoronary [...] TIMES. CALL 911. 25 Tablet 02/15/20 Active Additional Information Patient not taking.Reported on 03/16/2024 Fiber Adult Gummies 2 GM Oral Tablet ChewableIndication s:Irritable bowel syndrome with constipation 2 in morning,1 in evening 02/15/20 Active Tamsulosin HCl 0.4 MG Oral Capsule (Flomax) Take 1 Capsule by mouth every evening. 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 documented as of this encounter (statuses as of 03/16/2024) Immunizations Name Administration Dates Next Due COVID-19 [...] Date Recorded PHQ Adult Total Score 0 03/16/2024 Hunger Vital Sign Answer Date Recorded Worried [...] Sign Reading Time Taken Comments Blood Pressure 124/84 03/16/2024 11:19 AM EST Pulse 72 03/16/2024 11:19 AM EST Temperature 36.5 C (97.7 F) 03/16/2024 11:[address] Respiratory Rate - - Oxygen Saturation 96% 03/16/2024 11:19 AM EST Inhaled Oxygen Concentration - - Weight 73.8 kg (162 lb 9.6 oz) 03/16/2024 11:19 AM EST Height - - Body Mass Index 28.45 01/12/2024 5:47 PM EDT documented in this encounter Progress Notes * Lianet Pearl PA-C - 03/16/2024 11:32 AM EST Images from the original note were not included. History of Present Illness Xu Singletary is a 83 year old male that presents for Return Visit (Patient c/o trouble sleeping at night. Reports he lies awake for hours during the night. Has been going on for a couple of years.Melatonin is not helpful. ) Pt here today for an acute visit with c/o difficulty sleeping. Reports has been ongoing for years. Difficulty turning his brain off to fall asleep. Has tried taking Advil PM and melatonin without relief. Denies snoring, waking up through the night, or excessive daytime sleepiness. Review of Systems: See HPI for pertinent positives. All other review of systems is negative. Physical Exam Vitals: 03/16/24 1119 Temp: 97.7 F (36.5 C) Pulse: 72 SpO2: 96% BP: 124/84 Physical Exam Constitutional: General: He is not in acute distress. Appearance: He is not diaphoretic. Neurological: General: No focal deficit present. Mental Status: He is alert. Mental status is at baseline. Psychiatric: Mood and Affect: Mood normal. Behavior: Behavior normal. STOP BANG - score of 3 (intermediate risk of OSA0 Insomnia Severity Index - score of 5 (no clinically significant insomnia) I have reviewed the following results: Assessment and Plan Difficulty sleeping Discussed referral for therapy to help with behavior and creating routine that allows relaxation and falling asleep naturally. Pt declines this. Also not interested in sleep study. Discussed with pt prescription meds for sleep would be quite high risk for him and also not prudent at this time givenhis symptom severity. He voiced understanding. Can certainly let us know if symptoms progress. Wrap-Up Follow Up: Return if symptoms worsen or fail to improve. Time: I spent a total of 20-29 minutes (exact time 28 mins) on the date of service in preparation, delivery, and documentation of the care provided to Xu Singletary excluding any time spent in the performance of separately billed services. documented in this encounter Nursing Notes * Brianne Stafford MED ASSIST - 03/16/2024 11:21 AM EST Chief Complaint Patient presents with Return Visit Patient c/o trouble sleeping at night. Reports he lies awake for hours during the night. Has been going on for a couple of years. Melatonin is not helpful. documented in this encounter Plan of Treatment Upcoming Encounters Date Type Department Care Team (Late st Contact Info) Description 07/13/2024 10:30 AM EDT Telemedicine Urology [facility] [address] [place] [address] Angel Diaz MD [address] [place] [phone] 7, Telemed [facility] Urology Ex R[address] [place] [address] 07/21/2024 12:20 PM EDT Office Visit General Internal Medicine [facility] [address] [facility] [place] [address] Katey Arora MD [address] [place] [address] Health Maintenance Due Date Last Done Comments DISCUSS TOBACCO CESSATION (REFER TO SMARTSET #3291) 1940 Adult Wellness Visit 08/26/2018 08/26/2017 *BISPHONATE OR OTHER ACCEPTABLE MEDICATION NEEDED FOR OSTEOPOROSIS (REFER TO SMARTSET #1146) 07/24/2023 COVID-19 Vaccine ( season) 2024 01/03/2023, 01/03/2023, 12/11/2021, Additional history exists Postponed from 11/30/2023 (Unavailable) Depression Screening 03/16/2025 03/16/2024 DXA Scan 05/07/2025 05/07/2023, 08/0 11/2020, 09/22/2018, Additional history exists DTap/Tdap Vaccines (2 - Td or Tdap) 03/06/2026 03/06/2016, 06/29/2007, 08/03/2002 Pneumococcal Vaccine: 65+ Years Completed 05/23/2014, 02/14/2006 Zoster Vaccines Completed 03/26/2019, 09/30, 08/26/2017, Additional history exists VITAMIN D LEVEL ONCE IN A LIFETIME-USE SMARTSET# [id number] Completed 05/29/2023, 02/27/2022, 03/16/2019, Additional history exists Influenza Vaccine (FLU shot) Completed 01/13/2024, 12/31/2022, 12/06/2021, Additional history exists HPV (Gardasil) [...] as of this encounter Visit Diagnoses Diagnosis Difficulty sleeping- Primary Sleep disturbance, unspecified documented in this encounter Care Teams Bacteriologist Soil Relationship Specialty Start Date End Date Katey Arora MD [address] [place] [address] PCP - General Internal Medicine 07/09/17 documented as of this encounter
--- OUTSIDE RECORDS SUMMARY | 2024-06-07 06:00 | External Medical Summary | Summary of Care ---
Author Name Unknown Organization [facility] Address [address] [place] [address] Phone [phone] Care Team Providers Care Assistant Child Care Teacher Name Role Phone Katey Arora MD Primary Care Provider [phone] Reason for Visit * Reason Onset Date Comments Test Results Imaging Study 02/13/2024 Encounter Details Date Type Department Care Team (Late st Contact Info) Description 02/13/2024 Telephone General Internal Medicine [facility] [address] [place] [address] Katey Arora MD 200 [facility] [place] [address] Test Results Imaging Study Allergies No known active allergiesdocumented as of this encounter (statuses as of 02/13/2024) Medications ASPIRIN 81 MG PO TABSIndications:Ao rtocoronary [...] 3 TIMES. CALL 911. 25 Tablet 02/15/20 23 Active Fiber Adult Gummies 2 GM Oral [...] as of this encounter (statuses as of 02/13/2024) Active Problems Problem Noted Date Diagnosed Date [...] History of prostate cancer 12/06/2015 Overview (08/26/2017): Fu Miki>XRT with lupron. Finished his radiation Feb 2016, Last lupron 04/09/16. Dyslipidemia, goal LDL below 70 03/14/2009 Overview (04/05/2018): zetia 10mg. 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 documented as of this encounter (statuses as of 02/13/2024) Immunizations Name Administration Dates Next Due COVID-19 [...] encounter Miscellaneous Notes * Telephone Encounter - Mandy Preciado LPN - 02/13/2024 10:47 AM EST Patient aware and verbalized understanding. Declines seeing Ortho at this time. * Telephone Encounter - Aury Joe CMA - 02/13/2024 9:18 AM EST Attempted to call, LVM to return call. Transfer to D[facility]. Please advise of message below, pend ortho referral if patient would like to see them. * Telephone Encounter - Aury Joe CMA - 02/13/2024 9:17 AM EST ----- Message from Katey Arora MD sent at 02/06/2024 5:04 PM EST ----- Rt knee xray is normal. If wants to see ortho please place referral documented in this encounter Plan of Treatment Upcoming Encounters Date Type Department Care Team (Late st Contact Info) Description 07/13/2024 10:30 AM EDT Telemedicine Urology Terrie Tracy [address] [place] [address] Angel Diaz MD [address] [place] [address] 7, Telemed [facility] Urology Ex Rm [address] [place] [address] 07/21/2024 12:20 PM EDT Office Visit General Internal Medicine [facility] 200 [facility] [place] [address] Katey Arora MD 200 [facility] [place] [address] Health Maintenance Due Date Last Done Comments [...] D LEVEL ONCE IN A LIFETIME-USE SMARTSET# [id number] Completed 05/29/2023, 02/27/2022, 03/16/2019, Additional history exists [...] filedocumented as of this encounter Care Teams Assistant Child Care Teacher Relationship Specialty Start Date End Date Katey Arora MD 200 [facility] [place] [address] PCP - General Internal Medicine 07/09/17 documented as of this encounter
--- OUTSIDE RECORDS SUMMARY | 2024-06-07 06:00 | External Medical Summary | Summary of Care ---
Author Name Unknown Organization [facility] Address [address] [place] [address] Phone [phone] Care Team Providers Care Human Resources Psychologist Name Role Phone Tom Arora MD Primary Care Provider Reason for Visit * Reason Comments eRx-Medication Refill Encounter Details Date Type Department Care Team (Late st Contact Info) Description 04/09/2024 Refill General Internal Medicine [facility] 200 [facility] [place] [address] Tom Arora MD [address] [place] [address] Chronic coronary artery disease; Diastolic dysfunction Allergies No known active allergiesdocumented as of this encounter (statuses as of 04/09/2024) Medications ASPIRIN 81 MG PO TABSIndications:A ortocoronary bypass status,Dyslipidem ia, goal to be determined one pill each day 34 11 005 Active VITAMIN D 400 UNITS PO CAPS Take by mouth. A ctive Vitamin B-12 1000 MCG Oral Tablet Take 1 Tablet by mouth in the morning. Active Nitroglycerin 0.4 MG Sublingual Tablet Sublingual (Nitrostat)Indica tions:Chronic coronary artery disease,Aortocoro nary bypass status DISSOLVE 1 TABLET UNDER THE TONGUE AT ONSET OF SEVERE CHEST PAIN. MAY REPEAT DOSE 3 TIMES. CALL 911. 25 Tablet 023 Active Additional Information Patient not taking.Reported on 03/16/2024 Fiber Adult Gummies 2 GM Oral Tablet ChewableIndicatio ns:Irritable bowel syndrome with constipation 2 in morning,1 in evening 023 Active Tamsulosin HCl 0.4 MG Oral Capsule (Flomax) Take 1 Capsule by mouth every evening. 90 Capsule 3 024 Active Azelastine HCl 137 MCG/SPRAY Nasal SolutionIndicatio ns:Chronic rhinitis SPRAY 1 SPRAY INTO INTO EACH NOSTRIL IN THE MORNING AND AT BEDTIME 90 mL 2 024 Active Omeprazole 20 MG Oral Capsule Delayed Release (PriLOSEC) Take 1 Capsule by mouth in the morning. Active Ezetimibe 10 MG Oral Tablet (Zetia)Indication s:Dyslipidemia, goal LDL below 100 TAKE 1 TABLET BY MOUTH EVERY DAY 90 Tablet 024 Active Copper Gluconate 2 MG Oral CapsuleIndication s:Copper deficiency,Periph eral polyneuropathy 2x2mg copper gluconate tabs or caps daily for 1 month, then 1x2mg copper gluconate tabs/caps per day for maintenance - from 01/30/24 120 Capsule 1 024 Active Metoprolol Succinate ER 25 MG Oral Tablet Extended Release 24 Hour (toPROL XL)Indications:Ch ronic coronary artery disease TAKE 0.5 TABLETS BY MOUTH IN THE MORNING. I25.10. 45 Tablet 2 025 Active Losartan Potassium 25 MG Oral Tablet (Cozaar)Indicatio ns:Chronic coronary artery disease,Diastolic dysfunction TAKE 1 TABLET BY MOUTH IN THE MORNING. I25.10. 90 Tablet 2 025 Active Losartan Potassium 25 MG Oral Tablet (Cozaar)Indicatio ns:Chronic coronary artery disease,Diastolic dysfunction Take 1 Tablet by mouth in the morning. I25.10. 90 Tablet 024 2024 Discontinued Metoprolol Succinate ER 25 MG Oral Tablet Extended Release 24 Hour (toPROL XL)Indications:Ch ronic coronary artery disease Take 0.5 Tablets by mouth in the morning. I25.10. 45 Tablet 024 2024 Discontinued documented as of this encounter (statuses as of 04/09/2024) Active Problems Problem Noted Date Diagnosed Date [...] 10mg. History of colonoscopy with polypectomy 01/04/20 Overview (08/26/2017): 02/2016--csope nml Colonoscopy 12/31/05--inflammatory polyps--repeat 10 years Aortocoronary bypass status 01/16/2004 Overview (08/26/2017): 2004 x 3 Chronic coronary artery disease 11/26/2002 Statin intolerance documented as of this encounter (statuses as of 04/09/2024) Resolved Problems Problem Noted Date Diagnosed Date Resolved Date Tinnitus of both ears 04/24/20172018 Overview (03/11/2019): Acute Restless legs syndrome 06/12/201607/12 Gallbladder polyp 05/26/2013 05/23/2014 Cholelithiasis 05/26/2013 12/19/2016 Dyslipidemia, goal to be determined 11/26/2002 03/14/2009 Overview (03/14/2009): Per Lipid Taxonomy. documented as of this encounter (statuses as of 04/09/2024) Immunizations Name Administration Dates Next Due COVID-19 [...] encounter Miscellaneous Notes * Telephone Encounter - Tom Arora MD - 04/09/2024 3:58 PM ESTSigned Prescriptions: Disp Refills Metoprolol Succinate ER 25 MG Oral Tablet *45 Tab*2 Sig: TAKE 0.5 TABLETS BY MOUTH IN THE MORNING. I25.10. Authorizing Provider: TOM ARORA Losartan Potassium 25 MG Oral Tablet (Coza*90 Tab*2 Sig: TAKE 1 TABLET BY MOUTH IN THE MORNING. I25.10. Authorizing Provider: TOM ARORA ------- * Telephone Encounter - Hafsa Jesus [facility] - 04/09/2024 2:32 PM ESTPending Prescriptions: Disp Refills Metoprolol Succinate ER 25 MG Oral Tablet *45 Tab*3 Sig: TAKE 0.5 TABLETS BY MOUTH IN THE MORNING. I25.10. Losartan Potassium 25 MG Oral Tablet (Coza*90 Tab*1 Sig: TAKE 1 TABLET BY MOUTH IN THE MORNING. I25.10. * Telephone Encounter - Hafsa Jesus [facility] - 04/09/2024 2:29 PM EST Patient previously prescribed medication by cardiology. Refills to be prescribed by PCP per 01/14/2024 refill encounter. Please approve if agreeable. Pending Prescriptions: Disp Refills Metoprolol Succinate ER 25 MG Oral Tablet*45 Tab*3 Sig: TAKE 0.5 TABLETS BY MOUTH IN THE MORNING. I25.10. Losartan Potassium 25 MG Oral Tablet (Coz*90 Tab*1 Sig: TAKE 1 TABLET BY MOUTH IN THE MORNING. I25.10. Thank you, Hafsa Jesus, PharmD Clinical Pharmacist [facility] [phone] 04/09/2024, 2:31 PM documented in this encounter Plan of Treatment Upcoming Encounters Date Type Department Care Team (Late st Contact Info) Description 07/13/2024 10:30 AM EDT Telemedicine Urology [facility] Tracy [address] [place] [address] Angel Diaz MD [address] [address] 7, Telemed [facility] Urology Ex Rm [address] [place] [address] 07/21/2024 12:20 PM EDT Office Visit General Internal Medicine [facility] [place] [address] [facility] [place] [address] Tom Arora MD 200 [facility] [place] [address] Health Maintenance Due Date Last Done Comments DISCUSS TOBACCO CESSATION (REFER TO SMARTSET #3291) 1940 Adult Wellness Visit 08/26/2018 08/26/2017 *BISPHONATE OR OTHER ACCEPTABLE MEDICATION NEEDED FOR OSTEOPOROSIS (REFER TO SMARTSET #1146) 07/24/2023 COVID-19 Vaccine ( season) 2023 01/03/2023, 01/03/2023, 12/11/2021, Additional history exists Depression Screening 03/16/2025 03/16/2024 DXA Scan 05/07/2025 05/07/2023, 08/0 11/2020, 09/22/2018, Additional history exists DTap/Tdap Vaccines (2 - Td or Tdap) 03/06/2026 03/06/2016, 06/29/2007, 08/03/2002 Pneumococcal Vaccine: 50+ Years Completed 05/23/2014, 02/14/2006 Zoster Vaccines Completed 03/26/2019, 09/30, 08/26/2017, Additional history exists VITAMIN D LEVEL ONCE IN A LIFETIME-USE SMARTSET# [id number] Completed 05/29/2023, 02/27/2022, 03/16/2019, Additional history exists [...] Coronary atherosclerosis of unspecified type of vessel, cahuilla or graft Diastolic dysfunction Heart disease, unspecified documented in this encounter Care Teams Human Resources Psychologist Relationship Specialty Start Date End Date Tom Arora MD [address] [place] [address] PCP - General Internal Medicine 07/09/17 documented as of this encounter
--- OUTSIDE RECORDS SUMMARY | 2024-06-07 06:00 | External Medical Summary | Summary of Care ---
Author Name Unknown Organization [facility] Address [address] [place] [address] Phone [phone] Care Team Providers Care Correctional Medicine Physician Name Role Phone Katey Arora MD Primary Care Provider [phone] Reason for Visit * Reason Onset Date Comments Med Request 05/12/2024 Encounter Details Date Type Department Care Team (Late st Contact Info) Description 05/12/2024 Telephone General Internal Medicine [facility] 200 [place] [address] Katey Arora MD 200 [place] [address] Med Request Allergies No known active allergiesdocumented as of this encounter (statuses as of 06/05/2024) Medications ASPIRIN 81 MG PO TABSIndications:Ao rtocoronary [...] CALL 911. 25 Tablet 02/15/20 23 Active Additional Information Patient not taking.Reported on [...] BEDTIME 90 mL 2 10/29/19 24 Active Omeprazole 20 MG Oral Capsule Delayed Release (PriLOSEC) Take 1 Capsule by mouth in the morning. Active Copper Gluconate 2 MG Oral CapsuleIndications :Copper deficiency,Periphe ral polyneuropathy 2x2mg copper gluconate tabs or caps daily for 1 month, then 1x2mg copper gluconate tabs/caps per day for maintenance - from 01/30/24 120 Capsule 1 01/31/20 24 Active Metoprolol Succinate ER 25 MG Oral Tablet Extended Release 24 Hour (toPROL XL)Indications:Chr onic coronary artery disease TAKE 0.5 TABLETS BY MOUTH IN THE MORNING. I25.10. 45 Tablet 2 04/09/19 25 Active Losartan Potassium 25 MG Oral Tablet (Cozaar)Indication s:Chronic coronary artery disease,Diastolic dysfunction TAKE 1 TABLET BY MOUTH IN THE MORNING. I25.10. 90 Tablet 2 04/09/19 25 Active Ezetimibe 10 MG Oral Tablet (Zetia)Indications :Dyslipidemia, goal LDL below 100 TAKE 1 TABLET BY MOUTH EVERY DAY 90 Tablet 3 04/26/19 25 Active documented as of this encounter (statuses as of 06/05/2024) Active Problems Problem Noted Date Diagnosed Date [...] as of this encounter (statuses as of 06/05/2024) Resolved Problems Problem Noted Date Diagnosed Date Resolved Date Tinnitus of both ears 04/24/20172018 Overview (03/11/2019): Acute Restless legs syndrome 06/12/201607/12 Gallbladder polyp 05/26/2013 05/23/2014 Cholelithiasis 05/26/2013 12/19/2016 Dyslipidemia, goal to be determined 11/26/2002 03/14/2009 Overview (03/14/2009): Per Lipid Taxonomy. documented as of this encounter (statuses as of 06/05/2024) Immunizations Name Administration Dates Next Due COVID-19 [...] encounter Miscellaneous Notes * Telephone Encounter - Lianet Pearl PA-C - 05/13/2024 10:17 AM EST Recommend consideration of a sleep study or referral to therapy to help with sleep as we discussed at his visit as many sleep meds would be high risk for him. He is welcome to discuss with his PCP aswell. * Telephone Encounter - Aury Joe CMA - 05/12/2024 4:23 PM EST Patient saw you in office on 03/16, should he come back for office visit? * Telephone Encounter - Cordelia Chambers OSA - 05/12/2024 1:43 PM EST Patient calling in to get something so he can fall asleep at night.Its takes pt 2 hours to fall asleep he has tried everything to fall asleep and can't.Patient can be reached at [phone] documented in this encounter Plan of Treatment Upcoming Encounters Date Type Department Care Team (Late st Contact Info) Description 07/13/2024 10:30 AM EDT Telemedicine Urology Terrie Tracy [address] [place] [address] Angel Diaz MD [address] [address] 7, Telemed [facility] Urology Ex Rm [address] [place] [address] 07/21/2024 12:20 PM EDT Office Visit General Internal Medicine [facility] 200 [facility] [place] [address] Katey Arora MD 200 [place] [address] Health Maintenance Due Date Last Done Comments DISCUSS TOBACCO CESSATION (REFER TO SMARTSET #3291) 1940 Adult Wellness Visit 08/26/2018 08/26/2017 *BISPHONATE OR OTHER ACCEPTABLE MEDICATION NEEDED FOR OSTEOPOROSIS (REFER TO SMARTSET #1146) 07/24/2023 COVID-19 Vaccine ( season) 2023 01/03/2023, 12/11/2021, 02/23/2021, Additional history exists Depression Screening 03/16/2025 03/16/2024 DXA Scan 05/07/2025 05/07/2023, 11/2020, 09/22/2018, Additional history exists DTap/Tdap Vaccines (2 - Td or Tdap) 03/06/2026 03/06/2016, 06/29/2007, 08/03/2002 Pneumococcal Vaccine: 50+ Years Completed 05/23/2014, 02/14/2006 Zoster Vaccines Completed 03/26/2019, 09/30, 08/26/2017, Additional history exists VITAMIN D LEVEL ONCE IN A LIFETIME-USE SMARTSET# [id number] Completed 05/29/2023, 02/27/2022, 03/16/2019, Additional history exists [...] on patient's age to complete this topic Meningitis B Vaccine (Bexsero/Trumemba) Aged Out No longer eligible based on patient's age to complete this topic documented as of this encounter Medical Devices Not on filedocumented as of this encounter Care Teams Correctional Medicine Physician Relationship Specialty Start Date End Date Katey Arora MD [address] [place] [address] PCP - General Internal Medicine 07/09/17 documented as of this encounter
--- OUTSIDE RECORDS SUMMARY | 2024-06-07 06:01 | External Medical Summary | Summary of Care ---
Author Name Unknown Organization [facility] Address [address] [place] [address] Phone [phone] Care Team Providers Care Machine Slat Basket Maker Name Role Phone Katey Arora MD Primary Care Provider [phone] Reason for Visit * Reason Onset Date Comments Referral 01/22/2024 [facility] Lipids Encounter Details Date Type Department Care Team (Late st Contact Info) Description 01/22/2024 Telephone Centralized Clinical Pharmacy Services, Florencio Zambrano [address] [place] [address] [place] [address] [facility] [address] [place] [address] Referral ([facility] Lipids) Allergies No known active allergiesdocumented as of this encounter (statuses as of 01/22/2024) Medications Medication Sig Dispensed Refills Start Date [...] Tablet ChewableIndications:I rritable bowel syndrome with constipation 2 in morning,1 in evening 02/14/2023 Active Tamsulosin HCl 0.4 MG Oral Capsule (Flomax) Take 1 Capsule by mouth every evening. 90 Capsule 3 07/04/2023 Active Azelastine HCl 137 MCG/SPRAY Nasal SolutionIndications:C hronic rhinitis SPRAY 1 SPRAY INTO INTO EACH NOSTRIL IN THE MORNING AND AT BEDTIME 90 mL 2 10/29/2023 Active Losartan Potassium 25 MG Oral Tablet (Cozaar)Indications:C hronic coronary artery disease,Diastolic dysfunction Take 1 Tablet by mouth in the morning. I25.10. 90 Tablet 01/13/2024 Active Metoprolol Succinate ER 25 MG Oral Tablet Extended Release 24 Hour (toPROL XL)Indications:Chroni c coronary artery disease Take 0.5 Tablets by mouth in the morning. I25.10. 45 Tablet 01/13/2024 Active Copper Gluconate 2 MG Oral Capsule Take by mouth. Active Omeprazole 20 MG Oral Capsule Delayed Release (PriLOSEC) Take 1 Capsule by mouth in the morning. Active Ezetimibe 10 MG Oral Tablet (Zetia)Indications:Dy slipidemia, goal LDL below 100 TAKE 1 TABLET BY MOUTH EVERY DAY 90 Tablet 01/16/2024 Active documented as of this encounter (statuses as of 01/22/2024) Active Problems Problem Noted Date Diagnosed Date [...] as of this encounter (statuses as of 01/22/2024) Resolved Problems Problem Noted Date Diagnosed Date Resolved Date Tinnitus of both ears 04/24/20172018 Overview: Acute Restless legs syndrome 06/12/201607/12 Gallbladder polyp 05/26/2013 05/23/2014 Cholelithiasis 05/26/2013 12/19/2016 Dyslipidemia, goal to be determined 11/26/2002 03/14/2009 Overview: Per Lipid Taxonomy. documented as of this encounter (statuses as of 01/22/2024) Immunizations Name Administration Dates Next Due COVID-19 [...] encounter Miscellaneous Notes * Telephone Encounter - Lila Metcalf woven blind loom tender - 01/22/2024 3:49 PM EDT Pt returned our call to schedule from referral pt then declined scheduling. He feels that his lipids are managed fine with the medications he is on and does not wish to schedule. Thank you, Lila Metcalf Clinical Program Coordinator [facility] ([facility]) 01/22/2024 3:53 PM documented in this encounter Plan of Treatment Upcoming Encounters Date Type Department Care Team (Late st Contact Info) Description 01/23/2024 11:00 AM EDT Cardiac Studies Cardiac Studies, [facility] [address] [facility] [place] [address] 07/13/2024 10:15 AM EDT Office Visit Urology, [facility] [address] [facility] [place] [address] Angel Diaz MD [address] [place] [place] [address] 07/21/2024 12:20 PM EDT Office Visit General Internal Medicine Annita Cisse [place] [address] [place] [address] Katey Arora MD [address] [place], [place] [address] Health Maintenance Due Date Last Done Comments [...] D LEVEL ONCE IN A LIFETIME-USE SMARTSET# [id number] Completed 05/29/2023, 02/27/2022, 03/16/2019, Additional history exists [...] filedocumented as of this encounter Care Teams Machine Slat Basket Maker Relationship Specialty Start Date End Date Katey Arora MD 200 [place] [address] PCP - General Internal Medicine 07/09/17 documented as of this encounter
--- OUTSIDE RECORDS SUMMARY | 2024-06-07 06:01 | External Medical Summary | Summary of Care ---
Author Name Unknown Organization [facility] Address [address] [place] [address] Phone [phone] Care Team Providers Care Polymerization Kettle Operator Name Role Phone Katey Arora MD Primary Care Provider [phone] Reason for Visit * Reason Onset Date Comments Test Results 01/26/2024 Encounter Details Date Type Department Care Team (Late st Contact Info) Description 01/26/2024 Telephone General Internal Medicine [facility] [address] [place] [address] Katey Arora MD 200 [place] [address] Test Results Allergies No known active allergiesdocumented as of this encounter (statuses as of 01/26/2024) Medications Medication Sig Dispensed Refills Start Date [...] as of this encounter (statuses as of 01/26/2024) Active Problems Problem Noted Date Diagnosed Date [...] as of this encounter (statuses as of 01/26/2024) Resolved Problems Problem Noted Date Diagnosed Date Resolved Date Tinnitus of both ears 04/24/20172018 Overview: Acute Restless legs syndrome 06/12/201607/12 Gallbladder polyp 05/26/2013 05/23/2014 Cholelithiasis 05/26/2013 12/19/2016 Dyslipidemia, goal to be determined 11/26/2002 03/14/2009 Overview: Per Lipid Taxonomy. documented as of this encounter (statuses as of 01/26/2024) Immunizations Name Administration Dates Next Due COVID-19 [...] encounter Miscellaneous Notes * Telephone Encounter - Elodia Cottrell LPN - 01/26/2024 11:06 AM EDT Patient aware and verbalized understanding. He states he did have copper lab drawn done, but they notified him they had technical issues so he has to go 01/26/24 to get it re drawn. FYI * Telephone Encounter - Brianne Stafford MED ASSIST - 01/26/2024 10:24 AM EDT Attempted to call patient, there was no answer, left voicemail. When patient returns call, ok for NELIDA to relay message, please refer to below documentation. If needed, can transfer to dedicated nurse line. * Telephone Encounter - Brianne Stafford MED ASSIST - 01/26/2024 10:17 AM EDT ----- Message from Katey Arora MD sent at 01/26/2024 1:03 AM EDT ----- Echo-normal heart function, mild thickening of the aortic valve-improved from prior, mild mitral and tricuspid valve regurgitation. -TSH normal, check with lab if copper level was collected documented in this encounter Plan of Treatment Upcoming Encounters Date Type Department Care Team (Late st Contact Info) Description 07/13/2024 10:30 AM EDT Telemedicine Urology Terrie Tracy [address] [place] [address] [place] [address] Angel Diaz MD [address] [place] [place] [address] 7, Telemed [facility] Urology Ex Rm [address] [place] [address] 07/21/2024 12:20 PM EDT Office Visit General Internal Medicine [facility] 200 [place] [address] Katey Arora MD 200 [place] [address] Health Maintenance Due Date Last Done Comments [...] D LEVEL ONCE IN A LIFETIME-USE SMARTSET# [id number] Completed 05/29/2023, 02/27/2022, 03/16/2019, Additional history exists [...] filedocumented as of this encounter Care Teams Polymerization Kettle Operator Relationship Specialty Start Date End Date Katey Arora MD [address] [place] [address] PCP - General Internal Medicine 07/09/17 documented as of this encounter
--- OUTSIDE RECORDS SUMMARY | 2024-06-07 06:01 | External Medical Summary | Summary of Care ---
Author Name Unknown Organization [facility] Address [address] [place] [address] Phone [phone] Care Team Providers Care Nuclear Spectroscopist Name Role Phone Katey Arora MD Primary Care Provider [phone] Reason for Visit * Reason Onset Date Comments Test Results 01/30/2024 Encounter Details Date Type Department Care Team (Late st Contact Info) Description 01/30/2024 Telephone General Internal Medicine [facility] 200 [place] [address] Katey Arora MD 200 [place] [address] Test Results Allergies No known active allergiesdocumented as of this encounter (statuses as of 02/02/2024) Medications Medication Sig Dispensed Refills Start Date [...] Oral Tablet Extended Release 24 Hour (toPROL XL)Indications:Hebrew Professor terrance coronary artery disease Take 0.5 Tablets [...] as of this encounter (statuses as of 02/02/2024) Active Problems Problem Noted Date Diagnosed Date [...] as of this encounter (statuses as of 02/02/2024) Resolved Problems Problem Noted Date Diagnosed Date Resolved Date Tinnitus of both ears 04/24/20172018 Overview: Acute Restless legs syndrome 06/12/201607/12 Gallbladder polyp 05/26/2013 05/23/2014 Cholelithiasis 05/26/2013 12/19/2016 Dyslipidemia, goal to be determined 11/26/2002 03/14/2009 Overview: Per Lipid Taxonomy. documented as of this encounter (statuses as of 02/02/2024) Immunizations Name Administration Dates Next Due COVID-19 [...] copper gluconate. He purchased this online via [employer] and the capsules are 14 mg. Is [...] online. He states he was just at [facility] pharmacy and they did not have any script for him available. I contacted [facility] and they never received new Copper script [...] Telemedicine Urology Terrie Tracy [address] [facility] [address] [place] [place] [address] Angel Diaz MD [address] [place] [address] 7, Telemed [facility] Urology Ex Rm [address] [facility] [place] [address] 07/21/2024 12:20 PM EDT Office Visit General Internal Medicine [facility] 200 [facility] [place] [address] Katey Arora MD 200 [facility] [place] [address] Scheduled Orders Name Type Priority Associated Diagnoses [...] D LEVEL ONCE IN A LIFETIME-USE SMARTSET# [id number] Completed 05/29/2023, 02/27/2022, 03/16/2019, Additional history exists [...] neuropathy documented in this encounter Care Teams Nuclear Spectroscopist Relationship Specialty Start Date End Date Katey Arora MD 200 [place] [address] PCP - General Internal Medicine 07/09/17 documented as of this encounter
--- OUTSIDE RECORDS SUMMARY | 2024-06-07 06:01 | External Medical Summary ---
Author Name Unknown Address Unknown Organization K01:LABORATORY [facility] - [address] [facility] [address] Laboratory Report Ordering Provider Test Date Status LUDA SANTOS 01/22/2024 12:54:23 Final Observation Date Value Abnormality Reference (Units ) Status TSH 01/22/2024 12:54:23 2.59 0.27-4.20 (uIU/mL) Final Performing Location [facility]ORATORY [facility] - [address] [facility] [address]
--- OUTSIDE RECORDS SUMMARY | 2024-06-07 06:01 | External Medical Summary | Summary of Care ---
Author Name Unknown Organization [facility] Address [address] [place] [address] Phone [phone] Care Team Providers Care Sling Operator Name Role Phone Katey Arora MD Primary Care Provider [phone] Reason for Visit * Reason Comments Outpatient Testing Encounter Details Date Type Department Care Team (Late st Contact Info) Description 01/26/2024 1:20 PM EDT Laboratory Laboratory, [place] [address] [place] [address] [place], [facility] [address] [place] [address] Arrived Allergies No known active allergiesdocumented as of [...] [address] [place] [address] [place] [address] Angel Diaz MD [address] [place] [address] 7, Telemed [facility] Urology Ex Rm [address] [place] [address] 07/21/2024 12:20 PM EDT Office Visit General Internal Medicine Annita Cisse [place] [address] [place] [address] Katey Arora MD [address] [place] [address] Health Maintenance Due Date Last Done Comments [...] D LEVEL ONCE IN A LIFETIME-USE SMARTSET# [id number] Completed 05/29/2023, 02/27/2022, 03/16/2019, Additional history exists [...] filedocumented as of this encounter Care Teams Sling Operator Relationship Specialty Start Date End Date Katey Arora MD [address] [place] [address] PCP - General Internal Medicine 07/09/17 documented as of this encounter
--- OUTSIDE RECORDS SUMMARY | 2024-06-07 06:01 | External Medical Summary | Summary of Care ---
Author Name Unknown Organization [facility] Address [address] [place] [address] Phone [phone] Care Team Providers Care Child Care Aide Name Role Phone Katey Arora MD Primary Care Provider [phone] Reason for Visit * Reason Comments Outpatient Testing Encounter Details Date Type Department Care Team (Late st Contact Info) Description 01/22/2024 12:40 PM EDT Laboratory Laboratory, [place] [address] [place] [address] [place], [facility] [address] [place], [place] [id number] Dyslipidemia, goal LDL below 70; Sensory neuropathy; Copper deficiency Allergies No known active allergiesdocumented as of [...] 11:00 AM EDT Cardiac Studies Cardiac Studies, [facility] [address] [facility] [place] [address] 07/13/2024 10:15 AM EDT Office Visit Urology, [facility] [address] [facility] [place] [address] Angel Diaz MD [address] [place] [address] 07/21/2024 12:20 PM EDT Office Visit General Internal Medicine Annita Cisse [place] [address] [place] [address] Katey Arora MD [address] [place] [address] Pending Results Name Type Priority Associated Diagnoses Date /Time TSH WITH FREE T4 IF INDICATED Lab Routine Dyslipidemia, goal LDL below 70 01/22/2024 12:54 PM EDT COPPER, SERUM OR PLASMA Lab Routine Sensory neuropathy Copper deficiency 01/22/2024 12:54 PM EDT Health Maintenance Due Date Last Done Comments DISCUSS TOBACCO CESSATION (REFER TO SMARTSET #[id number]) 1940 Adult Wellness Visit 08/26/2018 08/26/2017 *BISPHONATE [...] D LEVEL ONCE IN A LIFETIME-USE SMARTSET# [id number] Completed 05/29/2023, 02/27/2022, 03/16/2019, Additional history exists [...] as of this encounter Visit Diagnoses Diagnosis Dyslipidemia, goal LDL below 70 Other and unspecified hyperlipidemia 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
--- OUTSIDE RECORDS SUMMARY | 2024-06-07 06:01 | External Medical Summary | Summary of Care ---
Author Name Unknown Organization [facility] Address [address] [facility] [place] [address] Phone [phone] Care Team Providers Care Insulation Sprayer Name Role Phone Katey Arora MD Primary Care Provider [phone] Reason for Visit * Reason Comments eRx-Medication Refill Encounter Details Date Type Department Care Team (Late st Contact Info) Description 01/14/2024 Refill Cardiology, [facility] [address] [facility] [place] [address] Mal Ferguson PA-C [address] [place] [address] Dyslipidemia, goal LDL below 100 Allergies No known active allergiesdocumented as of this encounter (statuses as of 01/16/2024) Medications Medication Sig Dispensed Refills Start Date [...] 07/04/2023 Active Azelastine HCl 137 MCG/SPRAY Nasal SolutionIndication [...] the morning. I25.10. 45 Tablet 01/13/2024 Active Inulin 2 GM Oral Tablet Chewable 2 times a day. 01/03/2024 Activ e Copper Gluconate 2 MG Oral Capsule Take by mouth. Activ e Omeprazole 20 MG Oral Capsule Delayed Release (PriLOSEC) Take 1 Capsule by mouth in the morning. Active Ezetimibe 10 MG Oral Tablet (Zetia)Indications :Dyslipidemia, goal LDL below 100 TAKE 1 TABLET BY MOUTH EVERY DAY 90 Tablet 01/16/2024 Active Ezetimibe 10 MG Oral Tablet (Zetia)Indications :Dyslipidemia, goal LDL below 100 TAKE 1 TABLET BY MOUTH EVERY DAY 90 Tablet 3 01/20/2023 Discontinued documented as of this encounter (statuses as of 01/16/2024) Active Problems Problem Noted Date Diagnosed Date [...] as of this encounter (statuses as of 01/16/2024) Resolved Problems Problem Noted Date Diagnosed Date Resolved Date Tinnitus of both ears 04/24/20172018 Overview: Acute Restless legs syndrome 06/12/201607/12 Gallbladder polyp 05/26/2013 05/23/2014 Cholelithiasis 05/26/2013 12/19/2016 Dyslipidemia, goal to be determined 11/26/2002 03/14/2009 Overview: Per Lipid Taxonomy. documented as of this encounter (statuses as of 01/16/2024) Immunizations Name Administration Dates Next Due COVID-19 [...] encounter Miscellaneous Notes * Telephone Encounter - Asnelmo Quiroz LPN - 01/16/2024 2:13 PM EDT Future refills can be prescribed by PCP. FYI to providers. * Telephone Encounter - Maria Fernanda Baires CPhT - 01/16/2024 2:09 PM EDT Patient called back to advise me he is not making an office visit appointment. He doesn't have 215 dollars for 3 mins and he is not coming back. Please advise Thank you, Maria Fernanda Baires CPhT Laminator Preforms III [facility] ([facility]) [address] [place] [address], [address] [place] [address] [place] [address] [phone] * Telephone Encounter - Mal Ferguson PA-C - 01/16/2024 12:42 PM EDTSigned Prescriptions: Disp Refills Ezetimibe 10 MG Oral Tablet (Zetia) 90 Tab*0 Sig: TAKE 1 TABLET BY MOUTH EVERY DAY Authorizing Provider: MAL FERGUSON * Telephone Encounter - Lianet Bravo trapeze artist - 01/16/2024 12:12 PM EDT Pending Prescriptions: Disp Refills Ezetimibe 10 MG Oral Tablet (Zetia) 90 Tab*0 Sig: TAKE 1 TABLET BY MOUTH EVERY DAY * Telephone Encounter - Lianet Bravo trapeze artist - 01/16/2024 12:12 PM EDT Received message from [facility] regarding patient needing an appointment. Call Placed, Left message on voicemail to call back and schedule appointment. Thank you, Lianet Bravo CPhT Laminator Preforms II [facility] ([facility]) 01/16/2024,12:12 PM * Telephone Encounter - Lucien Thurman [facility] - 01/16/2024 12:07 PM EDT Pending Prescriptions: Disp Refills Ezetimibe 10 MG Oral Tablet (Zetia) 90 Tab*0 Sig: TAKE 1 TABLET BY MOUTH EVERY DAY * Telephone Encounter - Lucien Thurman RPh - 01/16/2024 11:55 AM EDT Unable to authorize medication refills for pended medication(s) at this time. Part of the protocol criteria used for refill authorization was not satisfied. Pt's last LDL is above goal and increased from previous. Component Latest Ref Rng 05/29/2023 LDL Cholesterol <=129 mg/dL 122 Per refill protocol patient should have office visit on file within past year. Please contact patient to schedule office visit with CARDIOLOGY. Last Visit: 07/31/2022 (in office), 05/01/2020 (telemedicine) Next Visit: Visit date not found After contacting patient, please forward request to Mal Ferguson PA-C (unless pt schedules with anew provider, route to new provider). Lucien Thurman, Pharm.D. Clinical Pharmacist [facility] ([facility]) 01/16/2024, 12:05 PM [phone] documented in this encounter Plan of Treatment Upcoming Encounters Date Type Department Care Team (Late st Contact Info) Description 01/21/2024 5:00 PM EDT Office Visit General Internal Medicine Annita Cisse [place] [address] [place] [address] Katey Arora MD [address] [place] [address] 07/13/2024 10:15 AM EDT Office Visit Urology, [facility] [address] [place] [address] Angel Diaz MD [address] [place] [address] [...] D LEVEL ONCE IN A LIFETIME-USE SMARTSET# [id number] Completed 05/29/2023, 02/27/2022, 03/16/2019, Additional history exists [...] Visit Diagnoses Diagnosis Dyslipidemia, goal LDL below 100 Other and unspecified hyperlipidemia documented in this encounter Care Teams Insulation Sprayer Relationship Specialty Start Date End Date Katey Arora MD [address] [place] [address] PCP - General Internal Medicine 07/09/17 documented as of this encounter
--- OUTSIDE RECORDS SUMMARY | 2024-06-07 06:01 | External Medical Summary | Summary of Care ---
Author Name Unknown Organization [facility] Address [address] [facility] [place] [address] Phone [phone] Care Team Providers Care Crime Prevention Police Officer Name Role Phone Katey Arora MD Primary Care Provider [phone] Reason for Visit * Reason Comments eRx-Medication Refill Encounter Details Date Type Department Care Team (Late st Contact Info) Description 01/14/2024 Refill Cardiology, [facility] [address] [facility] [place] [address] Mal Ferguson PA-C [address] [place] [address] Dyslipidemia, goal LDL below 100 Allergies No [...] Telephone Encounter - Katey Arora MD - 01/16/2024 3:39 PM EDT Noted., thanks. To Repeat Fasting labs 2-5 days before next Appointment. * Telephone Encounter - Anselmo Quiroz LPN - 01/16/2024 2:13 PM EDT [...] advise Thank you, Maria Fernanda Baires CPhT Car Trimmer III [facility] Clinical Pharmacy Services ([facility]) [address] [place] [address], [facility] [address] [place] [address] [place] [address] [phone] * Telephone Encounter - Mal Ferguson PA-C - 01/16/2024 12:42 PM EDTSigned Prescriptions: Disp Refills Ezetimibe 10 MG Oral Tablet (Zetia) 90 Tab*0 Sig: TAKE 1 TABLET BY MOUTH EVERY DAY Authorizing Provider: MAL FERGUSON * Telephone Encounter - Lianet Bravo components engineer - 01/16/2024 12:12 PM EDT Pending Prescriptions: Disp Refills Ezetimibe 10 MG Oral Tablet (Zetia) 90 Tab*0 Sig: TAKE 1 TABLET BY MOUTH EVERY DAY * Telephone Encounter - Lianet Bravo components engineer - 01/16/2024 12:12 PM EDT Received message from [facility] regarding patient needing an appointment. Call Placed, Left message on voicemail to call back and schedule appointment. Thank you, Lianet Bravo [facility] Car Trimmer II [facility] ([facility]) 01/16/2024,12:12 PM * Telephone Encounter - Lucien Thurman [facility] - 01/16/2024 12:07 PM EDT Pending Prescriptions: Disp Refills Ezetimibe 10 MG Oral Tablet (Zetia) 90 Tab*0 Sig: TAKE 1 TABLET BY MOUTH EVERY DAY * Telephone Encounter - Lucien Thurman [facility] - 01/16/2024 11:55 AM EDT Unable to [...] provider, route to new provider). Lucien Thurman, PharmAydeD. Clinical Pharmacist [facility] ([facility]) 01/16/2024, 12:05 PM [phone] documented in this encounter Plan of Treatment Upcoming Encounters Date Type Department Care Team (Late st Contact Info) Description 01/21/2024 5:00 PM EDT Office Visit General Internal Medicine [facility] [address] [facility] [place] [place] [address] Katey Arora MD [address] [facility] [place] [address] 07/13/2024 10:15 AM EDT Office Visit Urology, [facility] [address] [facility] [place] [address] Angel Diaz MD [address] [place] [address] [...] D LEVEL ONCE IN A LIFETIME-USE SMARTSET# [id number] Completed 05/29/2023, 02/27/2022, 03/16/2019, Additional history exists [...] hyperlipidemia documented in this encounter Care Teams Crime Prevention Police Officer Relationship Specialty Start Date End Date Katey Arora MD [address] [facility] [place] [address] PCP - General Internal Medicine 07/09/17 documented as of this encounter
--- OUTSIDE RECORDS SUMMARY | 2024-06-07 06:01 | External Medical Summary | Summary of Care ---
Author Name Unknown Organization [facility] Address [address] [place] [address] Phone [phone] Care Team Providers Care Etcher Photoengraving Name Role Phone Katey Arora MD Primary Care Provider [phone] Reason for Visit * Reason Comments eRx-Medication Refill Encounter Details Date Type Department Care Team (Late st Contact Info) Description 01/14/2024 Refill Cardiology, [facility] [address] [facility] [place] [address] Mal Ferguson PA-C [address] [place] [address] Dyslipidemia, goal LDL below 100 Allergies No known active allergiesdocumented as of this encounter (statuses as of 01/23/2024) Medications Medication Sig Dispensed Refills Start Date [...] 07/04/2023 Active Azelastine HCl 137 MCG/SPRAY Nasal SolutionIndicatio [...] MOUTH EVERY DAY 90 Tablet 01/16/2024 Active B Complex Tablet 2-1 01/15/2017 01/21/20 Discontinued(Med ication List Clean Up) Vitamin C 1000 MG Oral Tablet Take 1 Tablet by mouth in the morning. 01/21/20 Discontinued(Med ication List Clean Up) Ezetimibe 10 MG Oral Tablet (Zetia)Indication s:Dyslipidemia, goal LDL below 100 TAKE 1 TABLET BY MOUTH EVERY DAY 90 Tablet 3 01/20/2023 01/16/20 24 Discontinued Inulin 2 GM Oral Tablet Chewable 2 times a day. 01/03/2024 01/21/20 Discontinued(Med ication List Clean Up) documented as of this encounter (statuses as of 01/23/2024) Active Problems Problem Noted Date Diagnosed Date [...] as of this encounter (statuses as of 01/23/2024) Resolved Problems Problem Noted Date Diagnosed Date Resolved Date Tinnitus of both ears 04/24/20172018 Overview: Acute Restless legs syndrome 06/12/201607/12 Gallbladder polyp 05/26/2013 05/23/2014 Cholelithiasis 05/26/2013 12/19/2016 Dyslipidemia, goal to be determined 11/26/2002 03/14/2009 Overview: Per Lipid Taxonomy. documented as of this encounter (statuses as of 01/23/2024) Immunizations Name Administration Dates Next Due COVID-19 [...] Telephone Encounter - Giselle Toure LPN - 01/23/2024 3:51 PM EDT Pt aware. Had appt * Telephone Encounter - Katey Arora MD [...] advise Thank you, Maria Fernanda Baires CPhT Director Of Sales Support III [facility] Clinical Pharmacy Services ([facility]) [address] [place] [address] [place] [address] [place] [address] [phone] * Telephone Encounter - Mal Ferguson PA-C - 01/16/2024 12:42 PM EDTSigned Prescriptions: Disp Refills Ezetimibe 10 MG Oral Tablet (Zetia) 90 Tab*0 Sig: TAKE 1 TABLET BY MOUTH EVERY DAY Authorizing Provider: MAL FERGUSON * Telephone Encounter - Liante Bravo PHARM Tech - 01/16/2024 12:12 PM EDT Pending Prescriptions: Disp Refills Ezetimibe 10 MG Oral Tablet (Zetia) 90 Tab*0 Sig: TAKE 1 TABLET BY MOUTH EVERY DAY * Telephone Encounter - Lianet Bravo PHARM Tech - 01/16/2024 12:12 PM EDT Received message from [facility] regarding patient needing an appointment. Call Placed, Left message on voicemail to call back and schedule appointment. Thank you, Lianet Bravo [facility] Director Of Sales Support II [facility] ([facility]) 01/16/2024,12:12 PM * Telephone Encounter - Lucien Thurman [facility] - 01/16/2024 12:07 PM EDT Pending Prescriptions: Disp Refills Ezetimibe 10 MG Oral Tablet (Zetia) 90 Tab*0 Sig: TAKE 1 TABLET BY MOUTH EVERY DAY * Telephone Encounter - Lucien Thurman [facility] - 01/16/2024 11:55 AM EDT [...] Clinical Pharmacy Services ([facility]) 01/16/2024, 12:05 PM [phone] documented in this encounter Plan of Treatment Upcoming Encounters Date Type Department Care Team (Late st Contact Info) Description 07/13/2024 10:30 AM EDT Telemedicine Urology Terrie Tracy [address] [place] [address] Angel Diaz MD [address] [place] [address] 7, Telemed [facility] Urology Ex Rm [address] [place] [address] 07/21/2024 12:20 PM EDT Office Visit General Internal Medicine [facility] [address] [facility] [place] [address] Katey Arora MD [address] [place] [address] Health Maintenance Due Date Last Done Comments [...] D LEVEL ONCE IN A LIFETIME-USE SMARTSET# [id number] Completed 05/29/2023, 02/27/2022, 03/16/2019, Additional history exists [...] hyperlipidemia documented in this encounter Care Teams Etcher Photoengraving Relationship Specialty Start Date End Date Katey Arora MD [address] [place] [address] PCP - General Internal Medicine 07/09/17 documented as of this encounter
--- OUTSIDE RECORDS SUMMARY | 2024-06-07 06:01 | External Medical Summary ---
Author Name Unknown Address Unknown Organization : Laboratory Report Ordering Provider Test Date Status LUDA SANTOS 01/26/2024 13:15:27 Final Observation Date Value Abnormality Reference (Units ) Status Copper 01/26/2024 13:15:27 50 Below low normal 70- 175 (mcg/dL) Final This test was developed and its analytical performance
characteristics have been determined by [employer]
[place]. It has
not been cleared or approved by the U.S. Food and Drug
Administration. This assay has been validated pursuant
to the CLIA regulations and is used for clinical
purposes.

Test Performed at:
[facility]
[address] [facility]
[place] [address]
Danny Rondon M.D., Ph.D.,Director of Laboratories Performing Location
--- OUTSIDE RECORDS SUMMARY | 2024-06-07 06:01 | External Medical Summary | Summary of Care ---
Author Name Unknown Organization [facility] Address [address] [place] [address] Phone [phone] Care Team Providers Care Transcription Specialist Name Role Phone Katey Arora MD Primary Care Provider Reason for Visit * Reason Comments Outpatient Testing Encounter Details Date Type Department Care Team (Late st Contact Info) Description 01/26/2024 1:20 PM EDT Laboratory Laboratory, [facility] [address] [place] [address] [facility] [address] [place] [address] Arrived Allergies No known active allergiesdocumented as [...] [address] [place] [address] Angel Diaz MD [address] [place] [address] 7, Telemed [facility] Urology Ex Rm [address] [place] [address] 07/21/2024 12:20 PM EDT Office Visit General Internal Medicine Annita C[address] [place] [address] [place] [address] Katey Arora MD [address] [place] [address] Health Maintenance Due Date Last Done Comments [...] D LEVEL ONCE IN A LIFETIME-USE SMARTSET# [id number] Completed 05/29/2023, 02/27/2022, 03/16/2019, Additional history exists [...] filedocumented as of this encounter Care Teams Transcription Specialist Relationship Specialty Start Date End Date Katey Arora MD [address] [place] [address] PCP - General Internal Medicine 07/09/17 documented as of this encounter
--- OUTSIDE RECORDS SUMMARY | 2024-06-07 06:01 | External Medical Summary | Summary of Care ---
Author Name Unknown Organization [facility] Address [address] [place] [address] Phone [phone] Care Team Providers Care Human Resource Officer Name Role Phone Katey Arora MD Primary Care Provider [phone] Reason for Visit * Reason Onset Date Comments Test Results 01/30/2024 Encounter Details Date Type Department Care Team (Late st Contact Info) Description 01/30/2024 Telephone General Internal Medicine [facility] [address] [place] [address] Katey Arora MD 200 [place] [address] Test Results Allergies No known active allergiesdocumented [...] Oral Tablet Extended Release 24 Hour (toPROL XL)Indications:Preparation Center Coordinator terrance coronary artery disease Take 0.5 Tablets [...] copper gluconate. He purchased this online via [facility] and the capsules are 14 mg. Is [...] online. He states he was just at [facility] pharmacy and they did not have any script for him available. I contacted [facility] and they never received new Copper script [...] [address] [place] [place] [address] Angel Diaz MD [address] [place] [address], Telemed [facility] Urology Ex Rm [address] [facility] [place] [address] 07/21/2024 12:20 PM EDT Office Visit General Internal Medicine Annita Cisse [place] [address] [place] [address] Katey Arora MD 200 [facility] [place] [address] Scheduled Orders Name Type Priority Associated Diagnoses [...] D LEVEL ONCE IN A LIFETIME-USE SMARTSET# [id number] Completed 05/29/2023, 02/27/2022, 03/16/2019, Additional history exists [...] neuropathy documented in this encounter Care Teams Human Resource Officer Relationship Specialty Start Date End Date Katey Arora MD [address] [place] [address] PCP - General Internal Medicine 07/09/17 documented as of this encounter
--- OUTSIDE RECORDS SUMMARY | 2024-06-07 06:02 | External Medical Summary | Summary of Care ---
Author Name Unknown Organization [facility] Address [address] [facility] [place] [place] [address] Phone [phone] Care Team Providers Care Plumbing Contractor Name Role Phone Katey Arora MD Primary Care Provider [phone] Reason for Visit * Reason Comments eRx-Medication Refill Encounter Details Date Type Department Care Team (Late st Contact Info) Description 01/11/2024 Refill Cardiology, [facility] [address] [facility] [place] [address] Mal Ferguson PA-C [address] [facility] [place] [address] Chronic coronary artery disease; Diastolic dysfunction Allergies No known active allergiesdocumented as of this encounter (statuses as of 01/13/2024) Medications Medication Sig Dispensed Refills Start Date [...] Tablet by mouth in the morning. Active Ezetimibe [...] the morning. I25.10. 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 Prostate cancer 03/22/2021 Urgency of urination 03/22/2021 Nocturia 03/22/2021 Post-void dribbling 03/22/2021 Diastolic dysfunction 07/23/2019 Mild mitral regurgitation by prior echocardiogra m 07/23/2019 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 documented as of this encounter (statuses as of 01/13/2024) Immunizations Name Administration Dates Next Due COVID-19 [...] encounter Miscellaneous Notes * Telephone Encounter - Sasha Oconnell, [facility] - 01/13/2024 11:25 AM EDTSigned Prescriptions: Disp Refills Losartan Potassium 25 MG Oral Tablet (Coza*90 Tab*0 Sig: Take 1 Tablet by mouth in the morning. I25.10.Authorizing Provider: MAL FERGUSON User: SASHA OCONNELL Metoprolol Succinate ER 25 MG Oral Tablet *45 Tab*0 Sig: Take 0.5 Tablets by mouth in the morning. I25.10.Authorizing Provider: MAL FERGUSON User: SASHA OCONNELL * Telephone Encounter - Sasha Oconnell RPh - 01/13/2024 11:18 AM EDT Pt needs appt, has not been seen since 07/2022. Please schedule 90 day supply with 0 refills Sasha Oconnell Pharm D Clinical [facility] Pharmacist Cardiology 01/13/2024,11:19 AM documented in this encounter Plan of Treatment Upcoming Encounters Date Type Department Care Team (Late st Contact Info) Description 01/21/2024 5:00 PM EDT Office Visit General Internal Medicine [facility] [address] [facility] [place], [place] [address] Katey Arora MD [address] [facility] [place] [address] 07/13/2024 10:15 AM EDT Office Visit Urology, [facility] [address] [facility] [place] [address] Angel Diaz MD [address] [place] [address] Health Maintenance Due Date Last Done Comments DISCUSS TOBACCO CESSATION (REFER TO SMARTSET #3291) 1940 Adult Wellness Visit 08/26/2018 08/26/2017 *BISPHONATE OR OTHER ACCEPTABLE MEDICATION NEEDED FOR OSTEOPOROSIS (REFER TO SMARTSET #1146) 07/24/2023 COVID-19 Vaccine ( season) 2023 01/03/2023, 01/03/2023, 12/11/2021, Additional history exists Influenza Vaccine (FLU shot) (#1) 2023 12/31/2022, 12/06/2021, 01/08/2021, Additional history exists Depression Screening 02/15/2024 02/14/2023 DXA Scan 05/07/2025 05/07/2023, 08/0 11/2020, 09/22/2018, Additional history exists DTap/Tdap Vaccines (2 - Td or Tdap) 03/06/2026 03/06/2016, 06/29/2007, 08/03/2002 Pneumococcal Vaccine: 65+ Years Completed 05/23/2014, 02/14/2006 Zoster Vaccines Completed 03/26/2019, 09/30, 08/26/2017, Additional history exists VITAMIN D LEVEL ONCE IN A LIFETIME-USE SMARTSET# [id number] Completed 05/29/2023, 02/27/2022, 03/16/2019, Additional history exists [...] Coronary atherosclerosis of unspecified type of vessel, [place] or graft Diastolic dysfunction Heart disease, unspecified documented in this encounter Care Teams Plumbing Contractor Relationship Specialty Start Date End Date Katey Arora MD [address] [place] [address] PCP - General Internal Medicine 07/09/17 documented as of this encounter
--- OUTSIDE RECORDS SUMMARY | 2024-06-07 06:02 | External Medical Summary | Summary of Care ---
Author Name Unknown Organization [facility] Address [address] [address] Phone [phone] Care Team Providers Care Pattern Puncher Name Role Phone Katey Arora MD Primary Care Provider [phone] Reason for Visit * Reason Onset Date Comments Hospital Follow-Up Hospital Follow-Up 01/12/2024 Encounter Details Date Type Department Care Team (Late st Contact Info) Description 01/12/2024 5:20 PM EDT Office Visit General Internal Medicine [facility] [place] [address] [facility] [facility] [address] [address] Alber Smyth [address] [facility] [place] [address] Hospital discharge follow-up*; Closed fracture of nasal bone, initial encounter; Laceration of nose, initial encounter; Closed nondisplaced fracture of distal phalanx of right thumb, initial encounter Allergies No known active allergiesdocumented as of this encounter (statuses as of 01/12/2024) Medications Medication Sig Dispensed Refills Start Date [...] AT BEDTIME 90 mL 2 10/29/2023 Active Inulin 2 GM Oral Tablet Chewable 2 times a day. 01/03/2024 Activ e Copper Gluconate 2 MG Oral Capsule Take by mouth. Active Omeprazole 20 MG Oral Capsule Delayed Release (PriLOSEC) Take 1 Capsule by mouth in the morning. Active documented as of this encounter (statuses as of 01/12/2024) Active Problems Problem Noted Date Diagnosed Date [...] as of this encounter (statuses as of 01/12/2024) Resolved Problems Problem Noted Date Diagnosed Date Resolved Date Tinnitus of both ears 04/24/20172018 Overview: Acute Restless legs syndrome 06/12/201607/12 Gallbladder polyp 05/26/2013 05/23/2014 Cholelithiasis 05/26/2013 12/19/2016 Dyslipidemia, goal to be determined 11/26/2002 03/14/2009 Overview: Per Lipid Taxonomy. documented as of this encounter (statuses as of 01/12/2024) Immunizations Name Administration Dates Next Due COVID-19 [...] Tobacco: Some Days Cigars Smokeless Tobacco: Never Tobacco Cessation:Ready to Q uit: Not Asked; Counseling Given: Not Answered Comments:occasional small cigar Alcohol Use Standard Drinks/Week Comments Yes 0.8 [...] Sign Reading Time Taken Comments Blood Pressure 116/60 01/12/2024 5:47 PM EDT Pulse 84 01/12/2024 5:47 PM EDT Temperature - - Respiratory Rate - - Oxygen Saturation 95% 01/12/2024 5:47 PM EDT Inhaled Oxygen Concentration - - Weight 74.3 kg (163 lb 14.4 oz) 01/12/2024 5:47 PM EDT Height 161 cm (5' 3.39") 01/12/2024 5:47 PM EDT Body Mass Index 28.68 01/12/2024 5:47 PM EDT documented in this encounter Patient Instructions * Patient Instructions* Alber Smyth DO - 01/12/2024 5:42 PM EDT Taking Medicine Safely Medicine is given to help treat or prevent illness. But if you don't take it correctly, it might not help. It might even harm you. Your doctor or pharmacist can help you learn the right way to take your medicine. Listed below are some tips to help you take medicine safely. Safety Tips Have a routine for taking each medicine. Make it part of something you do each day, such as brushing your teeth or eating a meal. When you go to the hospital or your doctor's office, bring all your current medicines in their original boxes or bottles. If you can't do that, bring an up-to-date list of your medicines. Do not stop taking a prescription medicine unless your doctor tells you to. Doing so could make your condition worse. Do not share medicines. Let your doctor and pharmacist know of any allergies you have. Taking prescription medicines with alcohol, street drugs, herbs, supplements, or even some utvx-obo-wdehbdj medicines can be harmful. Talk to your doctor or pharmacist before using any of these things while taking a prescription medicine. When filling your prescriptions, try using the same pharmacy for all your medicines. If not, let the pharmacist know what medicines you are already on. Keep medicines out of the reach of children and pets. Do not use medicine that has or that doesn't look or smell right. Get rid of it properly. To find out the right way to get rid of medicine: Call your [facility] or [facility]'s household trash and recycling service and ask if a drug take-back program is available in your community. Call your local pharmacy and ask the right way to get rid of the medicine. Go to http://www.fda.gov/ForConsumers/ConsumerUpdates/mag364865 to learn how to get rid of medicines safely. Using Generic Medicines Medicines have brand names and generic (chemical) names. When a medicine is first made, it is sold only under its brand name. Later, it can be made and sold as a generic. Generic medicines cost less than brand-name medicines and most work just as well. Most people can use the generic medicine instead of the brand-name medicine, unless their doctor says otherwise. 9303-3294 [facility], [address] [place] [address], [place] [address]. All rights reserved. This information is not intended as a substitute for professional medical care. Always follow your healthcare professional's instructions. Coping with Your Diagnosis of a Chronic Health Condition If you have a chronic health condition, you have a problem that may not go away over time. Heart disease, asthma, arthritis, and diabetes are just a few of the chronic conditions that exist. Right now, these conditions have no known cure. But you can take an active role in managing your health. Coping with Your Diagnosis If you've just learned about your health condition, you may be angry, depressed, or afraid. Or you might feel relieved just to know what's wrong. Even if you've known about your health problem for a while, adjusting to it can be hard. But learning about your condition can help you cope. Look for books at your local library. If you have access to a computer, check the Internet. Or contact a group that focuses on your specific problem. Accepting Change Change is hard for most people. Yet right now you may be facing many changes. What you eat or the way you work may change. Your moods, and even your symptoms, might vary from day to day. Although it isn't easy, learning to accept change can help you feel more in control. Taking Control Feeling you have control can make living with your condition easier. Discuss treatment options withyour health care provider. The more you know, the more active you can be in your care. Moving Forward You may wonder whether you will be able to do the things you've always done. That depends on your age, the condition you have, and your goals. To make the most of each day, try to build caring relationships, be active, and eat right. Also, do your best to keep a sense of humor. 4792-1556 [facility], [address] [place] [address]. All rights reserved. This information is not intended as a substitute for professional medical care. Always follow your healthcare professional's instructions. Taking an Active Role in Your Medicines Take the time to learn about your medicine. For instance, why are you taking it? What does it do? Work with your doctor or other health care providers to get the answers you need. Talk to your pharmacist about how to take each medicine, and ask for a fact sheet on each one. Ask Questions About Your Medicine What is the name of the medicine? Why do I need to take it? When should I take it? How should I take it: with water? with food? on an empty stomach? How much do I take? What do I do if I miss a dose? What side effects could it cause and which ones should I call the doctor about? Are there any foods or medicines I should avoid while taking this medicine? Keeping track of your medications? Name of medicine: Taken for: Dose: Time(s) to take it: Take an Active Role Fill all your prescriptions at the same pharmacy. This keeps your medicine history in one place. Talk to the pharmacist. Make sure you understand how to take each medicine. Ask for a fact sheet about each one. Tell your doctor and pharmacist about all the prescription and ygfy-tyk-bhcwjhv medicines you take.This includes vitamins and herbal remedies. Tell your doctor and pharmacist if you have any medical conditions or allergies to any medicine or food, or if you are or . Keep a list of all your medicines. Use the sample to the right as a guide for the type of information needed. 1753[address] [place] [address]. All rights reserved. This information is not intended as a substitute for professional medical care. Always follow your healthcare professional's instructions. documented in this encounter Progress Notes * Alber Smyth DO - 01/12/2024 5:42 PM EDT SUBJECTIVE: Xu Singletary is a 83 year old male. Chief Complaint Patient presents with Hospital Follow-Up Hospital Follow-Up Recent Admission: Patient was recently admitted to [facility]. The date of discharge was 01/05/2024. Discharge report received and reviewed. HPI: Patient presents for hospital follow-up appointment. Was admitted to [facility] from 01/02 to 01/05/24after a fall while walking near [place] [facility]. States tripped on something and fell to the ground hitting his face. Noted to have multiple facial wounds including a laceration over his nose. EMS was called by bystanders. CT facial bones showed nasal bone fracture. Laceration over the nose was repaired by ED physician. Did have evaluation by Oral/Maxillofacial Surgery, Dr Simmons. Recommended removal of sutures in 7-10 days. No surgical management for fracture as minimally displaced. Patient did not note any presyncopal symptoms or loss of consciousness. Has not had any pain or bruising in the nasal area since discharge. Also had a fracture of the distal right thumb. Still minimal bruising but has not had any increased pain or swelling. Patient Active Problem List Diagnosis Chronic coronary [...] Current Outpatient Medications Medication Sig Dispense Refill Inulin 2 GM Oral Tablet Chewable 2 times a day. Copper Gluconate 2 MG Oral Capsule Take by mouth. Omeprazole 20 MG Oral Capsule Delayed Release (PriLOSEC) Take 1 Capsule by mouth in the morning. ASPIRIN 81 MG PO TABS one pill each day 34 11 VITAMIN D 400 UNITS PO CAPS Take by mouth. B Complex Tablet 2-1 Vitamin C 1000 MG Oral Tablet Take 1 Tablet by mouth in the morning. Vitamin B-12 1000 MCG Oral Tablet Take 1 Tablet by mouth in the morning. Losartan Potassium 25 MG Oral Tablet (Cozaar) [...] by mouth every evening. 90 Capsule 3 Metoprolol Succinate ER 25 MG Oral Tablet Extended Release 24 Hour (toPROL XL) TAKE 1/2 TABLET BY MOUTH DAILY 45 Tablet 0 Azelastine HCl 137 MCG/SPRAY Nasal Solution SPRAY 1 SPRAY INTO INTO EACH NOSTRIL IN THE MORNING ANDAT BEDTIME 90 mL 2 No current facility-administered medications for this visit. Current and discharge medications have been reconciled. Review of patient's allergies indicates: No Known Allergies OBJECTIVE: BP 116/60 | Pulse 84 | Ht 1.61 m (5' 3.39") | Wt 74.3 kg (163 lb 14.4 oz) | SpO2 95% | BMI 28.68 kg/m | BSA 1.82 m REVIEW OF SYSTEMS: Review of Systems Constitutional: Negative for chills, fatigue and fever. HENT: Negative for congestion, sore throat and trouble swallowing. Eyes: Negative for photophobia and pain. Respiratory: Negative for cough and shortness of breath. Cardiovascular: Negative for chest pain and palpitations. Gastrointestinal: Negative for abdominal distention, abdominal pain, nausea and vomiting. Genitourinary: Negative for dysuria and frequency. Musculoskeletal: Positive for arthralgias. Negative for back pain, joint swelling and neck stiffness. Skin: Negative for pallor. Neurological: Negative for dizziness, light-headedness and headaches. Psychiatric/Behavioral: Negative for sleep disturbance. The patient is not nervous/anxious. PHYSICAL EXAM: BP 116/60 | Pulse 84 | Ht 1.61 m (5' 3.39") | Wt 74.3 kg (163 lb 14.4 oz) | SpO2 95% | BMI 28.68 kg/m | BSA 1.82 m Physical Exam Constitutional: General: He is not in acute distress. Appearance: He is not ill-appearing. HENT: Head: Normocephalic and atraumatic. Right Ear: Tympanic membrane, ear canal and external ear normal. Left Ear: Tympanic membrane, ear canal and external ear normal. Nose: Nose normal. No congestion or rhinorrhea. Comments: There is a healed laceration over the bridge of the nose. Four sutures present. No obvious deformities Mouth/Throat: Mouth: Mucous membranes are moist. Pharynx: Oropharynx is clear. Eyes: General: No scleral icterus. Extraocular Movements: Extraocular movements intact. Conjunctiva/sclera: Conjunctivae normal. Pupils: Pupils are equal, round, and reactive to light. Neck: Vascular: No carotid bruit. Cardiovascular: Rate and Rhythm: Normal rate and regular rhythm. Pulses: Normal pulses. Heart sounds: Normal heart sounds. No murmur heard. No friction rub. No gallop. Pulmonary: Effort: Pulmonary effort is normal. Breath sounds: Normal breath sounds. No wheezing, rhonchi or rales. Abdominal: General: Bowel sounds are normal. There is no distension. Palpations: Abdomen is soft. There is no mass. Tenderness: There is no abdominal tenderness. There is no right CVA tenderness or left CVA tenderness. Musculoskeletal: General: Swelling present. No tenderness. Normal range of motion. Cervical back: Normal range of motion and neck supple. Right lower leg: No edema. Left lower leg: No edema. Comments: Mild swelling/bruising of the distal right thumb. No obvious deformities Skin: General: Skin is warm and dry. Coloration: Skin is not jaundiced. Findings: No rash. Neurological: General: No focal deficit present. Mental Status: He is oriented to person, place, and time. Cranial Nerves: No cranial nerve deficit. Sensory: No sensory deficit. Motor: No weakness. Psychiatric: Mood and Affect: Mood normal. Behavior: Behavior normal. ASSESSMENT: Hospital discharge follow-up (Primary) - DISCH MED RECON CUR MED LIS Closed fracture of nasal bone, initial encounter Laceration of nose, initial encounter - SUTURE REMOVAL-BY OTHER PROVIDER Closed nondisplaced fracture of distal phalanx of right thumb, initial encounter Plan: Patient presents to office for hospital follow-up. Was admitted for a fall that resulted in nasal bone fracture/laceration as well as fracture distal phalanx of the right thumb. No syncope or presyncopal symptoms noted. No obvious cardiopulmonary findings on exam Nasal laceration well healed. Four sutures removed without difficulty. No bleeding or drainage fromthe area. Continue conservative care of distal phalanx fracture of right thumb. Has been getting better Continue current medications. Blood pressure well managed on metoprolol succinate 12.5 mg daily, losartan 25 mg daily Follow Up: Return if symptoms worsen or fail to improve, for Follow up next routine with PCP as scheduled. | For: Follow up next routine with PCP as scheduled | Check-out note: Follow up next routineappointment Follow up follow up next routine appointment. I spent a total of 40-54 minutes (exact time 45 mins) minutes on the date of service in preparation, delivery, and documentation of the care provided to Xu Singletary excluding any time spent in performance of separately billed services. Alber Smyth DO documented in this encounter Nursing Notes * Aury Joe CMA - 01/12/2024 5:45 PM EDT Patient presents today for hospital follow up. He was admitted to [facility] on 01/02 due to a fall where he broke his nasal bone and had a significant facial wound, as well as fractured thumb on his right hand. He needs nasal stitches removed today. He denies any concerns at this time. documented in this encounter Plan of Treatment Upcoming Encounters Date Type Department Care Team (Late st Contact Info) Description 01/21/2024 5:00 PM EDT Office Visit General Internal Medicine [facility] [address] [facility] [address] [address] Katey Arora MD [address] [facility] [address] [address] 07/13/2024 10:15 AM EDT Office Visit Urology, [facility] [address] [facility] [place] [address] Angel Diaz MD [address] [place] [address] Scheduled Orders Name Type Priority Associated Diagnoses Orde r Schedule SUTURE REMOVAL-BY OTHER PROVIDER Procedures Routine Laceration of nose, initial encounter Ordered: 01/12/2024 Health Maintenance Due Date Last Done Comments [...] D LEVEL ONCE IN A LIFETIME-USE SMARTSET# [id number] Completed 05/29/2023, 02/27/2022, 03/16/2019, Additional history exists [...] as of this encounter Visit Diagnoses Diagnosis Hospital discharge follow-up- Primary Other follow-up examination Closed fracture of nasal bone, initial encounter Laceration of nose, initial encounter Closed nondisplaced fracture of distal phalanx of right thumb, initial encounter documented in this encounter Care Teams Pattern Puncher Relationship Specialty Start Date End Date Katey Arora MD [address] [place] [address] PCP - General Internal Medicine 07/09/17 documented as of this encounter
--- OUTSIDE RECORDS SUMMARY | 2024-06-07 06:02 | External Medical Summary | Summary of Care ---
Author Name Unknown Organization [facility] Address [address] [place] [address] Phone [phone] Care Team Providers Care Bakery Machine Mechanic Supervisor Name Role Phone Katey Arora MD Primary Care Provider [phone] Reason for Visit * Reason Onset Date Comments Hospital Follow-Up 01/05/2024 [facility] 01/03 JANES call Encounter Details Date Type Department Care Team (Late st Contact Info) Description 01/05/2024 Telephone Ancillary Annita Cisse [place] [address] [place] [address] Belle Toledo, RN Hospital Follow-Up ([facility] 01/03 JANES call) Allergies No known active allergiesdocumented as of this encounter (statuses as of 01/07/2024) Medications Medication Sig Dispensed Refills Start Date [...] as of this encounter (statuses as of 01/07/2024) Active Problems Problem Noted Date Diagnosed Date [...] jt inj S help DrCoearl, off plavix 08/15>caudal UMER 09/18;10/27/17-relief x 1 [...] as of this encounter (statuses as of 01/07/2024) Resolved Problems Problem Noted Date Diagnosed Date Resolved Date Tinnitus of both ears 04/24/20172018 Overview: Acute Restless legs syndrome 06/12/201607/12 Gallbladder polyp 05/26/2013 05/23/2014 Cholelithiasis 05/26/2013 12/19/2016 Dyslipidemia, goal to be determined 11/26/2002 03/14/2009 Overview: Per Lipid Taxonomy. documented as of this encounter (statuses as of 01/07/2024) Immunizations Name Administration Dates Next Due COVID-19 [...] encounter Miscellaneous Notes * Telephone Encounter - Belle Toledo RN - 01/06/2024 11:36 AM EDT Attempted Phone Call Second Attempt Call Outcome Left Voicemail/Message phone goes straight to voicemail. Left times on his voicemail that are best to reach me. * Telephone Encounter - Belle Toledo RN - 01/05/2024 1:20 PM EDT Pt left a message while I was in with a pt. Attempted to call back but it went straight to voicemail. Will try later this afternoon * Telephone Encounter - Belle Toledo RN - 01/05/2024 11:09 AM EDT Transitions of Care Note Reason for Referral:Recent Admission Phone visit for follow up: JANES Admitted to: [facility], Date: 01/01 Discharged to: home, Date: 01/03 Diagnosis driving hospitalization: S/P mechanical fall Minimally displaced nasal bone fracture Fracture of distal phalanx right thumb Attempted Phone Call First Attempt Call Outcome Left Voicemail/Message documented in this encounter Plan of Treatment Upcoming Encounters Date Type Department Care Team (Late st Contact Info) Description 01/12/2024 5:20 PM EDT Office Visit General Internal Medicine [facility] [address] [place] [address] Alber Smyth DO [address] [facility] [place] [address] 01/21/2024 5:00 PM EDT Office Visit General Internal Medicine [facility] [address] [place] [address] Katey Arora MD [address] [facility] [place] [address] 07/13/2024 10:15 AM EDT Office Visit Urology, [facility] [address] [facility] [place] [id number] nAgel Diaz MD [address] [place] [id number] Health Maintenance Due Date Last Done Comments [...] D LEVEL ONCE IN A LIFETIME-USE SMARTSET# [id number] Completed 05/29/2023, 02/27/2022, 03/16/2019, Additional history exists [...] filedocumented as of this encounter Care Teams Bakery Machine Mechanic Supervisor Relationship Specialty Start Date End Date Katey Arora MD [address] [facility] [place] [address] PCP - General Internal Medicine 07/09/17 documented as of this encounter
--- OUTSIDE RECORDS SUMMARY | 2024-06-07 06:02 | External Medical Summary | Summary of Care ---
Author Name Unknown Organization [facility] Address [address] [facility] [address] Phone [phone] Care Team Providers Care Picture Framer Name Role Phone Katey Arora MD Primary Care Provider [phone] Reason for Visit * Reason Comments eRx-Medication Refill Encounter Details Date Type Department Care Team (Late st Contact Info) Description 01/14/2024 Refill Cardiology, [facility] [address] [place] [address] Mal Ferguson PA-C [address] [place] [address] Dyslipidemia, goal LDL below 100 Allergies No [...] encounter Miscellaneous Notes * Telephone Encounter - Mal Ferguson PA-C - 01/16/2024 12:42 PM EDTSigned Prescriptions: Disp Refills Ezetimibe 10 MG Oral Tablet (Zetia) 90 Tab*0 Sig: TAKE 1 TABLET BY MOUTH EVERY DAY Authorizing Provider: MAL FERGUSON * Telephone Encounter - Lianet Bravo director of outreach - 01/16/2024 12:12 PM EDT Pending Prescriptions: Disp Refills Ezetimibe 10 MG Oral Tablet (Zetia) 90 Tab*0 Sig: TAKE 1 TABLET BY MOUTH EVERY DAY * Telephone Encounter - Lianet Bravo director of outreach - 01/16/2024 12:12 PM EDT Received message from [facility] regarding patient needing an appointment. Call Placed, Left message on voicemail to call back and schedule appointment. Thank you, Lianet Bravo [facility] 01/16/2024,12:12 PM * Telephone Encounter - Lucien Thurman [facility] - 01/16/2024 12:07 PM EDT Pending Prescriptions: Disp Refills Ezetimibe 10 MG Oral Tablet (Zetia) 90 Tab*0 Sig: TAKE 1 TABLET BY MOUTH EVERY DAY * Telephone Encounter - Lucien Thurman [facility] - 01/16/2024 11:55 AM EDT Unable to [...] with anew provider, route to new provider). Lucein Thurman, Pharm.D. Clinical Pharmacist [facility] 01/16/2024, 12:05 PM [phone] documented in this encounter Plan of Treatment Upcoming Encounters Date Type Department Care Team (Late st Contact Info) Description 01/21/2024 5:00 PM EDT Office Visit [facility] [address] [facility] [place] [address] Katey [facility] MD [facility] [address] 07/13/2024 10:15 AM EDT Office Visit Urology, [facility] [address] [facility] [place] [address] Angel Diaz MD [address] [place] [...] D LEVEL ONCE IN A LIFETIME-USE SMARTSET# [id number] Completed 05/29/2023, 02/27/2022, 03/16/2019, Additional history exists [...] hyperlipidemia documented in this encounter Care Teams Picture Framer Relationship Specialty Start Date End Date Katey Arora MD [address] [place], [place] [address] PCP - General Internal Medicine 07/09/17 documented as of this encounter
--- OUTSIDE RECORDS SUMMARY | 2024-06-07 06:02 | External Medical Summary | Summary of Care ---
Author Name Unknown Organization [facility] Address [address] [place] [address] Phone [phone] Care Team Providers Care Aemt Name Role Phone Katey Arora MD Primary Care Provider [phone] Reason for Visit * Reason Comments eRx-Medication Refill Encounter Details Date Type Department Care Team (Late st Contact Info) Description 01/14/2024 Refill Cardiology, [facility] [address] [facility] [place] [address] Mal Ferguson PA-C [address] [place] [id number] Dyslipidemia, goal LDL below 100 Allergies No [...] encounter Miscellaneous Notes * Telephone Encounter - Maria Fernanda Baires CPhT - 01/16/2024 2:09 PM EDT Patient called back to advise me he is not making an office visit appointment. He doesn't have 215 dollars for 3 mins and he is not coming back. Please advise Thank you, Maria Fernanda Baires CPhT [facility] [address] [place] [address], [address] [place] [address] [phone] * Telephone Encounter - Mal Ferguson PA-C - 01/16/2024 12:42 PM EDTSigned Prescriptions: Disp Refills Ezetimibe 10 MG Oral Tablet (Zetia) 90 Tab*0 Sig: TAKE 1 TABLET BY MOUTH EVERY DAY Authorizing Provider: MAL FERGUSON * Telephone Encounter - Lianet Bravo mask design engineer - 01/16/2024 12:12 PM EDT Pending Prescriptions: Disp Refills Ezetimibe 10 MG Oral Tablet (Zetia) 90 Tab*0 Sig: TAKE 1 TABLET BY MOUTH EVERY DAY * Telephone Encounter - Lianet Bravo mask design engineer - 01/16/2024 12:12 PM EDT Received message from [facility] regarding patient needing an appointment. Call Placed, Left message on voicemail to call back and schedule appointment. Thank you, Lianet Bravo [facility] 01/16/2024,12:12 PM * Telephone Encounter - Lucein Thurman [facility] - 01/16/2024 12:07 PM EDT [...] [facility] ([facility]) 01/16/2024, 12:05 PM [phone] documented in this encounter Plan of Treatment Upcoming Encounters Date Type Department Care Team (Late st Contact Info) Description 01/21/2024 5:00 PM EDT Office Visit General Internal Medicine [facility] [address] [place] [address] Katey Arora MD [address] [place] [address] 07/13/2024 10:15 AM EDT Office Visit Urology, [facility] [address] [place] [address] Angel Diaz MD [address] [place] [address] Health Maintenance Due Date Last Done Comments DISCUSS TOBACCO CESSATION (REFER TO SMARTSET #[id number]) 1940 Adult Wellness Visit 08/26/2018 08/26/2017 *BISPHONATE [...] D LEVEL ONCE IN A LIFETIME-USE SMARTSET# [id number] Completed 05/29/2023, 02/27/2022, 03/16/2019, Additional history exists [...] hyperlipidemia documented in this encounter Care Teams Aemt Relationship Specialty Start Date End Date Katey Arora MD [address] [place] [address] PCP - General Internal Medicine 07/09/17 documented as of this encounter
[2024-06-07] MEDS: NITROGLYCERIN SL 0.4 MG/TAB TAB ONE (06:30)
[2024-06-07] MEDS: NITROGLYCERIN SL 0.4 MG/TAB TAB SL STA (06:30)
[2024-06-07 06:35] LABS: Basophils # (auto) 0.05 K/uL (0.00-0.20); Basophils % (auto) 0.8 %; Eosinophils # (auto) 0.33 K/uL (0.00-0.50); Eosinophils % (auto) 5.2 %; Hematocrit (blood only) 39.7 % (42.0-52.0); Hemoglobin 13.9 g/dl (14.0-18.0); Immature Granulocytes # (auto) 0.01 K/uL (0.01-0.20); Immature Granulocytes % (auto) 0.2 %; Lymphocytes # (auto) 1.17 K/uL (1.20-3.40); Lymphocytes % (auto) 18.5 %; Mean Corpuscular Hemoglobin 33.7 pg (25.0-34.0); Mean Corpuscular Volume 96.1 fL (80.0-100.0); Mean Platelet Volume 8.7 fL (9.4-12.4); Monocytes # (auto) 0.63 K/uL (0.11-0.59); Neutrophils # (auto) 4.14 K/uL (1.40-6.50); Neutrophils % (auto) 65.3 %; Platelet Count 205 K/uL (130-400); RDW Coefficient of Variation 13.1 % (11.5-14.5); RDW Standard Deviation 46.9 fL (36.4-46.3); Red Blood Count 4.13 M/uL (4.70-6.10); White Blood Count 6.33 K/ul (4.8-10.8)
--- NOTE | 2024-06-07 06:40 | Emergency Department Note ---
Impression & Plan Non-ST elevation (NSTEMI) myocardial infarction ED Provider Note Name: MARJAN HORTON Age: 84 Sex: Male Arrives Via: Ambulance Informant: Patient, EMS ED Provider: Avery Baron MD Chief Complaint: Chest pain Impression: As per impressions above Medical Decision Makin-year-old gentleman with a remote history of bypass and stenting for CAD along with dyslipidemia, IBS, CVA, prostate cancer arrives for evaluation of worsening left-sided chest pain pressure-like since this morning. Initial EKG does show some new anterior lateral ST depressions without STEMI. Patient was given further nitro with mild improvement followed by some IV narcotic with improvement. Repeat EKG when pain returned continue to show ST depressions but no STEMI. He was given further narcotic and hospitalist/filler shredding machine loader were urgently consulted. Discussed case with hospitalist and they will start heparin and shortly thereafter filler shredding machine loader at bedside reviewing case with patient. Agrees that despite initial troponin being normal symptoms and findings likely represent ACS and plan for likely cath for further evaluation. Throughout this patient was evaluated multiple times. He did require some supplemental nasal cannula following narcotic pain meds. Patient has multiple times stated there have been no black or bloody stools he has no anemia denies any recent head injuries or other bleeding events. Triage/Nursing Notes reviewed by Me External Chart Review by me: Discharge summary from 01/05/2024 when he was hospitalized for acute generalized weakness. Differential:Cardiac ischemia, aortic dissection, pulmonary embolism, pneumothorax, pneumonia, pericarditis, myocarditis, esophageal rupture, GERD, cholecystitis, pancreatitis, musculoskeletal, as well as other pathologies. Vital Signs: reviewed and remarkable for mild bradycardia Interventions: Sublingual nitro, fentanyl IV, Dilaudid IV. Patient had received 324 aspirin prior to arrival Labs:ED labs Reviewed by me and remarkable for no significant abnormalities Imagin view chest x-ray as per my interpretation. There is no widened mediastinum, infiltrate, effusion. EKG:As per my interpretation. Indication chest pain. Sinus bradycardia 55 bpm QTc of 386. There is no ectopy appreciated. There are anterior lateral ST depressions. When compared to EKG of January 02, 2024 these depressions are new. Cardiac/Tele Monitoring: Cardiac Monitoring: An Order was placed for continuous cardiac monitoring. The monitor shows a rate of 60 with a normal sinus rhythm. Consults:Discussed with Dr. Reddy of the [facility] hospitalist service and Dr. Rincon of the [facility] filler shredding machine loader service Plan: Disposition:Hospitalization. Condition: Good History of Present Illness: 84-year-old gentleman arrives for evaluation of chest pain. Patient notes that he awoke this morning with pressure-like left- sided chest discomfort. No radiation of pain. No nausea, vomiting, palpitations, lightheadedness, shortness of breath, syncope, presyncope, other concerning signs or symptoms. Patient does not recall having similar pain to this previously. He has no recent falls, trauma, injuries. Nothing makes symptoms better or worse. Denies any pain with deep inspiration. Denies any leg or calf swelling. Patient has a history of cardiac bypass many years ago followed by stent several years later. He does not recall the last time he had any chest pain or cardiac workup. Patient called 911 and was given aspirin 324 mg p.o. and sublingual nitroglycerin and route. States the chest pain got better however has started coming back. Patient denies any black or bloody stools. He denies any lightheadedness or weakness while walking around the last couple days Past Medical History: CAD, dyslipidemia, IBS, CVA, prostate cancer amongst others Home Medications: Aspirin 81 mg daily no other blood thinners. Other medications as listed Allergies: No known drug allergies Vitals:Blood Pressure: 148/88, Pulse 52, RR 15, T 36.8C, O2 94% on RA Physical Exam: GENERAL: Patient is mildly uncomfortable appearing and in minimal distress. RESPIRATORY: No dyspnea. Clear to auscultation and equal bilaterally. CARDIOVASCULAR: Regular rate and rhythm.No murmur appreciated. GASTROINTESTINAL: Abdomen soft, non-tender, no peritonitis. EXTREMITIES: Normal motion all extremities, no cyanosis, no edema. NEUROLOGIC: Alert and oriented. No focal neurologic deficits appreciated SKIN: No rash, no jaundice, no diaphoresis. PSYCH: Appropriate GCS: 15 ED Course: Times/Reassessments: Patient with waxing and waning pain throughout and agreeable to hospitalization with close cardiology and hospitalist evaluation. Avery Baron MD Past Med/Surg History Problem List (Updated 06/08/24 @ 13:15 by Avery Baron MD) Non-ST elevation (NSTEMI) myocardial infarction (Acute) NSVT (nonsustained ventricular tachycardia) NSTEMI (non-ST elevated myocardial infarction) Unstable angina pectoris Chest pain Status post fall (Acute) Multiple abrasions (Acute) Fracture of thumb, right, closed (Acute) Laceration of nose (Acute) Nasal bones, open fracture (Acute) Weakness (Acute) Falls (Acute) Anaplasmosis (Acute) Encounter for pre-operative examination CAD (coronary artery disease) (Chronic) "s/p CABG x 3 (2003) and stent (1989)" Dyslipidemia (Chronic) Statin intolerance (Chronic) IBS (irritable bowel syndrome) (Chronic) CVA (cerebral vascular accident) ESBL (extended spectrum beta-lactamase) producing bacteria infection UTI (urinary tract infection) Encounter for pre-operative examination Medical History (Updated 06/08/24 @ 13:15 by Avery Baron MD) Osteoarthritis Irritable bowel syndrome Cancer PROSATE CANCER (RADIATION SEEDS) Anemia Cornea abrasion Hearing deficit Migraine Hypertension Hyperlipidemia Surgical History History of cataract surgery History of appendectomy History of cholecystectomy History of colonoscopy History of tooth extraction History of tonsillectomy History of coronary artery bypass graft 2003 (3 VESSELS) AT [facility] History of heart artery stent JUNE 2016 (2 STENTS PLACED) History of cardiac cath JUNE 2016 (CHEST PAIN) Social History Smoking Status: Current every day smoker Tobacco Type: Cigarettes Cigarettes Per Day: Smokes 2/year; Second Hand Exposure: No; Do You Dip or Chew Tobacco: No; Hx Alcohol Use: No Hx Substance Use: No Preferred Language: Polish Communication Ability: Effective Tacker Off Required: No Beliefs That Will Affect Care: None Current Living Situation: Alone Current Living Situation Comment: Lives alone in apartment Other Information That Helps Us Care for You: No Feels Safe at Home: Yes Safety Concerns: Feels Safe At This Time Assistive Devices: Glasses Allergies Allergies Allergy/AdvReac Type Severity Reaction Status Date / Time No Known Allergies Allergy Verified 02/24/18 08:18 Home Meds Home Medications Medication Instructions Recorded Confirmed ezetimibe 10 mg tablet (Zetia) 10 mg PO QAM 01/26/18 06/07/24 losartan 25 mg tablet 25 mg PO DAILY 09/07/22 06/07/24 metoprolol succinate 25 mg 12.5 mg PO DAILY 09/07/22 06/07/24 tablet,extended release 24 hr tamsulosin 0.4 mg capsule 0.4 mg PO DAILY 09/07/22 06/07/24 ascorbic acid (vitamin C) 1,000 mg 1 g PO QAM 01/03/24 06/07/24 tablet (Vitamin C) azelastine 137 mcg (0.1 %) nasal 1 spray intranasal BID 01/03/24 06/07/24 spray cyanocobalamin (vitamin B-12) 1,000 mcg PO DAILY 01/03/24 06/07/24 1,000 mcg tablet (Vitamin B-12) aspirin 81 mg tablet,delayed 81 mg PO QAM 06/07/24 06/07/24 release inulin 2 gram chewable tablet 2 g PO BID 06/07/24 06/07/24 Results & Data (ED) Vital Signs Vital Signs - 24 hr 06/07/24 06:03 06/07/24 06:05 06/07/24 06:05 Temperature 36.8 C Temperature Source Oral Pulse Rate 56 L 52 L Pulse Rhythm Regular Pulse Strength Normal Respiratory Rate 15 Respiratory Effort / Characteristics Non-Labored Spontaneous Respiratory Depth Normal Respiratory Pattern Regular Blood Pressure 148/88 H Blood Pressure Mean 108 Pulse Oximetry 94 94 Oxygen Delivery Method Room Air Room Air Sepsis Recent Fever Within 48 Hours No Sepsis New/Unexplained Change in Mental Status No Sepsis Action Taken by Nursing No Action Required 06/07/24 06:05 Temperature Temperature Source Pulse Rate 52 L Pulse Rhythm Regular Pulse Strength Respiratory Rate 15 Respiratory Effort / Characteristics Respiratory Depth Respiratory Pattern Blood Pressure Blood Pressure Mean Pulse Oximetry 94 Oxygen Delivery Method Room Air Sepsis Recent Fever Within 48 Hours Sepsis New/Unexplained Change in Mental Status Sepsis Action Taken by Nursing Laboratory Data 06/08/24 02:49 06/08/24 02:49 Lab Results 06/07/24 Range/Units 06:15 WBC 6.33 (4.8-10.8) K/ul RBC 4.13 L (4.70-6.10) M/uL Hgb 13.9 L (14.0-18.0) g/dl Hct 39.7 L (42.0-52.0) % MCV 96.1 (80.0-100.0) fL MCH 33.7 (25.0-34.0) pg MCHC 35.0 (32.0-36.0) g/dL RDW Std Deviation 46.9 H (36.4-46.3) fL RDW Coeff of Lee 13.1 (11.5-14.5) % Plt Count 205 (130-400) K/uL MPV 8.7 L (9.4-12.4) fL Immature Gran % (Auto) 0.2 % Neut % (Auto) 65.3 % Lymph % (Auto) 18.5 % Williams % (Auto) 10.0 % Eos % (Auto) 5.2 % Baso % (Auto) 0.8 % Neut # (Auto) 4.14 (1.40-6.50) K/uL Lymph # (Auto) 1.17 L (1.20-3.40) K/uL Williams # (Auto) 0.63 H (0.11-0.59) K/uL Eos # (Auto) 0.33 (0.00-0.50) K/uL Baso # (Auto) 0.05 (0.00-0.20) K/uL Immature Gran # (Auto) 0.01 (0.01-0.20) K/uL Sodium 141 (136-145) mmol/L Potassium 3.9 (3.5-5.1) mmol/L Chloride 108 H (98-107) mmol/L Carbon Dioxide 29 (21-32) mmol/L Anion Gap 4 (3-11) BUN 14 (6-23) mg/dl Creatinine 1.00 (0.6-1.4) mg/dl Est Cr Clr Drug Dosing 53.0 ml/min eGFR 73.76 BUN/Creatinine Ratio 14.0 (10-20) Glucose 111 H (70-99(Fasting)) mg/dl Estimat Average Glucose 117 mg/dl Hemoglobin A1c 5.7 H (4.5-5.6) % Calcium 9.0 (8.6-10.3) mg/dl Magnesium 1.9 (1.7-2.4) mg/dl Total Bilirubin 0.8 (0.2-1.0) mg/dl AST 24 (13-39) U/L ALT 27 (7-52) U/L Alkaline Phosphatase 49 (34-104) U/L Troponin I High Sens 19.8 (0-20) pg/ml Total Protein 6.5 (6.0-8.3) gm/dl Albumin 3.8 (3.4-5.0) gm/dl Globulin 2.7 (2.5-4.0) gm/dl Albumin/Globulin Ratio 1.4 (0.9-2) Lipase 30 (11-82) U/L Administered Medications Acetaminophen (Acetaminophen 325 Mg Tab) 650 mg PO Q4H PRN PRN Reason: Pain or Fever Stop: 07/07/24 07:41 Last Admin: 06/08/24 05:12 Dose: 650 mg Documented By: NICOLETTE Al Hydrox/Mg Hydrox/Simethicone (Aluminum/Magnesium Susp 30 Ml Udc) 15 ml PO Q4H PRN PRN Reason: Dyspepsia Stop: 07/07/24 07:41 Last Admin: 06/07/24 19:40 Dose: 15 ml Documented By: HERIBERTO Aspirin (Aspirin 81 Mg Ectab) 81 mg PO [facility] Stop: 07/08/24 08:59 Last Admin: 06/08/24 08:32 Dose: 81 mg Documented By: Clopidogrel Bisulfate (Clopidogrel Bisulfate 75 Mg Tab) 75 mg PO [facility] Stop: 07/08/24 08:59 Last Admin: 06/08/24 08:32 Dose: 75 mg Documented By: Heparin Sodium/Dextrose (Heparin 27087 Unit/500 Ml D5w) 25,000 units in 500 mls @ 18 mls/hr IV .Q24H [facility]; Protocol Stop: 07/07/24 08:14 Last Admin: 06/08/24 08:37 Dose: 900 units/hr, 18 mls/hr Documented By: Co-signed By: AIDEN Titration: 06/08/24 08:37 Dose: Infused Documented By: Co-signed By: AIDEN Titration: 06/08/24 07:07 Dose: 900 units/hr, 18 mls/hr Documented By: Co-signed By: NICOLETTE Titration: 06/07/24 22:59 Dose: 900 units/hr, 18 mls/hr Documented By: NICOLETTE Co-signed By: HERIBERTO Titration: 06/07/24 21:03 Dose: 900 units/hr, 18 mls/hr Documented By: HERIBERTO Co-signed By: PRAKASH Titration: 06/07/24 15:04 Dose: 850 units/hr, 17 mls/hr Documented By: LUIS Co-signed By: GEOVANNI Titration: 06/07/24 14:06 Dose: 0 units/hr, 0 mls/hr Documented By: DAYANARA Co-signed By: LUIS Admin: 06/07/24 08:11 Dose: 850 units/hr, 17 mls/hr Documented By: PEDRO Co-signed By: AMADOR Metoprolol Succinate (Metoprolol Succ 25mg Ext Rel Tab) 12.5 mg PO [facility] Stop: 07/08/24 08:59 Last Admin: 06/08/24 08:31 Dose: 12.5 mg Documented By: Nitroglycerin (Nitroglycerin 2% Ointment 30gm Tube) 0.5 inch EXT Q6H [facility] Stop: 07/07/24 17:29 Last Admin: 06/08/24 12:40 Dose: 0.5 inch Documented By: Admin: 06/08/24 05:09 Dose: 0.5 inch Documented By: Admin: 06/07/24 23:27 Dose: 0.5 inch Documented By: Admin: 06/07/24 17:54 Dose: 0.5 inch Documented By: DAYANARA Pantoprazole Sodium (Pantoprazole 40 Mg Tab) 40 mg PO [facility] Stop: 07/07/24 17:29 Last Admin: 06/08/24 08:32 Dose: 40 mg Documented By: Admin: 06/07/24 17:55 Dose: 40 mg Documented By: DAYANARA Rosuvastatin Calcium (Rosuvastatin Calcium 10 Mg Tab) 10 mg PO [facility] Stop: 07/07/24 09:59 Last Admin: 06/08/24 08:32 Dose: 10 mg Documented By: Admin: 06/07/24 11:12 Dose: Not Given Documented By: ELIANA Discontinued Medications Aspirin (Aspirin 81 Mg Chew) 324 mg PO ONE ONE Stop: 06/07/24 09:48 Last Admin: 06/07/24 10:19 Dose: 324 mg Documented By: PEDRO Clopidogrel Bisulfate (Clopidogrel Bisulfate 300 Mg Tab) 300 mg PO NOW STA Stop: 06/07/24 14:26 Last Admin: 06/07/24 15:22 Dose: 300 mg Documented By: DAYANARA Famotidine (Famotidine 10 Mg Tablet) 10 mg PO NOW ONE Stop: 06/07/24 17:31 Last Admin: 06/07/24 17:55 Dose: 10 mg Documented By: DAYANARA Fentanyl Citrate (Fentanyl Citrate Pf 100 Mcg/2 Ml Vial) 50 mcg IV NOW STA Stop: 06/07/24 06:43 Last Admin: 06/07/24 06:47 Dose: 50 mcg Documented By: SUNDAR Fentanyl Citrate (Fentanyl Citrate Pf 100 Mcg/2 Ml Vial) Confirm Administered Dose 100 mcg .ROUTE .STK-MED ONE Stop: 06/07/24 12:09 Last Increment: 06/07/24 12:45 Dose: 50 mcg Documented By: JESIKA Heparin Sodium (Porcine) (Heparin Sod (Porcine) 1000 Unit/Ml) 4,000 units IV NOW ONE Stop: 06/07/24 08:11 Last Admin: 06/07/24 08:11 Dose: 4,000 units Documented By: PEDRO Co-signed By: AMADOR Heparin Sodium (Porcine) (Heparin Sod (Porcine) 1000 Unit/Ml) Confirm Administered Dose 1,000 units .ROUTE .STK-MED ONE Stop: 06/07/24 08:02 Last Admin: 06/07/24 08:14 Dose: Not Given Documented By: PEDRO Heparin Sodium (Porcine) (Heparin (Porcine) 1000 Unit/Ml 10 Ml (Pet Nutrition Specialist Use Only)) Confirm Administered Dose 10,000 units .ROUTE .STK-MED ONE Stop: 06/07/24 12:09 Last Admin: 06/07/24 12:46 Dose: Not Given Documented By: JESIKA Heparin Sodium/Dextrose (Heparin Iv Adult Wt-Based Low-Dose W/ Initial Bolus Protocol) 1 each IV Q15M [facility]; Protocol Stop: 07/07/24 07:54 Last Admin: 06/07/24 08:57 Dose: 1 each Documented By: PEDRO Heparin Sodium/Dextrose (Heparin 11829 Unit/500 Ml D5w) Confirm Administered Dose 25,000 units IV .STK-MED ONE Stop: 06/07/24 08:02 Last Admin: 06/07/24 08:14 Dose: Not Given Documented By: PEDRO Heparin Sodium/Sodium Chloride (Heparin In Nss Infusion 1000 Unit/500 Ml (2 U/Ml) Bag) Confirm Administered Dose 3,000 units IV .STK-MED ONE Stop: 06/07/24 12:09 Last Admin: 06/07/24 12:31 Dose: 3,000 units Documented By: JESIKA Hydromorphone HCl (Hydromorphone Inj 0.5 Mg/0.5 Ml Syr) 0.5 mg IV NOW STA Stop: 06/07/24 07:49 Last Admin: 06/07/24 07:57 Dose: 0.5 mg Documented By: PEDRO Ioversol (Optiray 350) Confirm Administered Dose 1 ml .ROUTE .STK-MED ONE Stop: 06/07/24 12:10 Last Admin: 06/07/24 12:52 Dose: 100 ml Documented By: JESIKA Midazolam HCl (Midazolam Hcl 1 Mg/Ml 2ml Vial) Confirm Administered Dose 2 mg .ROUTE .STK-MED ONE Stop: 06/07/24 12:08 Last Admin: 06/07/24 12:45 Dose: 2 mg Documented By: JESIKA Nicardipine HCl (Nicardipine 2,000 Mcg/20 Ml Syr) Confirm Administered Dose 2,000 mcg .ROUTE .STK-MED ONE Stop: 06/07/24 12:09 Last Admin: 06/07/24 12:32 Dose: 2,000 mcg Documented By: CHETAN Nitroglycerin (Nitroglycerin Sl 0.4 Mg/Tab Tab) 0.4 mg SL NOW STA Stop: 06/07/24 06:29 Last Admin: 06/07/24 06:30 Dose: 0.4 mg Documented By: SUNDAR Nitroglycerin (Nitroglycerin Sl 0.4 Mg/Tab Tab) Confirm Administered Dose 0.4 mg .ROUTE .STK-MED ONE Stop: 06/07/24 06:30 Last Admin: 06/07/24 06:30 Dose: Not Given Documented By: SUNDAR Nitroglycerin (Nitroglycerin 2% Ointment 30gm Tube) 1 inch EXT NOW STA Stop: 06/07/24 07:50 Last Admin: 06/07/24 07:57 Dose: 1 inch Documented By: PEDRO Nitroglycerin/Dextrose (Nitroglycerin/D5w 100mcg/Ml 20ml Syr) Confirm Administered Dose 2,000 mcg .ROUTE .STK-MED ONE Stop: 06/07/24 12:10 Last Admin: 06/07/24 12:32 Dose: 2,000 mcg Documented By: CHETAN Ondansetron HCl (Ondansetron Inj 2 Mg/Ml 2 Ml Vial) 4 mg IV NOW STA Stop: 06/07/24 06:43 Last Admin: 06/07/24 06:47 Dose: 4 mg Documented By: SUNDAR Potassium Chloride (Potassium Chloride Crtab 20 Meq Tabcr) 20 meq PO NOW STA Stop: 06/07/24 07:35 Last Admin: 06/07/24 07:58 Dose: 20 meq Documented By: KR Discharge Plan Visit Data Chief Complaint: Chest Pain Stated Complaint: CHEST PAIN SINCE 444 ED Provider: Avery Baron Discharge Problem: Non-ST elevation (NSTEMI) myocardial infarction Patient Disposition: Admitted As Inpatient Discharge Instructions Interventions: ED Discharge Assessment Last Done: 06/07/24 10:14
[2024-06-07] MEDS: fentaNYL citrate PF 100 MCG/2 ML VIAL IV STA (06:47)
[2024-06-07] MEDS: ONDANSETRON INJ 2 MG/ML 2 ML VIAL IV STA (06:47)
[2024-06-07 06:58] LABS: Albumin Globulin Ratio 1.4 (0.9-2); Albumin Level 3.8 gm/dl (3.4-5.0); Bilirubin,Total 0.8 mg/dl (0.2-1.0); Globulin 2.7 gm/dl (2.5-4.0); Potassium 3.9 mmol/L (3.5-5.1); Total Protein 6.5 gm/dl (6.0-8.3)
[2024-06-07 07:04] LABS: Troponin I High Sensitivity 19.8 pg/ml (0-20)
[2024-06-07] MEDS ORDERED: NITROGLYCERIN SL 0.4 MG/TAB TAB SL PRN (07:42)
[2024-06-07] MEDS ORDERED: ONDANSETRON INJ 2 MG/ML 2 ML VIAL IV PRN (07:42)
[2024-06-07] MEDS ORDERED: MAGNESIUM HYDROXIDE SUSP 30 ML UDC PO PRN (07:42)
--- NOTE | 2024-06-07 07:54 | XRay Report ---
EXAM: XR chest 1V portable CLINICAL HISTORY: Chest pain, nonspecific TECHNIQUE: An X-ray image of the chest is obtained in 1 AP projection. COMPARISON: 01/02/2024 CR FINDINGS: Pulmonary Parenchyma: Prominent hilar shadows and bronchovascular markings at both lung [place] denoting congestive changes. No evidence of consolidation, collapse, or focal opacities. No pulmonary nodules are identified. No evidence of pleural effusion or pleural thickening. Heart and Mediastinum: Mild prominent cardiac shadow No mediastinal widening or masses. No hilar or mediastinal lymphadenopathy. Midline stentomtoy sutures are seen Bony Thorax: Bony thorax appears intact without fractures or deformities. Soft Tissues: Soft tissues overlying the chest wall are unremarkable. IMPRESSION: 1. Prominent hilar shadows and bronchovascular markings at both lung [place]les[place] denoting congestive changes. Stable. 2. Mild cardiomegaly. Stable. 3. Patent left costopherenic recess at today's study compared to the last study. Electronically signed by Dwayne Lizama 06-07-2024 07:51 AM
[2024-06-07] MEDS: HYDROmorphone INJ 0.5 MG/0.5 ML SYR IV STA (07:57)
[2024-06-07] MEDS: NITROGLYCERIN 2% OINTMENT 30GM TUBE EXT STA (07:57)
[2024-06-07] MEDS: POTASSIUM CHLORIDE CRTAB 20 MEQ TABCR PO STA (07:58)
[2024-06-07 08:11] LABS: Magnesium 1.9 mg/dl (1.7-2.4)
[2024-06-07] MEDS: HEPARIN 25000 UNIT/500 ML D5W 25,000 UNITS/500 ML BAG IV SCH (08:11)
[2024-06-07] MEDS: HEPARIN SOD (PORCINE) 1000 UNIT/ML IV ONE (08:11)
[2024-06-07] MEDS: HEPARIN 25000 UNIT/500 ML D5W IV ONE (08:14)
[2024-06-07] MEDS: HEPARIN SOD (PORCINE) 1000 UNIT/ML ONE (08:14)
--- NOTE | 2024-06-07 08:19 | History & Physical Report ---
Date of Service June 07, 2024 Assessment & Plan (1) Chest pain: Plan Chest pain rule out ACS Patient presents with left chest pressure of 2-hour duration, woke up with it. Initial troponin negative, initial EKG with ST depression in anterior and lateral leads. Patient did find brief relief with nitroglycerin and fentanyl in the ED. Chest pain came back again, Nitropaste started and heparin drip started. Trend troponin, get echo, cardiology consult, continue telemetry monitoring. NPO until cards eval. Hypoxia: Likely secondary to fentanyl administration in the ED. Maintain saturation between 92 to 96%, wean down as tolerated. Prediabetes: A1c of 5.8 in December of last year, repeat A1c. Other chronic medical conditions: Continue with/resume home meds as and when able. Hypertension, stable Chronic diastolic heart failure (EF 62%, TTE 2019), patient euvolemic. CAD status post CABG Hyperlipidemia/statin intolerance, on ezetimibe Prostate cancer status post radiation/Lupron Rx hx BPH Past tobacco abuse Ambulatory dysfunction DVT prophylaxis: Patient on heparin drip DNI/DNI Admission and Anticipated Discharge Date Admission Date: June 07, 2024 History of Present Illness Chief Complaint: chest pressure Primary Care Provider: Katey Arora MD 84-year-old male with PMH of HLD/statin intolerance, cardiac bypass and stentin g, NSTEMI, Gilbert syndrome, CAD, diastolic dysfunction, copper deficiency, prostate cancer presented to the ED with complaint of chest pressure. Patient states that he woke up with chest pressure, on the left side, no radiation of discomfort, 5/10 in intensity, some nausea, no vomiting or palpitation or dizziness or diaphoresis or LOC. Patient reports some improvement in the chest pressure with nitroglycerin x 2, it started to come back again and he was given fentanyl iv in the ED/hypoxia noted/oxygen administered. It did relieve some and chest pain again started to come back, Nitropaste will be ordered and heparin drip will be started. Cardiology consult placed and notified via TT. Patient denies cough/unusual belly pain/vomiting. Patient reports no acute changes in appetite or bowel or bladder habits. Patient smokes cigars on a very rare rare occasion, drinks 1 drink of alcohol once a week, denies recreational drug use. Medications reviewed with the patient at bedside. Plan of care discussed with the patient at bedside, he voiced understanding and was agreeable to plan of care. DNR/DNI as per my discussion with the patient. Allergies Allergy/AdvReac Type Severity Reaction Status Date / Time No Known Allergies Allergy Verified 02/24/18 08:18 Home Medications Medication Instructions Recorded Confirmed Type aspirin 81 mg tablet,delayed 81 mg PO QAM 01/26/18 01/03/24 History release (Aspir-Low) ezetimibe 10 mg tablet (Zetia) 10 mg PO QAM 01/26/18 01/03/24 History losartan 25 mg tablet 25 mg PO DAILY 09/07/22 01/03/24 History metoprolol succinate 25 mg 12.5 mg PO DAILY 09/07/22 01/03/24 History tablet,extended release 24 hr tamsulosin 0.4 mg capsule 0.4 mg PO DAILY 09/07/22 01/03/24 History ascorbic acid (vitamin C) 1,000 mg 1 g PO QAM 01/03/24 01/03/24 History tablet (Vitamin C) azelastine 137 mcg (0.1 %) nasal 1 spray intranasal BID 01/03/24 01/03/24 History spray cyanocobalamin (vitamin B-12) 1,000 mcg PO DAILY 01/03/24 01/03/24 History 1,000 mcg tablet (Vitamin B-12) inulin 2 gram chewable tablet 1 g PO BID 01/03/24 01/03/24 History (Fiber Gummies) Past Med/Surg History Problem List (Updated 06/07/24 @ 09:49 by Adryan Rincon DO) NSTEMI (non-ST elevated myocardial infarction) Unstable angina pectoris Chest pain Status post fall (Acute) Multiple abrasions (Acute) Fracture of thumb, right, closed (Acute) Laceration of nose (Acute) Nasal bones, open fracture (Acute) Weakness (Acute) Falls (Acute) Anaplasmosis (Acute) Encounter for pre-operative examination CAD (coronary artery disease) (Chronic) "s/p CABG x 3 (2003) and stent (1989)" Dyslipidemia (Chronic) Statin intolerance (Chronic) IBS (irritable bowel syndrome) (Chronic) CVA (cerebral vascular accident) ESBL (extended spectrum beta-lactamase) producing bacteria infection UTI (urinary tract infection) Encounter for pre-operative examination Medical History (Updated 06/07/24 @ 09:49 by Adryan Rincon DO) Osteoarthritis Irritable bowel syndrome Cancer PROSATE CANCER (RADIATION SEEDS) Anemia Cornea abrasion Hearing deficit Migraine Hypertension Hyperlipidemia Surgical History History of cataract surgery History of appendectomy History of cholecystectomy History of colonoscopy History of tooth extraction History of tonsillectomy History of coronary artery bypass graft 2003 (3 VESSELS) AT [facility] History of heart artery stent JUNE 2016 (2 STENTS PLACED) History of cardiac cath JUNE 2016 (CHEST PAIN) Social History Smoking Status: Never smoker Tobacco Type: Cigarettes Cigarettes Per Day: Smokes 2/year; Second Hand Exposure: No; Do You Dip or Chew Tobacco: No; Hx Alcohol Use: No Hx Substance Use: No Preferred Language: Amharic Communication Ability: Effective Universal Branch Consultant Required: No Beliefs That Will Affect Care: None Current Living Situation: Alone Current Living Situation Comment: Lives alone in apartment Feels Safe at Home: Yes Assistive Devices: Glasses Review of Systems Review of Systems: Negative otherwise mentioned in HPI. Physical Exam Physical Exam: GENERAL: Alert and oriented x3. NAD, on RA. HEENT: No pallor, no icterus. Pupils equal, round and reactive to light. Oral mucosa moist. NECK: No JVD, no neck masses. HEART: S1 and S2 heard. Regular rate and rhythm. No murmur, no gallop. RESPIRATORY SYSTEM: Normal AP diameter. No accessory muscle use. No wheezing, no crackles. ABDOMEN: Soft, bowel sounds present, nontender, no distention. CENTRAL NERVOUS SYSTEM: No facial droop. Speech is clear. Obeys simple commands. Moves extremities. EXTREMITIES: No edema, no erythema seen. Results & Data Results & Data Vital Signs (Past 12 Hours) Vital Signs Temp Pulse Pulse Resp BP BP Pulse Ox 06/07/24 06:50 50 L 9 L 132/73 96 06/07/24 06:45 54 L 15 129/76 89 L 06/07/24 06:42 50 L 17 142/81 H 89 L 06/07/24 06:35 123/71 06/07/24 06:30 55 L 18 134/72 93 06/07/24 06:05 52 L 15 94 06/07/24 06:05 94 06/07/24 06:05 36.8 C 52 L 15 148/88 H 94 06/07/24 06:03 56 L O2 Del Method O2 Flow Rate 06/07/24 06:50 Nasal Cannula 3 06/07/24 06:45 06/07/24 06:42 06/07/24 06:35 06/07/24 06:30 06/07/24 06:05 Room Air 06/07/24 06:05 Room Air 06/07/24 06:05 Room Air 06/07/24 06:03
--- NOTE | 2024-06-07 08:25 | Cardiology Consultation ---
Date of Consultation June 07, 2024 Assessment & Plan (1) NSTEMI (non-ST elevated myocardial infarction): * Initial troponin normal the patient's initial high sensitive troponin was normal at 19.8 PG per mL, but has trended up to 74.7 PG per mL on second measurement obtained 4 hours later. * Patient with mild residual angina, but much improved compared to presentation. * Serial EKG tracings without ST segment elevation, inferolateral ST segment depression however noted which correlates with circumflex territory wall motion abnormality on echocardiogram. * Recommend proceeding with aspirin, unfractionated heparin * Discussed benefits and risks of invasive coronary angiography and PCI of clinically appropriate. Patient agreeable this will be arranged with interventional cardiology within the case has been discussed. * Keep n.p.o. except medications. * Admit to PCU-Pending bed availability. (2) Dyslipidemia: (3) Statin intolerance: * Will plan on resuming low-dose rosuvastatin in addition to his prior to hospital treatment with ezetimibe at least in the short-term with outpatient consideration of revisiting PSK 9 inhibitor therapy. History of Present Illness Attending Physician: Tigre Reddy MD History of Present Illness Xu Singletary is an 84 year old male seen in cardiology consultation per the request of Dr Baron for the evaluation of chest pain. Xu describes feeling well and being in his normal state of health until 3 to 4 AM this morning when he woke up with abrupt onset 5/10 intensity left-sided chest discomfort. At baseline, he describes himself as being physically active walking for 30 minutes sessions several evenings a week as recently as last week without any symptoms of angina. He felt well throughout the weekend until the onset of the chest discomfort woke him up last evening. He was seen by the undersigned in the emergency department, [facility]. At that time he appeared comfortable. He described the discomfort had alleviated down to a 2/10 in intensity having received sublingual nitroglycerin, Nitropaste, fentanyl, and IV heparin. Patient notes adherence with his outpatient cardiac medications including aspirin. He has not tolerated therapy with statin agents in the past including atorvastatin and rosuvastatin and in [address] with regards to starting a PCSK9 inhibitor but the patient declined and therefore he has been on monotherapy with ezetimibe. His most recent LDL cholesterol was 122 mg/dL as obtained in May,. Past Medical / Surgical History: Problem List: 1.Coronary artery disease 1.Plain balloon angioplasty of an unknown vessel in 1989 2.In October of 2003 he underwent routine stress testing which lead to cardiac catheterization on 12/01/2003 demonstrating surgical three-vessel coronary artery disease with preserved LV systolic function. His specific coronary anatomy was left dominant with a 70-80% LAD stenosis with long runoff, 50% diagonal stenosis also with long runoff and a diseased circumflex of 80% as well as a posterior marginal artery with a 90% stenosis. He was referred for CABG on 12/26/2003 and received a BUENO to the LAD, saphenous vein graft to the diagonal with jump to an obtuse marginal. 3.Hospitalization in June 2016 with anginal symptoms, NSTEMI. Cardiac catheterization at that time demonstrated a culprit lesion within a moderately large marginal branch with diffuse [place] vessel disease, status post drug- eluting stent. 2.Dyslipidemia with poor statin tolerance. 3.Hypertension Social History: Single Lives independently He has retired having worked at [employer] for over 20 years non smoker His son, Avery, lives in [place]. Family History: Parents in there 60s Allergies Allergy/AdvReac Type Severity Reaction Status Date / Time No Known Allergies Allergy Verified 02/24/18 08:18 Home Medications Medication Instructions Recorded Confirmed Type aspirin 81 mg tablet,delayed 81 mg PO QAM 01/26/18 01/03/24 History release (Aspir-Low) ezetimibe 10 mg tablet (Zetia) 10 mg PO QAM 01/26/18 01/03/24 History losartan 25 mg tablet 25 mg PO DAILY 09/07/22 01/03/24 History metoprolol succinate 25 mg 12.5 mg PO DAILY 09/07/22 01/03/24 History tablet,extended release 24 hr tamsulosin 0.4 mg capsule 0.4 mg PO DAILY 09/07/22 01/03/24 History ascorbic acid (vitamin C) 1,000 mg 1 g PO QAM 01/03/24 01/03/24 History tablet (Vitamin C) azelastine 137 mcg (0.1 %) nasal 1 spray intranasal BID 01/03/24 01/03/24 History spray cyanocobalamin (vitamin B-12) 1,000 mcg PO DAILY 01/03/24 01/03/24 History 1,000 mcg tablet (Vitamin B-12) inulin 2 gram chewable tablet 1 g PO BID 01/03/24 01/03/24 History (Fiber Gummies) Patient History Medical History (Updated 06/07/24 @ 09:49 by Adryan Rincon DO) Osteoarthritis Irritable bowel syndrome Cancer PROSATE CANCER (RADIATION SEEDS) Anemia Cornea abrasion Hearing deficit Migraine Hypertension Hyperlipidemia Surgical History History of cataract surgery History of appendectomy History of cholecystectomy History of colonoscopy History of tooth extraction History of tonsillectomy History of coronary artery bypass graft 2003 (3 VESSELS) AT [facility] History of heart artery stent JUNE 2016 (2 STENTS PLACED) History of cardiac cath JUNE 2016 (CHEST PAIN) Social History Smoking Status: Never smoker Tobacco Type: Cigarettes Cigarettes Per Day: Smokes 2/year; Second Hand Exposure: No; Do You Dip or Chew Tobacco: No; Hx Alcohol Use: No Hx Substance Use: No Preferred Language: Chinese Communication Ability: Effective Rn Liaison Required: No Beliefs That Will Affect Care: None Current Living Situation: Alone Current Living Situation Comment: Lives alone in apartment Feels Safe at Home: Yes Assistive Devices: Glasses Review of Systems Review of Systems: All systems reviewed & are unremarkable except as noted in HPI & below Physical Exam Physical Exam: Temp Pulse Resp BP Pulse Ox O2 Del Method O2 Flow Rate 36.8 C 56 L 20 152/80 H 96 Nasal Cannula 3 06/07/24 06:05 06/07/24 09:08 06/07/24 09:08 06/07/24 09:08 06/07/24 09:08 06/07/24 09:08 06/07/24 09:08 General: no acute distress and stated age Eyes: conjunctiva are pink and non-injected, sclera clear Neck: normal jugular venous pulse, no hepatojugular reflux Chest: normal shape and normal respiratory effort Lungs: clear to auscultation and percussion Cardiac Exam: - regular heart sounds, no murmurs, rubs, or gallops, no jugular venous distention Abdomen: abdomen soft, non-tender, no abnormal masses and no hepatosplenomegaly Musculoskeletal: no gait disturbance, no weakness Extremities: no edema and no cyanosis Neuro:awake, conversant, follows commands, no focal motor deficits Psych: appropriate affect and insight. Results & Data Vital Signs (Past 12 Hours) Vital Signs Temp Pulse Pulse Resp BP BP Pulse Ox 06/07/24 06:50 50 L 9 L 132/73 96 06/07/24 06:45 54 L 15 129/76 89 L 06/07/24 06:42 50 L 17 142/81 H 89 L 06/07/24 06:35 123/71 06/07/24 06:30 55 L 18 134/72 93 06/07/24 06:05 52 L 15 94 06/07/24 06:05 94 06/07/24 06:05 36.8 C 52 L 15 148/88 H 94 06/07/24 06:03 56 L O2 Del Method O2 Flow Rate 06/07/24 06:50 Nasal Cannula 3 06/07/24 06:45 06/07/24 06:42 06/07/24 06:35 06/07/24 06:30 06/07/24 06:05 Room Air 06/07/24 06:05 Room Air 06/07/24 06:05 Room Air 06/07/24 06:03 Laboratory Results Cardiac Enzymes 06/07/24 Range/Units 06:15 AST 24 (13-39) U/L Troponin I High Sens 19.8 (0-20) pg/ml CBC 06/07/24 Range/Units 06:15 WBC 6.33 (4.8-10.8) K/ul RBC 4.13 L (4.70-6.10) M/uL Hgb 13.9 L (14.0-18.0) g/dl Hct 39.7 L (42.0-52.0) % Plt Count 205 (130-400) K/uL Neut # (Auto) 4.14 (1.40-6.50) K/uL Lymph # (Auto) 1.17 L (1.20-3.40) K/uL [place] # (Auto) 0.63 H (0.11-0.59) K/uL Eos # (Auto) 0.33 (0.00-0.50) K/uL Baso # (Auto) 0.05 (0.00-0.20) K/uL Comprehensive Metabolic Panel 06/07/24 Range/Units 06:15 Sodium 141 (136-145) mmol/L Potassium 3.9 (3.5-5.1) mmol/L Chloride 108 H (98-107) mmol/L Carbon Dioxide 29 (21-32) mmol/L BUN 14 (6-23) mg/dl Creatinine 1.00 (0.6-1.4) mg/dl Glucose 111 H (70-99(Fasting)) mg/dl Calcium 9.0 (8.6-10.3) mg/dl AST 24 (13-39) U/L ALT 27 (7-52) U/L Alkaline Phosphatase 49 (34-104) U/L Total Protein 6.5 (6.0-8.3) gm/dl Albumin 3.8 (3.4-5.0) gm/dl Intake and Output 06/06/24 06/07/24 06/07/24 22:59 06:59 14:59 Other: Weight 77.6 kg Weight Measurement Method Built in [facility] 05/29/23 09:11 Triglycerides: 154 Cholesterol: 198 Non-HDL Cholesterol: 153 HDL Cholesterol: 45 LDL Cholesterol: 122 Diagnostic Findings Summary of ttecho performed 01/23/24: The qualitative LV ejection fraction is 55-59% (normal). The LV wall thickness is mildly increased (concentric). The left ventricular wall motion is normal. The left ventricular diastolic function is mildly abnormal (grade I). There is mild aortic valve sclerosis with focal calcification of the non coronary cusp. Aortic stenosis is absent. Mild mitral regurgitation is present. Mild tricuspid regurgitation is present. There is no evidence of pulmonary hypertension. Compared to the report of the prior study dated 07/21/19, mild left atrial enlargement is observed. Repeat transthoracic echocardiogram performed today 06/07/2024: Mild concentric left ventricular hypertrophy is present There is a small size lateral wall motion abnormality encompassing the mid and basal segments with hypokinesis of the segments. The LVEF is normal within the range of 55-60%. Mild mitral regurgitation is present Mild tricuspid regurgitation is present. Mild aortic valve sclerosis without stenosis is present. The pulm artery systolic pressure is estimated be 41 mmHg, mildly elevated. Compared to the report of the previous study dated 01/23/2024 the lateral wall motion abnormality is new. A total of 3 EKG tracings have been performed so far this morning 06/07/2024 at 6:01 AM, 6:32 AM and 8:09 AM on revealing sinus bradycardia in the 50s with mild inferolateral ST segment depression consistent with ischemia which is new compared to the previous tracing dating back to December,.
[2024-06-07 08:42] LABS: Estimated Average Glucose 117 mg/dl; Hemoglobin A1C 5.7 % (4.5-5.6)
[2024-06-07] MEDS: Heparin IV Adult Wt-Based Low-Dose w/ INITIAL Bolus Protocol IV SCH (08:57)
[2024-06-07] MEDS ORDERED: HEPARIN SOD 5,000 UNIT/0.5 ML VIAL SQ SCH (09:00)
[2024-06-07 09:36] LABS: ANTI-Xa, UFH(UnfractionatedHep < 0.10 IU/ml (0.3-0.7)
[2024-06-07] MEDS: ASPIRIN 81 MG CHEW PO ONE (10:19)
[2024-06-07] MEDS: ROSUVASTATIN CALCIUM 10 MG TAB PO SCH (11:12)
[2024-06-07 11:43] LABS: ANTI-Xa, UFH(UnfractionatedHep 0.63 IU/ml (0.3-0.7)
--- NOTE | 2024-06-07 11:51 | Pre Anesthesia Assessment ---
Date of Service June 07, 2024 Pre Sedation Assessment Vital Signs Temp Pulse Pulse Resp BP BP Pulse Ox 06/07/24 11:30 68 18 117/63 97 06/07/24 10:00 77 16 128/73 90 06/07/24 09:08 06/07/24 09:08 56 L 20 152/80 H 97 06/07/24 06:50 50 L 9 L 132/73 96 06/07/24 06:45 54 L 15 129/76 89 L 06/07/24 06:42 50 L 17 142/81 H 89 L 06/07/24 06:35 123/71 06/07/24 06:30 55 L 18 134/72 93 06/07/24 06:05 52 L 15 94 06/07/24 06:05 94 06/07/24 06:05 36.8 C 52 L 15 148/88 H 94 06/07/24 06:03 56 L Pulse Ox O2 Del Method O2 Del Method O2 Flow Rate O2 Flow Rate 06/07/24 11:30 Room Air 06/07/24 10:00 Room Air 06/07/24 09:08 96 Nasal Cannula 3 06/07/24 09:08 Room Air 3 06/07/24 06:50 Nasal Cannula 3 06/07/24 06:45 06/07/24 06:42 06/07/24 06:35 06/07/24 06:30 06/07/24 06:05 Room Air 06/07/24 06:05 Room Air 06/07/24 06:05 Room Air 06/07/24 06:03 Cardiovascular Additional Comments: Regular rate and rhythm, grade 2/6 systolic murmur, S4 gallop Respiratory normal respiratory effort, lungs clear to auscultation Pre-Sedation Airway Assessment Smoking Status: Never smoker Mallampati 2 ASA 4 Notes The planned sedation has been discussed with the patient. Informed Consent was obtained. I have identified the patient, determined the appropriateness of sedation and have assessed the patient immediately prior to the procedure. All medicine(s) and interventions are by my order.
[2024-06-07] MEDS: niCARdipine 2,000 MCG/20 ML SYR ONE (12:32)
[2024-06-07] MEDS: NITROGLYCERIN/D5W 100MCG/ML 20ML SYR ONE (12:32)
[2024-06-07] MEDS: fentaNYL citrate PF 100 MCG/2 ML VIAL ONE (12:45)
[2024-06-07] MEDS: MIDAZOLAM HCL 1 MG/ML 2ML VIAL ONE (12:45)
[2024-06-07] MEDS: HEPARIN (PORCINE) 1000 UNIT/ML 10 ML (CATH LAB USE ONLY) ONE (12:46)
--- NOTE | 2024-06-07 12:49 | Post Anesthesia Assessment ---
Date of Service June 07, 2024 Post Sedation Assessment Vital Signs Temp Pulse Pulse Resp BP BP Pulse Ox 06/07/24 11:30 68 18 117/63 97 06/07/24 10:00 77 16 128/73 90 06/07/24 09:08 06/07/24 09:08 56 L 20 152/80 H 97 06/07/24 06:50 50 L 9 L 132/73 96 06/07/24 06:45 54 L 15 129/76 89 L 06/07/24 06:42 50 L 17 142/81 H 89 L 06/07/24 06:35 123/71 06/07/24 06:30 55 L 18 134/72 93 06/07/24 06:05 52 L 15 94 06/07/24 06:05 94 06/07/24 06:05 36.8 C 52 L 15 148/88 H 94 06/07/24 06:03 56 L Pulse Ox O2 Del Method O2 Del Method O2 Flow Rate O2 Flow Rate 06/07/24 11:30 Room Air 06/07/24 10:00 Room Air 06/07/24 09:08 96 Nasal Cannula 3 06/07/24 09:08 Room Air 3 06/07/24 06:50 Nasal Cannula 3 06/07/24 06:45 06/07/24 06:42 06/07/24 06:35 06/07/24 06:30 06/07/24 06:05 Room Air 06/07/24 06:05 Room Air 06/07/24 06:05 Room Air 06/07/24 06:03 Recovery Score Activity: Moves 4 extremities Respiration: Deep Breath/Cough Circulation: +/-20% PreAnes Value Consciousness: Fully Awake Oxygen Saturation: > 92% On Room Air Discharge Sedation Level of Care: Fast Track Phase II Post Sedation Plan On clinical assessment, the patient appears to have tolerated the sedation without complications. Patient is recovering as anticipated. Patient will continue to be monitored by nursing and may be discharged when sedation discharge criteria are met per below protocol. Upon Completions of procedure up to 15 minutes continue every 5 minute vital signs and the P.A.R. score; then discharge to a Phase I or Fast Track to Phase II per the following guidelines: * Discharge Patient to appropriate Phase II area if PAR is 8 or greater or return to pre- procedure baseline. The post - procedure orders will be as directed. * If PAR score is less than 8 or not return to pre-procedure baseline then p atient will follow Phase I monitoring till PAR is reached for Phase II. The Phase I may be done in procedure room or may call to secure a Phase I area. * If naloxone or flumazenil are used for reversal, hold in Phase I for continued monitoring from when last reversal dose was given for a minimum of 60 minutes or longer pending the nurse and/or physician discretion of patient condition before discharge to Phase II. Please call the Sedation Physician to re-evaluate and complete post-note for discharge to Phase II area. Do NOT discharge from procedure sedation or Phase 1 until post- sedation evaluation note is complete by procedure /sedation MD Sedation Discharge Instructions to be given to the patient at discharge to home. [facility] Procedure Codes (Charges) Indication for Procedure Indication for procedure: Non-ST elevation OR History of CABG Sedation/Anesthesia Procedure 1: Sedation/Anesthesia: 25695 Mod Sedation by the same physician;Init15 Min Child Age 5 & Up (Initial 15 minutes, start time 1224) Total Sedation Time (minutes): 18 Procedure 2: Sedation/Anesthesia: 19495 Mod Sedation by the same physician; Ea José Miguel [id number] Minutes (Additional 3 minutes, end time 1242) Total Sedation Time (minutes): 18
[2024-06-07] MEDS: OPTIRAY 350 ONE (12:52)
--- NOTE | 2024-06-07 14:24 | Communication Note ---
Date of Service: June 07, 2024 Cardiac catheterization images reviewed independently. Case discussed with Dr Don of interventional cardiology. Severe hughes vessel disease including the apical LAD after the anastomosis with the BUENO graft that is not amenable to PCI. Disease in the sequential graft to the diagonal and OM noted likely explains symptoms , echocardiogram findings and EKG findings. Medical management recommended. Resume heparin at 1500. Add clopidogrel.
[2024-06-07 14:55] LABS: ANTI-Xa, UFH(UnfractionatedHep < 0.10 IU/ml (0.3-0.7)
[2024-06-07] MEDS: CLOPIDOGREL BISULFATE 300 MG TAB PO STA (15:22)
[2024-06-07] MEDS: NITROGLYCERIN 2% OINTMENT 30GM TUBE EXT SCH (17:54)
[2024-06-07] MEDS: FAMOTIDINE 10 MG TABLET PO ONE (17:55)
[2024-06-07] MEDS: PANTOprazole 40 MG TAB PO SCH (17:55)
--- NOTE | 2024-06-07 18:18 | Discharge Summary ---
Date of Service June 08, 2024 Use this as discharge summary for June 08, 2024. Admission HPI Per Admitting Provider 84-year-old male with PMH of HLD/statin intolerance, cardiac bypass and stenting, NSTEMI, Gilbert syndrome, CAD, diastolic dysfunction, copper deficiency, prostate cancer presented to the ED with complaint of chest pressure. Patient states that he woke up with chest pressure, on the left side, no radiation of discomfort, 5/10 in intensity, some nausea, no vomiting or palpitation or dizziness or diaphoresis or LOC. Patient reports some improvement in the chest pressure with nitroglycerin x 2, it started to come back again and he was given fentanyl iv in the ED/hypoxia noted/oxygen administered. It did relieve some and chest pain again started to come back, Nitropaste will be ordered and heparin drip will be started. Cardiology consult placed and notified via TT. Patient denies cough/unusual belly pain/vomiting. Patient reports no acute changes in appetite or bowel or bladder habits. Patient smokes cigars on a very rare rare occasion, drinks 1 drink of alcohol once a week, denies recreational drug use. Medications reviewed with the patient at bedside. Plan of care discussed with the patient at bedside, he voiced understanding and was agreeable to plan of care. DNR/DNI as per my discussion with the patient. Admission Exam Per Admitting Provider GENERAL: Alert and oriented x3. NAD, on RA. HEENT: No pallor, no icterus. Pupils equal, round and reactive to light. Oral mucosa moist. NECK: No JVD, no neck masses. HEART: S1 and S2 heard. Regular rate and rhythm. No murmur, no gallop. RESPIRATORY SYSTEM: Normal AP diameter. No accessory muscle use. No wheezing, no crackles. ABDOMEN: Soft, bowel sounds present, nontender, no distention. CENTRAL NERVOUS SYSTEM: No facial droop. Speech is clear. Obeys simple commands. Moves extremities. EXTREMITIES: No edema, no erythema seen. Principal Diagnosis Complex CAD, NSTEMI Discharge Exam GENERAL: Alert and oriented x3. NAD, on RA. HEENT: No pallor, no icterus. Pupils equal, round and reactive to light. Oral mucosa moist. NECK: No JVD, no neck masses. HEART: S1 and S2 heard. Regular rate and rhythm. No murmur, no gallop. RESPIRATORY SYSTEM: Normal AP diameter. No accessory muscle use. No wheezing, no crackles. ABDOMEN: Soft, bowel sounds present, nontender, no distention. CENTRAL NERVOUS SYSTEM: No facial droop. Speech is clear. Obeys simple commands. Moves extremities. EXTREMITIES: No edema, no erythema seen. Discharge Data Allergies Allergy/AdvReac Type Severity Reaction Status Date / Time No Known Allergies Allergy Verified 02/24/18 08:18 Consultations 06/07/24 07:38 ED Decision to Admit Stat 06/07/24 07:41 Consult Cardiology Routine Procedures Performed Operation Date: 06/07/24 11:00 Actual Procedures p Cineradiography w/Routine Exam - Adryan Don MD, PhD p Cath, Cors with Grafts (no LV) - Adryan Don MD, PhD Ordered Studies 06/07/24 09:56 CL Cath Imgs for PACS use only Routine Hospital Course (1) Chest pain: Plan Chest pain rule out ACS NSTEMI Patient presents with left chest pressure of 2-hour duration, woke up with it. At presentation: Initial troponin negative, initial EKG with ST depression in anterior and lateral leads. s/p cardiac cath 06/07, complex CAD, cardio evaled, recommended transfer to higher center for complex PCI procedure. Keep NPO, keep running heparin drip during transfer. c/w other cardiac meds as prescribed. DAPT, met succinate 12.5 mg daily. At present pt remains chest pain free. Hypoxia: Likely secondary to fentanyl administration in the ED. resolved Prediabetes: A1c of 5.8 in December of last year, repeat A1c. Other chronic medical conditions: Continue with/resume home meds as and when able. Hypertension, stable Chronic diastolic heart failure (EF 62%, TTE 2019), patient euvolemic. CAD status post CABG Hyperlipidemia/statin intolerance, on ezetimibe Prostate cancer status post radiation/Lupron Rx hx BPH Past tobacco abuse Ambulatory dysfunction DVT prophylaxis: Patient on heparin drip DNI/DNI Patient is being discharged to tertiary care center for complex PCI.Kavin. [facility] Attestation I certify that this patient is under my care and that I, or a physicians tv production assistant working with me, had a face to-face encounter that meets the [id number] encounter requirements with this patient. The encounter with the patient was in whole, or in part, for the following medical condition, which is the primary reason for home health care (list medical condition): I certify that, based on my findings, the following services are medically necessary home health services: My clinical findings support the need for the above services because: Further, I certify that my clinical findings support that this patient is homebound (i.e. absences from home require considerable and taxing effort and are for medical reasons or yazidism services or infrequently or of short duration when for other reasons) because: Certification for Home Health Services: Based on the above findings, I certify that this patient is confined to the home and needs intermittent retirement care, physical therapy and/or speech therapy or continues to need occupational therapy. The patient is under my care, and I have initiated the establishment of the plan of care. This patient will be followed by a physician who will periodically review the plan of care. Total Time Total Time Spent Total Time Spent (In Minutes): 35 Discharge Plan Discharge Items Patient Disposition: Transfer Acute Care Hospital Reason For Visit: CHEST PRESSURE Discharge Diagnosis: Complicated CAD, likely intervention vs bypass consideration at tertiary facility Activity: As commented below Activity Comment: Per tertiary [facility] recommendation Non-emergency contact: Primary Care Provider Call non-emergency contact if: you have any medication questions Follow-up/Referrals: Katey Arora MD [Primary Care Provider] - Diet: Nothing by Mouth Addtl Attending Provider Instructions: Your prior to arrival home meds are continued as it is in [place] med recs, your current inpatient meds are copied and pasted below for the sake of comparision at [facility]. Heparin drip needs to be run during transfer process. Current Inpatient Medications Acetaminophen (Acetaminophen 325 Mg Tab) 650 mg PO Q4H PRN PRN Reason: Pain or Fever Stop: 07/07/24 07:41 Last Admin: 06/08/24 05:12 Dose: 650 mg Al Hydrox/Mg Hydrox/Simethicone (Aluminum/Magnesium Susp 30 Ml Udc) 15 ml PO Q4H PRN PRN Reason: Dyspepsia Stop: 07/07/24 07:41 Last Admin: 06/07/24 19:40 Dose: 15 ml Aspirin (Aspirin 81 Mg Ectab) 81 mg PO QAM [facility] Stop: 07/08/24 08:59 Last Admin: 06/08/24 08:32 Dose: 81 mg Clopidogrel Bisulfate (Clopidogrel Bisulfate 75 Mg Tab) 75 mg PO [facility] Stop: 07/08/24 08:59 Last Admin: 06/08/24 08:32 Dose: 75 mg Heparin Sodium/Dextrose (Heparin 24105 Unit/500 Ml D5w) 25,000 units in 500 mls @ 18 mls/hr IV .Q24H [facility]; Protocol Stop: 07/07/24 08:14 Last Admin: 06/08/24 08:37 Dose: 900 units/hr, 18 mls/hr Magnesium Hydroxide (Magnesium Hydroxide Susp 30 Ml Udc) 30 ml PO Q12H PRN PRN Reason: Constipation Stop: 07/07/24 07:41 Metoprolol Succinate (Metoprolol Succ 25mg Ext Rel Tab) 12.5 mg PO [facility] Stop: 07/08/24 08:59 Last Admin: 06/08/24 08:31 Dose: 12.5 mg Nitroglycerin (Nitroglycerin Sl 0.4 Mg/Tab Tab) 0.4 mg SL Q5M PRN PRN Reason: Chest Pain Stop: 07/07/24 07:41 Nitroglycerin (Nitroglycerin 2% Ointment 30gm Tube) 0.5 inch EXT Q6H [facility] Stop: 07/07/24 17:29 Last Admin: 06/08/24 12:40 Dose: 0.5 inch Ondansetron HCl (Ondansetron Inj 2 Mg/Ml 2 Ml Vial) 4 mg IV Q6H PRN PRN Reason: Nausea Stop: 07/07/24 07:41 Pantoprazole Sodium (Pantoprazole 40 Mg Tab) 40 mg PO [facility] Stop: 07/07/24 17:29 Last Admin: 06/08/24 08:32 Dose: 40 mg Rosuvastatin Calcium (Rosuvastatin Calcium 10 Mg Tab) 10 mg PO [facility] Stop: 07/07/24 09:59 Last Admin: 06/08/24 08:32 Dose: 10 mg Pending Studies at Discharge: No Stand-Alone Forms: My [facility] Skilled Items Patient informed of condition?: Yes DNR: Yes Discharge Level of Care: Other Communicable Disease: No Discharge Prognosis: Other Lines: Peripheral IV Urinary Catheter: No Medications and DC Order Prescriptions: Continued ezetimibe [Zetia] 10 mg Tablet 10 mg PO QAM tamsulosin 0.4 mg capsule 0.4 mg PO DAILY losartan 25 mg tablet 25 mg PO DAILY metoprolol succinate 25 mg tablet extended release 24 hr 12.5 mg PO DAILY ascorbic acid (vitamin C) [Vitamin C] 1,000 mg Tablet 1 g PO QAM Rx Instructions: Unable to verify OTC meds at this date/time. cyanocobalamin (vitamin B-12) [Vitamin B-12] 1,000 mcg Tablet 1,000 mcg PO DAILY Rx Instructions: Unable to verify OTC meds at this date/time. azelastine 137 mcg (0.1 %) spray,non-aerosol 1 spray INTRANASAL BID aspirin 81 mg Tablet,Delayed Release (Dr/Ec) 81 mg PO QAM inulin 2 gram Tablet,Chewable 2 g PO BID Rx Instructions: Unable to verify OTC meds at this date/time. Discharge Orders: Discharge Order (Routine); Ordered 06/07/24 Ordered By: Tigre Reddy Admission Data Admit Date/Time: 06/07/24 07:42 Attending Provider: Tigre Reddy Admit Provider: Tigre Reddy Primary Care Provider: Katey Arora Other Providers: Tigre Reddy; Adryan Rincon
--- NOTE | 2024-06-07 18:50 | Communication Note ---
Date of Service: June 07, [address] Delgado Jurado of cardiology at [facility] who accepted the patient in transfer by [facility] ground when a bed becomes available. Myla Rincon DO
[2024-06-07] MEDS: ALUMINUM/MAGNESIUM SUSP 30 ML UDC PO PRN (19:40)
[2024-06-07 20:35] LABS: ANTI-Xa, UFH(UnfractionatedHep 0.27 IU/ml (0.3-0.7)
[2024-06-08 03:02] LABS: Hematocrit (blood only) 38.4 % (42.0-52.0); Hemoglobin 13.2 g/dl (14.0-18.0); Mean Corpuscular Hemoglobin 32.7 pg (25.0-34.0); Mean Corpuscular Hgb Conc 34.4 g/dL (32.0-36.0); Mean Platelet Volume 8.7 fL (9.4-12.4); Platelet Count 172 K/uL (130-400); RDW Coefficient of Variation 13.2 % (11.5-14.5); Red Blood Count 4.04 M/uL (4.70-6.10); White Blood Count 7.27 K/ul (4.8-10.8)
[2024-06-08 03:16] LABS: BUN Creatinine Ratio 13.9 (10-20); Calcium 8.7 mg/dl (8.6-10.3); Chol HDL Ratio 3.6 (0-5); Creatinine Clr Calc Pharmacy 52.2 ml/min; Phosphorus 2.6 mg/dl (2.5-4.9); Potassium 4.1 mmol/L (3.5-5.1)
[2024-06-08 03:32] LABS: ANTI-Xa, UFH(UnfractionatedHep 0.42 IU/ml (0.3-0.7)
[2024-06-08] MEDS: ACETAMINOPHEN 325 MG TAB PO PRN (05:12)
--- NOTE | 2024-06-08 05:33 | Electrocardiogram Report ---
Test Reason : Blood Pressure : */* mmHG Vent. Rate : 51 BPM Atrial Rate : 51 BPM P-R Int : 178 ms QRS Dur : 94 ms QT Int : 440 ms P-R-T Axes : 43 -18 -21 degrees QTcB Int : 405 ms Sinus bradycardia Nonspecific ST abnormality Abnormal ECG When compared with ECG of 07-Jun-2024 06:01, No significant change was found Confirmed by Warren Le ([id number]) on 06/08/2024 5:33:31 AM Referred By: REFERRED SELF Confirmed By: Warren Le
--- NOTE | 2024-06-08 05:33 | Electrocardiogram Report ---
Test Reason : Blood Pressure : */* mmHG Vent. Rate : 55 BPM Atrial Rate : 55 BPM P-R Int : 172 ms QRS Dur : 92 ms QT Int : 404 ms P-R-T Axes : 42 -19 -11 degrees QTcB Int : 386 ms Sinus bradycardia Minimal voltage criteria for LVH, may be normal variant ( R in aVL ) Nonspecific ST abnormality Abnormal ECG When compared with ECG of 02-Jan-2024 22:46, Vent. rate has decreased by [address] now depressed in Inferolateral leads Confirmed by Warren Le ([id number]) on 06/08/2024 5:33:03 AM Referred By: REFERRED SELF Confirmed By: Warren Le
--- NOTE | 2024-06-08 05:34 | Electrocardiogram Report ---
Test Reason : Blood Pressure : */* mmHG Vent. Rate : 60 BPM Atrial Rate : 60 BPM P-R Int : 172 ms QRS Dur : 90 ms QT Int : 426 ms P-R-T Axes : 47 -14 -4 degrees QTcB Int : 426 ms Normal sinus rhythm with sinus arrhythmia Nonspecific ST abnormality Abnormal ECG When compared with ECG of 07-Jun-2024 06:32, No significant change was found Confirmed by Warren Le ([id number]) on 06/08/2024 5:33:52 AM Referred By: REFERRED SELF Confirmed By: Warren Le
[2024-06-08 07:49] VITALS: O2SAT 92
[2024-06-08] MEDS: METOPROLOL SUCC 25MG EXT REL TAB PO SCH (08:31)
[2024-06-08] MEDS: ASPIRIN 81 MG ECTAB PO SCH (08:32)
[2024-06-08] MEDS: CLOPIDOGREL BISULFATE 75 MG TAB PO SCH (08:32)
--- NOTE | 2024-06-08 09:58 | Cardiology Progress Note ---
Date of Service June 08, 2024 Assessment & Plan (1) NSTEMI (non-ST elevated myocardial infarction): Plan: * Culprit stenosis in the sequential saphenous vein graft that touches down to the diagonal and OM (left posterolateral branch). Stenosis is felt to be roel hnically complex, and PCI does not come with out significant risks. Patient/family however favor attempted intervention if feasible. EKG improved, anginal symptoms resolved, trended up to 23,000 as of 8 PM on 06/07/2024. Patient has been accepted for transfer to [facility] for complex PCI pending bed availability. Will keep n.p.o. until determination made as to whether or not the procedure might take place today. Continue aspirin 81 mg daily (chronic medication), clopidogrel 75 mg daily (received 300 mg loading dose on 06/07/2024), metoprolol succinate 12.5 mg daily, topical nitroglycerin ointment 0.5 inches every 6 hours, unfractionated heparin infusion. (2) Dyslipidemia: Plan: * LDL cholesterol as obtained 06/08/2024 was 113 mg/dL * History of past statin intolerance to atorvastatin rosuvastatin * Patient agreeable to trial of rosuvastatin 10 mg daily which she has taken this morning * Future considerations include PCSK9 inhibitor therapy as an outpatient. (3) NSVT (nonsustained ventricular tachycardia): Plan: * Brief asymptomatic runs of NSVT noted during sleep. Continue treatment for SC as noted above, low-dose metoprolol. 12.5 mg administered this morning with noted bradycardia in the 50s yesterday limiting titration. * Admission and Anticipated Discharge Date Admission Date: June 07, 2024 Subjective Mr Singletary is seen in cardiology follow up of his chief complaint of chest pain. He is accompanied by his daughter, Janay, at the bedside. His son, Avery, was on speaker phone. Patient rested well overnight. Denies additional angina or heart burn symptoms. Review of Systems Review of Systems: All systems reviewed & are unremarkable except as noted in HPI & below Physical Exam Physical Exam: Temp Pulse Resp BP Pulse Ox O2 Del Method O2 Flow Rate 36.5 C 66 17 114/68 92 Room Air 3 06/08/24 07:47 06/08/24 07:47 06/08/24 07:47 06/08/24 07:47 06/08/24 07:47 06/08/24 07:47 06/07/24 09:08 General: no acute distress and stated age Eyes: conjunctiva are pink and non-injected, sclera clear Neck: normal jugular venous pulse, no hepatojugular reflux Chest: normal shape and normal respiratory effort Lungs: clear to auscultation and percussion Cardiac Exam: - regular heart sounds, no murmurs, rubs, or gallops, no jugular venous distention Abdomen: abdomen soft, non-tender, no abnormal masses and no hepatosplenomegaly Musculoskeletal: no gait disturbance, no weakness Extremities: no edema and no cyanosis -right femoral artery access site is jay an , dry and intact, soft, no hematoma, no ecchymosis Neuro:awake, conversant, follows commands, no focal motor deficits Psych: appropriate affect and insight. Results & Data Vital Signs (Past 12 Hours) Vital Signs Temp Pulse Pulse Pulse Resp BP BP 06/08/24 07:47 36.5 C 66 17 114/68 06/08/24 07:22 69 06/08/24 03:10 36.9 C 68 16 134/69 06/07/24 22:49 36.9 C 69 18 159/67 H Pulse Ox O2 Del Method 06/08/24 07:47 92 Room Air 06/08/24 07:22 06/08/24 03:10 91 Room Air 06/07/24 22:49 92 Room Air Laboratory Results Cardiac Enzymes 06/07/24 06/07/24 Range/Units 14:13 20:14 Troponin I High Sens 4780.1 H* D 74447.3 H* D (0-20) pg/ml Lipids 06/08/24 Range/Units 02:49 Triglycerides 65 (0-150) mg/dl Cholesterol 175 (0-200) mg/dl HDL Cholesterol 49 mg/dl Cholesterol/HDL Ratio 3.6 (0-5) CBC 06/08/24 Range/Units 02:49 WBC 7.27 (4.8-10.8) K/ul RBC 4.04 L (4.70-6.10) M/uL Hgb 13.2 L (14.0-18.0) g/dl Hct 38.4 L (42.0-52.0) % Plt Count 172 (130-400) K/uL Comprehensive Metabolic Panel 03/11/25 Range/Units 02:49 Sodium 136 (136-145) mmol/L Potassium 4.1 (3.5-5.1) mmol/L Chloride 106 (98-107) mmol/L Carbon Dioxide 30 (21-32) mmol/L BUN 14 (6-23) mg/dl Creatinine 1.01 (0.6-1.4) mg/dl Glucose 125 H (70-99(Fasting)) mg/dl Calcium 8.7 (8.6-10.3) mg/dl Diagnostic Findings EKG performed today 06/08/2024 at 5:07 AM and interpret independently: Sinus rhythm at 69 bpm, compared to the previous tracing performed 06/07/2024, the previously noted inferolateral ST segment depression has improved. Telemetry reveals predominantly sinus rhythm in the 60s. There were 3 episodes of nonsustained ventricular tachycardia, of 3 beats in duration apiece noted at 1:47 AM, 6:19 AM and 6:32 AM Echocardiogram performed 06/07/2024 revealed a small sized lateral wall motion abnormality with hypokinesis of the mid and basal segments of the lateral wall, LVEF normal 55-60%, right ventricular chamber size and systolic function normal, mild left atrial enlargement, mild aortic valve sclerosis without stenosis, mild mitral regurgitation, mild tricuspid regurgitation, the pulmonary artery systolic pressure was estimated be 41 mmHg (mildly elevated) grade II diastolic dysfunction
[2024-06-08 10:58] VITALS: BP 127/74; PULSE 62; RESP 18; TEMP 98.2
--- NOTE | 2024-06-08 11:41 | Cardiac Catheterization ---
[facility] Data: Warp Tying Machine Knotter Cardiac Status Clinical evaluation leading to the procedure CAD Presenation: Non STEMI Anginal Classification: CCS IV Heart Failure: No Cardiogenic Shock within 24 Hours: No Cardiac Arrest within 24 Hours: No Imaging Studies Past 6 Months: No Stress Studies Past 6 Months: No Coronary Anatomy Dominant: Left Left Main (% Stenosis): Normal LAD (% Stenosis): Proximal (100 percent) Circumflex (% Stenosis): Proximal (30 to 40% calcified) and Mid (30%) OM1 (% Stenosis): Normal L PL1 (% Stenosis): Normal RCA (% Stenosis): Proximal (100%) Grafts - LAD (%): Normal Grafts - Circumflex (%): Normal Diagnostic Physicians Name: Adryan Don MD, PhD Closure Device Percutaneous Entry Location: Femoral Closure Device: Angio-Seal Recommendations: Medical Therapy and/or Counseling Cardiac Cath Procedure Full Procedure Date June 08, 2024 Pre-Procedure Diagnosis Pre-Procedure Diagnosis: Non STEMI AUC Score AUC Score: 07 Post-Procedure Diagnosis Post-Procedure Diagnosis: Severe CAD Procedure(s) Performed Procedure(s) Performed: Coronary Angiography, Ultrasound Guided Vascular Access and Bypass Graft Angiography Subacute Nurse Adryan Don MD, PhD Estimated Blood Loss Estimated Blood Loss: 10 cc Medication(s) Medication(s): Fentanyl, Lidocaine 1%, Nicardipine, Nitroglycerin and Versed Summary of Findings Brief description: Patient was brought to the cardiac catheterization suite where he was shaved and prepped in a sterile fashion. Sedated using IV Versed and fentanyl. Soft tissues of the right groin were anesthetized using 10 mL of 1% Xylocaine. Using the ultrasound for guidance (image saved), here right femoral artery was accessed with a 4 [place] micropuncture kit. This was then upsized over the a 0.035 J-tip wire for a 5 [place] femoral artery sheath. All catheters were advanced and exchanged over a 0.035 J-tip wire. Left coronary angiography in orthogonal views with a 5 [place] JL 4 diagnostic catheter. Right coronary angiography in orthogonal views with a 5 [place] JR4 diagnostic catheter. Bypass graft angiography (BUENO, SVG) or also performed using the 5 [place] JR4 diagnostic catheter. All diagnostic catheters were removed. Limited right femoral artery angiography was performed to evaluate for closure. Findings were favorable, therefore, the femoral artery sheath was exchanged for a 6 [place] Angio-Seal closure device. This was deployed in the recommended fashion. Patient remained hemodynamically stable and asymptomatic. He was returned to the recovery area. This ended the case. Coronary and bypass graft angiography: [id number] vessel bifurcating into LAD and circumflex. Mild luminal irregularities. [id number]. Proximal calcification in the vessel is 100% occluded just after the large septal trunk. [id number]. Proximal calcification with 30 to 40% stenosis. Gives a small caliber OM1. The mid AV groove circumflex is also calcified with up to 30% stenosis. The vessel then gives a large branching posterolateral which has no significant disease. The distal AV groove vessel becomes smaller and then terminates. RCA-medium caliber and 100% occluded proximally. BUENO to LAD-large caliber and widely patent. Distal anastomosis on the mid to distal nenana LAD. There is retrograde flow up to the mid LAD which is then 100 % occluded. There is antegrade flow down the distal vessel and there is a 95% stenosis as the vessel approaches the apex. No targets for PCI. SVG to diagonal jump to L PLB- the vein graft is widely patent. Ostial ([id number]-jj-ygjc anastomosis) diagonal stenosis of 99%. Diagonal is severely diseased, atretic, and not a good target for PCI. SVG (end to side anastomosis) at proximal L-PLB. There is retrograde filling to the distal circumflex and then this goes to a small but long PDA. There is 95% stenosis in the proximal L PLB prior to the anastomosis. The distal circumflex also has 95% stenosis. Antegrade flow down the large L-PLB without significant stenosis. Summary: 1. Severe nenana multivessel coronary artery disease as described. 2. Prior circumflex stent appears patent. 3. BUENO to LAD graft is widely patent. SVG to diagonal is severely diseased from the anastomosis on the diagonal throughout the nenana diagonal. Not a ppropriate target for PCI. SVG jump to the L PLB is also widely patent. [place] vessel antegrade flow is unimpeded. Retrograde flow through severe early proximal PLB disease and then down the distal circumflex and small caliber PDA also with severe disease. 4. There are no appropriate targets for PCI. 5. Recommend guideline directed medical therapy for secondary prevention of coronary disease and up titration of the antianginal regimen. Hemodynamics Rest Ao:: 116/67 mmHg Final Ao: 104/52 mmHg LV: Not performed Recommendations Recommendations: Medical Therapy and/or Counseling Radiation Exposure (mGy) 198 mGy, 4.7 minutes fluoroscopy time. Contrast (mls) 100 cc Anesthesia 2 mg Versed, 50 mcg fentanyl IV. Start time 1224, end time 1242 Procedural Complication(s) None Disposition Warp Tying Machine Knotter Holding/Recovery I attest to the content of the Intraoperative Record and any orders documented therein. Any exceptions are noted below. [facility] Card Cath Procedure Codes Cardiac Catheterization Procedure 1: Cardiovascular Cath Procedures: 25929 Coronaries and Grafts/IM (venous & atrial) Therapeutic Services & Ancillary Procedure 1: Cardiovascular Tx and Anc Procedures: 02823 Ultrasonic Guidance Vascular Access PG Care Time/CCT Total # of Minutes Spent Total Time Spent with Patient: Total time spent is greater than 50% in coordination of care (as documented) at patient's floor/unit and/or counseling patient:
--- NOTE | 2024-06-09 06:05 | Electrocardiogram Report ---
Test Reason : Blood Pressure : */* mmHG Vent. Rate : 69 BPM Atrial Rate : 69 BPM P-R Int : 172 ms QRS Dur : 76 ms QT Int : 388 ms P-R-T Axes : 39 -20 -1 degrees QTcB Int : 415 ms Normal sinus rhythm with sinus arrhythmia Nonspecific ST abnormality Abnormal ECG When compared with ECG of 07-Jun-2024 08:09, T wave inversion less evident in Inferior leads Confirmed by Warren Le ([id number]) on 06/09/2024 6:05:06 AM Referred By: REFERRED SELF Confirmed By: Warren Le
--- NOTE | 2024-06-09 06:05 | Electrocardiogram Report ---
Test Reason : Blood Pressure : */* mmHG Vent. Rate : 69 BPM Atrial Rate : 69 BPM P-R Int : 168 ms QRS Dur : 84 ms QT Int : 384 ms P-R-T Axes : 60 -1 59 degrees QTcB Int : 411 ms Normal sinus rhythm Possible Left atrial enlargement Nonspecific ST and T wave abnormality Abnormal ECG When compared with ECG of 07-Jun-2024 11:19, Nonspecific T wave abnormality no longer evident in Inferior leads Nonspecific T wave abnormality now evident in Lateral leads Confirmed by Warren Le ([id number]) on 06/09/2024 6:05:47 AM Referred By: REFERRED SELF Confirmed By: Warren Le
== END 2024-06-08 15:39 | disposition short-term general hospital (02) | DRG 281 ==
LOC: ED 05:56 → EDINP 07:42 → 2S 13:30
PROC: CLB.CCG (2024-06-07 11:00)